=== PATIENT | male | born 1950 | race Caucasian/White ===

== ENCOUNTER 2016-07-08 18:54 | Emergency (ER) | payer BC, OTHER ==
[2016-07-08 19:04] VITALS: TEMP 98
[2016-07-08] MEDS ORDERED: DIAZEPAM 5 MG TAB PO STA (19:28)
[2016-07-08] MEDS ORDERED: HYDROcodone/APAP 5-325MG 1 EACH TAB PO STA (19:28)
--- NOTE | 2016-07-08 19:37 | ED ---
General Adult HPI - General Chief complaint: Back Pain/Injury Stated complaint: Fall-Back Injury Time Seen by Provider: 07/08/16 19:07 Source: patient, family, RN notes reviewed Mode of arrival: wheelchair Limitations: no limitations - History of Present Illness Initial comments: 65-year-old male presenting for right lower back pain. Patient states that he tripped while he was getting out of his van and fell hitting the side step on side of his vehicle. He was able to ambulate afterwards. However since this time he said significant pain in the right lower back. Denies any radiation the pain in the legs. He denies any saddle paresthesias or urinary incontinence. He denies any head or neck injury or loss of consciousness. He is not on any blood thinners. - Related Data Home Medications Medication Instructions Recorded Confirmed Atenolol 100 mg PO BID 12/02/14 07/08/16 Benazepril HCl 40 mg PO DAILY 12/02/14 07/08/16 Aspirin 325 mg PO HS 07/08/16 07/08/16 Hydrochlorothiazide 25 mg PO DAILY 07/08/16 07/08/16 Previous Rx's Medication Instructions Recorded Diazepam [Valium] 5 mg PO BID PRN #8 tab 07/08/16 HYDROcodone/APAP 5-325MG [Alloy 1 tab PO Q6HR PRN #12 tab 07/08/16 5-325] Ibuprofen [Motrin] 800 mg PO Q8HR PRN #21 tab 07/08/16 Allergies Allergy/AdvReac Type Severity Reaction Status Date / Time No Known Allergies Allergy Verified 07/08/16 19:19 Review of Systems ROS Statement: Those systems with pertinent positive or pertinent negative responses have been documented in the HPI. ROS Other: All systems not noted in ROS Statement are negative. Past Medical History Past Medical History: Cancer, Hypertension Additional Past Medical History / Comment(s): HX SKIN CA, CURRENT LESION ON LEFT CHEEK History of Any Multi-Drug Resistant Organisms: None Reported Past Surgical History: Back Surgery, Heart Catheterization, Joint Replacement, Orthopedic Surgery Additional Past Surgical History / Comment(s): PREVIOUS SKIN CA LESIONS REMOVED , HIP REPLACEMENT, ANKLE ORIF WITH METAL Past Anesthesia/Blood Transfusion Reactions: No Reported Reaction Past Psychological History: No Psychological Hx Reported Smoking Status: Never smoker Past Alcohol Use History: Daily Past Drug Use History: None Reported - Past Family History Mother Family Medical History: Cancer, Deep Vein Thrombosis (DVT) Additional Family Medical History / Comment(s): BREAST CA General Exam - General Exam Comments Initial Comments: General: Awake and Alert. No acute distress. Does not appear acutely ill. Eyes: TOVA, EOM intact. No nystagmus. No scleral icterus. HENT: Atraumatic, normocephalic. Mucous membranes moist. Trachea midline. Neck: The neck is supple, there is no tenderness or JVD. Cardiovascular: Regular rate and rhythm. No murmur, rub, or gallop is appreciated. Distal pulses intact. Respiratory: Lungs are clear to auscultation bilaterally. No wheezes, rales, rhonchi. No respiratory distress. Gastrointestinal: Soft, Nontender. No rebound or guarding. Non-distended. No masses or organomegaly noted. Right flank tenderness. Musculoskeletal: Right lower back tenderness with spasm otherwise MSK exam with normal ROM. No gross deformity. No strength deficits. Neurological: A&Ox3. CN II-XII grossly intact, There are no obvious motor or sensory deficits. Coordination appears grossly intact. Speech is normal. Gait intact. No saddle paresthesias. Skin: Skin is warm and dry and no rashes or lesions are noted. Psychiatric: Cooperative, appropriate mood & affect, normal judgment. Limitations: no limitations Course Vital Signs 07/08/16 07/08/16 19:00 20:15 Temperature 98.0 F Pulse Rate 51 L 74 Respiratory 18 16 Rate Blood Pressure 184/86 158/77 O2 Sat by Pulse 99 97 Oximetry Medical Decision Making - Medical Decision Making 65-year-old male presenting for right lower back injury. Patient with muscle spasm associated with this. There is no significant force directly in the spine requiring imaging at this time. However, UA performed to rule out hematuria for possible kidney injury. This is negative. Patient was given pain medicine and muscle relaxer with improvement of his symptoms. Discussed no heavy lifting. Discussed heat, NSAIDs, stretching. Discussed close follow- up with his PCP. Discussed concerning signs and symptoms for immediate return to ED. Patient and are agreeable with plan of discharge home. Patient was able to ambulate without issue. - Lab Data Lab Results 07/08/16 Range/Units 19:41 Urine Color Yellow Urine Appearance Clear (Clear) Urine pH 5.5 (5.0-8.0) Ur Specific [place] 1.008 (1.001-1.035) Urine Protein Negative (Negative) Urine Glucose (UA) Negative (Negative) Urine Ketones Negative (Negative) Urine Blood Negative (Negative) Urine Nitrate Negative (Negative) Urine Bilirubin Negative (Negative) Urine Urobilinogen <2.0 (<2.0) mg/dL Ur Leukocyte Esterase Negative (Negative) Disposition Clinical Impression: Right low back pain, Fall Disposition: HOME SELF-CARE Condition: Stable Instructions: Acute Low Back Pain (ED) Prescriptions: Diazepam [Valium] 5 mg PO BID PRN #8 tab PRN Reason: back spasm HYDROcodone/APAP 5-325MG [Alloy 5-325] 1 tab PO Q6HR PRN #12 tab PRN Reason: Pain Ibuprofen [Motrin] 800 mg PO Q8HR PRN #21 tab PRN Reason: Pain Referrals: Phil Winslow DO [Primary Care Provider] - 1-2 days Time of Disposition: 20:06
[2016-07-08 20:03] LABS: Appearance,Urine Clear (Clear); Bilirubin,Urine Negative (Negative); Glucose,Urine (UA) Negative (Negative); Ketones,Urine Negative (Negative); Leukocyte Esterase,Urine Negative (Negative); Nitrite,Urine Negative (Negative); PH, Urine 5.5 (5.0-8.0); Protein,Urine Negative (Negative); Specific Gravity,Urine 1.008 (1.001-1.035); UA Billing (MACRO vs. MICRO) CHEM; Urobilinogen,Urine <2.0 mg/dL (<2.0)
[2016-07-08 20:16] VITALS: BP 158/77; PULSE 74; RESP 16
== END 2016-07-08 20:16 | disposition home or self-care (01) ==
LOC: EC 18:54
DX: M54.5 Low back pain (principal); W01.0XXA Fall on same level from slipping, tripping and stumbling without subsequent striking against object, initial encounter; Z79.82 Long term (current) use of aspirin; Z79.899 Other long term (current) drug therapy; Z98.61 Coronary angioplasty status; Z85.828 Personal history of other malignant neoplasm of skin
CPT/HCPCS: 81003; 99283

== ENCOUNTER → 2016-12-06 | Outpatient (CLI) | payer MEDICARE, OTHER ==
--- NOTE | 2016-12-06 16:30 | XR ---
EXAMINATION TYPE: XR chest 2V DATE OF EXAM: 12/06/2016 COMPARISON: NONE HISTORY: Pneumonia, acute bronchitis, J 20.8 TECHNIQUE: Frontal and lateral views of the chest are obtained. FINDINGS: Patient is rotated. Airspace disease is present in the right lower lobe. Prominent lung vo lumes may be indicative of COPD. No pneumothorax or pleural effusion. Heart size accentuated by rotat ion. There may be a spinal curvature. IMPRESSION: Findings compatible with right lower lobe pneumonia, follow-up to resolution.
== END | disposition home or self-care (01) ==
LOC: RADXRMAIN 14:31
PROVIDERS: ATTEND Family Medicine
DX: J20.8 Acute bronchitis due to other specified organisms (principal)
CPT/HCPCS: 71020

== ENCOUNTER → 2017-06-14 | Outpatient (CLI) | payer MEDICARE ==
--- NOTE | 2017-06-14 10:57 | XR ---
EXAMINATION TYPE: XR chest 2V DATE OF EXAM: 06/14/2017 COMPARISON: 06/13/2017 TECHNIQUE: PA and lateral views submitted with nipple markers. HISTORY: Cough FINDINGS: The lungs are clear and there is no pneumothorax, pleural effusion, or focal pneumonia. Hypertrophi c and degenerative change of the spine noted. Linear change right upper lobe scar or atelectasis. Nodularity noted in the previous exam corresponds to nipple marker\shadow. Hypertrophic degenerative change of the spine with compression deformities appearing to be stable. IMPRESSION: 1. No acute process. 2. Nodularity at the right lung base corresponds to the nipple marker.
== END | disposition home or self-care (01) ==
LOC: RADXRMAIN 10:30
PROVIDERS: ATTEND Family Medicine
DX: R91.8 Other nonspecific abnormal finding of lung field (principal)
CPT/HCPCS: 71020

== ENCOUNTER → 2017-09-13 | Outpatient (CLI) | payer MEDICARE | END | disposition home or self-care (01) | LOC: LABWHC1 10:49 | PROVIDERS: ATTEND Otolaryngology | DX: R94.31 Abnormal electrocardiogram [ECG] [EKG] (principal); R00.1 Bradycardia, unspecified; I10 Essential (primary) hypertension | CPT/HCPCS: 36415; 93005 ==

== ENCOUNTER → 2019-01-26 | Outpatient (CLI) | payer MEDICARE ==
--- NOTE | 2019-01-26 12:22 | XR ---
EXAMINATION TYPE: XR chest 2V DATE OF EXAM: 01/26/2019 COMPARISON: 06/14/2017 TECHNIQUE: PA and lateral views submitted. HISTORY: Annual physical FINDINGS: The lungs are clear and there is no pneumothorax, pleural effusion, or focal pneumonia. There is re duced inspiration. No overt failure. Biapical pleural thickening. Arthropathy of the shoulders. Hyper trophic change of the spine. Chronic appearing wedge deformity of the thoracolumbar junction stable. IMPRESSION: 1. No acute process.
== END ==
LOC: RADXRMAIN 11:56
PROVIDERS: ATTEND Family Medicine
DX: I10 Essential (primary) hypertension (principal)
CPT/HCPCS: 71046

== ENCOUNTER → 2019-02-14 | Outpatient (CLI) | payer MEDICARE ==
--- NOTE | 2019-02-15 08:25 | CT ---
EXAMINATION TYPE: CT soft tissue neck w con DATE OF EXAM: 02/14/2019 HISTORY: LT side neck mass. Pt says its grown and now is painful and causing him issues. Marked w/BB. COMPARISON: NONE CT DLP: 671.30 mGycm. Automated Exposure Control for Dose Reduction was Utilized. TECHNIQUE: CT scan of the neck is performed with IV Contrast, patient injected with 100 mL of Isovue 300, axial images are obtained, coronal and sagittal reformatted images are reviewed. FINDINGS: Airway: There is spiculated right upper lobe mass measuring 3.8 x 2.2 cm anteriorly axial image 19. T here is second spiculated right upper lobe nodule measuring 2.1 x 1.8 cm axial image 25. Parotid/submandibular glands: No gross abnormality seen. Carotid/Vascular Structures: Mild calcified plaque bilateral carotid bulbs without significant stenos is. Incidental dominant left vertebral artery. Osseous Structures: [id number] multilevel spurring. There is mild to moderate anterior compress ion deformity T6 level sagittal image 48 favor chronic. Other: Corresponding to palpable abnormality axial image 58 there is cystic lesion left neck posterio r cervical triangle adjacent to the C4 vertebra posterior to SCM measuring 4.8 x 4.2 cm AP diameter b y 3.7 cm craniocaudal diameter and sagittal image 66. The lesion has some rim and septal enhancement with slight loculation. Lesion is posterior lateral to the carotid bifurcation. There are prominent b ut subcentimeter bilateral neck lymph nodes seen superior to this. There is however suspicious left n delia low dense lesion inferior lateral to this measuring 1.8 x 1.6 cm a level of vocal cord just anter ior to the scapula, Hounsfield units average 25. IMPRESSION: 1. There are 2 suspicious right upper lung nodules and/or masses worrisome for metastatic malignancy. Advise follow-up contrast enhanced chest CT to evaluate for possible additional nodules and/or thora cic adenopathy. 2. Confirmation of mass level of palpable abnormality left neck posterior cervical triangle. Differen tial includes lymphangioma and infected brachial cleft cyst however neoplasm needs to be considered. Necrotic lymph node and neurogenic tumor are in the differential. Follow-up advised. Metastatic disea se suspected. Consider PET CT follow-up. Consider sampling of left supraclavicular lesion for tissue analysis.
== END | disposition home or self-care (01) ==
LOC: RADCTMAIN 15:57
PROVIDERS: ATTEND Otolaryngology
DX: R22.1 Localized swelling, mass and lump, neck (principal)
CPT/HCPCS: 82565; 84520; 70491; 36415; Q9967

== ENCOUNTER → 2019-02-23 | Outpatient (CLI) | payer MEDICARE ==
--- NOTE | 2019-02-23 11:28 | CT ---
EXAMINATION TYPE: CT chest w con DATE OF EXAM: 02/23/2019 COMPARISON: CT neck 02/14/2019 HISTORY: Lung Mass CT DLP: 423.3 mGycm, Automated exposure control for dose reduction was used. CONTRAST: Performed injected with 100 mL of Isovue 300. TECHNIQUE: Axial images were obtained at 5 mm thick sections. Reconstructed images are reviewed on [employer] computer in the coronal plane. FINDINGS: Portion of the thyroid visualized is normal. There is a 4.1 x 2.9 cm spiculated density within the anterior right upper lobe. Series 4 image 15. L obular nodule spiculated margins measuring 2.3 x 2.0 cm cyst in the right peripheral upper lobe. Seri es 4 image 13. There are some streak opacities which connect these 2 areas. Coronary artery calcifica tion is present. No suspicious enlarged mediastinal or hilar lymphadenopathy is evident. No enlarged mediastinal or hilar adenopathy is evident. The ascending aorta diameter at the level o f the main pulmonary artery is 3.7 cm. The main pulmonary artery diameter at the bifurcation is 2.[address] sections are obtained through the upper abdomen. Abdomen is essentially unremarkable. IMPRESSIONS: 1. 2 suspicious spiculated masses within the right upper lobe. Additional workup for neoplasm is ruth mmended.
== END | disposition home or self-care (01) ==
LOC: RADCTMAIN 07:01
PROVIDERS: ATTEND Otolaryngology
DX: R91.8 Other nonspecific abnormal finding of lung field (principal)
CPT/HCPCS: 71260; Q9967

== ENCOUNTER 2019-03-07 22:06 | Emergency (ER) | payer MEDICARE ==
[2019-03-07 22:19] VITALS: RESP 18
[2019-03-07] MEDS ORDERED: IPRATROPIUM 0.5 MG/2.5 ML NEBU INHALATION STA (22:28)
--- NOTE | 2019-03-07 22:45 | ED ---
SOB HPI - General Chief Complaint: Shortness of Breath Stated Complaint: Diff Breathing Time Seen by Provider: 03/07/19 22:07 Source: EMS Mode of arrival: EMS - History of Present Illness Initial Comments: This patient is a 68-year-old man who presents to be evaluated for which he is terming a coughing jag. Patient states that approximately 2 hours before arrival, while at the bar, he developed "coughing jag," which triggered an episode of vomiting and he also felt like he was not able to catch his breath. When it continued he spoke with his and they decided to come here for evaluation. 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 The patient denies fever or chills. He does have sporadic cough but states not really productive. No chest pain area no real dyspnea other than during the coughing episode. No leg pain or swelling. No change in bowel movements or urination. MD Complaint: shortness of breath, cough Onset/Timin -: hour(s) Severity scale (1-10): 0 Improves With: oxygen Worsens With: nothing Associated Symptoms: denies other symptoms Treatments Prior to Arrival: none - Related Data Home Medications Medication Instructions Recorded Confirmed Benazepril HCl 40 mg PO DAILY 12/02/14 03/07/19 Aspirin 325 mg PO HS 07/08/16 03/07/19 Hydrochlorothiazide 25 mg PO DAILY 07/08/16 03/07/19 Atenolol [Tenormin] 100 mg PO BID 03/07/19 03/07/19 Previous Rx's Medication Instructions Recorded Albuterol Inhaler [Ventolin Hfa 1 - 2 puff INHALATION Q6HR PRN #1 03/08/19 Inhaler] inhaler predniSONE 40 mg PO DAILY #30 tab 03/08/19 Allergies Allergy/AdvReac Type Severity Reaction Status Date / Time No Known Allergies Allergy Verified 03/07/19 22:23 Review of Systems ROS Statement: Those systems with pertinent positive or pertinent negative responses have been documented in the HPI. ROS Other: All systems not noted in ROS Statement are negative. Constitutional: Denies: fever, chills ENT: Denies: throat pain Respiratory: Reports: as per HPI, cough, dyspnea. Denies: wheezes, hemoptysis Cardiovascular: Denies: chest pain, palpitations, dyspnea on exertion, orthopnea, edema, syncope Gastrointestinal: Reports: as per HPI, vomiting. Denies: abdominal pain, nausea, melena, hematochezia Genitourinary: Denies: dysuria, hematuria Musculoskeletal: Denies: back pain Skin: Denies: rash Neurological: Denies: headache, weakness, numbness Past Medical History Past Medical History: Cancer, Hypertension Additional Past Medical History / Comment(s): HX SKIN CA, CURRENT LESION ON LEFT CHEEK History of Any Multi-Drug Resistant Organisms: None Reported Past Surgical History: Back Surgery, Heart Catheterization, Joint Replacement, Orthopedic Surgery Additional Past Surgical History / Comment(s): PREVIOUS SKIN CA LESIONS REMOVED, HIP REPLACEMENT, ANKLE ORIF WITH METAL Past Anesthesia/Blood Transfusion Reactions: No Reported Reaction Past Psychological History: No Psychological Hx Reported Smoking Status: Never smoker Past Alcohol Use History: Daily Past Drug Use History: None Reported - Past Family History Mother Family Medical History: Cancer, Deep Vein Thrombosis (DVT) Additional Family Medical History / Comment(s): BREAST CA General Exam General appearance: alert, in no apparent distress Head exam: Present: atraumatic, normocephalic Eye exam: Present: normal appearance. Absent: scleral icterus, conjunctival injection ENT exam: Present: normal oropharynx Neck exam: Present: other (The patient has an approximately 6 cm x 3 cm palpable mass at the base of the neck on the left side. There is some erythema and sca ling overlying. There is no real tenderness.) Respiratory exam: Present: wheezes. Absent: respiratory distress, rales, rhonchi, stridor, accessory muscle use, decreased breath sounds, prolonged expiratory Cardiovascular Exam: Present: regular rate, normal rhythm, normal heart sounds. Absent: systolic murmur, diastolic murmur, rubs, gallop GI/Abdominal exam: Present: soft. Absent: distended, tenderness, guarding, rebound, rigid, mass Extremities exam: Present: normal inspection, normal capillary refill. Absent: pedal edema, calf tenderness Back exam: Present: normal inspection. Absent: CVA tenderness (R), CVA tenderness (L) Neurological exam: Present: alert Skin exam: Present: warm, dry, intact, normal color. Absent: rash Course Vital Signs 03/07/19 03/07/19 03/07/19 22:09 22:45 23:13 Temperature 98.3 F Pulse Rate 82 88 Respiratory 18 20 18 Rate Blood Pressure 169/110 O2 Sat by Pulse 98 Oximetry 03/07/19 23:19 Temperature Pulse Rate 90 Respiratory 18 Rate Blood Pressure O2 Sat by Pulse Oximetry Medical Decision Making - Lab Data Result diagrams: 03/07/19 22:50 03/07/19 22:50 Lab Results 03/07/19 03/07/19 03/07/19 Range/Units 22:50 22:50 22:50 WBC 8.8 (3.8-10.6) k/uL RBC 4.66 (4.30-5.90) m/uL Hgb 10.2 L (13.0-17.5) gm/dL Hct 33.4 L (39.0-53.0) % MCV 71.6 L (80.0-100.0) fL MCH 21.9 L (25.0-35.0) pg MCHC 30.5 L (31.0-37.0) g/dL RDW 17.1 H (11.5-15.5) % Plt Count 326 (150-450) k/uL Neutrophils % 74 % Lymphocytes % 16 % Monocytes % 6 % Eosinophils % 1 % Basophils % 1 % Neutrophils # 6.5 (1.3-7.7) k/uL Lymphocytes # 1.4 (1.0-4.8) k/uL Monocytes # 0.5 (0-1.0) k/uL Eosinophils # 0.1 (0-0.7) k/uL Basophils # 0.1 (0-0.2) k/uL Hypochromasia Moderate Anisocytosis Slight Microcytosis Moderate PT (9.0-12.0) sec INR (<1.2) APTT (22.0-30.0) sec Sodium 129 L (137-145) mmol/L Potassium 3.7 (3.5-5.1) mmol/L Chloride 91 L (98-107) mmol/L Carbon Dioxide 21 L (22-30) mmol/L Anion Gap 17 mmol/L BUN 10 (9-20) mg/dL Creatinine 0.83 (0.66-1.25) mg/dL Est GFR (CKD-EPI)AfAm >90 (>60 ml/min/1.73 sqM) Est GFR (CKD-EPI)NonAf >90 (>60 ml/min/1.73 sqM) Glucose 95 (74-99) mg/dL Calcium 8.6 (8.4-10.2) mg/dL Total Bilirubin 0.6 (0.2-1.3) mg/dL AST 41 (17-59) U/L ALT 26 (21-72) U/L Alkaline Phosphatase 49 (38-126) U/L Troponin I (0.000-0.034) ng/mL NT-Pro-B Natriuret Pep 110 pg/mL Total Protein 7.8 (6.3-8.2) g/dL Albumin 4.2 (3.5-5.0) g/dL 03/07/19 03/07/19 Range/Units 22:50 22:50 WBC (3.8-10.6) k/uL RBC (4.30-5.90) m/uL Hgb (13.0-17.5) gm/dL Hct (39.0-53.0) % MCV (80.0-100.0) fL MCH (25.0-35.0) pg MCHC (31.0-37.0) g/dL RDW (11.5-15.5) % Plt Count (150-450) k/uL Neutrophils % % Lymphocytes % % Monocytes % % Eosinophils % % Basophils % % Neutrophils # (1.3-7.7) k/uL Lymphocytes # (1.0-4.8) k/uL Monocytes # (0-1.0) k/uL Eosinophils # (0-0.7) k/uL Basophils # (0-0.2) k/uL Hypochromasia Anisocytosis Microcytosis PT 10.2 (9.0-12.0) sec INR 0.9 (<1.2) APTT 21.4 L (22.0-30.0) sec Sodium (137-145) mmol/L Potassium (3.5-5.1) mmol/L Chloride (98-107) mmol/L Carbon Dioxide (22-30) mmol/L Anion Gap mmol/L BUN (9-20) mg/dL Creatinine (0.66-1.25) mg/dL Est GFR (CKD-EPI)AfAm (>60 ml/min/1.73 sqM) Est GFR (CKD-EPI)NonAf (>60 ml/min/1.73 sqM) Glucose (74-99) mg/dL Calcium (8.4-10.2) mg/dL Total Bilirubin (0.2-1.3) mg/dL AST (17-59) U/L ALT (21-72) U/L Alkaline Phosphatase (38-126) U/L Troponin I <0.012 (0.000-0.034) ng/mL NT-Pro-B Natriuret Pep pg/mL Total Protein (6.3-8.2) g/dL Albumin (3.5-5.0) g/dL - EKG Data EKG shows normal: sinus rhythm, axis (Normal), intervals (Normal), ST-T waves (Normal) Rate: normal (Rate 85 bpm) Interpretation: other (Q waves in lead 3 for possible old inferior infarct.) Disposition Clinical Impression: Bronchitis, Lung mass, Hyponatremia Disposition: HOME SELF-CARE Condition: Good Instructions (If sedation given, give patient instructions): Bronchospasm (ED), Hyponatremia (ED) Prescriptions: predniSONE 40 mg PO DAILY #30 tab Albuterol Inhaler [Ventolin Hfa Inhaler] 1 - 2 puff INHALATION Q6HR PRN #1 inhaler PRN Reason: Wheezing Is patient prescribed a controlled substance at d/c from ED?: No Referrals: Phil Winslow DO [Primary Care Provider] - 1-2 days
[2019-03-07 23:08] LABS: Anisocytosis Slight; Basophils # (A) 0.1 k/uL (0-0.2); Basophils % (A) 1 %; Eosinophils # (A) 0.1 k/uL (0-0.7); Eosinophils % (A) 1 %; HCT 33.4 % (39.0-53.0); HGB 10.2 gm/dL (13.0-17.5); Hypochromasia Moderate; Lymphocytes # (A) 1.4 k/uL (1.0-4.8); Lymphocytes % (A) 16 %; MCH 21.9 pg (25.0-35.0); MCHC 30.5 g/dL (31.0-37.0); MCV 71.6 fL (80.0-100.0); Mean Platelet Volume 6.5; Microcytosis Moderate; Monocytes # (A) 0.5 k/uL (0-1.0); Monocytes % (A) 6 %; Neutrophils # (A) 6.5 k/uL (1.3-7.7); Neutrophils % (A) 74 %; Platelet Count 326 k/uL (150-450); RBC 4.66 m/uL (4.30-5.90); RDW 17.1 % (11.5-15.5); WBC 8.8 k/uL (3.8-10.6)
[2019-03-07 23:16] LABS: ALT 26 U/L (21-72); AST 41 U/L (17-59); African American GFR (CKD) >90 (>60 ml/min/1.73 sqM); Albumin 4.2 g/dL (3.5-5.0); Alkaline Phosphatase 49 U/L (38-126); Anion Gap 17 mmol/L; Blood Urea Nitrogen 10 mg/dL (9-20); Calcium 8.6 mg/dL (8.4-10.2); Carbon Dioxide 21 mmol/L (22-30); Chloride 91 mmol/L (98-107); Glucose 95 mg/dL (74-99); Potassium 3.7 mmol/L (3.5-5.1); Sodium 129 mmol/L (137-145); Total Bilirubin 0.6 mg/dL (0.2-1.3); Total Protein 7.8 g/dL (6.3-8.2)
[2019-03-07 23:23] LABS: INR 0.9 (<1.2); Prothrombin Time 10.2 sec (9.0-12.0)
[2019-03-07 23:25] LABS: Partial Thromboplastin Time 21.4 sec (22.0-30.0)
--- NOTE | 2019-03-07 23:31 | XR ---
EXAM: XR Chest, 2 Views CLINICAL HISTORY: ITS.REASON XR Reason: difficulty breathing TECHNIQUE: Frontal and lateral views of the chest. COMPARISON: 01/26/19 FINDINGS: Lungs: Low lung volumes. Streaky density in the right upper lung is likely scarring. Pleural space: Unremarkable. No pneumothorax. Heart: Unremarkable. No cardiomegaly. Mediastinum: Unremarkable. Bones/joints: Unremarkable. IMPRESSION: No acute findings.
[2019-03-07] MEDS ORDERED: SODIUM CHLORIDE 0.9% 500 ML 500 ML IV STA (23:54)
[2019-03-08 01:13] VITALS: BP 141/83; PULSE 79; TEMP 98
== END 2019-03-08 01:37 | disposition home or self-care (01) ==
LOC: EC 22:06
DX: J40 Bronchitis, not specified as acute or chronic (principal); E87.1 Hypo-osmolality and hyponatremia; R91.8 Other nonspecific abnormal finding of lung field; I10 Essential (primary) hypertension; Z79.82 Long term (current) use of aspirin; Z79.899 Other long term (current) drug therapy; Z95.5 Presence of coronary angioplasty implant and graft; Z96.649 Presence of unspecified artificial hip joint; Z85.828 Personal history of other malignant neoplasm of skin
CPT/HCPCS: 36415; 71046; 80053; 83880; 84484; 85025; 85610; 85730; 93005; 94640; 96360; 99285

== ENCOUNTER → 2019-03-14 | Outpatient (CLI) | payer MEDICARE | END | disposition home or self-care (01) | LOC: CPPFTMAIN 08:18 | PROVIDERS: ATTEND Internal Medicine | DX: J44.9 Chronic obstructive pulmonary disease, unspecified (principal) | CPT/HCPCS: 94060; 94726; 94729 ==

== ENCOUNTER 2019-03-22 08:25 | Day surgery (SDC) | payer MEDICARE ==
[~2019-03-22 08:25] MED LIST: ALBUTEROL NEB (CONC) 2.5 MG/0.5 ML INHALATION ONE; LIDOCAINE 2% (PF) 20 MG/ML 5 ML VIAL INHALATION ONE; LIDOCAINE VISCOUS 300 MG/15 ML CUP MUCOUS MEM ONE; SODIUM CHLORIDE 0.9% 1,000 ML IV SCH
[2019-03-22 08:53] VITALS: TEMP 97.5
--- NOTE | 2019-03-22 10:13 | CT ---
EXAMINATION TYPE: CT Chest gregg Reeves Protocol DATE OF EXAM: 03/22/2019 COMPARISON: Soft tissue neck 02/14/2019, CT chest 02/23/2019 HISTORY: pulmonary nodule CT DLP: 524 mGycm, Automated exposure control for dose reduction was used. CONTRAST: Performed injected with 0 mL of Isovue 300. TECHNIQUE: Axial images were obtained at 5 mm thick sections. Reconstructed images are reviewed on [employer] computer in the coronal plane. FINDINGS: Portion of the thyroid visualized is normal. There is a 2.0 x 2.2 cm lobulated mass in the right apex. Series 11 image 18 a spiculated mass measur ing 2.6 cm in diameters and the anterior right upper lung field. Series 11 image 21. There is a large left supraclavicular hypodensity likely is an enlarged metastatic lymph node measuring 4.6 cm. Serie s 10 image 1. Additional lymph node in the supraclavicular region on the left measuring 1.5 cm. Serie s 10 image 4. Enlarged mediastinal lymph nodes are not evident. No suspicious hilar lymph nodes are e vident No enlarged mediastinal or hilar adenopathy is evident. The ascending aorta diameter at the level o f the main pulmonary artery is 3.9 cm. The main pulmonary artery diameter at the bifurcation is 2.4 cm. Coronary artery calcifications present. Limited CT sections are obtained through the upper abdomen. Abdomen is essentially unremarkable. IMPRESSIONS: 1. 2 masses right upper lobe. 2. Enlarged left supraclavicular adenopathy. The largest measuring 4.6 cm is only partially visualize d.
[2019-03-22] MEDS ORDERED: KETAMINE 10 MG/ML 20 ML VIAL ONE (11:12)
[2019-03-22] MEDS ORDERED: ePHEDrine SULFATE/0.9% NACL/PF 50 MG/5 ML SYRINGE IV ONE (11:12)
[2019-03-22] MEDS ORDERED: SUCCINYLCHOLINE CHLORIDE 100 MG/5 ML SYR IV ONE (11:12)
[2019-03-22] MEDS ORDERED: MIDAZOLAM 2 MG/2 ML VIAL ONE (11:12)
[2019-03-22] MEDS ORDERED: LIDOCAINE 1% INJ 10MG/ML (20 ML MDV) ONE (11:12)
[2019-03-22] MEDS ORDERED: NEOSTIGMINE 1 MG/ML 10 ML VIAL ONE (11:12)
[2019-03-22] MEDS ORDERED: HALOPERIDOL LACTATE 5 MG/ML 1 ML VIAL ONE (11:12)
[2019-03-22] MEDS ORDERED: GLYCOPYRROLATE 0.2 MG/ML 2 ML VIAL ONE (11:12)
[2019-03-22] MEDS ORDERED: PROPOFOL 10 MG/ML 20 ML VIAL IV ONE (11:12)
[2019-03-22] MEDS ORDERED: fentaNYL (PF) 50 MCG/ML 2 ML AMP ONE (11:12)
[2019-03-22] MEDS ORDERED: ROCURONIUM BROMIDE 10 MG/ML 10 ML VIAL IV ONE (11:12)
[2019-03-22] MEDS ORDERED: RACEPINEPHRINE 2.25% NEB 0.5 ML NEBU INHALATION ONE (12:02)
[2019-03-22] MEDS ORDERED: ALBUTEROL NEBULIZED 2.5 MG/3 ML INHALATION ONE (12:02)
[2019-03-22] MEDS ORDERED: DEXAMETHASONE SOD PHOSPHATE 4 MG/ML 1 ML VIAL IVP ONE (12:05)
--- NOTE | 2019-03-22 12:24 | PCN ---
PROCEDURE NOTE PREOPERATIVE DIAGNOSIS: Right upper lobe mass. POSTOPERATIVE DIAGNOSIS: Right upper lobe mass. PROCEDURE: Navigational bronchoscopy, transbronchial biopsy of right upper lobe lesions. This procedure was done in the operating room. The patient underwent a CT scan of the chest using the [facility] protocol. The CAT scans were reviewed and the 2 right upper lobe lesions were identified. One of the lesions was in the apical segment of the right upper lobe and the second was in the posterior segment of the right upper lobe. The lesions were mapped and all of this information was uploaded into a USB drive and later on brought in to the [facility]. The patient was brought into the operating room. Under the care of anesthesia, the patient was intubated and placed on a mechanical ventilator. The patient was adequately ventilated and oxygenated. The patient was intubated by a #9 oral tracheal tube. Following that, a flexible bronchoscope was inserted through the orotracheal tube and into the lower trachea. The distal trachea bilateral mainstem bronchi, right upper lobe bronchus, right middle lobe, right lower lobe bronchus, left upper lobe left lower bronchus along with various segments subsegments were all inspected and were within normal limits. No endobronchial tumors or abnormalities noted. The appropriate calibration was done using the primary esteban and the secondary esteban on the left as reference points. Following that, using navigational guidance, the bronchoscope was directed to the apical segment of the right upper lobe and under navigational guidance, transbronchial biopsies of the right upper lobe lesion was done with 100% accuracy. Following that, attempted to transbronchial biopsy of the posterior right upper lobe lesion. A few transbronchial biopsies were obtained and the lesion a few mm proximity. No endobronchial bleeding. Patient tolerated the procedure well without any complication. At the completion of the procedure, the patient was extubated. As the patient was being extubated, upper trachea was evaluated, was within normal limits. The vocal cords were also within normal limits. A quick look at the epiglottis and the vallecula and arytenoids showed no significant abnormalities. The patient was extubated by Anesthesia and the patient was transferred to recovery in stable condition. A chest x-ray to follow and if stable, the patient will be discharged home to follow up on an outpatient basis. MMODL / IJN: [id number] /
[2019-03-22 13:21] VITALS: RESP 18
[2019-03-22 13:35] VITALS: BP 114/70; PULSE 79
--- NOTE | 2019-03-22 13:53 | XR ---
EXAMINATION TYPE: XR chest 1V portable DATE OF EXAM: 03/22/2019 COMPARISON: Chest x-ray 03/07/2019 HISTORY: Right upper lobe lung mass, status post lung biopsy TECHNIQUE: Single frontal view of the chest is obtained. FINDINGS: Patchy density in the right upper lobe is again noted. There is no evident pneumothorax. L dinora volumes are low and the patient is rotated. No evident effusion. Heart is stable. IMPRESSION: No evident complication status post lung biopsy.
== END 2019-03-22 14:18 | disposition home or self-care (01) ==
LOC: ORWHC2ENDO 08:25
PROVIDERS: ATTEND Internal Medicine Critical Care Medicine
DX: C34.11 Malignant neoplasm of upper lobe, right bronchus or lung (principal); J84.10 Pulmonary fibrosis, unspecified; R22.1 Localized swelling, mass and lump, neck; C44.41 Basal cell carcinoma of skin of scalp and neck; J42 Unspecified chronic bronchitis; I10 Essential (primary) hypertension; Z77.090 Contact with and (suspected) exposure to asbestos; Z96.641 Presence of right artificial hip joint; Z79.82 Long term (current) use of aspirin; Z79.51 Long term (current) use of inhaled steroids; Z79.899 Other long term (current) drug therapy
CPT/HCPCS: 88305; 71045; 71250; 31628; 31627; J2250; J1630; J1100; J2710; J2001; J3010; J0330; J2704; 31625

== ENCOUNTER 2019-03-30 16:12 | Inpatient (IN) | payer MEDICARE ==
[2019-03-30] MEDS ORDERED: SODIUM CHLORIDE 0.9% 1,000 ML IV STA (16:40)
--- NOTE | 2019-03-30 16:49 | ED ---
General Adult HPI - General Chief complaint: Syncope Stated complaint: near syncope Time Seen by Provider: 03/30/19 16:35 Source: patient, family, EMS Mode of arrival: EMS Limitations: no limitations - History of Present Illness Initial comments: Patient presents to the ED by ambulance for evaluation with his at bedside. 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 Patient reports feeling intermittently dizzy for the past few days, and he states that he became dizzy again earlier today. Per EMS, the patient had a syncopal episode while in the ambulance. Per , the patient had a lung biopsy performed last , and he was diagnosed with lung cancer today. Patient also admits to having dark stools for the past few days. Patient denies having any pain, trauma or injury, fever or chills, headache, focal neuro deficit, chest pain, dyspnea, cough or cold symptoms, palpitations, abdominal pain, nausea or vomiting, diarrhea, dysuria or urinary symptoms, or any other symptoms or complaints. - Related Data Home Medications Medication Instructions Recorded Confirmed Benazepril HCl 40 mg PO DAILY 12/02/14 03/30/19 Aspirin 325 mg PO HS 07/08/16 03/30/19 Hydrochlorothiazide 25 mg PO DAILY 07/08/16 03/30/19 Atenolol [Tenormin] 100 mg PO BID 03/07/19 03/30/19 Albuterol Inhaler [Ventolin Hfa 1 - 2 puff INHALATION RT-Q4H PRN 03/30/19 03/30/19 Inhaler] Fluticasone/Vilanterol [Breo 1 puff INHALATION RT-DAILY 03/30/19 03/30/19 Ellipta 200-25 Mcg INH] Allergies Allergy/AdvReac Type Severity Reaction Status Date / Time No Known Allergies Allergy Verified 03/30/19 16:57 Review of Systems ROS Statement: Those systems with pertinent positive or pertinent negative responses have been documented in the HPI. ROS Other: All systems not noted in ROS Statement are negative. Past Medical History Past Medical History: Cancer, Hypertension Additional Past Medical History / Comment(s): HX SKIN CA, CURRENT LESION ON LEFT CHEEK History of Any Multi-Drug Resistant Organisms: None Reported Past Surgical History: Back Surgery, Heart Catheterization, Joint Replacement, Orthopedic Surgery Additional Past Surgical History / Comment(s): PREVIOUS SKIN CA LESIONS REMOVED, HIP REPLACEMENT, ANKLE ORIF WITH METAL Past Anesthesia/Blood Transfusion Reactions: No Reported Reaction Past Psychological History: No Psychological Hx Reported Smoking Status: Never smoker Past Alcohol Use History: Daily Past Drug Use History: None Reported - Past Family History Mother Family Medical History: Cancer, Deep Vein Thrombosis (DVT) Additional Family Medical History / Comment(s): BREAST CA General Exam Limitations: no limitations General appearance: alert, in no apparent distress Head exam: Present: atraumatic, normocephalic Eye exam: Present: normal appearance, PERRL, EOMI ENT exam: Present: mucous membranes moist Respiratory exam: Present: normal lung sounds bilaterally. Absent: respiratory distress, wheezes, rales, rhonchi Cardiovascular Exam: Present: normal rhythm, bradycardia, normal heart sounds, other (Weak, but palpable radial pulses bilaterally) GI/Abdominal exam: Present: soft. Absent: distended, tenderness, guarding Rectal exam: Present: normal rectal tone, other (Brown stool present in the rectal vault; ED RN was present during rectal examination). Absent: tenderness Neurological exam: Present: alert, oriented X3. Absent: motor sensory deficit Psychiatric exam: Present: normal affect, normal mood Skin exam: Present: warm, dry, intact, pallor Course Vital Signs 03/30/19 03/30/19 03/30/19 16:29 17:19 18:41 Temperature 98.4 F 98.5 F Pulse Rate 60 64 71 Respiratory 26 H 20 20 Rate Blood Pressure 70/47 92/57 105/64 O2 Sat by Pulse 100 96 99 Oximetry 03/30/19 19:45 Temperature 98.3 F Pulse Rate 69 Respiratory 15 Rate Blood Pressure 123/78 O2 Sat by Pulse 100 Oximetry - Reevaluation(s) Reevaluation #1: 03/30/19 19:40 Case, H&P, test results and ED management thus far were discussed with Dr. Feliciano who accepts hospital floor admission. He asked to place a consultation order for Dr. Maya (pulmonology). He has no further recommendations at this time. 03/30/19 20:03 Patient states that he is feeling much better now, and he denies development of any new symptoms while in the ED. Patient's blood pressure has now improved. Patient and are aware of the patient's test results, and they both agree with hospital admission at this time. EKG Findings - EKG Comments: EKG Findings:: Sinus bradycardia, ventricular rate of 54 bpm, normal RI and QRS intervals, normal QTc interval, normal axis, no ST or T-wave abnormality Medical Decision Making - Medical Decision Making Patient was initially hypotensive on arrival to the ED, but he was hydrated with a liter of normal saline, and his blood pressure has now improved. Patient is now feeling better. Patient's stool is occult blood negative. Patient's CT angiogram chest is negative for PE. Given the patient's syncopal episode and transient hypotension, will admit the patient to the hospital for further evaluation and monitoring. - Lab Data Result diagrams: 03/30/19 16:44 03/30/19 16:44 Lab Results 03/30/19 03/30/19 03/30/19 Range/Units 16:40 16:44 16:44 WBC 9.9 (3.8-10.6) k/uL RBC 4.45 (4.30-5.90) m/uL Hgb 10.1 L (13.0-17.5) gm/dL Hct 33.3 L (39.0-53.0) % MCV 74.8 L (80.0-100.0) fL MCH 22.6 L (25.0-35.0) pg MCHC 30.2 L (31.0-37.0) g/dL RDW 16.3 H (11.5-15.5) % Plt Count 354 (150-450) k/uL Neutrophils % 75 % Lymphocytes % 14 % Monocytes % 6 % Eosinophils % 1 % Basophils % 1 % Neutrophils # 7.5 (1.3-7.7) k/uL Lymphocytes # 1.4 (1.0-4.8) k/uL Monocytes # 0.6 (0-1.0) k/uL Eosinophils # 0.1 (0-0.7) k/uL Basophils # 0.1 (0-0.2) k/uL Hypochromasia Marked Anisocytosis Slight Microcytosis Slight PT (9.0-12.0) sec INR (<1.2) APTT (22.0-30.0) sec D-Dimer (<0.60) mg/L FEU Sodium 134 L (137-145) mmol/L Potassium 3.8 (3.5-5.1) mmol/L Chloride 97 L (98-107) mmol/L Carbon Dioxide 23 (22-30) mmol/L Anion Gap 14 mmol/L BUN 14 (9-20) mg/dL Creatinine 1.39 H (0.66-1.25) mg/dL Est GFR (CKD-EPI)AfAm 60 (>60 ml/min/1.73 sqM) Est GFR (CKD-EPI)NonAf 52 (>60 ml/min/1.73 sqM) Glucose 110 H (74-99) mg/dL Lactic Ac Sepsis Rflx Plasma Lactic Acid Jose Manuel (0.7-2.0) mmol/L Calcium 9.1 (8.4-10.2) mg/dL Magnesium 1.9 (1.6-2.3) mg/dL Total Bilirubin 0.7 (0.2-1.3) mg/dL AST 40 (17-59) U/L ALT 39 (21-72) U/L Alkaline Phosphatase 62 (38-126) U/L Troponin I (0.000-0.034) ng/mL Total Protein 7.2 (6.3-8.2) g/dL Albumin 3.8 (3.5-5.0) g/dL Urine Color Urine Appearance (Clear) Urine pH (5.0-8.0) Ur Specific Milliken (1.001-1.035) Urine Protein (Negative) Urine Glucose (UA) (Negative) Urine Ketones (Negative) Urine Blood (Negative) Urine Nitrite (Negative) Urine Bilirubin (Negative) Urine Urobilinogen (<2.0) mg/dL Ur Leukocyte Esterase (Negative) Urine RBC (0-5) /hpf Urine WBC (0-5) /hpf Ur Squamous Epith Cells (0-4) /hpf Hyaline Casts (0-2) /lpf Urine Mucus (None) /hpf Stool Occult Blood (Negative) Blood Type O Positive Blood Type Confirm Blood Type Recheck No Previous Record Bld Type Recheck Status CABO Indicated Antibody Screen NEGATIVE Spec Expiration Date 04/02/2019 - 234003/30/19 03/30/19 03/30/19 Range/Units 16:44 16:44 16:44 WBC (3.8-10.6) k/uL RBC (4.30-5.90) m/uL Hgb (13.0-17.5) gm/dL Hct (39.0-53.0) % MCV (80.0-100.0) fL MCH (25.0-35.0) pg MCHC (31.0-37.0) g/dL RDW (11.5-15.5) % Plt Count (150-450) k/uL Neutrophils % % Lymphocytes % % Monocytes % % Eosinophils % % Basophils % % Neutrophils # (1.3-7.7) k/uL Lymphocytes # (1.0-4.8) k/uL Monocytes # (0-1.0) k/uL Eosinophils # (0-0.7) k/uL Basophils # (0-0.2) k/uL Hypochromasia Anisocytosis Microcytosis PT 10.3 (9.0-12.0) sec INR 1.0 (<1.2) APTT 22.8 (22.0-30.0) sec D-Dimer (<0.60) mg/L FEU Sodium (137-145) mmol/L Potassium (3.5-5.1) mmol/L Chloride (98-107) mmol/L Carbon Dioxide (22-30) mmol/L Anion Gap mmol/L BUN (9-20) mg/dL Creatinine (0.66-1.25) mg/dL Est GFR (CKD-EPI)AfAm (>60 ml/min/1.73 sqM) Est GFR (CKD-EPI)NonAf (>60 ml/min/1.73 sqM) Glucose (74-99) mg/dL Lactic Ac Sepsis Rflx Plasma Lactic Acid Jose Manuel 2.2 H* (0.7-2.0) mmol/L Calcium (8.4-10.2) mg/dL Magnesium (1.6-2.3) mg/dL Total Bilirubin (0.2-1.3) mg/dL AST (17-59) U/L ALT (21-72) U/L Alkaline Phosphatase (38-126) U/L Troponin I <0.012 (0.000-0.034) ng/mL Total Protein (6.3-8.2) g/dL Albumin (3.5-5.0) g/dL Urine Color Urine Appearance (Clear) Urine pH (5.0-8.0) Ur Specific Mill[place] (1.001-1.035) Urine Protein (Negative) Urine Glucose (UA) (Negative) Urine Ketones (Negative) Urine Blood (Negative) Urine Nitrite (Negative) Urine Bilirubin (Negative) Urine Urobilinogen (<2.0) mg/dL Ur Leukocyte Esterase (Negative) Urine RBC (0-5) /hpf Urine WBC (0-5) /hpf Ur Squamous Epith Cells (0-4) /hpf Hyaline Casts (0-2) /lpf Urine Mucus (None) /hpf Stool Occult Blood (Negative) Blood Type Blood Type Confirm Blood Type Recheck Bld Type Recheck Status Antibody Screen Spec Expiration Date 03/30/19 03/30/19 03/30/19 Range/Units 16:44 16:44 17:18 WBC (3.8-10.6) k/uL RBC (4.30-5.90) m/uL Hgb (13.0-17.5) gm/dL Hct (39.0-53.0) % MCV (80.0-100.0) fL MCH (25.0-35.0) pg MCHC (31.0-37.0) g/dL RDW (11.5-15.5) % Plt Count (150-450) k/uL Neutrophils % % Lymphocytes % % Monocytes % % Eosinophils % % Basophils % % Neutrophils # (1.3-7.7) k/uL Lymphocytes # (1.0-4.8) k/uL Monocytes # (0-1.0) k/uL Eosinophils # (0-0.7) k/uL Basophils # (0-0.2) k/uL Hypochromasia Anisocytosis Microcytosis PT (9.0-12.0) sec INR (<1.2) APTT (22.0-30.0) sec D-Dimer 0.82 H (<0.60) mg/L FEU Sodium (137-145) mmol/L Potassium (3.5-5.1) mmol/L Chloride (98-107) mmol/L Carbon Dioxide (22-30) mmol/L Anion Gap mmol/L BUN (9-20) mg/dL Creatinine (0.66-1.25) mg/dL Est GFR (CKD-EPI)AfAm (>60 ml/min/1.73 sqM) Est GFR (CKD-EPI)NonAf (>60 ml/min/1.73 sqM) Glucose (74-99) mg/dL Lactic Ac Sepsis Rflx Y Plasma Lactic Acid Jose Manuel (0.7-2.0) mmol/L Calcium (8.4-10.2) mg/dL Magnesium (1.6-2.3) mg/dL Total Bilirubin (0.2-1.3) mg/dL AST (17-59) U/L ALT (21-72) U/L Alkaline Phosphatase (38-126) U/L Troponin I (0.000-0.034) ng/mL Total Protein (6.3-8.2) g/dL Albumin (3.5-5.0) g/dL Urine Color Urine Appearance (Clear) Urine pH (5.0-8.0) Ur Specific Milliken (1.001-1.035) Urine Protein (Negative) Urine Glucose (UA) (Negative) Urine Ketones (Negative) Urine Blood (Negative) Urine Nitrite (Negative) Urine Bilirubin (Negative) Urine Urobilinogen (<2.0) mg/dL Ur Leukocyte Esterase (Negative) Urine RBC (0-5) /hpf Urine WBC (0-5) /hpf Ur Squamous Epith Cells (0-4) /hpf Hyaline Casts (0-2) /lpf Urine Mucus (None) /hpf Stool Occult Blood Negative (Negative) Blood Type Blood Type Confirm Blood Type Recheck Bld Type Recheck Status Antibody Screen Spec Expiration Date 03/30/19 03/30/19 Range/Units 17:45 19:30 WBC (3.8-10.6) k/uL RBC (4.30-5.90) m/uL Hgb (13.0-17.5) gm/dL Hct (39.0-53.0) % MCV (80.0-100.0) fL MCH (25.0-35.0) pg MCHC (31.0-37.0) g/dL RDW (11.5-15.5) % Plt Count (150-450) k/uL Neutrophils % % Lymphocytes % % Monocytes % % Eosinophils % % Basophils % % Neutrophils # (1.3-7.7) k/uL Lymphocytes # (1.0-4.8) k/uL Monocytes # (0-1.0) k/uL Eosinophils # (0-0.7) k/uL Basophils # (0-0.2) k/uL Hypochromasia Anisocytosis Microcytosis PT (9.0-12.0) sec INR (<1.2) APTT (22.0-30.0) sec D-Dimer (<0.60) mg/L FEU Sodium (137-145) mmol/L Potassium (3.5-5.1) mmol/L Chloride (98-107) mmol/L Carbon Dioxide (22-30) mmol/L Anion Gap mmol/L BUN (9-20) mg/dL Creatinine (0.66-1.25) mg/dL Est GFR (CKD-EPI)AfAm (>60 ml/min/1.73 sqM) Est GFR (CKD-EPI)NonAf (>60 ml/min/1.73 sqM) Glucose (74-99) mg/dL Lactic Ac Sepsis Rflx Plasma Lactic Acid Jose Manuel (0.7-2.0) mmol/L Calcium (8.4-10.2) mg/dL Magnesium (1.6-2.3) mg/dL Total Bilirubin (0.2-1.3) mg/dL AST (17-59) U/L ALT (21-72) U/L Alkaline Phosphatase (38-126) U/L Troponin I (0.000-0.034) ng/mL Total Protein (6.3-8.2) g/dL Albumin (3.5-5.0) g/dL Urine Color Yellow Urine Appearance Clear (Clear) Urine pH 6.5 (5.0-8.0) Ur Specific Milliken 1.009 (1.001-1.035) Urine Protein Trace H (Negative) Urine Glucose (UA) Negative (Negative) Urine Ketones Negative (Negative) Urine Blood Moderate H (Negative) Urine Nitrite Negative (Negative) Urine Bilirubin Negative (Negative) Urine Urobilinogen <2.0 (<2.0) mg/dL Ur Leukocyte Esterase Negative (Negative) Urine RBC 97 H (0-5) /hpf Urine WBC 16 H (0-5) /hpf Ur Squamous Epith Cells 1 (0-4) /hpf Hyaline Casts 4 H (0-2) /lpf Urine Mucus Rare H (None) /hpf Stool Occult Blood (Negative) Blood Type Blood Type Confirm O Positive Blood Type Recheck Bld Type Recheck Status Antibody Screen Spec Expiration Date - Radiology Data Radiology results: report reviewed (CT head is negative for acute intracranial abnormality; CT angiogram chest is negative for pulmonary embolism, and shows right upper lobe masses and patchy left posterior atelectasis), image reviewed (Chest x-ray shows poor inspiration and right upper lobe atelectasis) Disposition Clinical Impression: Syncope, Anemia Disposition: ADMITTED IP TO THIS [facility] Condition: Stable Is patient prescribed a controlled substance at d/c from ED?: No Time of Disposition: 19:40 Decision Date: 03/30/19 Decision Time: 19:33
[2019-03-30 17:02] LABS: Anisocytosis Slight; Basophils # (A) 0.1 k/uL (0-0.2); Basophils % (A) 1 %; Eosinophils # (A) 0.1 k/uL (0-0.7); Eosinophils % (A) 1 %; HCT 33.3 % (39.0-53.0); HGB 10.1 gm/dL (13.0-17.5); Hypochromasia Marked; Lymphocytes # (A) 1.4 k/uL (1.0-4.8); Lymphocytes % (A) 14 %; MCH 22.6 pg (25.0-35.0); MCHC 30.2 g/dL (31.0-37.0); MCV 74.8 fL (80.0-100.0); Microcytosis Slight; Monocytes # (A) 0.6 k/uL (0-1.0); Monocytes % (A) 6 %; Neutrophils # (A) 7.5 k/uL (1.3-7.7); Neutrophils % (A) 75 %; Platelet Count 354 k/uL (150-450); RBC 4.45 m/uL (4.30-5.90); RDW 16.3 % (11.5-15.5); WBC 9.9 k/uL (3.8-10.6)
[2019-03-30 17:10] LABS: Partial Thromboplastin Time 22.8 sec (22.0-30.0); Prothrombin Time 10.3 sec (9.0-12.0)
[2019-03-30 17:13] LABS: Albumin 3.8 g/dL (3.5-5.0); Calcium 9.1 mg/dL (8.4-10.2); Magnesium 1.9 mg/dL (1.6-2.3); Potassium 3.8 mmol/L (3.5-5.1); Total Bilirubin 0.7 mg/dL (0.2-1.3); Total Protein 7.2 g/dL (6.3-8.2)
--- NOTE | 2019-03-30 17:45 | XR ---
EXAMINATION TYPE: XR chest 2V DATE OF EXAM: 03/30/2019 COMPARISON: 03/22/2019 HISTORY: Syncope TECHNIQUE: Frontal and lateral views of the chest are obtained. FINDINGS: There is poor inspiration. There is elevated diaphragms. There is mild atelectasis right u pper lobe. There are chest leads. There is no heart failure. IMPRESSION: Atelectasis right upper lobe unchanged. Poor inspiration. Inspiration however improved c ompared to last exam.
--- NOTE | 2019-03-30 17:47 | CT ---
EXAMINATION TYPE: CT brain wo con DATE OF EXAM: 03/30/2019 COMPARISON: 12/16/2015 HISTORY: Syncope, Lung CA CT DLP: 1080.4 mGycm Automated exposure control for dose reduction was used. FINDINGS: There is mild cerebral cortical atrophy. There is no mass effect nor midline shift. There is no sign of intracranial hemorrhage. Calvarium is intact. I see no bony destructive process. There is no evide nce of cerebral edema. IMPRESSION: MILD ATROPHY. NO ACUTE INTRACRANIAL ABNORMALITY. NO CHANGE.
[2019-03-30] MEDS ORDERED: NALOXONE 0.4 MG/ML 1 ML VIAL IV PRN (19:42)
[2019-03-30 19:49] LABS: Appearance,Urine Clear (Clear); Bilirubin,Urine Negative (Negative); Blood,Urine Moderate (Negative); Color,Urine Yellow; Glucose,Urine (UA) Negative (Negative); Hyaline Casts,Urine 4 /lpf (0-2); Ketones,Urine Negative (Negative); Leukocyte Esterase,Urine Negative (Negative); Mucus,Urine Rare /hpf; Nitrite,Urine Negative (Negative); PH, Urine 6.5 (5.0-8.0); Protein,Urine Trace (Negative); RBC,Urine 97 /hpf (0-5); Specific Gravity,Urine 1.009 (1.001-1.035); Squamous Epithelial Cell,Urine 1 /hpf (0-4); Urobilinogen,Urine <2.0 mg/dL (<2.0)
--- NOTE | 2019-03-30 21:14 | CT ---
EXAMINATION TYPE: CT chest angio for PE DATE OF EXAM: 03/30/2019 COMPARISON: 02/23/2019 HISTORY: syncopal episode, elevated d-dimer, lung ca CT DLP: 492.5 mGycm Automated exposure control for dose reduction was used. CONTRAST: CT Chest for pulmonary embolism performed with with IV Contrast, patient injected with 78cc mL of Iso merced 370. FINDINGS: There are 3-D post processed images. There is a 3.5 cm somewhat spiculated infiltrate at the anterior superior aspect of the right pulmona ry hilum. There is some linear infiltrate and nodularity in the lateral right upper lobe. Nodule andrea ures 2 cm. There is no mediastinal adenopathy. Thoracic aorta is intact. There is no aneurysm or diss ection. I see no filling defects in the pulmonary arteries. There is minimal linear density at the le ft lung base. There is no pleural effusion. There is no pericardial effusion. Heart size is normal. IMPRESSION: No evidence of pulmonary embolism. Right upper lobe mass unchanged. Second larger right upper lobe mass at the superior right pulmonary hilum is increased compared to last exam and suggests progression of tumor. There is some new patchy atelectasis left posterior lung base compared to old exam.
[2019-03-30 22:06] VITALS: BMI 29.5
[2019-03-30] MEDS ORDERED: ALBUTEROL NEBULIZED 2.5 MG/3 ML INHALATION PRN (22:15)
[2019-03-30] MEDS ORDERED: ACETAMINOPHEN TAB 325 MG TAB PO PRN (22:15)
[2019-03-30] MEDS: SODIUM CHLORIDE 0.9% 1,000 ML IV SCH (22:29)
[2019-03-30] MEDS: ASPIRIN 325 MG TAB PO SCH (22:30)
[2019-03-30] MEDS: ATENOLOL 50 MG TAB PO SCH (22:30)
[2019-03-31 06:51] LABS: Albumin 3.4 g/dL (3.5-5.0); Calcium 8.8 mg/dL (8.4-10.2); Potassium 3.6 mmol/L (3.5-5.1); Total Bilirubin 0.6 mg/dL (0.2-1.3); Total Protein 6.5 g/dL (6.3-8.2)
[2019-03-31 07:00] LABS: Anisocytosis Slight; HCT 32.1 % (39.0-53.0); HGB 9.2 gm/dL (13.0-17.5); Hypochromasia Marked; MCHC 28.7 g/dL (31.0-37.0); MCV 76.8 fL (80.0-100.0); Mean Platelet Volume 7.1; Microcytosis Slight; Platelet Count 275 k/uL (150-450); RBC 4.18 m/uL (4.30-5.90); RDW 16.2 % (11.5-15.5); WBC 5.2 k/uL (3.8-10.6)
[2019-03-31] MEDS: SYMBICORT 160-4.5 MCG INHALER INHALATION SCH ×2 (08:31→19:51)
[2019-03-31] MEDS: SODIUM CHLORIDE 0.9% 1,000 ML IV SCH ×3 (08:39→21:53)
[2019-03-31] MEDS: ATENOLOL 50 MG TAB PO SCH ×2 (08:39→21:52)
[2019-03-31 08:49] LABS: Lymphocytes # (M) 0.68 k/uL (1.0-4.8); Monocytes # (M) 0.42 k/uL (0-1.0); Neutrophils % (M) 79 %; Nucleated Red Blood Cells 0 /100 WBC (0-0); Total Cells Counted 100
[2019-03-31 08:50] LABS: Poikilocytosis (M) Present
[2019-03-31] MEDS ORDERED: HYDROCHLOROTHIAZIDE 25 MG TAB PO SCH (09:00)
[2019-03-31] MEDS ORDERED: LISINOPRIL 20 MG TAB PO SCH (09:00)
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
--- NOTE | 2019-03-31 12:15 | P.CNPUL ---
History of Present Illness Consult date: 03/31/19 Requesting physician: Tosha Feliciano Reason for consult: other (Near syncope, new diagnosis of squamous cell lung cancer) Chief complaint: Syncope, weakness, diaphoresis History of present illness: This a very pleasant 68 year old gentleman who follows with Dr. Winslow as his primary care physician. He has history of hypertension, basal cell skin cancer on his left oriental orthodox with excision, arthritis. He is a lifelong nonsmoker though he worked at [employer] was exposed to asbestos, graphite and iron. He also worked in a plastics factory. He had been following with ENT regarding a left neck growth that was biopsied 2 and was nondiagnostic. There were some rare atypical epithelial cells suspicious for squamous cell carcinoma. CAT scan of the neck revealed lung masses as well. He was seen in our office originally on 03/20/2019. He had then undergone a navigational bronchoscopy with biopsies and this was confirmed to squamous cell carcinoma suspect lung primary. He was scheduled for a PET scan today. He was in our office yesterday for test results and the patient developed near syncopal episode was pale and diaphoretic and EMS was called. He did have a syncopal episode in the ambulance. Computed tomography scan of the brain revealed mild atrophy. No acute intracranial abnormalities. CT angiogram ruled out pulmonary embolism. There was noted right upper lobe mass which is unchanged compared to previous. The second large right upper lobe mass at the superior right pulmonary hilum is increased compared to previous. Some patchy atelectasis in the left lung base. EKG revealed sinus bradycardia with evidence of a previous inferior wall myocardial infarction. Troponins were negative. He was anemic at 10.1. Urine culture is pending. Echocardiogram pending. He is seen today in consultation on the on observation unit. He is awake and alert in no acute distress. No further episodes of near syncope. He currently denies any worsening shortness of b reath, cough or congestion. No chest pain or palpitations. White count 5.2. Hemoglobin 9.2. Sodium 136. Potassium 3.6. Creatinine 1.08. Review of Systems REVIEW OF SYSTEMS: CONSTITUTIONAL: Denies any recent significant weight loss or weight gain. EYES: Temporary change in vision. EARS, NOSE, MOUTH, THROAT: Denies headaches, denies sore throat. Positive hoarseness. CARDIOVASCULAR: Denies chest pain, palpitations positive for syncopal episodes. RESPIRATORY: Denies shortness of breath, cough, congestion or hemoptysis. GASTROINTESTINAL: Denies change in appetite, denies abdominal pain GENITOURINARY: Denies hematuria, denies infections. MUSKULOSKELETAL: Denies pain, denies swelling. INTEGUMENTARY: Denies rash, denies eczema. NEUROLOGICAL: Denies recent memory loss, no recent seizure activity. PSYCHIATRIC: Denies anxiety, denies depression. HEMATOLOGIC/LYMPHATIC: Positive for anemia, denies enlarged lymph nodes. Past Medical History Past Medical History: Cancer, Hypertension Additional Past Medical History / Comment(s): HX SKIN CA, CURRENT LESION ON LEFT CHEEK, lung CA, CA in the lymph nodes History of Any Multi-Drug Resistant Organisms: None Reported Past Surgical History: Back Surgery, Heart Catheterization, Joint Replacement, Orthopedic Surgery Additional Past Surgical History / Comment(s): PREVIOUS SKIN CA LESIONS REMOVED, R HIP REPLACEMENT, ANKLE ORIF WITH METAL L Past Anesthesia/Blood Transfusion Reactions: Previous Problems w/ Anesthesia Additional Past Anesthesia/Blood Transfusion Reaction / Comment(s): Pt woke up violently, which is out of characteristic for the pt Smoking Status: Never smoker Additional Past Alcohol Use History / Comment(s): Patient is a lifelong nonsmoker but had extensive exposure to asbestos and acid at [employer] as well as plastic exposure and [employer]. - Past Family History Mother Family Medical History: Cancer, Deep Vein Thrombosis (DVT) Additional Family Medical History / Comment(s): BREAST CA Medications and Allergies Home Medications Medication Instructions Recorded Confirmed Type Benazepril HCl 40 mg PO DAILY 12/02/14 03/30/19 History Aspirin 325 mg PO HS 07/08/16 03/30/19 History Hydrochlorothiazide 25 mg PO DAILY 07/08/16 03/30/19 History Atenolol [Tenormin] 50 mg PO BID 03/07/19 03/30/19 History Albuterol Inhaler [Ventolin Hfa 1 - 2 puff INHALATION RT-Q4H PRN 03/30/19 03/30/19 History Inhaler] Fluticasone/Vilanterol [Breo 1 puff INHALATION RT-DAILY 03/30/19 03/30/19 History Ellipta 200-25 Mcg INH] Allergies Allergy/AdvReac Type Severity Reaction Status Date / Time No Known Allergies Allergy Verified 03/30/19 21:51 Physical Exam Vitals: Vital Signs Temp Pulse Pulse Pulse Pulse Pulse Resp 03/31/19 09:50 68 80 71 03/31/19 08:29 03/31/19 08:00 98.3 F 72 18 03/31/19 04:00 98.1 F 60 18 03/31/19 03:29 18 03/31/19 00:00 18 03/30/19 22:40 18 03/30/19 22:00 98.5 F 76 18 03/30/19 21:24 98.4 F 75 14 03/30/19 19:45 98.3 F 69 15 03/30/19 18:41 98.5 F 71 20 03/30/19 17:19 64 20 03/30/19 16:29 98.4 F 60 26 H BP BP BP BP BP Pulse Ox 03/31/19 09:50 141/79 150/82 148/84 03/31/19 08:29 98 03/31/19 08:00 129/72 98 03/31/19 04:00 157/81 99 03/31/19 03:29 03/31/19 00:00 03/30/19 22:40 03/30/19 22:00 155/83 100 03/30/19 21:24 113/78 100 03/30/19 19:45 123/78 100 03/30/19 18:41 105/64 99 03/30/19 17:19 92/57 96 03/30/19 16:29 70/47 100 Intake and Output 03/30/19 03/31/19 03/31/19 22:59 06:59 14:59 Output Total 200 Balance -200 Output: Urine 200 Other: Voiding Method Toilet # Voids 1 1 Weight 90.718 kg GENERAL EXAM: Alert, active, comfortable in no apparent distress. On room air. HEAD: Normocephalic. EYES: Normal reaction of pupils, equal size. NOSE: Clear with pink turbinates. THROAT: No erythema or exudates. NECK: Left-sided neck masses, no JVD. CHEST: No chest wall deformity. LUNGS: Equal air entry with no crackles, wheeze, rhonchi or dullness. CVS: S1 and S2 normal with no audible murmur, regular rhythm. ABDOMEN: No hepatosplenomegaly, normal bowel sounds, no guarding or rigidity. SPINE: No scoliosis or deformity SKIN: No rashes CENTRAL NERVOUS SYSTEM: No focal deficits, tone is normal in all 4 extremities. EXTREMITIES: There is no peripheral edema. No clubbing, no cyanosis. Peripheral pulses are intact. Results - Laboratory Findings CBC and BMP: 03/31/19 05:35 03/31/19 05:35 PT/INR, D-dimer PT 10.3 sec (9.0-12.0) 03/30/19 16:44 INR 1.0 (<1.2) 03/30/19 16:44 D-Dimer 0.82 mg/L FEU (<0.60) H 03/30/19 16:44 Abnormal lab findings: Abnormal Labs 03/30/19 03/30/19 03/30/19 16:44 16:44 16:44 RBC Hgb 10.1 L Hct 33.3 L MCV 74.8 L MCH 22.6 L MCHC 30.2 L RDW 16.3 H Lymphocytes # (Manual) D-Dimer Sodium 134 L Chloride 97 L Carbon Dioxide Creatinine 1.39 H Glucose 110 H Plasma Lactic Acid Jose Manuel 2.2 H* Albumin Urine Protein Urine Blood Urine RBC Urine WBC Hyaline Casts Urine Mucus 03/30/19 03/30/19 03/31/19 16:44 19:30 05:35 RBC 4.18 L Hgb 9.2 L Hct 32.1 L MCV 76.8 L MCH 22.0 L MCHC 28.7 L RDW 16.2 H Lymphocytes # (Manual) 0.68 L D-Dimer 0.82 H Sodium Chloride Carbon Dioxide Creatinine Glucose Plasma Lactic Acid Jose Manuel Albumin Urine Protein Trace H Urine Blood Moderate H Urine RBC 97 H Urine WBC 16 H Hyaline Casts 4 H Urine Mucus Rare H 03/31/19 05:35 RBC Hgb Hct MCV MCH MCHC RDW Lymphocytes # (Manual) D-Dimer Sodium 136 L Chloride Carbon Dioxide 31 H Creatinine Glucose Plasma Lactic Acid Jose Manuel Albumin 3.4 L Urine Protein Urine Blood Urine RBC Urine WBC Hyaline Casts Urine Mucus - Diagnostic Findings Chest x-ray: image reviewed CT scan - chest: image reviewed Assessment and Plan Assessment: Impression: #1 Syncopal episode of unclear etiology, possible arrhythmia. Echocardiogram pending. Troponins negative. #2 Recent diagnosis of squamous cell carcinoma via navigational bronchoscopy on 03/22/2019. #3 Left neck masses suspicious for squamous cell carcinoma with two previous FNA biopsies. #4 Lifelong nonsmoker. #5 Hypertension. #6 History of basal cell skin cancer the left oriental orthodox with previous excision. #7 Arthritis. Plan: The patient was seen and evaluated by Dr. Huynh. CAT scan, labs and vital signs reviewed. Suspect possible bradycardia or other arrhythmias. Echocardiogram pending. Further workup as an inpatient. May benefit from 30 day event monitor post discharge. He and his are aware of his lung biopsy results and oncology has been consulted. He was scheduled for PET scan today, to be rescheduled next weekend. We will continue to follow and make further recommendations based on his clinical status. I, the cosigning physician, performed a history & physical examination of the patient. Lungs sounds are clear. Maintaining good O2 saturations in the 90s on room air. I discussed the assessment and plan of care with my nurse practitioner, Bernice Bah. I attest to the above note as dictated by her. Time with Patient: Greater than 30
--- NOTE | 2019-03-31 17:27 | ECHOF ---
Referral Reason:LVF MEASUREMENTS -------- HEIGHT: 180.3 cm WEIGHT: 90.7 kg BP: RVIDd: 3.9 cm (< 3.3) IVSd: 1.0 cm (0.6 - 1.1) LVIDd: 4.6 cm (3.9 - 5.3) LVPWd: 1.2 cm (0.6 - 1.1) IVSs: 1.7 cm LVIDs: 1.9 cm LVPWs: 1.7 cm Ao Diam: 3.4 cm (2.0 - 3.7) AV Cusp: 1.7 cm (1.5 - 2.6) LA Diam: 3.8 cm (2.7 - 3.8) MV EXCURSION: 12.495 mm (> 18.000) MV EF SLOPE: 27 mm/s (70 - 150) EPSS: 1.2 cm MV E Carlos: 0.84 m/s MV DecT: 212 ms MV A Carlso: 0.78 m/s MV E/A Ratio: 1.08 RAP: 5.00 mmHg RVSP: 10.25 mmHg FINDINGS -------- Sinus rhythm. This was a technically difficult study with suboptimal views. The left ventricular size is normal. Left ventricular wall thickness is normal. Overall left vent ricular systolic function is normal with, an EF between 55 - 60 %. The right ventricle is normal in size. The left atrial size is normal. The right atrial size is normal. 5.0mg of Lumason was utilized for enhancement of images The aortic valve is trileaflet and appears structurally normal. The mitral valve is normal. Mild mitral regurgitation is present. The tricuspid valve appears structurally normal. Mild tricuspid regurgitation present. Right vent ricular systolic pressure is normal at < 35 mmHg. There is no pulmonic regurgitation present. The aortic root size is normal. There is no pericardial effusion. CONCLUSIONS -------- 1. Sinus rhythm. 2. This was a technically difficult study with suboptimal views. 3. The left ventricular size is normal. 4. Left ventricular wall thickness is normal. 5. The right ventricle is normal in size. 6. The left atrial size is normal. 7. The right atrial size is normal. 8. 5.0mg of Lumason was utilized for enhancement of images 9. The aortic valve is trileaflet and appears structurally normal. 10. The mitral valve is normal. 11. Mild mitral regurgitation is present. 12. The tricuspid valve appears structurally normal. 13. Mild tricuspid regurgitation present. 14. Right ventricular systolic pressure is normal at < 35 mmHg. 15. There is no pulmonic regurgitation present. 16. The aortic root size is normal. 17. There is no pericardial effusion. COLLEGE DIRECTOR: Amairani Marin RDCS
--- NOTE | 2019-03-31 20:00 | P.CONS ---
History of Present Illness - Reason for Consult Consult date: 03/31/19 Head and neck cancer, lung cancer - Chief Complaint Head and neck CA, syncope - History of Present Illness 52-year-old gentleman with a past medical history of hypertension, recurrent basal cell carcinoma of skin, arthritis GERD and hypertension, with a recent diagnosis of head and neck squamous cell carcinoma and lung cancer has been admitted with syncope. The patient still continues to have some symptoms, continues to be under evaluation. Has significant history of coronary artery disease. As per the oncology history, the patient has recurrent basal cell carcinoma which has been removed in the past. Recently he has developed swelling in the neck on the left side which has been progressive, was evaluated as out patient had a biopsy done which was consistent with squamous cell carcinoma. The patient had CT staging done which showed lung mass as well as per the patient the biopsy was consistent with squamous cell carcinoma of the lung. The possibility is to separate malignancies versus metastatic disease. As per the history the patient underwent fine-needle aspiration of the left neck mass on March 13 which was consistent with squamous cell carcinoma. The patient was suggested really biopsy for definitive diagnosis. CT of the chest done on 03/22/2019 revealed 2 masses in the right upper lobe and enlarged left supraclavicular lymph nodes. The mass was 4.6 cm. 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 The patient had a repeat CT done which did not reveal any pulmonary embolism however has shown increase in the size of the mass especially in the pulmonary hilum. Also new patchy atelectasis is seen. Oncology has been consulted for further evaluation. Patient was scheduled for PET scan as outpatient which is pending. Past medical history of osteoarthritis, recurrent basal cell carcinoma of skin, GERD hypertension. Past surgical history significant for heart catheterization, orthopedic surgery, back surgery removal of skin cancer. Family history significant for cancer in the family, deep vein thrombosis, history of breast cancer in family. And mother. Review of systems negative except as mentioned above. Review of Systems Apart from dizziness, fatigue address of the review of systems is negative. Past Medical History Past Medical History: Cancer, Hypertension Additional Past Medical History / Comment(s): HX SKIN CA, CURRENT LESION ON LEFT CHEEK, lung CA, CA in the lymph nodes History of Any Multi-Drug Resistant Organisms: None Reported Past Surgical History: Back Surgery, Heart Catheterization, Joint Replacement, Orthopedic Surgery Additional Past Surgical History / Comment(s): PREVIOUS SKIN CA LESIONS REMOVED, R HIP REPLACEMENT, ANKLE ORIF WITH METAL L Past Anesthesia/Blood Transfusion Reactions: Previous Problems w/ Anesthesia Additional Past Anesthesia/Blood Transfusion Reaction / Comm: Pt woke up violently, which is out of characteristic for the pt Smoking Status: Never smoker Additional Past Alcohol Use History / Comment(s): Patient is a lifelong nonsmoker but had extensive exposure to asbestos and acid at [employer] as well as plastic exposure and [employer]. - Past Family History Mother Family Medical History: Cancer, Deep Vein Thrombosis (DVT) Additional Family Medical History / Comment(s): BREAST CA Medications and Allergies Home Medications Medication Instructions Recorded Confirmed Type Benazepril HCl 40 mg PO DAILY 12/02/14 03/30/19 History Aspirin 325 mg PO HS 07/08/16 03/30/19 History Hydrochlorothiazide 25 mg PO DAILY 07/08/16 03/30/19 History Atenolol [Tenormin] 50 mg PO BID 03/07/19 03/30/19 History Albuterol Inhaler [Ventolin Hfa 1 - 2 puff INHALATION RT-Q4H PRN 03/30/19 03/30/19 History Inhaler] Fluticasone/Vilanterol [Breo 1 puff INHALATION RT-DAILY 03/30/19 03/30/19 History Ellipta 200-25 Mcg INH] Allergies Allergy/AdvReac Type Severity Reaction Status Date / Time No Known Allergies Allergy Verified 03/30/19 21:51 Physical Exam Vitals: Vital Signs Temp Pulse Pulse Pulse Pulse Pulse Resp 03/31/19 16:40 98.2 F 65 18 03/31/19 12:00 98.5 F 67 68 80 71 18 03/31/19 09:50 68 80 71 03/31/19 08:29 03/31/19 08:00 98.3 F 72 18 03/31/19 04:00 98.1 F 60 18 03/31/19 03:29 18 03/31/19 00:00 18 03/30/19 22:40 18 03/30/19 22:00 98.5 F 76 18 03/30/19 21:24 98.4 F 75 14 BP BP BP BP BP Pulse Ox 03/31/19 16:40 156/80 98 03/31/19 12:00 132/75 99 03/31/19 09:50 141/79 150/82 148/84 03/31/19 08:29 98 03/31/19 08:00 129/72 98 03/31/19 04:00 157/81 99 03/31/19 03:29 03/31/19 00:00 03/30/19 22:40 03/30/19 22:00 155/83 100 03/30/19 21:24 113/78 100 Intake and Output 03/31/19 03/31/19 03/31/19 06:59 14:59 22:59 Intake Total 240 Balance 240 Intake: Oral 240 Other: Voiding Method Toilet Toilet # Voids 1 3 # Bowel Movements 1 The patient appeared well nourished and normally developed. Vital signs as documented. Head exam is unremarkable. No scleral icterus or corneal arcus noted. Neck is without jugular venous distension, thyromegaly, or carotid bruits. Carotid upstrokes are brisk bilaterally. Lungs are clear to auscultation and percussion. Cardiac exam reveals the PMI to be normally sized and situated. Rhythm is regular. First and second heart sounds normal. No murmurs, rubs or gallops. Abdominal exam reveals normal bowel sounds, no masses, no organomegaly and no aortic enlargement. Extremities are nonedematous and both femoral and pedal pulses are normal. Results CBC & Chem 7: 03/31/19 05:35 03/31/19 05:35 Labs: Abnormal Lab Results - Last 24 Hours (Table) 03/31/19 03/31/19 Range/Units 05:35 05:35 RBC 4.18 L (4.30-5.90) m/uL Hgb 9.2 L (13.0-17.5) gm/dL Hct 32.1 L (39.0-53.0) % MCV 76.8 L (80.0-100.0) fL MCH 22.0 L (25.0-35.0) pg MCHC 28.7 L (31.0-37.0) g/dL RDW 16.2 H (11.5-15.5) % Lymphocytes # (Manual) 0.68 L (1.0-4.8) k/uL Sodium 136 L (137-145) mmol/L Carbon Dioxide 31 H (22-30) mmol/L Albumin 3.4 L (3.5-5.0) g/dL Microbiology - Last 24 Hours (Table) 03/30/19 19:30 Urine Culture - Preliminary Urine,Voided Assessment and Plan Plan: Impression and plan: 1. Head and neck malignancy with left neck mass evident on examination with superficial lesions: CT documented right upper lobe masses of the lung: - Had a neck mass and lung masses could possibly be different malignancies however can be metastatic as well. - With both pathology is being squamous cell in origin difficult to differentiate.. - Nevertheless, patient will need further staging workup with bone scan, MRI brain. - Radiation oncology consult. - In my opinion, the patient should start with concurrent chemotherapy and radiation for head and neck malignancy with weekly carboplatinum and Taxol which does have some data head and neck. Another option could be radiation with single agent carboplatinum and 5-FU. Single agent cetuximab. - Consideration of triple endoscopy for further evaluation of head and neck cancer. - Will further discuss with radiation oncology. Follow-up with Dr. Metzger as outpatient 2. Syncope: - MRI brain. 3. Basal cell carcinoma of skin: - Status post multiple resections. 4. Anemia - Anemia workup including iron profile, B12 folate ordered. 5. Hypertension. Thank you very much for the consult. We will continue to follow. Labs have been ordered. Viridiana Dupont
[2019-03-31] MEDS: ASPIRIN 325 MG TAB PO SCH (21:52)
[2019-03-31] MEDS: HEPARIN SODIUM,PORCINE 5,000 UNIT/ML 1 ML VIAL SQ SCH (21:52)
--- NOTE | 2019-03-31 21:56 | CT ---
EXAMINATION TYPE: CT abdomen pelvis w con DATE OF EXAM: 03/31/2019 COMPARISON: None HISTORY: lung cancer staging CT DLP: 1250 mGycm Automated exposure control for dose reduction was used. TECHNIQUE: Helical acquisition of images was performed from the lung bases through the pelvis. CONTRAST: Performed without Oral Contrast and with IV Contrast, patient injected with 100 mL of Isovue 300. FINDINGS: Multiple axial sections were obtained from the diaphragm to the floor the pelvis with intravenous con trast. The contrast was Isovue 100 mL. Lung bases show mild scarring and subsegmental atelectasis. There is no pleural effusion. There is no pericardial effusion. Stomach is intact. Liver and gallbladder appear normal. Bile ducts are not dilated. Spleen appears no rmal. There is no sign of pancreatic mass. There is no adrenal mass. Kidneys show satisfactory contra st opacification. There is no hydronephrosis. There is no retroperitoneal adenopathy. The appendix ap pears normal. There are few diverticula in the sigmoid colon. There is thickening of the posterior le ft lateral wall of the urinary bladder. There is no mesenteric edema. There is no ascites or free air. At T12 there is anterior wedging with 70% loss of height. Unchanged. There is no sign of a bowel obstruction. There is right side gluteal muscle atrophy. IMPRESSION: There is left side urinary bladder wall thickening that could relate to a tumor. Follow-up recommendmarlene sandoval
[2019-04-01] MEDS: SYMBICORT 160-4.5 MCG INHALER INHALATION SCH ×2 (09:06→19:30)
[2019-04-01] MEDS: HEPARIN SODIUM,PORCINE 5,000 UNIT/ML 1 ML VIAL SQ SCH ×2 (09:23→21:05)
[2019-04-01] MEDS: FAMOTIDINE 20 MG TAB PO SCH (09:23)
[2019-04-01] MEDS: ATENOLOL 50 MG TAB PO SCH ×2 (09:23→21:05)
[2019-04-01] MEDS ORDERED: guaiFENesin-Coden 100-10MG/5ML 10 ML CUP PO PRN (10:56)
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
--- NOTE | 2019-04-01 13:52 | P.PN ---
Subjective Progress Note Date: 04/01/19 Principal diagnosis: syncopal episode most likely secondary to hypotension or cardiac arrhythmia This a very pleasant 68 year old gentleman who follows with Dr. Winslow as his primary care physician. He has history of hypertension, basal cell skin cancer on his left mandaen with excision, arthritis. He is a lifelong nonsmoker though he worked at [employer] was exposed to asbestos, graphite and iron. He also worked in a plastics factory. He had been following with ENT regarding a left neck growth that was biopsied 2 and was nondiagnostic. There were some rare atypical epithelial cells suspicious for squamous cell carcinoma. CAT scan of the neck revealed lung masses as well. He was seen in our office originally on 03/20/2019. He had then undergone a navigational bronchoscopy with biopsies and this was confirmed to squamous cell carcinoma suspect lung primary. He was scheduled for a PET scan today. He was in our office yesterday for test results and the patient developed near syncopal episode was pale and diaphoretic and EMS was called. He did have a syncopal episode in the ambulance. Computed tomography scan of the brain revealed mild atrophy. No acute intracranial abnormalities. CT angiogram ruled out pulmonary embolism. There was noted right upper lobe mass which is unchanged compared to previous. The second large right upper lobe mass at the superior right pulmonary hilum is increased compared to previous. Some patchy atelectasis in the left lung base. EKG revealed sinus bradycardia with evidence of a previous inferior wall myocardial infarction. Troponins were negative. He was anemic at 10.1. Urine culture is pending. Echocardiogram pending. He is seen today in consultation on the on observation unit. He is awake and alert in no acute distress. No further episodes of near syncope. He currently denies any worsening shortness of breath, cough or congestion. No chest pain or palpitations. White count 5.2. Hemoglobin 9.2. Sodium 136. Potassium 3.6. Creatinine 1.08. Patient was reevaluated today on 04/01/2019, seems to be doing fairly well, asymptomatic, being considered for discharge in the next 24 hours. No further episodes of syncope or near syncope since admission.had a CT of the abdomen and pelvis showed thickening of the wall of the urinary bladder. This should be addressed on an outpatient basis.may eventually require cystoscopy. Patient has no urinary complaints. Andrae is doing well, scheduled to have outpatient PET scan, and this should be done by oncology once the patient is discharged home. MRI is scheduled for tomorrow and the patient will likely be discharged home tomorrow. Objective - Vital Signs Vital signs: Vital Signs Temp 98.2 F 04/01/19 08:00 Pulse 70 04/01/19 08:00 Resp 18 04/01/19 08:00 BP 159/77 04/01/19 08:00 Pulse Ox 96 04/01/19 08:00 Intake & Output 03/31/19 04/01/19 04/01/19 18:59 06:59 18:59 Intake Total 240 Output Total 500 Balance 240 -500 Weight 83.7 kg Intake: Oral 240 Output: Urine 500 Other: Voiding Method Toilet Toilet Toilet # Voids 3 2 # Bowel Movements 1 - Exam Physical Exam: Revealed a 68-year-old white male pleasant in no distress. Head: Atraumatic normocephalic. HEENT:[Neck is supple.] [No neck masses.] [No thyromegaly.] [No JVD.]PERRLA, EOMI, no icterus. Chest: [Clear throughout, no crackles, no rhonchi, no wheezes.] Cardiac Exam: [Normal S1 and S2, no S3 gallop, no murmur.] Abdomen: [Soft, nontender, no megaly, no rebound, no guarding, normal bowel sounds.] Extremities: [No clubbing, no edema, no cyanosis.] Neurological Exam: [No focal neurologic deficit.] musculoskeletal: Normal range of motion no deformities, muscle strength intact and symmetrical Psychiatric: Normal mood affect and normal mental status examination. Skin: No rashes - Labs CBC & Chem 7: 03/31/19 05:35 03/31/19 05:35 Labs: Microbiology - Last 24 Hours (Table) 03/30/19 19:30 Urine Culture - Preliminary Urine,Voided 03/30/19 18:00 Blood Culture - Preliminary Blood No Growth after 24 hours Assessment and Plan Assessment: #1 Syncopal episode of unclear etiology, possible arrhythmia. possibly secondary to hypotension.workup so far has been negative and nondiagnostic #2 Recent diagnosis of squamous cell carcinoma via navigational bronchoscopy on 03/22/2019. #3 Left neck masses suspicious for squamous cell carcinoma with two previous FNA biopsies. #4 Lifelong nonsmoker. #5 Hypertension. #6 History of basal cell skin cancer the left mandaen with previous excision. #7 Arthritis. Recommendation: Continue present treatment plan, consider an event monitor on outpatient basis unless we find a good explanation of his syncopal or near syncopal episode. Patient will follow-up with Dr. Maya on outpatient basis agree with discharge planning tomorrow after MRI. Time with Patient: Less than 30
[2019-04-01] MEDS: ASPIRIN 325 MG TAB PO SCH (21:05)
[2019-04-02] MEDS: SYMBICORT 160-4.5 MCG INHALER INHALATION SCH (08:49)
[2019-04-02] MEDS: FAMOTIDINE 20 MG TAB PO SCH (09:09)
[2019-04-02] MEDS: HEPARIN SODIUM,PORCINE 5,000 UNIT/ML 1 ML VIAL SQ SCH (09:09)
[2019-04-02] MEDS: ATENOLOL 50 MG TAB PO SCH (09:09)
[2019-04-02 10:54] LABS: Ferritin 45.7 ng/mL (22.0-322.0)
[2019-04-02 11:14] VITALS: PULSE 52
[2019-04-02 11:19] VITALS: BP 133/72; RESP 18; TEMP 98
[2019-04-02 11:22] LABS: Iron Saturation 5.41 (15.00-50.00)
--- NOTE | 2019-04-02 12:02 | P.PN ---
Subjective Progress Note Date: 04/02/19 Principal diagnosis: Syncopal episode most likely secondary to hypotension or cardiac arrhythmia This a very pleasant 68 year old gentleman who follows with Dr. Winslow as his primary care physician. He has history of hypertension, basal cell skin cancer on his left presybeterian with excision, arthritis. He is a lifelong nonsmoker though he worked at [employer] was exposed to asbestos, graphite and iron. He also worked in a plastics factory. He had been following with ENT regarding a left neck growth that was biopsied 2 and was nondiagnostic. There were some rare atypical epithelial cells suspicious for squamous cell carcinoma. CAT scan of the neck revealed lung masses as well. He was seen in our office originally on 03/20/2019. He had then undergone a navigational bronchoscopy with biopsies and this was confirmed to squamous cell carcinoma suspect lung primary. He was scheduled for a PET scan today. He was in our office yesterday for test results and the patient developed near syncopal episode was pale and diaphoretic and EMS was called. He did have a syncopal episode in the ambulance. Computed tomography scan of the brain revealed mild atrophy. No acute intracranial abnormalities. CT angiogram ruled out pulmonary embolism. There was noted r ight upper lobe mass which is unchanged compared to previous. The second large right upper lobe mass at the superior right pulmonary hilum is increased compared to previous. Some patchy atelectasis in the left lung base. EKG revealed sinus bradycardia with evidence of a previous inferior wall myocardial infarction. Troponins were negative. He was anemic at 10.1. Urine culture is pending. Echocardiogram pending. He is seen today in consultation on the on observation unit. He is awake and alert in no acute distress. No further episodes of near syncope. He currently denies any worsening shortness of breath, cough or congestion. No chest pain or palpitations. White count 5.2. Hemoglobin 9.2. Sodium 136. Potassium 3.6. Creatinine 1.08. Patient was reevaluated today on 04/01/2019, seems to be doing fairly well, asymptomatic, being considered for discharge in the next 24 hours. No further episodes of syncope or near syncope since admission.had a CT of the abdomen and pelvis showed thickening of the wall of the urinary bladder. This should be addressed on an outpatient basis.may eventually require cystoscopy. Patient has no urinary complaints. Pulmonary-gracia is doing well, scheduled to have outpatient PET scan, and this should be done by oncology once the patient is discharged home. MRI is scheduled for tomorrow and the patient will likely be discharged home tomorrow. On 04/02/2019 patient seen in follow-up on selective care unit, he is awake and alert, no further episodes of syncope, neurologically intact, denies any acute complaints, no shortness of breath, no chest pain, no fever chills, patient had his MRI of the brain, awaiting 4 transcribed report. Patient was also seen by medical oncology for the left neck mass, and right upper lobe pulmonary mass. Patient will undergo outpatient PET scan. Otherwise no acute events overnight, patient will likely be discharged home today, and will be followed up on outpatient basis Objective - Vital Signs Vital signs: Vital Signs Temp 98.0 F 04/02/19 08:00 Pulse 52 L 04/02/19 08:00 Resp 18 04/02/19 08:00 BP 133/72 04/02/19 08:00 Pulse Ox 98 04/02/19 08:00 Intake & Output 04/01/19 04/02/19 04/02/19 18:59 06:59 18:59 Intake Total 240 320 260 Balance 240 320 260 Weight 82.7 kg Intake: IV 60 20 Invasive Line 1 30 10 Invasive Line 2 30 10 Oral 240 260 240 Other: Voiding Method Toilet Toilet Toilet # Voids 1 3 - Exam GENERAL EXAM: Alert, pleasant, 68-year-old white male on room air, with a pulse ox of 98% comfortable in no apparent distress. HEAD: Normocephalic/atraumatic. EYES: Normal reaction of pupils, equal size. Conjunctiva pink, sclera white. NOSE: Clear with pink turbinates. THROAT: No erythema or exudates. Patient has a voice hoarseness NECK: Left neck raised ulcerated mass, no JVD, no thyroid enlargement CHEST: No chest wall deformity. Symmetrical expansion. LUNGS: Equal air entry with no crackles, wheeze, rhonchi or dullness. CVS: Regular rate and rhythm, normal S1 and S2, no gallops, no murmurs, no rubs ABDOMEN: Soft, nontender. No hepatosplenomegaly, normal bowel sounds, no guarding or rigidity. EXTREMITIES: No clubbing, no edema, no cyanosis, 2+ pulses and upper and lower extremities. MUSCULOSKELETAL: Muscle strength and tone normal. SPINE: No scoliosis or deformity SKIN: No rashes CENTRAL NERVOUS SYSTEM: Alert and oriented -3. No focal deficits, tone is normal in all 4 extremities. PSYCHIATRIC: Alert and oriented -3. Appropriate affect. Intact judgment and insight. - Labs CBC & Chem 7: 03/31/19 05:35 03/31/19 05:35 Labs: Abnormal Lab Results - Last 24 Hours (Table) 03/31/19 Range/Units 05:35 Iron 17 L (65-175) ug/dL Iron Saturation 5.41 L (15.00-50.00) Microbiology - Last 24 Hours (Table) 03/30/19 18:00 Blood Culture - Preliminary Blood No Growth after 48 hours Assessment and Plan Plan: Assessment: #1 Syncopal episode of unclear etiology, possible arrhythmia. possibly secondary to hypotension.workup so far has been negative and nondiagnostic #2 Recent diagnosis of squamous cell carcinoma via navigational bronchoscopy on 03/22/2019. #3 Left neck masses suspicious for squamous cell carcinoma with two previous FNA biopsies. #4 Lifelong nonsmoker. #5 Hypertension. #6 History of basal cell skin cancer the left presybeterian with previous excision. #7 Arthritis. Plan: No recurrent episodes of syncope or presyncope while inpatient, vital signs have been stable, awaiting transcribed report of the brain MRI, anticipate discharge home today with outpatient follow-up with Dr. Maya and patient will be set up for a PET scan. I performed a history & physical examination of the patient and discussed their management with my nurse practitioner, Breann Bonilla. I reviewed the nurse pra cttroyer's note and agree with the documented findings and plan of care. Lung sounds are positive for clear breath sounds. The findings and the impression was discussed with the patient. I attest to the documentation by the nurse practitioner. Time with Patient: Less than 30
--- NOTE | 2019-04-02 12:18 | MR ---
EXAMINATION TYPE: MR brain wo/w con DATE OF EXAM: 04/02/2019 COMPARISON: CT brain 03/30/2019 HISTORY: Dizziness, lung cancer head and neck cancer evaluation TECHNIQUE: Multiplanar, multisequence images of the brain and brainstem is performed without and with IV contras t, utilizing 7.5 mL intravenous Gadavist . FINDINGS: Diffusion weighted images demonstrate no evidence of a recent infarct or other diffusion ab normality. There is no extra-axial fluid collection. Periventricular, pericallosal, sub and juxtaco rtical white matter hyperintensities are present on inversion recovery T2-weighted sequences. Approxi mately 50 lesions are present. The largest measures approximately 7 mm in the left frontal white marilee er on axial image #25. The ventricular system and cisternal spaces are normal in size and appearance. The brain volume is age appropriate. Midline structures demonstrate normal morphology. The craniocervical junction appears within normal limits. Post contrast images demonstrate no abnormal enhancement. The dural venous sinuses appear pa tent. The visualized sinuses are clear and the globes are intact. Left mastoid air cells show inflamm atory change, hyperintensity and inversion recovery and T2-weighted sequences. The lobe left neck gerardo ws some borderline adenopathy. IMPRESSION: Nonspecific white matter demyelination. Correlate for left mastoiditis. Possible neck renee nopathy, consider dedicated imaging.
[2019-04-02 14:17] LABS: Folate, Serum 11.4 ng/mL
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
--- NOTE | 2019-04-02 17:36 | P.PN ---
Subjective Progress Note Date: 04/02/19 Principal diagnosis: squamous cell cancer (positive biopsies from lung and neck) Saw pt with at bedside today. Pt has no c/o, no episodes of syncopy, he is tolerating oral intake, no pain. He is anxious to go home and do work up outpatient. Objective - Vital Signs Vital signs: Vital Signs Temp 98.0 F 04/02/19 08:00 Pulse 52 L 04/02/19 08:00 Resp 18 04/02/19 08:00 BP 133/72 04/02/19 08:00 Pulse Ox 98 04/02/19 08:00 Intake & Output 04/01/19 04/02/19 04/02/19 18:59 06:59 18:59 Intake Total 240 320 280 Balance 240 320 280 Weight 82.7 kg Intake: IV 60 40 Invasive Line 1 30 20 Invasive Line 2 30 20 Oral 240 260 240 Other: Voiding Method Toilet Toilet Toilet # Voids 1 3 - Constitutional General appearance: Present: average body habitus, cooperative, no acute distress - EENT Eyes: Present: anicteric sclerae, EOMI ENT: Present: hearing grossly normal, normal oropharynx - Neck Details: left neck 4cm anterior cervical hard fixed mass, near ulceration, no drainage, no s/s infection, some smaller LN in the left supraclavicular area, possibly anterior lt axilla area of fullness, soft Neck: Present: lymphadenopathy - Respiratory Respiratory: bilateral: CTA - Cardiovascular Rhythm: regular Heart sounds: normal: S1, S2 Abnormal Heart Sounds: Absent: systolic murmur, diastolic murmur, rub, S3 Gallop, S4 Gallop, click, other - Peripheral edema leg Peripheral Edema: bilateral: None - Gastrointestinal General gastrointestinal: Present: normal bowel sounds, soft. Absent: absent bowel sounds, decreased bowel sounds, distended, hepatomegaly, hyperactive bowel sounds, organomegaly, rigid, scaphoid, splenomegaly, tenderness, umbilical hernia, ventral hernia - Genitourinary Genitourinary Comment(s): no inguinal adenopathy - Neurologic Neurologic: Present: CNII-XII intact - Musculoskeletal Musculoskeletal: Present: strength equal bilaterally - Psychiatric Psychiatric: Present: A&O x's 3, appropriate affect, intact judgment & insight - Labs CBC & Chem 7: 03/31/19 05:35 03/31/19 05:35 Labs: Abnormal Lab Results - Last 24 Hours (Table) 03/31/19 Range/Units 05:35 Iron 17 L (65-175) ug/dL Iron Saturation 5.41 L (15.00-50.00) Microbiology - Last 24 Hours (Table) 03/30/19 18:00 Blood Culture - Preliminary Blood No Growth after 48 hours - Imaging and Cardiology CT scan - abdomen: report reviewed CT scan - chest: report reviewed CT Scan - head: report reviewed CT scan - pelvis: report reviewed MRI - head: report reviewed Assessment and Plan Assessment: 1) Squamous cell carcinoma-left neck and RUL 2) Iron deficiency Plan: 1) Reviewed with pt and work up that is completed and results and what other testing needs to be done so we have the info to determine what the prognosis and treatment plan will be. It is ok to follow up outpatient as pt is feeling well and wants to go home. Plan is to discuss case with Pathologist and determine if the 2 biopsies are the same cancer or 2 primaries. If necessary, pt is willing to come back for more biopsies. PET will be scheduled Iron deficiency will be addressed outpatient
== END 2019-04-02 14:51 | disposition home or self-care (01) | DRG 312 ==
LOC: EC 16:12 → 1SOBS 19:42 → OBSVTOIN 03-31 10:25 → 3SCARD 03-31 16:14
PROVIDERS: ADMIT Internal Medicine; ATTEND Internal Medicine
DX: I95.2 Hypotension due to drugs (principal); C34.11 Malignant neoplasm of upper lobe, right bronchus or lung; J98.11 Atelectasis; C76.0 Malignant neoplasm of head, face and neck; T46.4X5A Adverse effect of angiotensin-converting-enzyme inhibitors, initial encounter; T50.2X5A Adverse effect of carbonic-anhydrase inhibitors, benzothiadiazides and other diuretics, initial encounter; D64.9 Anemia, unspecified; E61.1 Iron deficiency; I10 Essential (primary) hypertension; I25.10 Atherosclerotic heart disease of native coronary artery without angina pectoris; K21.9 Gastro-esophageal reflux disease without esophagitis; M19.90 Unspecified osteoarthritis, unspecified site; R59.9 Enlarged lymph nodes, unspecified; R55 Syncope and collapse; R05 Cough; Z77.090 Contact with and (suspected) exposure to asbestos; Z79.82 Long term (current) use of aspirin; Z79.899 Other long term (current) drug therapy; Z96.641 Presence of right artificial hip joint; Z85.828 Personal history of other malignant neoplasm of skin; Z80.3 Family history of malignant neoplasm of breast; Z83.2 Family history of diseases of the blood and blood-forming organs and certain disorders involving the immune mechanism
CPT/HCPCS: 36415; 70450; 70553; 71046; 71275; 74177; 80053; 81001; 82272; 82607; 82728; 82746; 83010; 83540; 83550; 83605; 83615; 83735; 84484; 85025; 85379; 85610; 85730; 86850; 86900; 86901; 87040; 87086; 93005; 93306; 94760; 96360; 99285

== ENCOUNTER 2019-04-12 12:42 | Day surgery (SDC) | payer MEDICARE ==
[2019-04-12 13:02] VITALS: TEMP 97.4
[2019-04-12 13:54] VITALS: BP 162/88; PULSE 62; RESP 16
--- NOTE | 2019-04-12 14:10 | US ---
ULTRASOUND GUIDED CORE BIOPSY LEFT NECK MASS: CLINICAL HISTORY: Left neck mass FINDINGS: The procedure was explained to the patient. The risks, complications, benefits and alternatives were discussed and any questions were answered. Informed consent was obtained. Patient was placed supin e on the ultrasound table and prepped and draped in the usual sterile fashion. Utilizing a 18 gauge needle, three passes were made into the left neck mass. Patient was stable throughout the procedure. Pathology is pending. All elements of maximal barrier and sterile technique were utilized. IMPRESSION: 1. Successful ultrasound guided core biopsy of a left neck mass. Pathology pending.
== END 2019-04-12 13:45 | disposition home or self-care (01) ==
LOC: RADPROMAIN 12:42
PROVIDERS: ATTEND Internal Medicine Hematology & Oncology
DX: C44.41 Basal cell carcinoma of skin of scalp and neck (principal); C34.90 Malignant neoplasm of unspecified part of unspecified bronchus or lung
CPT/HCPCS: 21550; 88305; 88341; 88342

== ENCOUNTER → 2019-04-14 | Outpatient (CLI) | payer MEDICARE ==
--- NOTE | 2019-04-18 10:08 | PE ---
Nuclear medicine PET/CT HISTORY: Cervical lymph node neoplasm, head and neck cancer, subsequent Patient received 12 mCi F-18 FDG intravenously in delayed scanning was performed from skull base to t he mid thighs. Localization and attenuation correction CT scan was performed. Small [id number] edwin ges obtained through the head and neck. Correlation CT abdomen pelvis 03/31/2019, CT chest 03/30/2019 Head and neck: There is a large mass posterior to the left sternocleidomastoid muscle below the level of the hyoid bone measuring approximately 5.2 cm extending to the skin posterior to the left carotid artery bifurcation with associated hypermetabolic uptake, SUV is 7.4, uptake is peripheral. There is extension of these abnormal soft tissue posterior to the left internal carotid artery toward the bas e of the skull medially to the level immediately anterior to the lateral mass of C2, SUV 18.4. At thi s level superficial to the parotid gland on the is a small focal area of hypermetabolic uptake, SUV 5 .3. At the level of the base of the neck to the left of midline at the level of the scapula there is a soft tissue focus measuring 2.3 cm which shows associated hypermetabolic uptake within the subcutan eous fat, SUV is 4.1. Vocal cords show an asymmetric appearance, correlate for possible local cord paralysis. Hypermetaboli c uptake seen unilaterally on the right. Subcentimeter supraclavicular node on the left shows some mi ld uptake, SUV only 1.5. In the right upper lobe there is a soft tissue mass present with associated hypermetabolic uptake in the posterior right upper lobe measuring 2.4 cm, SUV 8.1, there is extension towards the anterior asp ect of the right upper lobe with some pleural extension is also noted, spiculated margin, mass measur es 3.8 cm and shows an SUV of 9.4. There are coronary artery calcifications. No pleural pericardial effusion ABDOMEN: Question small low dense focus in the right adrenal gland likely an adenoma. No retroperiton eal adenopathy. The liver shows no mass. There is no ascites. No suspicious hypermetabolic uptake Osseous show postop change in the right hip, the recent uptake about the prosthesis which may be due to postop change, stress change. Impression: Hypermetabolic uptake right upper lobe, in the left neck as described.
== END | disposition home or self-care (01) ==
LOC: RADPETMAIN 10:23
PROVIDERS: ATTEND Otolaryngology
DX: R22.1 Localized swelling, mass and lump, neck (principal); R91.8 Other nonspecific abnormal finding of lung field; D49.89 Neoplasm of unspecified behavior of other specified sites
CPT/HCPCS: 78815; A9552

== ENCOUNTER 2019-04-25 09:24 | Emergency (ER) | payer MEDICARE ==
[2019-04-25 09:36] VITALS: RESP 18; TEMP 97.7
[2019-04-25] MEDS ORDERED: hydrALAZINE HCL 20 MG/ML 1 ML VIAL IVP STA (09:54)
[2019-04-25] MEDS ORDERED: SODIUM CHLORIDE 0.9% 500 ML 500 ML IV ONE (10:20)
--- NOTE | 2019-04-25 10:24 | ED ---
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 Patient states he had an elevated blood pressure reading today he states the systolic level was 212 he states this was concerning to him. Patient states that his primary care provider has recently been changing his medications secondary to a recent hospital admission for hypotension which she states was attributed to dehydration. Patient states that since his blood pressure has been significant elevated he is told to take clonidine 0.1 mg 3 times a day as needed for elevated blood pressure. Patient states that he has always had a chronic headache since he has had the large growth left seventh neck he feels is due to tension he states he has had outpatient MRI and CT within the last month for evaluation of these chronic still aching headaches he denies any changes today. Denies any visual changes weakness the upper lower extremities speech changes nausea. He states he was not alarmed by the mild headache but rather was asked in triage. Patient denies any chest pain shortness of breath nausea vomiting abdominal pain and epigastric pain back pain difficulty urinating or decreased output. denies any other complaints states he is feeling like his usual self. Patient appears well on arrival. BP elevated, HR WNL. - Related Data Home Medications Medication Instructions Recorded Confirmed Albuterol Inhaler [Ventolin Hfa 1 - 2 puff INHALATION RT-Q4H PRN 03/30/19 04/25/19 Inhaler] cloNIDine HCL [Catapres] 0.1 mg PO TID PRN 04/25/19 04/25/19 Allergies Allergy/AdvReac Type Severity Reaction Status Date / Time No Known Allergies Allergy Verified 04/25/19 10:22 Review of Systems ROS Statement: Those systems with pertinent positive or pertinent negative responses have been documented in the HPI. ROS Other: All systems not noted in ROS Statement are negative. Past Medical History Past Medical History: Cancer, Hypertension Additional Past Medical History / Comment(s): HX SKIN CA, CURRENT LESION ON LEFT CHEEK, lung CA, CA in the lymph nodes History of Any Multi-Drug Resistant Organisms: None Reported Past Surgical History: Back Surgery, Heart Catheterization, Joint Replacement, Orthopedic Surgery Additional Past Surgical History / Comment(s): PREVIOUS SKIN CA LESIONS REMOVED, R HIP REPLACEMENT, ANKLE ORIF WITH METAL L, lung biopsy, neck biopsy Past Anesthesia/Blood Transfusion Reactions: Previous Problems w/ Anesthesia Additional Past Anesthesia/Blood Transfusion Reaction / Comment(s): Pt woke up violently, which is out of characteristic for the pt Past Psychological History: No Psychological Hx Reported Smoking Status: Never smoker Past Alcohol Use History: Occasional Past Drug Use History: None Reported - Past Family History Mother Family Medical History: Cancer, Deep Vein Thrombosis (DVT) Additional Family Medical History / Comment(s): BREAST CA General Exam - General Exam Comments Initial Comments: General: The patient is awake and alert, in no distress, and does not appear acutely ill. Eye: +3 mm pupils are equal, round and reactive to light, extra-ocular movements are intact. No nystagmus. There is normal conjunctiva bilaterally. No signs of icterus. Ears, nose, mouth and throat: There are moist mucous membranes and no oral lesions. Neck: The neck is supple, there is no tenderness or JVD. Cardiovascular: There is a regular rate and rhythm. No murmur, rub or gallop is appreciated. Respiratory: Lungs are clear to auscultation, respirations are non-labored, breath sounds are equal. No wheezes, stridor, rales, or rhonchi. Gastrointestinal: Soft, non-distended, non-tender abdomen without masses or organomegaly noted. There is no rebound or guarding present. No pulsatile masses Musculoskeletal: Normal ROM, no tenderness. Strength 5/5 of the UE and LE b/l. Sensation intact of the UE and LE b/l. Radial pulses equal bilaterally 2+. Neurological: A&O x 3. CN II-XII intact, There are no obvious motor or sensory deficits. Coordination appears grossly intact. Speech is normal. Skin: Skin is warm and dry and no rashes. Lesion red, circular raised with pearly borders (irregular) of the left side of neck. No LE edema. Psychiatric: Cooperative, appropriate mood & affect, normal judgment. Limitations: no limitations Course Vital Signs 04/25/19 04/25/19 04/25/19 09:28 10:15 10:20 Temperature 97.7 F Pulse Rate 66 62 65 Respiratory 18 18 18 Rate Blood Pressure 184/101 151/98 151/98 O2 Sat by Pulse 98 98 99 Oximetry 04/25/19 10:26 Temperature Pulse Rate 63 Respiratory 18 Rate Blood Pressure 125/82 O2 Sat by Pulse 100 Oximetry Medical Decision Making - Medical Decision Making 68-year-old male presented emergency department for elevated blood pressure reading. Patient denies any new symptoms. No clinical history of end organ damage. Patient appears well heart within normal limits. Patient is given a single dose of hydralazine and monitored in the emergency department. Blood pressure within acceptable limits. At this time feel patient is stable for discharge as he is asymptomatic to follow-up with his primary care provider. Patient is agreeable to this Plan I recommend patient keep a blood pressure diary. Return parameters were discussed at length patient verbalized understanding and was discharged appearing well after discussed the case with at tending provider Dr. Hercules in detail. Disposition Clinical Impression: Elevated blood pressure reading Disposition: HOME SELF-CARE Condition: Good Instructions (If sedation given, give patient instructions): Low-Sodium Diet (ED), Hypertensive Crisis (ED) Additional Instructions: Please use medication as discussed. Please follow-up with family doctor in the next 24-48 hours for adjustment of medications-keep blood pressure log. Please return to emergency room if the symptoms increase or worsen or for any other concerns. Is patient prescribed a controlled substance at d/c from ED?: No Referrals: Phil Winslow DO [Primary Care Provider] - 1-2 days Time of Disposition: 10:53
[2019-04-25 11:07] VITALS: BP 144/86; PULSE 64
== END 2019-04-25 11:07 | disposition home or self-care (01) ==
LOC: EC 09:24
DX: I10 Essential (primary) hypertension (principal); Z96.641 Presence of right artificial hip joint; Z85.118 Personal history of other malignant neoplasm of bronchus and lung; Z85.828 Personal history of other malignant neoplasm of skin
CPT/HCPCS: 99283; 96374; 96361; J0360

== ENCOUNTER 2019-04-26 13:54 | Inpatient (IN) | payer MEDICARE ==
[2019-04-26] MEDS ORDERED: SODIUM CHLORIDE 0.9% 1,000 ML IV STA (14:40)
[2019-04-26 14:57] LABS: VBG PH 7.51 (7.31-7.41)
[2019-04-26 14:59] LABS: Basophils # (A) 0.1 k/uL (0-0.2); Basophils % (A) 1 %; Eosinophils % (A) 0 %; HCT 36.8 % (39.0-53.0); HGB 11.1 gm/dL (13.0-17.5); Hypochromasia Marked; Lymphocytes # (A) 2.1 k/uL (1.0-4.8); Lymphocytes % (A) 22 %; MCH 22.8 pg (25.0-35.0); MCHC 30.1 g/dL (31.0-37.0); MCV 75.9 fL (80.0-100.0); Mean Platelet Volume 6.1; Microcytosis Slight; Monocytes # (A) 0.6 k/uL (0-1.0); Monocytes % (A) 6 %; Neutrophils # (A) 6.4 k/uL (1.3-7.7); Neutrophils % (A) 67 %; Platelet Count 357 k/uL (150-450); RBC 4.85 m/uL (4.30-5.90); RDW 15.8 % (11.5-15.5); WBC 9.6 k/uL (3.8-10.6)
--- NOTE | 2019-04-26 15:03 | ED ---
General Adult HPI - General Chief complaint: Syncope Stated complaint: syncope Time Seen by Provider: 04/26/19 14:14 Source: patient, family, EMS Mode of arrival: EMS Limitations: no limitations - History of Present Illness Initial comments: Dictation was produced using [employer] dictation software. please excuse any grammatical, word or spelling errors. Chief Complaint: 68-year-old male transferred from [facility] for dizziness and hypertension. History of Present Illness: Patient is a 68-year-old male. He has past medical history of soft tissue cancer invading the left neck and cheek, lung cancer. He was having symptoms of presyncope and lightheadedness over the last 48 hours. He was seen at the cancer center today. He has no pain complaints. He does complain of a mild burning sensation to his left shoulder however. Denies any constitutional symptoms. No abdominal pain. The ROS documented in this emergency department record has been reviewed and confirmed by me. Those systems with pertinent positive or negative responses have been documented in the HPI. All other systems are other negative and/or no ncontributory. PHYSICAL EXAM: General Impression: Alert and oriented x3, not in acute distress, pale HEENT: Normocephalic atraumatic, extra-ocular movements intact, pupils equal and reactive to light bilaterally, dry mucous membranes Cardiovascular: Heart regular rate and rhythm, S1&S2 audible, no murmurs, rubs or gallops Chest: Lungs clear to auscultation bilaterally, no rhonchi, no wheeze, no rales Abdomen: Bowel sounds present, abdomen soft, non-tender, non-distended, no organomegaly Musculoskeletal: Pulses present and equal in all extremities, no peripheral edema Motor: no focal deficits noted Neurological: CN II-XII grossly intact, no focal motor or sensory deficits noted Skin: Intact with no visualized rashes Psych: Normal affect and mood ED course: 68-year-old male presents with feelings of lightheadedness and presyncope. All signs upon arrival shows blood pressure of 86/61, rest of vital signs within except limits. Patient is brought to resuscitation today. 2 large-bore IVs were placed. Patient started on boluses of fluid. Plan care bedside ultrasound was performed showing no pericardial effusion. No findings of pulmonary edema. No obvious RV dilatation. Blood pressure was checked with leg raising technique with improvement. Patient is responding fluids. Repeat blood pressures are improved with measurement of 118/75. Laboratory evaluation obtained. Chest x-ray is nonacute. Hemoglobin 11.1, CBC is unremarkable. Cardiac panel negative. Blood gas shows pH of 7.5 with a pCO2 of 30. Metabolic panel shows lactic acidosis of 5.3. Rest metabolic panel is unremarkable. Urinalysis shows 8 white blood cells with rare bacteria. Patient does not have any urinary symptoms. No ketonuria. This point is very unclear what is causing patient's symptoms. He does have a lactic acidosis of 5.3. Blood pressures improved after intravenous fluids. We will admit patient for medical monitoring, IV hydration and consultation to oncology. She understandable agreeable with disposition. Pending blood cultures. Patient reevaluated at bedside with stable medical condition. Patient currently feels at baseline. He has no complaints. EKG interpretation: Ventricular rate 73, normal sinus rhythm,. 160, QS 94, QTC 478. No AR prolongation, no QTC prolongation, no ST or T-wave changes noted. EKG compared to 03/30/2019 showing no changes. Overall, this EKG is unremarkable - Related Data Home Medications Medication Instructions Recorded Confirmed Albuterol Inhaler [Ventolin Hfa 2 puff INHALATION RT-Q4H PRN 03/30/19 04/26/19 Inhaler] cloNIDine HCL [Catapres] 0.1 mg PO TID PRN 04/25/19 04/26/19 Acetaminophen [Tylenol Arthritis] 650 mg PO BID PRN 04/26/19 04/26/19 Allergies Allergy/AdvReac Type Severity Reaction Status Date / Time No Known Allergies Allergy Verified 04/26/19 14:12 Review of Systems ROS Statement: Those systems with pertinent positive or pertinent negative responses have been documented in the HPI. ROS Other: All systems not noted in ROS Statement are negative. Past Medical History Past Medical History: Cancer, Hypertension Additional Past Medical History / Comment(s): HX SKIN CA, CURRENT LESION ON LEFT CHEEK, lung CA, CA in the lymph nodes History of Any Multi-Drug Resistant Organisms: None Reported Past Surgical History: Back Surgery, Heart Catheterization, Joint Replacement, Orthopedic Surgery Additional Past Surgical History / Comment(s): PREVIOUS SKIN CA LESIONS REMOVED, R HIP REPLACEMENT, ANKLE ORIF WITH METAL L, lung biopsy, neck biopsy Past Anesthesia/Blood Transfusion Reactions: Previous Problems w/ Anesthesia Additional Past Anesthesia/Blood Transfusion Reaction / Comment(s): Pt woke up violently, which is out of characteristic for the pt Past Psychological History: No Psychological Hx Reported Smoking Status: Never smoker Past Alcohol Use History: Occasional Past Drug Use History: None Reported - Past Family History Mother Family Medical History: Cancer, Deep Vein Thrombosis (DVT) Additional Family Medical History / Comment(s): BREAST CA General Exam Limitations: no limitations Course Vital Signs 04/26/19 04/26/19 04/26/19 14:02 14:10 14:15 Temperature 98.0 F Pulse Rate 75 66 78 Respiratory 22 22 22 Rate Blood Pressure 86/61 64/49 84/57 O2 Sat by Pulse 99 97 99 Oximetry 04/26/19 04/26/19 04/26/19 14:20 14:25 14:30 Temperature Pulse Rate 67 65 68 Respiratory 20 20 20 Rate Blood Pressure 69/49 63/52 90/64 O2 Sat by Pulse 100 99 100 Oximetry 04/26/19 04/26/19 04/26/19 14:34 14:40 15:00 Temperature Pulse Rate 64 72 73 Respiratory 20 20 18 Rate Blood Pressure 118/75 151/79 145/74 O2 Sat by Pulse 100 99 100 Oximetry 04/26/19 04/26/19 15:14 15:30 Temperature Pulse Rate 74 75 Respiratory 20 18 Rate Blood Pressure 146/84 138/84 O2 Sat by Pulse 100 100 Oximetry Medical Decision Making - Lab Data Result diagrams: 04/26/19 14:13 04/26/19 14:13 Lab Results 04/26/19 04/26/19 04/26/19 Range/Units 14:13 14:13 14:13 WBC 9.6 (3.8-10.6) k/uL RBC 4.85 (4.30-5.90) m/uL Hgb 11.1 L (13.0-17.5) gm/dL Hct 36.8 L (39.0-53.0) % MCV 75.9 L (80.0-100.0) fL MCH 22.8 L (25.0-35.0) pg MCHC 30.1 L (31.0-37.0) g/dL RDW 15.8 H (11.5-15.5) % Plt Count 357 (150-450) k/uL Neutrophils % 67 % Lymphocytes % 22 % Monocytes % 6 % Eosinophils % 0 % Basophils % 1 % Neutrophils # 6.4 (1.3-7.7) k/uL Lymphocytes # 2.1 (1.0-4.8) k/uL Monocytes # 0.6 (0-1.0) k/uL Eosinophils # 0.0 (0-0.7) k/uL Basophils # 0.1 (0-0.2) k/uL Hypochromasia Marked Microcytosis Slight PT (9.0-12.0) sec INR (<1.2) APTT (22.0-30.0) sec VBG pH (7.31-7.41) VBG pCO2 (37-51) mmHg VBG HCO3 (24-28) mmol/L Sodium 137 (137-145) mmol/L Potassium 3.7 (3.5-5.1) mmol/L Chloride 100 (98-107) mmol/L Carbon Dioxide 24 (22-30) mmol/L Anion Gap 13 mmol/L BUN 8 L (9-20) mg/dL Creatinine 1.01 (0.66-1.25) mg/dL Est GFR (CKD-EPI)AfAm 89 (>60 ml/min/1.73 sqM) Est GFR (CKD-EPI)NonAf 77 (>60 ml/min/1.73 sqM) Glucose 113 H (74-99) mg/dL Plasma Lactic Acid Jose Manuel 5.3 H* (0.7-2.0) mmol/L Calcium 9.4 (8.4-10.2) mg/dL Magnesium 2.1 (1.6-2.3) mg/dL Total Bilirubin 0.7 (0.2-1.3) mg/dL AST 31 (17-59) U/L ALT 22 (21-72) U/L Alkaline Phosphatase 68 (38-126) U/L Troponin I (0.000-0.034) ng/mL Total Protein 7.7 (6.3-8.2) g/dL Albumin 4.1 (3.5-5.0) g/dL Urine Color Urine Appearance (Clear) Urine pH (5.0-8.0) Ur Specific [place] (1.001-1.035) Urine Protein (Negative) Urine Glucose (UA) (Negative) Urine Ketones (Negative) Urine Blood (Negative) Urine Nitrite (Negative) Urine Bilirubin (Negative) Urine Urobilinogen (<2.0) mg/dL Ur Leukocyte Esterase (Negative) Urine RBC (0-5) /hpf Urine WBC (0-5) /hpf Urine Bacteria (None) /hpf Hyaline Casts (0-2) /lpf Urine Mucus (None) /hpf Urine Yeast (Budding) (None) /hpf 04/26/19 04/26/19 04/26/19 Range/Units 14:13 14:13 14:13 WBC (3.8-10.6) k/uL RBC (4.30-5.90) m/uL Hgb (13.0-17.5) gm/dL Hct (39.0-53.0) % MCV (80.0-100.0) fL MCH (25.0-35.0) pg MCHC (31.0-37.0) g/dL RDW (11.5-15.5) % Plt Count (150-450) k/uL Neutrophils % % Lymphocytes % % Monocytes % % Eosinophils % % Basophils % % Neutrophils # (1.3-7.7) k/uL Lymphocytes # (1.0-4.8) k/uL Monocytes # (0-1.0) k/uL Eosinophils # (0-0.7) k/uL Basophils # (0-0.2) k/uL Hypochromasia Microcytosis PT 10.5 (9.0-12.0) sec INR 1.0 (<1.2) APTT 24.2 (22.0-30.0) sec VBG pH 7.51 H (7.31-7.41) VBG pCO2 30 L (37-51) mmHg VBG HCO3 24 (24-28) mmol/L Sodium (137-145) mmol/L Potassium (3.5-5.1) mmol/L Chloride (98-107) mmol/L Carbon Dioxide (22-30) mmol/L Anion Gap mmol/L BUN (9-20) mg/dL Creatinine (0.66-1.25) mg/dL Est GFR (CKD-EPI)AfAm (>60 ml/min/1.73 sqM) Est GFR (CKD-EPI)NonAf (>60 ml/min/1.73 sqM) Glucose (74-99) mg/dL Plasma Lactic Acid Jose Manuel (0.7-2.0) mmol/L Calcium (8.4-10.2) mg/dL Magnesium (1.6-2.3) mg/dL Total Bilirubin (0.2-1.3) mg/dL AST (17-59) U/L ALT (21-72) U/L Alkaline Phosphatase (38-126) U/L Troponin I <0.012 (0.000-0.034) ng/mL Total Protein (6.3-8.2) g/dL Albumin (3.5-5.0) g/dL Urine Color Urine Appearance (Clear) Urine pH (5.0-8.0) Ur Specific [place] (1.001-1.035) Urine Protein (Negative) Urine Glucose (UA) (Negative) Urine Ketones (Negative) Urine Blood (Negative) Urine Nitrite (Negative) Urine Bilirubin (Negative) Urine Urobilinogen (<2.0) mg/dL Ur Leukocyte Esterase (Negative) Urine RBC (0-5) /hpf Urine WBC (0-5) /hpf Urine Bacteria (None) /hpf Hyaline Casts (0-2) /lpf Urine Mucus (None) /hpf Urine Yeast (Budding) (None) /hpf 04/26/19 Range/Units 15:30 WBC (3.8-10.6) k/uL RBC (4.30-5.90) m/uL Hgb (13.0-17.5) gm/dL Hct (39.0-53.0) % MCV (80.0-100.0) fL MCH (25.0-35.0) pg MCHC (31.0-37.0) g/dL RDW (11.5-15.5) % Plt Count (150-450) k/uL Neutrophils % % Lymphocytes % % Monocytes % % Eosinophils % % Basophils % % Neutrophils # (1.3-7.7) k/uL Lymphocytes # (1.0-4.8) k/uL Monocytes # (0-1.0) k/uL Eosinophils # (0-0.7) k/uL Basophils # (0-0.2) k/uL Hypochromasia Microcytosis PT (9.0-12.0) sec INR (<1.2) APTT (22.0-30.0) sec VBG pH (7.31-7.41) VBG pCO2 (37-51) mmHg VBG HCO3 (24-28) mmol/L Sodium (137-145) mmol/L Potassium (3.5-5.1) mmol/L Chloride (98-107) mmol/L Carbon Dioxide (22-30) mmol/L Anion Gap mmol/L BUN (9-20) mg/dL Creatinine (0.66-1.25) mg/dL Est GFR (CKD-EPI)AfAm (>60 ml/min/1.73 sqM) Est GFR (CKD-EPI)NonAf (>60 ml/min/1.73 sqM) Glucose (74-99) mg/dL Plasma Lactic Acid Jose Manuel (0.7-2.0) mmol/L Calcium (8.4-10.2) mg/dL Magnesium (1.6-2.3) mg/dL Total Bilirubin (0.2-1.3) mg/dL AST (17-59) U/L ALT (21-72) U/L Alkaline Phosphatase (38-126) U/L Troponin I (0.000-0.034) ng/mL Total Protein (6.3-8.2) g/dL Albumin (3.5-5.0) g/dL Urine Color Yellow Urine Appearance Clear (Clear) Urine pH 7.0 (5.0-8.0) Ur Specific [place] 1.006 (1.001-1.035) Urine Protein Trace H (Negative) Urine Glucose (UA) Negative (Negative) Urine Ketones Negative (Negative) Urine Blood Moderate H (Negative) Urine Nitrite Negative (Negative) Urine Bilirubin Negative (Negative) Urine Urobilinogen <2.0 (<2.0) mg/dL Ur Leukocyte Esterase Negative (Negative) Urine RBC 34 H (0-5) /hpf Urine WBC 8 H (0-5) /hpf Urine Bacteria Rare H (None) /hpf Hyaline Casts 4 H (0-2) /lpf Urine Mucus Few H (None) /hpf Urine Yeast (Budding) Occasional H (None) /hpf Disposition Clinical Impression: Hypotension Disposition: ADMITTED IP TO THIS [facility] Condition: Fair Referrals: Phil Winslow DO [Primary Care Provider] - 1-2 days Decision Time: 16:07
[2019-04-26 15:06] LABS: Partial Thromboplastin Time 24.2 sec (22.0-30.0); Prothrombin Time 10.5 sec (9.0-12.0)
[2019-04-26 15:08] LABS: Albumin 4.1 g/dL (3.5-5.0); Calcium 9.4 mg/dL (8.4-10.2); Magnesium 2.1 mg/dL (1.6-2.3); Potassium 3.7 mmol/L (3.5-5.1); Total Bilirubin 0.7 mg/dL (0.2-1.3); Total Protein 7.7 g/dL (6.3-8.2)
--- NOTE | 2019-04-26 15:19 | XR ---
EXAMINATION TYPE: XR chest 2V DATE OF EXAM: 04/26/2019 COMPARISON: 03/30/2019 HISTORY: Shortness of breath TECHNIQUE: Frontal and lateral views of the chest are obtained. FINDINGS: Scattered senescent parenchymal changes noted. Hyperinflation compatible with COPD. No evidence for infiltrate. No evidence for atelectasis. Heart size is stable. Mediastinal structures are stable and grossly unremarkable. No evidence for hilar prominence. Degenerative changes dorsal spine. IMPRESSION: 1. No evidence for acute pulmonary disease.
[2019-04-26 15:51] LABS: Appearance,Urine Clear (Clear); Bacteria,Urine Rare /hpf; Bilirubin,Urine Negative (Negative); Blood,Urine Moderate (Negative); Budding Yeast,Urine Occasional /hpf; Color,Urine Yellow; Glucose,Urine (UA) Negative (Negative); Hyaline Casts,Urine 4 /lpf (0-2); Ketones,Urine Negative (Negative); Leukocyte Esterase,Urine Negative (Negative); Mucus,Urine Few /hpf; Nitrite,Urine Negative (Negative); Protein,Urine Trace (Negative); RBC,Urine 34 /hpf (0-5); Specific Gravity,Urine 1.006 (1.001-1.035); Urobilinogen,Urine <2.0 mg/dL (<2.0); WBC,Urine 8 /hpf (0-5)
[2019-04-26] MEDS ORDERED: ONDANSETRON 4 MG/2 ML VIAL IVP PRN ×2 (16:02→22:23)
[2019-04-26] MEDS ORDERED: NALOXONE 0.4 MG/ML 1 ML VIAL IV PRN (16:02)
[2019-04-26] MEDS ORDERED: ALBUTEROL NEBULIZED 2.5 MG/3 ML INHALATION PRN (16:04)
[2019-04-26] MEDS ORDERED: NON FORMULARY DRUG (Acetaminophen [Tylenol Arthritis] 650 MG) PO PRN (16:04)
[2019-04-26] MEDS: SODIUM CHLORIDE 0.9% 1,000 ML IV SCH (17:32)
[2019-04-26] MEDS ORDERED: hydrALAZINE HCL 20 MG/ML 1 ML VIAL IVP PRN (18:58)
[2019-04-26] MEDS: hydrALAZINE HCL 25 MG TAB PO SCH (22:42)
[2019-04-26] MEDS: ACETAMINOPHEN TAB 325 MG TAB PO PRN (23:59)
[2019-04-27] MEDS: SODIUM CHLORIDE 0.9% 1,000 ML IV SCH ×3 (00:01→23:25)
[2019-04-27] MEDS: hydrALAZINE HCL 25 MG TAB PO SCH ×3 (08:35→23:25)
[2019-04-27] MEDS ORDERED: SODIUM CHLORIDE 0.9% 1,000 ML IV SCH (10:45)
[2019-04-27] MEDS ORDERED: HYDROCHLOROTHIAZIDE 12.5 MG CAP PO SCH ×2 (11:00→12:00)
[2019-04-27] MEDS ORDERED: KETOROLAC 30 MG/ML 1 ML VIAL IVP PRN (11:11)
[2019-04-27] MEDS: ACETAMINOPHEN TAB 325 MG TAB PO PRN (12:19)
--- NOTE | 2019-04-27 13:29 | P.NPCON ---
History of Present Illness - Reason for Consult accelerated hypertension - History of Present Illness Reason for consultation: Labile hypertension History of present illness: Patient is a 68-year-old male seen in consultation for labile hypertension. Patient has history of lung cancer. Patient states he was at [facility] yesterday and became dizzy and lightheaded. Patient's blood pressure was in the systolic 60s. He received IV fluid boluses and blood pressure improved. He denies any syncopal episodes. Patient's orthostatic vital signs were negative. Patient's most recent blood pressure was 166/91. Patient states last night he became sick to his stomach and vomited. He also felt dizzy. He is currently receiving normal saline at 75 mL an hour. He denies any diarrhea. Oral intake is good. No hematuria or dysuria. No history of renal disease. He is currently receiving hydrochlorothiazide and hydralazine. At home it appears he was taking clonidine. Denies chest pain or shortness of breath. No edema. No history of diabetes. Vital signs are stable. General: The patient appeared well nourished and normally developed. HEENT: Head exam is unremarkable. Neck is without jugular venous distension. LUNGS: Lungs are clear to auscultation and percussion. Breath sounds decreased. HEART: Rate and Rhythm are regular. First and second heart sounds normal. No murmurs, rubs or gallops. ABDOMEN: Abdominal exam reveals normal bowel sounds. Non-tender and non- distended. No evidence of peritonitis. EXTREMITITES: No clubbing, cyanosis, or edema. Past Medical History Past Medical History: Cancer, Hypertension Additional Past Medical History / Comment(s): HX SKIN CA, CURRENT LESION ON LEFT CHEEK, lung CA, CA in the lymph nodes History of Any Multi-Drug Resistant Organisms: None Reported Past Surgical History: Back Surgery, Heart Catheterization, Joint Replacement, Orthopedic Surgery Additional Past Surgical History / Comment(s): PREVIOUS SKIN CA LESIONS REMOVED, R HIP REPLACEMENT, ANKLE ORIF WITH METAL L, lung biopsy, neck biopsy Past Anesthesia/Blood Transfusion Reactions: Previous Problems w/ Anesthesia Additional Past Anesthesia/Blood Transfusion Reaction / Comment(s): Pt woke up violently, which is out of characteristic for the pt Past Psychological History: No Psychological Hx Reported Smoking Status: Never smoker Past Alcohol Use History: Occasional Additional Past Alcohol Use History / Comment(s): Patient is a lifelong nonsmoker but had extensive exposure to asbestos and acid at [employer] as well as plastic exposure and [employer]. Past Drug Use History: None Reported - Past Family History Mother Family Medical History: Cancer, Deep Vein Thrombosis (DVT) Additional Family Medical History / Comment(s): BREAST CA Medications and Allergies Home Medications Medication Instructions Recorded Confirmed Type Albuterol Inhaler [Ventolin Hfa 2 puff INHALATION RT-Q4H PRN 03/30/19 04/26/19 History Inhaler] cloNIDine HCL [Catapres] 0.1 mg PO TID PRN 04/25/19 04/26/19 History Acetaminophen [Tylenol Arthritis] 650 mg PO BID PRN 04/26/19 04/26/19 History Allergies Allergy/AdvReac Type Severity Reaction Status Date / Time No Known Allergies Allergy Verified 04/26/19 14:12 Physical Exam Vitals: Vital Signs Temp Pulse Pulse Resp BP BP BP 04/27/19 12:00 98 17 04/27/19 11:00 193/95 178/102 04/27/19 08:20 97.8 F 106 H 18 04/27/19 03:20 98.7 F 92 16 04/27/19 01:15 04/27/19 01:10 99 04/27/19 00:30 111 H 04/27/19 00:15 112 H 04/27/19 00:00 116 H 04/26/19 23:45 108 H 04/26/19 23:30 97.6 F 111 H 20 04/26/19 22:20 87 04/26/19 21:20 98.4 F 71 16 04/26/19 16:30 98.0 F 75 18 144/90 04/26/19 16:00 79 18 140/90 04/26/19 15:30 75 18 138/84 04/26/19 15:14 74 20 146/84 04/26/19 15:00 73 18 145/74 04/26/19 14:40 72 20 151/79 04/26/19 14:34 64 20 118/75 04/26/19 14:30 68 20 90/64 04/26/19 14:25 65 20 63/52 04/26/19 14:20 67 20 69/49 04/26/19 14:15 78 22 84/57 04/26/19 14:10 66 22 64/49 04/26/19 14:02 98.0 F 75 22 86/61 BP Pulse Ox 04/27/19 12:00 166/91 98 04/27/19 11:00 192/87 04/27/19 08:20 149/83 97 04/27/19 03:20 146/78 98 04/27/19 01:15 97 04/27/19 01:10 103/69 04/27/19 00:30 112/70 04/27/19 00:15 94/56 04/27/19 00:00 103/65 04/26/19 23:45 94/57 04/26/19 23:30 86/51 100 04/26/19 22:20 170/85 04/26/19 21:20 191/95 98 04/26/19 16:30 100 04/26/19 16:00 100 04/26/19 15:30 100 04/26/19 15:14 100 04/26/19 15:00 100 04/26/19 14:40 99 04/26/19 14:34 100 04/26/19 14:30 100 04/26/19 14:25 99 04/26/19 14:20 100 04/26/19 14:15 99 04/26/19 14:10 97 04/26/19 14:02 99 Intake and Output 04/26/19 04/27/19 04/27/19 22:59 06:59 14:59 Intake Total 600 Output Total 300 Balance 300 Intake: Oral 600 Output: Urine 300 Other: Voiding Method Toilet Toilet # Voids 1 1 Weight 80.5 kg Results - Lab Results Most recent lab results Calcium 9.4 mg/dL (8.4-10.2) 04/26/19 14:13 Magnesium 2.1 mg/dL (1.6-2.3) 04/26/19 14:13 04/26/19 14:13 04/26/19 14:13 Assessment and Plan Plan: Assessment: 1. Labile hypertension. Initially there appears to be an component of hypovolemia as his blood pressure did improve with normal saline boluses. Currently his blood pressure is on the higher side. 2. History of lung cancer. 3. Lactic acidosis secondary to hypotension improved with IV hydration. Plan: Maintain normal saline at 75 mL an hour for now. Increase hydralazine to 25 mg 3 times daily. To be held if standing blood pressure less than 130. Discontinue hydrochlorothiazide. Will gradually increase dose of hydralazine depending on blood pressure. Follow-up plasma metanephrines. Thank you for the consultation. I will continue to follow the patient with you during his hospital stay.
[2019-04-27 13:56] VITALS: BMI 27.8
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
--- NOTE | 2019-04-27 16:15 | P.CONS ---
History of Present Illness - Reason for Consult Consult date: 04/27/19 Metastatic basal cell cancer, syncopal episode - History of Present Illness 52-year-old gentleman, Initially seen in consult on 04/01/19. He has a past medical history of hypertension, recurrent basal cell carcinoma of skin, arthritis GERD and hypertension, and had been admitted with syncope, and a left neck mass as well as lung mass. . As per the oncology history, the patient has recurrent basal cell carcinoma of the face and neck ,which has been removed in the past. Recently he has developed swelling in the neck on the left side which has been progressive, was evaluated as out patient had a biopsy done on 03/13/19 which was consistent with atypical squamous cells with basaloid appearance. CT of the chest done on 03/22/2019 revealed 2 masses in the right upper lobe and enlarged left supraclavicular/left lower neck lymph nodes. The mass was 4.6 cm. 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 The patient had a repeat CT done which did not reveal any pulmonary embolism however has shown increase in the size of the mass especially in the pulmonary hilum. During his recent consultation, the question from the oncology standpoint was whether the left neck mass in the lung mass represented 2 separate malignancies or the same cancer. A more definitive biopsy from the left neck mass was recommended. The patient was subsequently discharged and had a core biopsy from the left neck mass on 04/12/19. This came back positive for basal cell carcinoma. In view of this finding, the lung pathology was reviewed and compared. The lung pathology was not felt also to represent metastatic basal cell carcinoma, s imilar to the pathology noted in the neck mass. The patient had an MRI of the brain on 04/02/19, which was negative for metastasis. He then had a PET scan on04/16/19, which showed uptake in the left neck area extending up to the hyoid bone, and down towards the medial upper scapula. Uptake was also noted in the right lung mass. No other areas of uptake were seen. The patient was supposed to follow-up in the office yesterday. Prior to that he had an appointment with radiation oncology. In that office the patient was found to be extremely weak and dizzy and was near-syncopal. He was therefore sent in to the emergency room. He had an episode of nausea and vomiting prior to reaching the ER. He was found to be hypotensive, and was therefore admitted. He has subsequently improved with hydration. He states that he has had at least 2 similar episodes since his discharge earlier in 04/14. On further questioning he states that these may be positional. Consult was placed for further evaluation and recommendations Review of Systems Constitutional: Reports weakness Eyes: denies blurred vision, denies pain Ears: deny: decreased hearing, ear discharge, earache, tinnitus Ears, nose, mouth and throat: Reports as per HPI, Reports neck fullness/pressure, Reports neck lump Cardiovascular: Reports syncope Respiratory: Denies cough Gastrointestinal: Reports nausea, Reports vomiting Genitourinary: Reports as per HPI Musculoskeletal: Reports muscle weakness Integumentary: Reports as per HPI, Reports lesions Neurological: Reports syncope, Reports weakness Psychiatric: Denies anxiety, Denies depression Endocrine: Denies fatigue, Denies weight change Hematologic/Lymphatic: Reports as per HPI, Reports lymphadenopathy Past Medical History Past Medical History: Cancer, Hypertension Additional Past Medical History / Comment(s): HX SKIN CA, CURRENT LESION ON LEFT CHEEK, lung CA, CA in the lymph nodes History of Any Multi-Drug Resistant Organisms: None Reported Past Surgical History: Back Surgery, Heart Catheterization, Joint Replacement, Orthopedic Surgery Additional Past Surgical History / Comment(s): PREVIOUS SKIN CA LESIONS REMOVED, R HIP REPLACEMENT, ANKLE ORIF WITH METAL L, lung biopsy, neck biopsy Past Anesthesia/Blood Transfusion Reactions: Previous Problems w/ Anesthesia Additional Past Anesthesia/Blood Transfusion Reaction / Comm: Pt woke up violently, which is out of characteristic for the pt Past Psychological History: No Psychological Hx Reported Smoking Status: Never smoker Past Alcohol Use History: Occasional Additional Past Alcohol Use History / Comment(s): Patient is a lifelong nonsmo ker but had extensive exposure to asbestos and acid at [employer] as well as plastic exposure and [employer]. Past Drug Use History: None Reported - Past Family History Mother Family Medical History: Cancer, Deep Vein Thrombosis (DVT) Additional Family Medical History / Comment(s): BREAST CA Medications and Allergies Home Medications Medication Instructions Recorded Confirmed Type Albuterol Inhaler [Ventolin Hfa 2 puff INHALATION RT-Q4H PRN 03/30/19 04/26/19 History Inhaler] cloNIDine HCL [Catapres] 0.1 mg PO TID PRN 04/25/19 04/26/19 History Acetaminophen [Tylenol Arthritis] 650 mg PO BID PRN 04/26/19 04/26/19 History Allergies Allergy/AdvReac Type Severity Reaction Status Date / Time No Known Allergies Allergy Verified 04/26/19 14:12 Physical Exam Vitals: Vital Signs Temp Pulse Pulse Resp BP BP BP 04/27/19 12:00 98 17 04/27/19 11:00 193/95 178/102 04/27/19 08:20 97.8 F 106 H 18 04/27/19 03:20 98.7 F 92 16 04/27/19 01:15 04/27/19 01:10 99 04/27/19 00:30 111 H 04/27/19 00:15 112 H 04/27/19 00:00 116 H 04/26/19 23:45 108 H 04/26/19 23:30 97.6 F 111 H 20 04/26/19 22:20 87 04/26/19 21:20 98.4 F 71 16 04/26/19 16:30 98.0 F 75 18 144/90 04/26/19 16:00 79 18 140/90 BP Pulse Ox 04/27/19 12:00 166/91 98 04/27/19 11:00 192/87 04/27/19 08:20 149/83 97 04/27/19 03:20 146/78 98 04/27/19 01:15 97 04/27/19 01:10 103/69 04/27/19 00:30 112/70 04/27/19 00:15 94/56 04/27/19 00:00 103/65 04/26/19 23:45 94/57 04/26/19 23:30 86/51 100 04/26/19 22:20 170/85 04/26/19 21:20 191/95 98 04/26/19 16:30 100 04/26/19 16:00 100 Intake and Output 04/27/19 04/27/19 04/27/19 06:59 14:59 22:59 Intake Total 1200 Output Total 300 Balance 900 Intake: Oral 1200 Output: Urine 300 Other: Voiding Method Toilet # Voids 1 Weight 80.5 kg 80.5 kg - Constitutional General appearance: no acute distress - EENT Eyes: EOMI, PERRLA ENT: hearing grossly normal, normal oropharynx - Neck Neck: lymphadenopathy (Irregular, hard fixed mass at left neck base extending upward into the thyroid cartilage and inferiorly and posteriorly to the left medial upper scapula. Appears to consist of matted lymph nodes. Superior and anterior to the same is a superficial ulcerated skin lesion) Thyroid: bilateral: normal size - Respiratory Respiratory: bilateral: CTA - Cardiovascular Rhythm: regular Heart sounds: normal: S1, S2 - Gastrointestinal General gastrointestinal: normal bowel sounds, soft - Integumentary Integumentary: normal - Neurologic Neurologic: CNII-XII intact - Musculoskeletal Musculoskeletal: generalized weakness, strength equal bilaterally - Psychiatric Psychiatric: A&O x's 3, appropriate affect Results CBC & Chem 7: 04/26/19 14:13 04/26/19 14:13 Comments: PET scan report reviewed Pathology report reviewed Chest x-ray: report reviewed Assessment and Plan (1) Syncope Narrative/Plan: The patient has been having recurrent episodes, which have become worse in terms of frequency since his admission earlier this month. These are accompanied with low blood pressure, dizziness, near-syncope or syncope, as well as nausea with occasional vomiting. based on the the clinical picture this most likely is due to a mass effect of the left neck mass, on adjacent vascular and nerve structures, likely the vagus nerve causing a vasovagal response. The mass has enlarged rapidly in size since our initial consult 3 weeks ago. The case was discussed with radiation oncology. The patient will be started on steroids to reduce inflammation and pressure affect. The plan is to start him on palliative radiation in the near future. Current Visit: No Status: Acute Code(s): R55 - SYNCOPE AND COLLAPSE SNOMED Code(s): 516708358 (2) Basal cell carcinoma Narrative/Plan: The patient has an unusual presentation of aggressive basal cell carcinoma of the skin. He the primary had initially occurred in the left neck area, and now appears to have developed metastasis to the left neck lymph nodes and to the lungs. Based on the extent of disease, and to discuss with the patient that he is likely not curable. The objective of treatment would be prolongation of life and palliation of symptoms. Fortunately he does not have a heavy burden of disease at this time, but rate of progression of the left neck mass is quite impressive - Plan for palliative radiation, and steroids for the left neck lesion as noted above. After completion of the same, the patient will be started on systemic therapy. The case has been discussed in the [facility]. The plan at this time would be to utilize targeted therapy after radiation. If the patient does have a good response to the same, he may be a candidate for additional, more aggressive localized therapy. Current Visit: Yes Status: Acute Code(s): C44.91 - BASAL CELL CARCINOMA OF SKIN, UNSPECIFIED SNOMED Code(s): 235531648
[2019-04-27] MEDS ORDERED: hydrALAZINE HCL 25 MG TAB PO SCH (21:00)
[2019-04-27] MEDS: DEXAMETHASONE 4 MG TAB PO SCH (21:25)
[2019-04-27] MEDS: HEPARIN SODIUM,PORCINE 5,000 UNIT/ML 1 ML VIAL SQ SCH (21:25)
[2019-04-28] MEDS: DEXAMETHASONE 4 MG TAB PO SCH ×3 (09:34→21:29)
[2019-04-28] MEDS: HEPARIN SODIUM,PORCINE 5,000 UNIT/ML 1 ML VIAL SQ SCH ×2 (09:35→21:29)
[2019-04-28] MEDS: FAMOTIDINE 20 MG TAB PO SCH (09:35)
[2019-04-28] MEDS: hydrALAZINE HCL 25 MG TAB PO SCH ×3 (09:39→21:30)
[2019-04-28] MEDS: SODIUM CHLORIDE 0.9% 1,000 ML IV SCH (09:46)
--- NOTE | 2019-04-28 10:52 | P.PN ---
Subjective Progress Note Date: 04/28/19 Seen and examined for the follow-up of labile hypertension. Feels better today. No dizziness lightheadedness. No nausea vomiting or diarrhea. Objective - Vital Signs Vital signs: Vital Signs Temp 98.1 F 04/28/19 03:45 Pulse 106 H 04/28/19 03:45 Resp 18 04/28/19 03:45 BP 108/77 04/28/19 03:45 Pulse Ox 97 04/28/19 03:45 Intake & Output 04/27/19 04/28/19 04/28/19 18:59 06:59 18:59 Intake Total 1440 Output Total 975 1300 Balance 465 -1300 Weight 80.5 kg 80.6 kg Intake: Oral 1440 Output: Urine 975 1300 Other: Voiding Method Urinal # Voids 2 1 - Exam No acute distress S1-S2 heard Lungs clear Abdomen soft No edema Left neck invasive basal cancer - Labs CBC & Chem 7: 04/26/19 14:13 04/26/19 14:13 Labs: Microbiology - Last 24 Hours (Table) 04/26/19 14:31 Blood Culture - Preliminary Blood No Growth after 24 hours Assessment and Plan Assessment: #1 labile hypertension with orthostatic hypotension suspect secondary to volume depletion and vagal stimulation from basal cell cancer of the neck. #2 basal cell cancer metastatic #3 lactic acidosis improved with hydration. Plan: #1 no new labs today. #2 blood pressures stable, continue with head and elevated to 30 while in bed. #3 if systolic blood pressure drops while standing use JAMES stockings while out of bed. Remove it while lying in bed. #4 treat standing blood pressure only when greater than 140 systolic. #5 continue with hydralazine at this time. #6 check labs in the morning
--- NOTE | 2019-04-28 13:43 | P.CRDCN ---
History of Present Illness Consult date: 04/28/19 Reason for Consult (text): Autonomic hypotension History of present illness: This is a 68-year-old male patient of Dr. Winslow and Dr. Maya. He does not follow with a candy roller. 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 Patient had a recent hospitalization on March 31 at which time he was treated for dizziness syncopal episode hypotension secondary to lisinopril and h ydrochlorothiazide and hydrochlorothiazide was discontinued at the time of discharge. He gives history that he was at [facility] as he was getting fitted for his mass to start his radiation therapy and he had a drop in his blood pressure with lightheadedness and was brought over to [facility] emergency center for evaluation. His initial vital signs were blood pressure 86/61. He was placed on IV fluids and subsequently blood pressure jean marie for which hydralazine 1 dose IV was given and subsequent recheck was higher and he was given hydralazine orally. He has had multiple changes to his blood pressure medications at home. Patient has had 3-4 episodes of near syncope episodes with hypotension since March 27. Patient's states the last one was on Tuesday when he was at Dr. Winslow's office. He had high blood pressure and he was given medications which subsequently dropped his blood pressure he went home and went to bed. Patient states that he has been drinking lots of fluids. Orthostatics are negative. Blood pressure remains high and medication adjustments have been made. Patient denies having any chest pain, no fever or chills. He does complain of a burning type pain in the left shoulder. The patient has had another episode while hospitalized on the evening of April 26. Rhythm strips were reviewed and there was no arrhythmia noted. Review of Systems Constitutional: Reports fatigue, Reports poor appetite, Reports weakness, Denies chills, Denies fever, Denies malaise Eyes: denies blurred vision, denies pain Ears, nose, mouth and throat: Reports vertigo, Denies dysphagia Cardiovascular: Reports lightheadedness, Reports syncope, Denies chest pain, Denies decreased exercise tolerance, Denies dyspnea on exertion, Denies leg ed shayla, Denies orthopnea, Denies palpitations Respiratory: Denies cough, Denies cough with sputum, Denies dyspnea, Denies excessive sputum, Denies hemoptysis, Denies home oxygen, Denies wheezing Gastrointestinal: Reports diarrhea, Reports loss of appetite, Reports nausea, Denies abdominal pain, Denies vomiting Genitourinary: Denies dysuria, Denies urinary frequency, Denies urinary retention Integumentary: Denies pruritus, Denies rash, Denies wounds Neurological: Reports syncope, Reports vertigo, Denies gait dysfunction, Denies numbness, Denies seizures, Denies weakness Psychiatric: Denies anxiety, Denies depression Endocrine: Denies fatigue, Denies weight change Gen: This is 68-year-old maler patient. Patient is resting in his room and appears to be comfortable and in no acute distress. Patient's is at [facility]. HEENT: Head is atraumatic, normocephalic. Pupils equal, round. Sclerae is anicteric. Mass left lateral neck area. NECK: Supple. No JVD. No lymphadenopathy. No thyromegaly. LUNGS: Clear to auscultation. No wheezes or rhonchi. No intercostal retractions. HEART: Regular rate and rhythm. No murmur. ABDOMEN: Soft. Bowel sounds are present. No masses. No tenderness. EXTREMITIES: No pedal edema. No calf tenderness. NEUROLOGICAL: Patient is awake, alert and oriented x3. Cranial nerves 2 through 12 are grossly intact. Patient did not feel lightheaded or dizziness during orthostatic vital signs. Assessment: Dizziness with syncopal, presyncopal episodes and labile blood pressure readings Basal cell skin cancer with metastatic disease to the neck and lungs Lactic acidosis secondary to hypoperfusion and underlying cancer Hypertension Plan: Review of anatomy and physiology instructor strips revealed no arrhythmias Recommend CBC and BMP tomorrow Continue telemetry monitoring Continue hydralazine Most likely patient will be cleared for discharge tomorrow Further recommendations to follow based upon clinical course Thank you kindly for this consultation Nurse practitioner note has been reviewed, I agree with documented findings and plan of care. Patient was seen and examined. Past Medical History Past Medical History: Cancer, Hypertension Additional Past Medical History / Comment(s): HX SKIN CA, CURRENT LESION ON LEFT CHEEK, lung CA, CA in the lymph nodes History of Any Multi-Drug Resistant Organisms: None Reported Past Surgical History: Back Surgery, Heart Catheterization, Joint Replacement, Orthopedic Surgery Additional Past Surgical History / Comment(s): PREVIOUS SKIN CA LESIONS REMOVED, R HIP REPLACEMENT, ANKLE ORIF WITH METAL L, lung biopsy, neck biopsy Past Anesthesia/Blood Transfusion Reactions: Previous Problems w/ Anesthesia Additional Past Anesthesia/Blood Transfusion Reaction / Comment(s): Pt woke up violently, which is out of characteristic for the pt Past Psychological History: No Psychological Hx Reported Smoking Status: Never smoker Past Alcohol Use History: Occasional Additional Past Alcohol Use History / Comment(s): Patient is a lifelong nonsmoker but had extensive exposure to asbestos and acid at [employer] as well as plastic exposure and [employer]. Past Drug Use History: None Reported - Past Family History Mother Family Medical History: Cancer, Deep Vein Thrombosis (DVT) Additional Family Medical History / Comment(s): BREAST CA Medications and Allergies Home Medications Medication Instructions Recorded Confirmed Type Albuterol Inhaler [Ventolin Hfa 2 puff INHALATION RT-Q4H PRN 03/30/19 04/26/19 History Inhaler] cloNIDine HCL [Catapres] 0.1 mg PO TID PRN 04/25/19 04/26/19 History Acetaminophen [Tylenol Arthritis] 650 mg PO BID PRN 04/26/19 04/26/19 History Allergies Allergy/AdvReac Type Severity Reaction Status Date / Time No Known Allergies Allergy Verified 04/26/19 14:12 Physical Exam Vitals: Vital Signs Temp Pulse Resp BP BP BP Pulse Ox 04/28/19 03:45 98.1 F 106 H 18 108/77 97 04/27/19 23:20 98.1 F 100 18 175/102 96 04/27/19 20:00 97.4 F L 101 H 16 135/84 97 04/27/19 16:15 79 17 176/104 99 04/27/19 12:00 98 17 166/91 98 04/27/19 11:00 193/95 178/102 192/87 Intake and Output 04/27/19 04/28/19 04/28/19 22:59 06:59 14:59 Intake Total 240 Output Total 675 1300 Balance -435 -1300 Intake: Oral 240 Output: Urine 675 1300 Other: Voiding Method Urinal Urinal # Voids 1 Weight 80.6 kg Results 04/26/19 14:13 04/26/19 14:13 Current Medications Generic Name Dose Route Start Last Admin Trade Name Freq PRN Reason Stop Dose Admin Acetaminophen 650 mg 04/26/19 16:02 04/27/19 12:19 Tylenol Tab PO 650 mg Q6HR PRN Administration Mild Pain or Fever > 100.5 Albuterol Sulfate 2.5 mg 04/26/19 16:04 Ventolin Nebulized INHALATION RT-Q4H PRN Shortness Of Breath Dexamethasone 4 mg 04/27/19 22:00 04/28/19 09:34 Hexadrol PO 4 mg TID MARISOL Administration Famotidine 20 mg 04/28/19 09:00 04/28/19 09:35 Pepcid PO 20 mg DAILY MARISOL Administration Heparin Sodium (Porcine) 5,000 unit 04/27/19 21:00 04/28/19 09:35 Heparin SQ 5,000 unit Q12HR MARISOL Administration Hydralazine HCl 10 mg 04/26/19 18:58 04/26/19 21:28 Apresoline IVP 10 mg Q6HR PRN Administration Blood Pressure - High Hydralazine HCl 25 mg 04/27/19 16:00 04/28/19 09:39 Apresoline PO Not Given TID [facility] Sodium Chloride 1,000 mls @ 75 mls/hr 04/27/19 11:00 04/28/19 09:46 Saline 0.9% IV Not Given .[id number] [facility] Ketorolac Tromethamine 15 mg 04/27/19 11:11 Toradol IVP 05/01/19 11:11 Q6HR PRN Breakthrough Pain Naloxone HCl 0.2 mg 04/26/19 16:02 Narcan IV Q2M PRN Opioid Reversal Ondansetron HCl 4 mg 04/26/19 22:23 04/26/19 23:46 Zofran IVP 4 mg Q6HR PRN Administration Nausea And Vomiting Intake and Output 04/27/19 04/28/19 04/28/19 22:59 06:59 14:59 Intake Total 240 Output Total 675 1300 Balance -435 -1300 Intake: Oral 240 Output: Urine 675 1300 Other: Voiding Method Urinal Urinal # Voids 1 Weight 80.6 kg 04/26/19 14:13 04/26/19 14:13
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
[2019-04-28] MEDS ORDERED: ALPRAZolam 0.25 MG TAB PO PRN (21:27)
[2019-04-29 06:54] LABS: Anisocytosis Slight; HCT 34.6 % (39.0-53.0); HGB 10.8 gm/dL (13.0-17.5); Hypochromasia Marked; MCH 23.2 pg (25.0-35.0); MCHC 31.2 g/dL (31.0-37.0); MCV 74.4 fL (80.0-100.0); Mean Platelet Volume 6.5; Microcytosis Slight; Platelet Count 339 k/uL (150-450); RBC 4.65 m/uL (4.30-5.90); WBC 5.6 k/uL (3.8-10.6)
[2019-04-29 07:13] LABS: African American GFR (CKD) >90 (>60 ml/min/1.73 sqM); Anion Gap 10 mmol/L; Blood Urea Nitrogen 11 mg/dL (9-20); Calcium 9.5 mg/dL (8.4-10.2); Carbon Dioxide 27 mmol/L (22-30); Chloride 101 mmol/L (98-107); Glucose 140 mg/dL (74-99); Potassium 4.2 mmol/L (3.5-5.1); Sodium 138 mmol/L (137-145)
[2019-04-29] MEDS: SODIUM CHLORIDE 0.9% 1,000 ML IV SCH (07:55)
[2019-04-29] MEDS: HEPARIN SODIUM,PORCINE 5,000 UNIT/ML 1 ML VIAL SQ SCH (08:40)
[2019-04-29] MEDS: DEXAMETHASONE 4 MG TAB PO SCH (08:40)
[2019-04-29] MEDS: FAMOTIDINE 20 MG TAB PO SCH (08:41)
[2019-04-29] MEDS: hydrALAZINE HCL 25 MG TAB PO SCH (08:42)
[2019-04-29 09:27] VITALS: RESP 18
--- NOTE | 2019-04-29 10:55 | P.PN ---
Subjective Progress Note Date: 04/29/19 Seen and examined for the follow-up of labile hypertension. Feels better today. No dizziness lightheadedness. No nausea vomiting or diarrhea. Objective - Vital Signs Vital signs: Vital Signs Temp 97.0 F L 04/29/19 08:40 Pulse 125 H 04/29/19 08:40 Resp 18 04/29/19 08:40 BP 128/52 04/29/19 08:40 Pulse Ox 99 04/29/19 08:40 Intake & Output 04/28/19 04/29/19 04/29/19 19:59 06:59 18:59 Intake Total 600 Output Total Balance 600 Weight Intake: Oral 600 Output: Urine Other: Voiding Method # Voids - Exam No acute distress S1-S2 heard Lungs clear Abdomen soft No edema Left neck invasive basal cancer - Labs CBC & Chem 7: 04/29/19 05:53 04/29/19 05:53 Labs: Abnormal Lab Results - Last 24 Hours (Table) 04/29/19 04/29/19 Range/Units 05:53 05:53 Hgb 10.8 L (13.0-17.5) gm/dL Hct 34.6 L (39.0-53.0) % MCV 74.4 L (80.0-100.0) fL MCH 23.2 L (25.0-35.0) pg RDW 16.0 H (11.5-15.5) % Glucose 140 H (74-99) mg/dL Microbiology - Last 24 Hours (Table) 04/26/19 14:31 Blood Culture - Preliminary Blood No Growth after 48 hours Assessment and Plan Assessment: #1 labile hypertension with orthostatic hypotension suspect secondary to volume depletion and vagal stimulation from basal cell cancer of the neck. #2 basal cell cancer metastatic #3 lactic acidosis improved with hydration. Plan: #1 blood pressures stable, continue with head and elevated to 30 while in bed. #2 if systolic blood pressure drops while standing use JAMES stockings while out of bed. Remove it while lying in bed. #3 treat standing blood pressure only when greater than 140 systolic. #4 continue with hydralazine at this time. Stop IV hydralazine as it can drop in blood pressure very rapidly.
[2019-04-29 11:52] VITALS: BP 136/75; PULSE 116; TEMP 97.6
--- NOTE | 2019-04-29 12:14 | P.PN ---
Subjective Progress Note Date: 04/29/19 This is a 68-year-old male patient of Dr. Winslow and Dr. Maya. 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 Patient had a recent hospitalization on March 31 at which time he was treated for dizziness syncopal episode hypotension secondary to lisinopril and hydrochlorothiazide and hydrochlorothiazide was discontinued at the time of discharge. He gives history that he was at [facility] as he was getting fitted for his mass to start his radiation therapy and he had a drop in his blood pressure with lightheadedness and was brought over to [facility] emergency center for evaluation. His initial vital signs were blood pressure 86/61. He was placed on IV fluids and subsequently blood pressure jean marie for which hydralazine 1 dose IV was given and subsequent recheck was higher and he was given hydralazine orally. He has had multiple changes to his blood pressure medications at home. Patient has had 3-4 episodes of near syncope episodes with hypotension since March 27. Patient's states the last one was on Tuesday when he was at Dr. Winslow's office. He had high blood pressure and he was given medications which subsequently dropped his blood pressure he went home and went to bed. Patient states that he has been drinking lots of fluids. Orthostatics are negative. Blood pressure remains high and medication adjustments have been made. Patient denies having any chest pain, no fever or chills. He does complain of a burning type pain in the left shoulder. The patient has had another episode while hospitalized on the evening of April 26. Rhythm strips were reviewed and there was no arrhythmia noted. 04/29: Patient continues to have labile blood pressures and this morning was 136/75. Plan is to continue current medications as patient will most likely continue to have labile blood pressure readings until the left neck mass has shrunk by radiation therapy. Patient denies any new complaints. Gen: This is 68-year-old maler patient. Patient is resting in his room and appears to be comfortable and in no acute distress. Patient's is at [facility]. Afebrile, heart rate 116, blood pressure 136/75 and pulse ox 98% on room air HEENT: Head is atraumatic, normocephalic. Pupils equal, round. Sclerae is anicteric. Mass left lateral neck area. NECK: Supple. No JVD. No lymphadenopathy. No thyromegaly. LUNGS: Clear to auscultation. No wheezes or rhonchi. No intercostal retractions. HEART: Regular rate and rhythm. No murmur. ABDOMEN: Soft. Bowel sounds are present. No masses. No tenderness. EXTREMITIES: No pedal edema. No calf tenderness. NEUROLOGICAL: Patient is awake, alert and oriented x3. Cranial nerves 2 through 12 are grossly intact. Patient did not feel lightheaded or dizziness during orthostatic vital signs. Assessment: Dizziness with syncopal, presyncopal episodes and labile blood pressure readings most likely is due to a mass effect of the left neck mass, on adjacent vascular and nerve structures, likely the vagus nerve causing a vasovagal response. The mass has enlarged rapidly in size since our initial consult 3 weeks ago. Basal cell skin cancer with metastatic disease to the neck and lungs Lactic acidosis secondary to hypoperfusion and underlying cancer Hypertension Plan: Review of skilled nursing facility counselor strips revealed no arrhythmias Continue telemetry monitoring Continue hydralazine Patient is cleared for discharge from cardiology to continue current medication s. Further recommendations to follow based upon clinical course Thank you kindly for this consultation Nurse practitioner note has been reviewed, I agree with documented findings and plan of care. Patient was seen and exa Objective - Vital Signs Vital signs: Vital Signs Temp 97.6 F 04/29/19 04:00 Pulse 110 H 04/29/19 04:00 Resp 16 04/29/19 04:00 BP 167/97 04/29/19 04:00 Pulse Ox 95 04/29/19 04:00 Intake & Output 04/28/19 04/29/19 04/29/19 19:59 06:59 18:59 Intake Total Output Total Balance Weight Intake: Oral Output: Urine Other: Voiding Method # Voids - Labs CBC & Chem 7: 04/29/19 05:53 04/29/19 05:53 Labs: Abnormal Lab Results - Last 24 Hours (Table) 04/29/19 04/29/19 Range/Units 05:53 05:53 Hgb 10.8 L (13.0-17.5) gm/dL Hct 34.6 L (39.0-53.0) % MCV 74.4 L (80.0-100.0) fL MCH 23.2 L (25.0-35.0) pg RDW 16.0 H (11.5-15.5) % Glucose 140 H (74-99) mg/dL Microbiology - Last 24 Hours (Table) 04/26/19 14:31 Blood Culture - Preliminary Blood No Growth after 48 hours
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
[2019-04-29] MEDS ORDERED: METOPROLOL TARTRATE 12.5 MG TAB PO SCH (21:00)
[2019-05-01 12:18] LABS: Metanephrines 24 Hour,Urine 96 ug/day (52-341); Normetanephrine 24 Hour,Urine 474 ug/day (88-444); Total Metanephrines 24 Hour,Ur 570 ug/day (140-785); Total Volume 24Hr 3,200 mL (600-2000)
[2019-05-05 19:39] LABS: Acetylchol Recept Bind Ab <0.30 nmol/L
== END 2019-04-29 11:55 | disposition home or self-care (01) | DRG 312 ==
LOC: EC 13:54 → 3SCARD 16:02
PROVIDERS: ADMIT Internal Medicine; ATTEND Internal Medicine
DX: I95.2 Hypotension due to drugs (principal); C34.10 Malignant neoplasm of upper lobe, unspecified bronchus or lung; C79.89 Secondary malignant neoplasm of other specified sites; E87.2 Acidosis; T46.5X5A Adverse effect of other antihypertensive drugs, initial encounter; C76.0 Malignant neoplasm of head, face and neck; K21.9 Gastro-esophageal reflux disease without esophagitis; Z77.090 Contact with and (suspected) exposure to asbestos; Z79.899 Other long term (current) drug therapy; Z80.3 Family history of malignant neoplasm of breast; Z96.641 Presence of right artificial hip joint; I10 Essential (primary) hypertension; Z85.828 Personal history of other malignant neoplasm of skin
CPT/HCPCS: 36415; 71046; 80048; 80053; 81001; 82803; 83519; 83605; 83735; 83835; 84443; 84484; 85025; 85027; 85610; 85730; 87040; 93005; 94760; 96360; 99285

== ENCOUNTER 2019-05-18 14:11 | Inpatient (IN) | payer MEDICARE ==
[2019-05-18] MEDS ORDERED: SODIUM CHLORIDE 0.9% 1,000 ML IV STA (14:33)
--- NOTE | 2019-05-18 14:56 | ED ---
General Adult HPI - General Chief complaint: Weakness Stated complaint: Weakness, vomiting Time Seen by Provider: 05/18/19 14:33 Source: patient Mode of arrival: ambulatory Limitations: no limitations - History of Present Illness Initial comments: Dictation was produced using [employer] dictation software. please excuse any grammatical, word or spelling errors. Chief Complaint: 68-year-old male presents with worsening weakness and vomiting History of Present Illness: 68-year-old male he has past medical history of skin cancer and hypertension. Patient reports that he had just completed radiation therapy recently. Patient states that since yesterday's been having bilious vomiting. States that he had multiple episodes yesterday. He has no pain complaints at this time. at bedside states that patient has been little disoriented lasting for couple minutes. Patient states he feels generally weak. Denies any focal neurologic signs. No constitutional symptoms. The ROS documented in this emergency department record has been reviewed and confirmed by me. Those systems with pertinent positive or negative responses have been documented in the HPI. All other systems are other negative and/or noncontributory. PHYSICAL EXAM: General Impression: Alert and oriented x3, not in acute distress HEENT: Normocephalic atraumatic, extra-ocular movements intact, pupils equal and reactive to light bilaterally, dry mucous membranes Cardiovascular: Heart regular rate and rhythm, S1&S2 audible, no murmurs, rubs or gallops Chest: Lungs clear to auscultation bilaterally, no rhonchi, no wheeze, no rales Abdomen: Bowel sounds present, abdomen soft, non-tender, non-distended, no organomegaly Musculoskeletal: Pulses present and equal in all extremities, no peripheral edema Motor: no focal deficits noted Neurological: CN II-XII grossly intact, no focal motor or sensory deficits noted Skin: Intact with no visualized rashes Psych: Normal affect and mood ED course: 68-year-old male presents with generalized weakness. As upon arrival shows heart rate of 126, rest of vital signs within acceptable limits. Patient is low-grade temperature 99.5 orally. Does not have any localizing infectious symptoms however. Repeat temperature was obtained with temperature 102.2. Laboratory evaluation obtained. Leukocytosis of 13.6. Patient also has findings of macrocytic anemia. Coag panel is unremarkable. Metabolic panel shows lactic acid 2.3. Troponin 0.022, prematurity peptide of 1220. Urinalysis shows 27 white blood cells with greater than 182 red blood cells. Influenza test negative. Computed tomography scan of the brain is obtained showing no acute processes. Chest x- ray is nonacute. Patient's confusion at home is likely secondary to metabolic encephalopathy secondary to infection. Patient given broad-spectrum antibiotics. Discussed patient case Dr. Fink who is willing to accept patients care. She is given intravenous fluids. Patient is normotensive not showing any signs of septic shock. EKG interpretation: Ventricular rate 117, sinus tachycardia, AR interval 164, care is 94, QTC 471. No AR prolongation, no QTC prolongation, no ST or T-wave changes noted. EKG compared to 04/26/2019 showing no changes. Overall, this EKG is unremarkable - Related Data Home Medications Medication Instructions Recorded Confirmed Acetaminophen [Tylenol Arthritis] 650 mg PO BID PRN 04/26/19 05/18/19 Metoprolol Tartrate [Lopressor] 12.5 mg PO HS 05/18/19 05/18/19 Previous Rx's Medication Instructions Recorded Melatonin 10 mg PO HS #30 tablet.er 04/29/19 hydrALAZINE HCL [Apresoline] 25 mg PO TID #90 tab 04/29/19 Allergies Allergy/AdvReac Type Severity Reaction Status Date / Time No Known Allergies Allergy Verified 05/18/19 16:10 Review of Systems ROS Statement: Those systems with pertinent positive or pertinent negative responses have been documented in the HPI. ROS Other: All systems not noted in ROS Statement are negative. Past Medical History Past Medical History: Cancer, Hypertension Additional Past Medical History / Comment(s): HX SKIN CA, CURRENT LESION ON LEFT CHEEK, lung CA, CA in the lymph nodes History of Any Multi-Drug Resistant Organisms: None Reported Past Surgical History: Back Surgery, Heart Catheterization, Joint Replacement, Orthopedic Surgery Additional Past Surgical History / Comment(s): PREVIOUS SKIN CA LESIONS REMOVED, R HIP REPLACEMENT, ANKLE ORIF WITH METAL L, lung biopsy, neck biopsy Past Anesthesia/Blood Transfusion Reactions: Previous Problems w/ Anesthesia Additional Past Anesthesia/Blood Transfusion Reaction / Comment(s): Pt woke up violently, which is out of characteristic for the pt Past Psychological History: No Psychological Hx Reported Smoking Status: Never smoker Past Alcohol Use History: Occasional Past Drug Use History: None Reported - Past Family History Mother Family Medical History: Cancer, Deep Vein Thrombosis (DVT) Additional Family Medical History / Comment(s): BREAST CA General Exam Limitations: no limitations Course Vital Signs 05/18/19 05/18/19 05/18/19 14:13 15:48 15:53 Temperature 99.5 F 102.2 F H Pulse Rate 126 H 102 H Respiratory 20 18 Rate Blood Pressure 149/91 157/95 O2 Sat by Pulse 95 100 Oximetry Medical Decision Making - Lab Data Result diagrams: 05/18/19 14:53 05/18/19 14:53 Lab Results 05/18/19 05/18/19 05/18/19 Range/Units 14:53 14:53 14:53 WBC 13.6 H (3.8-10.6) k/uL RBC 4.71 (4.30-5.90) m/uL Hgb 10.8 L (13.0-17.5) gm/dL Hct 34.8 L (39.0-53.0) % MCV 73.9 L (80.0-100.0) fL MCH 23.0 L (25.0-35.0) pg MCHC 31.2 (31.0-37.0) g/dL RDW 16.3 H (11.5-15.5) % Plt Count 304 (150-450) k/uL Neutrophils % 93 % Lymphocytes % 2 % Monocytes % 3 % Eosinophils % 0 % Basophils % 0 % Neutrophils # 12.7 H (1.3-7.7) k/uL Lymphocytes # 0.3 L (1.0-4.8) k/uL Monocytes # 0.5 (0-1.0) k/uL Eosinophils # 0.0 (0-0.7) k/uL Basophils # 0.0 (0-0.2) k/uL Hypochromasia Moderate Anisocytosis Slight Microcytosis Moderate PT (9.0-12.0) sec INR (<1.2) APTT (22.0-30.0) sec Sodium 136 L (137-145) mmol/L Potassium 3.6 (3.5-5.1) mmol/L Chloride 99 (98-107) mmol/L Carbon Dioxide 24 (22-30) mmol/L Anion Gap 13 mmol/L BUN 10 (9-20) mg/dL Creatinine 0.81 (0.66-1.25) mg/dL Est GFR (CKD-EPI)AfAm >90 (>60 ml/min/1.73 sqM) Est GFR (CKD-EPI)NonAf >90 (>60 ml/min/1.73 sqM) Glucose 131 H (74-99) mg/dL Plasma Lactic Acid Jose Manuel 2.3 H* (0.7-2.0) mmol/L Calcium 9.4 (8.4-10.2) mg/dL Ionized Calcium Maral 4.6 (4.5-5.3) mg/dL Phosphorus 3.2 (2.5-4.5) mg/dL Magnesium 1.8 (1.6-2.3) mg/dL Total Bilirubin 1.1 (0.2-1.3) mg/dL AST 35 (17-59) U/L ALT 39 (21-72) U/L Alkaline Phosphatase 74 (38-126) U/L Troponin I (0.000-0.034) ng/mL NT-Pro-B Natriuret Pep pg/mL Total Protein 8.2 (6.3-8.2) g/dL Albumin 4.1 (3.5-5.0) g/dL TSH 0.301 L (0.465-4.680) mIU/L Urine Color Urine Appearance (Clear) Urine pH (5.0-8.0) Ur Specific Bunn (1.001-1.035) Urine Protein (Negative) Urine Glucose (UA) (Negative) Urine Ketones (Negative) Urine Blood (Negative) Urine Nitrite (Negative) Urine Bilirubin (Negative) Urine Urobilinogen (<2.0) mg/dL Ur Leukocyte Esterase (Negative) Urine RBC (0-5) /hpf Urine WBC (0-5) /hpf Ur Squamous Epith Cells (0-4) /hpf Hyaline Casts (0-2) /lpf Urine Mucus (None) /hpf Influenza Type A RNA (Not Detectd) Influenza Type B (PCR) (Not Detectd) 05/18/19 05/18/19 05/18/19 Range/Units 14:53 14:53 14:53 WBC (3.8-10.6) k/uL RBC (4.30-5.90) m/uL Hgb (13.0-17.5) gm/dL Hct (39.0-53.0) % MCV (80.0-100.0) fL MCH (25.0-35.0) pg MCHC (31.0-37.0) g/dL RDW (11.5-15.5) % Plt Count (150-450) k/uL Neutrophils % % Lymphocytes % % Monocytes % % Eosinophils % % Basophils % % Neutrophils # (1.3-7.7) k/uL Lymphocytes # (1.0-4.8) k/uL Monocytes # (0-1.0) k/uL Eosinophils # (0-0.7) k/uL Basophils # (0-0.2) k/uL Hypochromasia Anisocytosis Microcytosis PT 11.0 (9.0-12.0) sec INR 1.0 (<1.2) APTT 25.7 (22.0-30.0) sec Sodium (137-145) mmol/L Potassium (3.5-5.1) mmol/L Chloride (98-107) mmol/L Carbon Dioxide (22-30) mmol/L Anion Gap mmol/L BUN (9-20) mg/dL Creatinine (0.66-1.25) mg/dL Est GFR (CKD-EPI)AfAm (>60 ml/min/1.73 sqM) Est GFR (CKD-EPI)NonAf (>60 ml/min/1.73 sqM) Glucose (74-99) mg/dL Plasma Lactic Acid Jose Manuel (0.7-2.0) mmol/L Calcium (8.4-10.2) mg/dL Ionized Calcium Maral (4.5-5.3) mg/dL Phosphorus (2.5-4.5) mg/dL Magnesium (1.6-2.3) mg/dL Total Bilirubin (0.2-1.3) mg/dL AST (17-59) U/L ALT (21-72) U/L Alkaline Phosphatase (38-126) U/L Troponin I 0.022 (0.000-0.034) ng/mL NT-Pro-B Natriuret Pep 1220 pg/mL Total Protein (6.3-8.2) g/dL Albumin (3.5-5.0) g/dL TSH (0.465-4.680) mIU/L Urine Color Urine Appearance (Clear) Urine pH (5.0-8.0) Ur Specific Bunn (1.001-1.035) Urine Protein (Negative) Urine Glucose (UA) (Negative) Urine Ketones (Negative) Urine Blood (Negative) Urine Nitrite (Negative) Urine Bilirubin (Negative) Urine Urobilinogen (<2.0) mg/dL Ur Leukocyte Esterase (Negative) Urine RBC (0-5) /hpf Urine WBC (0-5) /hpf Ur Squamous Epith Cells (0-4) /hpf Hyaline Casts (0-2) /lpf Urine Mucus (None) /hpf Influenza Type A RNA (Not Detectd) Influenza Type B (PCR) (Not Detectd) 05/18/19 05/18/19 Range/Units 15:10 15:55 WBC (3.8-10.6) k/uL RBC (4.30-5.90) m/uL Hgb (13.0-17.5) gm/dL Hct (39.0-53.0) % MCV (80.0-100.0) fL MCH (25.0-35.0) pg MCHC (31.0-37.0) g/dL RDW (11.5-15.5) % Plt Count (150-450) k/uL Neutrophils % % Lymphocytes % % Monocytes % % Eosinophils % % Basophils % % Neutrophils # (1.3-7.7) k/uL Lymphocytes # (1.0-4.8) k/uL Monocytes # (0-1.0) k/uL Eosinophils # (0-0.7) k/uL Basophils # (0-0.2) k/uL Hypochromasia Anisocytosis Microcytosis PT (9.0-12.0) sec INR (<1.2) APTT (22.0-30.0) sec Sodium (137-145) mmol/L Potassium (3.5-5.1) mmol/L Chloride (98-107) mmol/L Carbon Dioxide (22-30) mmol/L Anion Gap mmol/L BUN (9-20) mg/dL Creatinine (0.66-1.25) mg/dL Est GFR (CKD-EPI)AfAm (>60 ml/min/1.73 sqM) Est GFR (CKD-EPI)NonAf (>60 ml/min/1.73 sqM) Glucose (74-99) mg/dL Plasma Lactic Acid Jose Manuel (0.7-2.0) mmol/L Calcium (8.4-10.2) mg/dL Ionized Calcium Maral (4.5-5.3) mg/dL Phosphorus (2.5-4.5) mg/dL Magnesium (1.6-2.3) mg/dL Total Bilirubin (0.2-1.3) mg/dL AST (17-59) U/L ALT (21-72) U/L Alkaline Phosphatase (38-126) U/L Troponin I (0.000-0.034) ng/mL NT-Pro-B Natriuret Pep pg/mL Total Protein (6.3-8.2) g/dL Albumin (3.5-5.0) g/dL TSH (0.465-4.680) mIU/L Urine Color Yellow Urine Appearance Cloudy (Clear) Urine pH 6.0 (5.0-8.0) Ur Specific Bunn 1.018 (1.001-1.035) Urine Protein 2+ H (Negative) Urine Glucose (UA) Negative (Negative) Urine Ketones 1+ H (Negative) Urine Blood Moderate H (Negative) Urine Nitrite Negative (Negative) Urine Bilirubin Negative (Negative) Urine Urobilinogen 3.0 (<2.0) mg/dL Ur Leukocyte Esterase Negative (Negative) Urine RBC >182 H (0-5) /hpf Urine WBC 27 H (0-5) /hpf Ur Squamous Epith Cells <1 (0-4) /hpf Hyaline Casts 8 H (0-2) /lpf Urine Mucus Many H (None) /hpf Influenza Type A RNA Not Detected (Not Detectd) Influenza Type B (PCR) Not Detected (Not Detectd) Disposition Clinical Impression: SIRS (systemic inflammatory response syndrome), UTI (urinary tract infection), Sepsis Disposition: ADMITTED IP TO THIS HOSP Condition: Fair Referrals: Phil Winslow DO [Primary Care Provider] - 1-2 days Decision Time: 17:29
[2019-05-18 15:06] LABS: Anisocytosis Slight; Basophils % (A) 0 %; Eosinophils % (A) 0 %; HCT 34.8 % (39.0-53.0); HGB 10.8 gm/dL (13.0-17.5); Hypochromasia Moderate; Lymphocytes # (A) 0.3 k/uL (1.0-4.8); Lymphocytes % (A) 2 %; MCHC 31.2 g/dL (31.0-37.0); MCV 73.9 fL (80.0-100.0); Mean Platelet Volume 6.3; Microcytosis Moderate; Monocytes # (A) 0.5 k/uL (0-1.0); Monocytes % (A) 3 %; Neutrophils # (A) 12.7 k/uL (1.3-7.7); Neutrophils % (A) 93 %; Platelet Count 304 k/uL (150-450); RBC 4.71 m/uL (4.30-5.90); RDW 16.3 % (11.5-15.5); WBC 13.6 k/uL (3.8-10.6)
[2019-05-18 15:10] LABS: Ionized Calcium 4.6 mg/dL (4.5-5.3)
[2019-05-18 15:18] LABS: ALT 39 U/L (21-72); AST 35 U/L (17-59); African American GFR (CKD) >90 (>60 ml/min/1.73 sqM); Albumin 4.1 g/dL (3.5-5.0); Alkaline Phosphatase 74 U/L (38-126); Anion Gap 13 mmol/L; Blood Urea Nitrogen 10 mg/dL (9-20); Calcium 9.4 mg/dL (8.4-10.2); Carbon Dioxide 24 mmol/L (22-30); Chloride 99 mmol/L (98-107); Glucose 131 mg/dL (74-99); Magnesium 1.8 mg/dL (1.6-2.3); Non-African American GFR(CKD) >90 (>60 ml/min/1.73 sqM); Phosphorus 3.2 mg/dL (2.5-4.5); Potassium 3.6 mmol/L (3.5-5.1); Sodium 136 mmol/L (137-145); Total Bilirubin 1.1 mg/dL (0.2-1.3); Total Protein 8.2 g/dL (6.3-8.2)
[2019-05-18 15:20] LABS: Partial Thromboplastin Time 25.7 sec (22.0-30.0)
[2019-05-18 15:37] LABS: Appearance,Urine Cloudy (Clear); Bilirubin,Urine Negative (Negative); Blood,Urine Moderate (Negative); Color,Urine Yellow; Glucose,Urine (UA) Negative (Negative); Hyaline Casts,Urine 8 /lpf (0-2); Ketones,Urine 1+ (Negative); Leukocyte Esterase,Urine Negative (Negative); Mucus,Urine Many /hpf; Nitrite,Urine Negative (Negative); Protein,Urine 2+ (Negative); RBC,Urine >182 /hpf (0-5); Specific Gravity,Urine 1.018 (1.001-1.035); Squamous Epithelial Cell,Urine <1 /hpf (0-4)
[2019-05-18] MEDS ORDERED: VANCOMYCIN IV PER PHARMACY 1 EACH MISC MISCELLANE PRN (15:54)
[2019-05-18] MEDS ORDERED: CEFEPIME 2 GM in SODIUM CHLORIDE 0.9% 100 ML IVPB STA (15:56)
[2019-05-18] MEDS ORDERED: VANCOMYCIN 1,500 MG in SODIUM CHLORIDE 0.9% 250 ML IVPB STA (16:07)
--- NOTE | 2019-05-18 16:49 | XR ---
EXAMINATION TYPE: XR chest 2V DATE OF EXAM: 05/18/2019 COMPARISON: Prior chest x-ray 04/26/2019 HISTORY: Weakness TECHNIQUE: Frontal and lateral views of the chest are obtained. FINDINGS: Bandlike area of increased attenuation in the right lobe may reflect scarring, tumor simil ar to prior exam. Patient is rotated, there may be spinal curvature. Cardiac mediastinal silhouette, pulmonary vascularity and paul not significant changed. No evident pneumothorax or pleural effusion. There are overlying cardiac leads. IMPRESSION: Similar abnormal density in the right upper lobe may be related to patient's history of lung carcinoma
--- NOTE | 2019-05-18 17:20 | CT ---
EXAMINATION TYPE: CT brain wo con DATE OF EXAM: 05/18/2019 COMPARISON: MRI brain dated 04/02/2019 HISTORY: Disorientation. CT DLP: 1076.4 mGycm Automated exposure control for dose reduction was used. TECHNIQUE: CT scan of the head is performed without contrast. FINDINGS: There is no acute intracranial hemorrhage or midline shift identified. There is diffuse v entricular and sulcal prominence consistent with diffuse age-related cerebral atrophy. There is low- attenuation in the periventricular white matter consistent with chronic small vessel ischemic change. The globes are intact and the visualized sinuses are clear. Old fracture of the left lamina papyrac ea. IMPRESSION: No acute intracranial hemorrhage or midline shift. There is diffuse age-related cerebra l atrophy and chronic small vessel ischemic change noted.
[2019-05-18] MEDS ORDERED: ONDANSETRON 4 MG/2 ML VIAL IVP PRN (17:25)
[2019-05-18] MEDS ORDERED: NALOXONE 0.4 MG/ML 1 ML VIAL IV PRN (17:25)
[2019-05-18] MEDS ORDERED: NON FORMULARY DRUG (Acetaminophen [Tylenol Arthritis] 650 MG) PO PRN (17:27)
[2019-05-18] MEDS: ACETAMINOPHEN TAB 325 MG TAB PO PRN (18:18)
[2019-05-18] MEDS: METOPROLOL TARTRATE 12.5 MG TAB PO SCH (20:27)
[2019-05-18] MEDS: MELATONIN 5 MG TABLET PO SCH (23:12)
[2019-05-18] MEDS: VANCOMYCIN 1,250 MG in SODIUM CHLORIDE 0.9% 250 ML IVPB SCH (23:12)
[2019-05-18] MEDS: SODIUM CHLORIDE 0.9% 1,000 ML IV SCH (23:12)
[2019-05-19] MEDS: PANTOPRAZOLE 40 MG TABLET PO SCH (06:24)
[2019-05-19] MEDS: SODIUM CHLORIDE 0.9% 1,000 ML IV SCH ×2 (08:03→20:47)
[2019-05-19] MEDS: VANCOMYCIN 1,250 MG in SODIUM CHLORIDE 0.9% 250 ML IVPB SCH ×2 (08:12→15:13)
[2019-05-19] MEDS: ACETAMINOPHEN TAB 325 MG TAB PO PRN ×3 (08:17→22:28)
[2019-05-19 11:16] VITALS: BMI 26.9
--- NOTE | 2019-05-19 15:32 | P.HPIM ---
History of Present Illness H&P Date: 05/19/19 This is a 68-year-old male patient of Dr. Winslow and Dr. Maya. 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 Patient comes in with nausea and vomiting, dysuria, urinary frequency and weakness. And was admitted for acute renal failure, acute UTI, and dehydration.. Patient had a recent hospitalization on March 31 at which time he was treated for dizziness syncopal episode hypotension secondary to lisinopril and hydrochlorothiazide and hydrochlorothiazide was discontinued at the time of discharge. He was again admitted April 26 to April 29, again secondary to dehydration, with presyncope and labile blood pressures. 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 MRI of the brain 04/02/2019 negative from epistasis, PET/CT 04/16/2019, showed uptake in the left neck area extending to the hyod bone and down towards the medial upper scapula uptake als patient has discharge, o noted in the right lung mass Patient presents emergency room with the above symptoms including weakness, followed her urine, vomiting weakness, and fever patient was influenza negative, patient has dysphagia to solid foods, urinalysis in the emergency room was positive for pyuria WBC count of 13.6 uptake acid at 2.3 positive for ketones, chest x-ray similar abnormal density right upper lobe patient has sores in the left neck, related to basal cell, status post radiation treatment, Dr. Zach Jackson to see on 05/22/2019 surgeon Review of Systems Constitutional: Reports as per HPI, Denies anorexia, Denies chills, Denies chronic headaches, Denies chronic pain, Denies daytime sleepiness, Denies fati carolyne, Denies fever, Denies lethargy, Denies malaise, Denies night sweats, Denies poor appetite, Denies sweats, Denies weakness, Denies weight gain, Denies weight loss Cardiovascular: Reports as per HPI, Denies chest pain, Denies claudication, Denies decreased exercise tolerance, Denies dyspnea on exertion, Denies edema, Denies high blood pressure, Denies irregular heart beat, Denies leg edema, Denies lightheadedness, Denies orthopnea, Denies palpitations, Denies paroxysmal nocturnal dyspnea, Denies phlebitis, Denies rapid heart beat, Denies shortness of breath, Denies syncope Respiratory: Reports as per HPI, Reports cough Gastrointestinal: Reports as per HPI, Reports indigestion, Reports vomiting, Denies abdominal pain, Denies belching, Denies bloating, Denies BRBPR, Denies change in bowel habits, Denies coffee ground emesis, Denies constipation, Denies diarrhea, Denies dyspepsia, Denies early satiety, Denies excessive gas, Denies heartburn, Denies hematemesis, Denies hematochezia, Denies jaundice, Denies lactose intolerance, Denies loss of appetite, Denies melena, Denies nausea Genitourinary: Reports as per HPI, Reports dysuria, Reports urinary frequency, Reports urinary hesitancy, Denies decreased libido, Denies difficulties fathering child, Denies discharge, Denies erectile dysfunction, Denies flank pain, Denies genital pain, Denies genital sores, Denies hematuria, Denies imp otence, Denies incontinence, Denies kidney stones, Denies nocturia, Denies polyuria, Denies testicular lump, Denies testicular pain, Denies urinary retention Musculoskeletal: Reports as per HPI Integumentary: Reports as per HPI, Reports sores (Left neck redness with 2 areas of ulceration shallow, without necrosis, significant swelling, related to r adiation treatments. Posterior neck left side on 2 cm x 2 cm ulcerated lesion, no significant drainage, however it's moist with slight mucoid discharge, cultures to be done other lesion above the supraclavicular region posteriorly, 2 cm x 2.5 cm) Neurological: Reports as per HPI Past Medical History Past Medical History: Cancer, Hypertension Additional Past Medical History / Comment(s): HX SKIN CA, CURRENT LESION ON LEFT CHEEK, lung CA, CA in the lymph nodes. 10 treatments of radiation over 3 week period, last treatment 05/16/19. History of Any Multi-Drug Resistant Organisms: None Reported Past Surgical History: Back Surgery, Heart Catheterization, Joint Replacement, Orthopedic Surgery Additional Past Surgical History / Comment(s): PREVIOUS SKIN CA LESIONS REMOVED, R HIP REPLACEMENT, ANKLE ORIF WITH METAL L, lung biopsy, neck biopsy Past Anesthesia/Blood Transfusion Reactions: Previous Problems w/ Anesthesia Additional Past Anesthesia/Blood Transfusion Reaction / Comment(s): Pt woke up violently, which is out of characteristic for the pt Past Psychological History: No Psychological Hx Reported Smoking Status: Never smoker Past Alcohol Use History: Occasional Additional Past Alcohol Use History / Comment(s): Patient is a lifelong nonsmoker but had extensive exposure to asbestos and acid at [employer] as well as plastic exposure and [employer]. Past Drug Use History: None Reported - Past Family History Mother Family Medical History: Cancer, Deep Vein Thrombosis (DVT) Additional Family Medical History / Comment(s): BREAST CA Medications and Allergies Home Medications Medication Instructions Recorded Confirmed Type Acetaminophen [Tylenol Arthritis] 650 mg PO BID PRN 04/26/19 05/18/19 History Melatonin 10 mg PO HS #30 tablet.er 04/29/19 05/18/19 Rx hydrALAZINE HCL [Apresoline] 25 mg PO TID #90 tab 04/29/19 05/18/19 Rx Metoprolol Tartrate [Lopressor] 12.5 mg PO HS 05/18/19 05/18/19 History Allergies Allergy/AdvReac Type Severity Reaction Status Date / Time No Known Allergies Allergy Verified 05/18/19 16:10 Physical Exam Vitals: Vital Signs Temp Pulse Pulse Pulse Resp BP BP 05/19/19 11:35 18 05/19/19 11:00 99.1 F 89 18 139/77 05/19/19 08:00 99.9 F H 101 H 18 139/85 05/19/19 04:00 98.6 F 98 16 152/90 05/18/19 23:15 99.0 F 86 18 123/74 05/18/19 19:50 98.7 F 96 20 126/80 05/18/19 18:57 101 F H 105 H 16 123/78 05/18/19 18:30 101.0 F H 103 H 16 05/18/19 18:00 107 H 18 144/88 05/18/19 15:53 102.2 F H 05/18/19 15:48 102 H 18 157/95 05/18/19 14:13 99.5 F 126 H 20 149/91 Pulse Ox 05/19/19 11:35 05/19/19 11:00 95 05/19/19 08:00 98 05/19/19 04:00 98 05/18/19 23:15 99 05/18/19 19:50 98 05/18/19 18:57 98 05/18/19 18:30 99 05/18/19 18:00 99 05/18/19 15:53 05/18/19 15:48 100 05/18/19 14:13 95 Intake and Output 05/18/19 05/19/19 05/19/19 22:59 06:59 14:59 Intake Total 1240 Output Total 500 Balance 1240 -500 Intake: Amount of Fluid Infused ( 1200 ml) Oral 40 Output: Urine 500 Other: Voiding Method Urinal Urinal Urinal # Voids 1 Weight 77.9 kg 77.9 kg - Constitutional General appearance: average body habitus, cooperative, no acute distress - EENT Eyes: anicteric sclerae, EOMI, PERRLA, dentition normal, normal appearance ENT: NA/AT, normal oropharynx - Neck Neck: normal ROM - Respiratory Respiratory: bilateral: CTA, negative: diminished, dullness, rales - Cardiovascular Rhythm: regular Heart sounds: normal: S1, S2 Abnormal Heart Sounds: no systolic murmur, no diastolic murmur, no rub, no S3 Gallop, no S4 Gallop, no click, no other - Gastrointestinal General gastrointestinal: normal bowel sounds, soft - Integumentary Integumentary: decreased turgor, normal - Neurologic Neurologic: CNII-XII intact - Musculoskeletal Musculoskeletal: gait normal, strength equal bilaterally - Psychiatric Psychiatric: A&O x's 3, appropriate affect, intact judgment & insight Results CBC & Chem 7: 05/18/19 14:53 05/18/19 14:53 Labs: Abnormal Lab Results - Last 24 Hours (Table) 05/18/19 05/18/19 05/18/19 Range/Units 14:53 14:53 14:53 WBC 13.6 H (3.8-10.6) k/uL Hgb 10.8 L (13.0-17.5) gm/dL Hct 34.8 L (39.0-53.0) % MCV 73.9 L (80.0-100.0) fL MCH 23.0 L (25.0-35.0) pg RDW 16.3 H (11.5-15.5) % Neutrophils # 12.7 H (1.3-7.7) k/uL Lymphocytes # 0.3 L (1.0-4.8) k/uL Sodium 136 L (137-145) mmol/L Glucose 131 H (74-99) mg/dL Plasma Lactic Acid Jose Manuel 2.3 H* (0.7-2.0) mmol/L TSH 0.301 L (0.465-4.680) mIU/L Urine Protein (Negative) Urine Ketones (Negative) Urine Blood (Negative) Urine RBC (0-5) /hpf Urine WBC (0-5) /hpf Hyaline Casts (0-2) /lpf Urine Mucus (None) /hpf 05/18/19 Range/Units 15:10 WBC (3.8-10.6) k/uL Hgb (13.0-17.5) gm/dL Hct (39.0-53.0) % MCV (80.0-100.0) fL MCH (25.0-35.0) pg RDW (11.5-15.5) % Neutrophils # (1.3-7.7) k/uL Lymphocytes # (1.0-4.8) k/uL Sodium (137-145) mmol/L Glucose (74-99) mg/dL Plasma Lactic Acid Jose Manuel (0.7-2.0) mmol/L TSH (0.465-4.680) mIU/L Urine Protein 2+ H (Negative) Urine Ketones 1+ H (Negative) Urine Blood Moderate H (Negative) Urine RBC >182 H (0-5) /hpf Urine WBC 27 H (0-5) /hpf Hyaline Casts 8 H (0-2) /lpf Urine Mucus Many H (None) /hpf Microbiology - Last 24 Hours (Table) 05/18/19 15:10 Urine Culture - Preliminary Urine,Voided Laboratory Results WBC 13.6 k/uL (3.8-10.6) H 05/18/19 14:53 RBC 4.71 m/uL (4.30-5.90) 05/18/19 14:53 Hgb 10.8 gm/dL (13.0-17.5) L 05/18/19 14:53 Hct 34.8 % (39.0-53.0) L 05/18/19 14:53 MCV 73.9 fL (80.0-100.0) L 05/18/19 14:53 MCH 23.0 pg (25.0-35.0) L 05/18/19 14:53 MCHC 31.2 g/dL (31.0-37.0) 05/18/19 14:53 RDW 16.3 % (11.5-15.5) H 05/18/19 14:53 Plt Count 304 k/uL (150-450) 05/18/19 14:53 Neutrophils % 93 % 05/18/19 14:53 Lymphocytes % 2 % 05/18/19 14:53 Monocytes % 3 % 05/18/19 14:53 Eosinophils % 0 % 05/18/19 14:53 Basophils % 0 % 05/18/19 14:53 Neutrophils # 12.7 k/uL (1.3-7.7) H 05/18/19 14:53 Lymphocytes # 0.3 k/uL (1.0-4.8) L 05/18/19 14:53 Monocytes # 0.5 k/uL (0-1.0) 05/18/19 14:53 Eosinophils # 0.0 k/uL (0-0.7) 05/18/19 14:53 Basophils # 0.0 k/uL (0-0.2) 05/18/19 14:53 Hypochromasia Moderate 05/18/19 14:53 Anisocytosis Slight 05/18/19 14:53 Microcytosis Moderate 05/18/19 14:53 PT 11.0 sec (9.0-12.0) 05/18/19 14:53 INR 1.0 (<1.2) 05/18/19 14:53 APTT 25.7 sec (22.0-30.0) 05/18/19 14:53 Sodium 136 mmol/L (137-145) L 05/18/19 14:53 Potassium 3.6 mmol/L (3.5-5.1) 05/18/19 14:53 Chloride 99 mmol/L (98-107) 05/18/19 14:53 Carbon Dioxide 24 mmol/L (22-30) 05/18/19 14:53 Anion Gap 13 mmol/L 05/18/19 14:53 BUN 10 mg/dL (9-20) 05/18/19 14:53 Creatinine 0.81 mg/dL (0.66-1.25) 05/18/19 14:53 Est GFR (CKD-EPI)AfAm >90 (>60 ml/min/1.73 sqM) 05/18/19 14:53 Est GFR (CKD-EPI)NonAf >90 (>60 ml/min/1.73 sqM) 05/18/19 14:53 Glucose 131 mg/dL (74-99) H 05/18/19 14:53 Lactic Ac Sepsis Rflx Y 05/18/19 15:19 Plasma Lactic Acid Jose Manuel 1.1 mmol/L (0.7-2.0) 05/18/19 18:41 Calcium 9.4 mg/dL (8.4-10.2) 05/18/19 14:53 Ionized Calcium Maral 4.6 mg/dL (4.5-5.3) 05/18/19 14:53 Phosphorus 3.2 mg/dL (2.5-4.5) 05/18/19 14:53 Magnesium 1.8 mg/dL (1.6-2.3) 05/18/19 14:53 Total Bilirubin 1.1 mg/dL (0.2-1.3) 05/18/19 14:53 AST 35 U/L (17-59) 05/18/19 14:53 ALT 39 U/L (21-72) 05/18/19 14:53 Alkaline Phosphatase 74 U/L (38-126) 05/18/19 14:53 Troponin I 0.022 ng/mL (0.000-0.034) 05/18/19 14:53 NT-Pro-B Natriuret Pep 1220 pg/mL 05/18/19 14:53 Total Protein 8.2 g/dL (6.3-8.2) 05/18/19 14:53 Albumin 4.1 g/dL (3.5-5.0) 05/18/19 14:53 TSH 0.301 mIU/L (0.465-4.680) L 05/18/19 14:53 Urine Color Yellow 05/18/19 15:10 Urine Appearance Cloudy (Clear) 05/18/19 15:10 Urine pH 6.0 (5.0-8.0) 05/18/19 15:10 Ur Specific [place] 1.018 (1.001-1.035) 05/18/19 15:10 Urine Protein 2+ (Negative) H 05/18/19 15:10 Urine Glucose (UA) Negative (Negative) 05/18/19 15:10 Urine Ketones 1+ (Negative) H 05/18/19 15:10 Urine Blood Moderate (Negative) H 05/18/19 15:10 Urine Nitrite Negative (Negative) 05/18/19 15:10 Urine Bilirubin Negative (Negative) 05/18/19 15:10 Urine Urobilinogen 3.0 mg/dL (<2.0) 05/18/19 15:10 Ur Leukocyte Esterase Negative (Negative) 05/18/19 15:10 Urine RBC >182 /hpf (0-5) H 05/18/19 15:10 Urine WBC 27 /hpf (0-5) H 05/18/19 15:10 Ur Squamous Epith Cells <1 /hpf (0-4) 05/18/19 15:10 Hyaline Casts 8 /lpf (0-2) H 05/18/19 15:10 Urine Mucus Many /hpf (None) H 05/18/19 15:10 Influenza Type A RNA Not Detected (Not Detectd) 05/18/19 15:55 Influenza Type B (PCR) Not Detected (Not Detectd) 05/18/19 15:55 Thrombosis Risk Factor Assmnt - DVT/VTE Prophylaxis DVT/VTE Prophylaxis: Pharmacologic Prophylaxis ordered - Choose All That Apply Each Factor Represents 1 point: Medical pt on bed rest, Obesity (BMI >25), Sepsis (< 1month) Each Risk Factor Represents 2 Points: Age 61-74 years, Malignancy Thrombosis Risk Factor Assessment Total Risk Factor Score: 7 Thrombosis Risk Factor Assessment Level: High Risk Assessment and Plan Plan: 1, sepsis with SIRS, presenting with recent neck region, local cellulitis in the neck most likely from magician, chronic nonhealing wound left neck mass is sada picious for squamous as squamous cell carcinoma with 2 previous fine-needle biopsies, for which she is scheduled to have Dr. Zach Jackson for surgical excision scheduled to see 05/22/2019 cultures to be obtained from the wound left neck, consult with Dr. Rivera infectious disease, and vancomycin IV 2 cultures are back and cefepime 2 g every 8 hours, patient had fevers, influenza negative blood cultures sent and pending 2. Recent diagnosis of squamous cell carcinoma lung by an navigational bronchoscopy 03/22/2019 follows with and was recently seen in his office, with plan of care as directed. Lifelong nonsmoker 3. History of basal cell cancer left amish with previous excision 4. Pyuria with urinary tract symptomatology, cultures are sent, patient will be started on IV antibiotics Rocephin, 5. Dysphagia with patient and neck radiation, completed treatment May 18 2019, patient will be started mechanical soft diet, protein supplementation with ensure protein, 6. Clinical Dehydration, IV hydration, X 6Autonomic dysfunction IV hydration, monitor for orthostasis, might need additional medications CK D stage II without worsening of renal function GI prophylaxis with PPI and DVT prophylaxis high risk, subcu Lovenox CODE STATUS full
[2019-05-19] MEDS: CEFEPIME 2 GM in SODIUM CHLORIDE 0.9% 100 ML IVPB SCH (17:03)
[2019-05-19] MEDS: ENOXAPARIN 40 MG/0.4 ML SYRINGE SQ SCH (17:03)
[2019-05-19] MEDS: METOPROLOL TARTRATE 12.5 MG TAB PO SCH (20:46)
[2019-05-19] MEDS: MELATONIN 5 MG TABLET PO SCH (20:47)
[2019-05-20] MEDS: VANCOMYCIN 1,250 MG in SODIUM CHLORIDE 0.9% 250 ML IVPB SCH ×3 (00:12→16:02)
[2019-05-20] MEDS: CEFEPIME 2 GM in SODIUM CHLORIDE 0.9% 100 ML IVPB SCH ×3 (00:12→15:58)
[2019-05-20] MEDS: ACETAMINOPHEN TAB 325 MG TAB PO PRN ×3 (04:58→22:21)
[2019-05-20] MEDS: PANTOPRAZOLE 40 MG TABLET PO SCH (06:11)
[2019-05-20] MEDS ORDERED: VANCOMYCIN TROUGH DUE 1 EACH MISC MISCELLANE ONE (07:00)
[2019-05-20 07:31] LABS: Anisocytosis Slight; Basophils # (A) 0.1 k/uL (0-0.2); Basophils % (A) 1 %; Eosinophils % (A) 0 %; HCT 30.4 % (39.0-53.0); HGB 9.4 gm/dL (13.0-17.5); Hypochromasia Moderate; Lymphocytes # (A) 0.3 k/uL (1.0-4.8); Lymphocytes % (A) 4 %; MCH 23.2 pg (25.0-35.0); MCHC 31.1 g/dL (31.0-37.0); MCV 74.7 fL (80.0-100.0); Mean Platelet Volume 6.8; Microcytosis Slight; Monocytes # (A) 0.4 k/uL (0-1.0); Monocytes % (A) 6 %; Neutrophils # (A) 6.6 k/uL (1.3-7.7); Neutrophils % (A) 87 %; Platelet Count 262 k/uL (150-450); RBC 4.07 m/uL (4.30-5.90); RDW 16.6 % (11.5-15.5); WBC 7.6 k/uL (3.8-10.6)
[2019-05-20 07:33] LABS: African American GFR (CKD) >90 (>60 ml/min/1.73 sqM); Anion Gap 9 mmol/L; Blood Urea Nitrogen 8 mg/dL (9-20); Carbon Dioxide 26 mmol/L (22-30); Chloride 100 mmol/L (98-107); Glucose 103 mg/dL (74-99); Non-African American GFR(CKD) >90 (>60 ml/min/1.73 sqM); Potassium 3.1 mmol/L (3.5-5.1); Sodium 135 mmol/L (137-145)
[2019-05-20] MEDS: SODIUM CHLORIDE 0.9% 1,000 ML IV SCH (08:16)
[2019-05-20] MEDS: ENOXAPARIN 40 MG/0.4 ML SYRINGE SQ SCH (08:25)
[2019-05-20] MEDS: hydrALAZINE HCL 25 MG TAB PO PRN (11:10)
--- NOTE | 2019-05-20 16:01 | P.PN ---
Subjective Progress Note Date: 05/20/19 This is a 68-year-old male patient of Dr. Winslow and Dr. Maya. He does not follow with a procedures rn. 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 Patient comes in with nausea and vomiting, dysuria, urinary frequency and weakness. And was admitted for acute renal failure, acute UTI, and dehydration.. Patient had a recent hospitalization on March 31 at which time he was treated for dizziness syncopal episode hypotension secondary to lisinopril and hydrochlorothiazide and hydrochlorothiazide was discontinued at the time of discharge. He was again admitted April 26 to April 29, again secondary to dehydration, with presyncope and labile blood pressures. 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 MRI of the brain 04/02/2019 negative from epistasis, PET/CT 04/16/2019, showed uptake in the left neck area extending to the hyod bone and down towards the medial upper scapula uptake als patient has discharge, o noted in the right lung mass Patient presents emergency room with the above symptoms including weakness, followed her urine, vomiting weakness, and fever patient was influenza negative, patient has dysphagia to solid foods, urinalysis in the emergency room was positive for pyuria WBC count of 13.6 uptake acid at 2.3 positive for ketones, chest x-ray similar abnormal density right upper lobe patient has sores in the left neck, related to basal cell, status post radiation treatment, Dr. Zach Jackson to see on 05/22/2019 surgeon 05/20: Patient is somehow slightly better, there is no aspirate events, still febrile, blood cultures are still currently pending, wound cultures from the neck is currently pending, infectious disease following no diarrhea no lightheadedness no chest pain Review of Systems Constitutional: Reports as per HPI, Denies anorexia, Denies chills, Denies chronic headaches, Denies chronic pain, Denies daytime sleepiness, Denies fatigue, Denies fever, Denies lethargy, Denies malaise, Denies night sweats, Denies poor appetite, Denies sweats, Denies weakness, Denies weight gain, Denies weight loss Cardiovascular: Reports as per HPI, Denies chest pain, Denies claudication, Denies decreased exercise tolerance, Denies dyspnea on exertion, Denies edema, Denies high blood pressure, Denies irregular heart beat, Denies leg edema, Denies lightheadedness, Denies orthopnea, Denies palpitations, Denies paroxysmal nocturnal dyspnea, Denies phlebitis, Denies rapid heart beat, Denies shortness of breath, Denies syncope Respiratory: Reports as per HPI, Reports cough Gastrointestinal: Reports as per HPI, Reports indigestion, Reports vomiting, Denies abdominal pain, Denies belching, Denies bloating, Denies BRBPR, Denies change in bowel habits, Denies coffee ground emesis, Denies constipation, Denies diarrhea, Denies dyspepsia, Denies early satiety, Denies excessive gas, Denies heartburn, Denies hematemesis, Denies hematochezia, Denies jaundice, Denies lactose intolerance, Denies loss of appetite, Denies melena, Denies nausea Genitourinary: Reports as per HPI, Reports dysuria, Reports urinary frequency, Reports urinary hesitancy, Denies decreased libido, Denies difficulties fathering child, Denies discharge, Denies erectile dysfunction, Denies flank pain, Denies genital pain, Denies genital sores, Denies hematuria, Denies impotence, Denies incontinence, Denies kidney stones, Denies nocturia, Denies polyuria, Denies testicular lump, Denies testicular pain, Denies urinary retention Musculoskeletal: Reports as per HPI Integumentary: Reports as per HPI, Reports sores (Left neck redness with 2 areas of ulceration shallow, without necrosis, significant swelling, related to radiation treatments. Posterior neck left side on 2 cm x 2 cm ulcerated lesion, no significant drainage, however it's moist with slight mucoid discharge, cultures to be done other lesion above the supraclavicular region posteriorly, 2 cm x 2.5 cm) Neurological: Reports as per HPI Objective - Vital Signs Vital signs: Vital Signs Temp 100 F H 05/20/19 11:07 Pulse 93 05/20/19 11:07 Resp 18 05/20/19 11:07 BP 174/93 05/20/19 11:07 Pulse Ox 97 05/20/19 11:07 Intake & Output 05/19/19 05/20/19 05/20/19 18:59 06:59 18:59 Intake Total 240 480 Output Total 200 1150 580 Balance 40 -1150 -100 Weight 77.9 kg 80.8 kg Intake: Oral 240 480 Output: Urine 200 1150 580 Other: Voiding Method Urinal Urinal Urinal # Voids 1 - Constitutional General appearance: Present: cooperative, no acute distress - EENT Eyes: Present: anicteric sclerae, EOMI, PERRLA, dentition normal ENT: Present: NA/AT, normal oropharynx - Neck Details: 2 lesions measuring 3 cm x 2 cm with mucoid discharge inferior to the neck near the scapular area, more located posteriorly, and 2 x 2 centimeter in the upper neck, no central necrosis noted Neck: Present: lymphadenopathy - Respiratory Respiratory: bilateral: CTA, negative: diminished, dullness, rales - Cardiovascular Rhythm: regular Heart sounds: normal: S1, S2 Abnormal Heart Sounds: Absent: systolic murmur, diastolic murmur, rub, S3 Gallop, S4 Gallop, click, other - Gastrointestinal General gastrointestinal: Present: normal bowel sounds, soft - Integumentary Integumentary: Present: decreased turgor, normal - Neurologic Neurologic: Present: CNII-XII intact - Musculoskeletal Musculoskeletal: Present: gait normal, strength equal bilaterally - Psychiatric Psychiatric: Present: A&O x's 3, appropriate affect - Labs CBC & Chem 7: 05/20/19 06:55 05/20/19 06:55 Labs: Abnormal Lab Results - Last 24 Hours (Table) 05/20/19 05/20/19 Range/Units 06:55 06:55 RBC 4.07 L (4.30-5.90) m/uL Hgb 9.4 L (13.0-17.5) gm/dL Hct 30.4 L (39.0-53.0) % MCV 74.7 L (80.0-100.0) fL MCH 23.2 L (25.0-35.0) pg RDW 16.6 H (11.5-15.5) % Lymphocytes # 0.3 L (1.0-4.8) k/uL Sodium 135 L (137-145) mmol/L Potassium 3.1 L (3.5-5.1) mmol/L BUN 8 L (9-20) mg/dL Creatinine 0.62 L (0.66-1.25) mg/dL Glucose 103 H (74-99) mg/dL Calcium 8.0 L (8.4-10.2) mg/dL Microbiology - Last 24 Hours (Table) 05/19/19 17:00 Gram Stain - Preliminary Neck Wound Culture - Preliminary 05/19/19 17:00 Anaerobic Culture - Preliminary Neck 05/18/19 16:10 Blood Culture - Preliminary Blood No Growth after 24 hours 05/18/19 15:10 Urine Culture - Final Urine,Voided Assessment and Plan Plan: 1, sepsis with SIRS, presenting with recent neck region, basal cell carcinoma local cellulitis in the neck with regurgitation cellulitis chronic nonhealing wound left neck mass, for which she is scheduled to have Dr. Zach Jackson for surgical excision scheduled to see 05/22/2019 cultures to be obtained from the wound left neck, consult with Dr. Rivera infectious disease, and vancomycin IV 2 cultures are back and cefepime 2 g every 8 hours, patient had fevers, influenza negative blood cultures sent and pending 2. Recent diagnosis of suspicious squamous cell carcinoma lung right lung by an navigational bronchoscopy 03/22/2019 follows with and was recently seen in his office, with plan of care as directed. Lifelong nonsmoker 3. History of basal cell cancer left rastafari with previous excision 4. Pyuria with urinary tract symptomatology, cultures are sent, patient will be started on IV antibiotics 5. Dysphagia with patient and neck radiation, completed treatment May 18 2019, patient will be started mechanical soft diet, protein supplementation with ensure protein, 6. Clinical Dehydration, IV hydration, X 6Autonomic dysfunction IV hydration, monitor for orthostasis, might need additional medications CK D stage II without worsening of renal function GI prophylaxis with PPI and DVT prophylaxis high risk, subcu Lovenox CODE STATUS full
[2019-05-20] MEDS: METOPROLOL TARTRATE 12.5 MG TAB PO SCH (19:42)
[2019-05-20] MEDS: MELATONIN 5 MG TABLET PO SCH (19:43)
--- NOTE | 2019-05-20 22:41 | P.CONS ---
History of Present Illness - Reason for Consult Consult date: 05/20/19 Neck wound SIRS and UTI Requesting physician: Kimberley Ruiz - Chief Complaint Fever and mental status changes x one day - History of Present Illness Patient is a 68-year-old male with a past medical history significant for Ms. 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, for the patient has recently completed a series of palliative radiation therapy to the neck Site, patient was brought into the ER at [facility] on 05/18/2019 by the who has been concerned the patient was confused and not making any sense , the patient did not recall remembering anything on the day of presentation the hospital or denies having any headache currently the patient denies having any worsening pain to the neck with the patient currently did have 2 wounds he did have mild aching pain intensity about 3-4 out of 10 and no radiation however the mentioned more redness to the neck site the patient denies having any chest pain or shortness breath very minimal cough but no sputum production he did have an episode of vomiting but no further vomiting has been noticing denies any bowel. No diarrhea no significant burning frequency or difficulty urination with the symptoms and the patient was initially evaluated by the physician on route via the patient did have fever of 102 revealed Fahrenheit patient did have mild tachycardia and elevated white count patient also have a mildly positive UA glucose wound culture has been obtained is currently pending patient has been treated with vancomycin and cefepime infectious disease was consulted for further recommendation regarding antibiotic therapy Review of Systems Positive point has been mentioned in the HPI rest of the systems are negative Past Medical History Past Medical History: Cancer, Hypertension Additional Past Medical History / Comment(s): HX SKIN CA, CURRENT LESION ON LEFT CHEEK, lung CA, CA in the lymph nodes. 10 treatments of radiation over 3 week period, last treatment 05/16/19. History of Any Multi-Drug Resistant Organisms: None Reported Past Surgical History: Back Surgery, Heart Catheterization, Joint Replacement, Orthopedic Surgery Additional Past Surgical History / Comment(s): PREVIOUS SKIN CA LESIONS REMOVED, R HIP REPLACEMENT, ANKLE ORIF WITH METAL L, lung biopsy, neck biopsy Past Anesthesia/Blood Transfusion Reactions: Previous Problems w/ Anesthesia Additional Past Anesthesia/Blood Transfusion Reaction / Comm: Pt woke up violently, which is out of characteristic for the pt Past Psychological History: No Psychological Hx Reported Smoking Status: Never smoker Past Alcohol Use History: Occasional Additional Past Alcohol Use History / Comment(s): Patient is a lifelong nonsmoke r but had extensive exposure to asbestos and acid at [employer] as well as plastic exposure and [employer]. Past Drug Use History: None Reported - Past Family History Mother Family Medical History: Cancer, Deep Vein Thrombosis (DVT) Additional Family Medical History / Comment(s): BREAST CA Medications and Allergies Home Medications Medication Instructions Recorded Confirmed Type Acetaminophen [Tylenol Arthritis] 650 mg PO BID PRN 04/26/19 05/18/19 History Melatonin 10 mg PO HS #30 tablet.er 04/29/19 05/18/19 Rx hydrALAZINE HCL [Apresoline] 25 mg PO TID #90 tab 04/29/19 05/18/19 Rx Metoprolol Tartrate [Lopressor] 12.5 mg PO HS 05/18/19 05/18/19 History Allergies Allergy/AdvReac Type Severity Reaction Status Date / Time No Known Allergies Allergy Verified 05/18/19 16:10 Physical Exam Vitals: Vital Signs Temp Pulse Resp BP Pulse Ox 05/20/19 11:07 100 F H 93 18 174/93 97 05/20/19 08:00 99.4 F 97 18 170/93 97 05/20/19 03:00 99.1 F 85 16 161/90 97 05/20/19 00:10 99.5 F 88 16 142/76 95 05/19/19 20:45 99.6 F 92 18 146/84 97 05/19/19 19:20 96 05/19/19 16:00 18 05/19/19 15:17 100.1 F H 104 H 18 140/81 98 Intake and Output 05/19/19 05/20/19 05/20/19 22:59 06:59 14:59 Intake Total 480 Output Total 450 900 580 Balance -450 -900 -100 Intake: Oral 480 Output: Urine 450 900 580 Other: Voiding Method Urinal Urinal Urinal # Voids 1 1 Weight 80.8 kg GENERAL DESCRIPTION: An elderly male lying in bed, no distress. No tachypnea or accessory muscle of respiration use. HEENT: Shows Pallor , no scleral icterus. Oral mucous membrane is dry. No pharyngeal erythema or thrush NECK: Trachea central, no thyromegaly. Left side of the neck tissues 2 wounds posteriorly wound did have some slough tissue present area of induration and redness which is warm to touch no foul-smelling drainage LUNGS: Unlabored breathing. Clear to auscultation anteriorly. No wheeze or crackle. HEART: S1, S2, regular rate and rhythm. No loud murmur ABDOMEN: Soft, no tenderness , guarding or rigidity, no organomegaly EXTREMITIES: No edema of feet. SKIN: No rash, no masses palpable. NEUROLOGICAL: The patient is awake, alert, oriented x3, mood and affect normal. Results CBC & Chem 7: 05/20/19 06:55 05/20/19 06:55 Labs: Abnormal Lab Results - Last 24 Hours (Table) 05/20/19 05/20/19 Range/Units 06:55 06:55 RBC 4.07 L (4.30-5.90) m/uL Hgb 9.4 L (13.0-17.5) gm/dL Hct 30.4 L (39.0-53.0) % MCV 74.7 L (80.0-100.0) fL MCH 23.2 L (25.0-35.0) pg RDW 16.6 H (11.5-15.5) % Lymphocytes # 0.3 L (1.0-4.8) k/uL Sodium 135 L (137-145) mmol/L Potassium 3.1 L (3.5-5.1) mmol/L BUN 8 L (9-20) mg/dL Creatinine 0.62 L (0.66-1.25) mg/dL Glucose 103 H (74-99) mg/dL Calcium 8.0 L (8.4-10.2) mg/dL Microbiology - Last 24 Hours (Table) 05/19/19 17:00 Gram Stain - Preliminary Neck Wound Culture - Preliminary 05/19/19 17:00 Anaerobic Culture - Preliminary Neck 05/18/19 16:10 Blood Culture - Preliminary Blood No Growth after 24 hours 05/18/19 15:10 Urine Culture - Final Urine,Voided Assessment and Plan Assessment: 1-patient presented to hospital with sepsis in this patient who did a fever and elevated white count in this patient currently undergoing radiation therapy to the left side of the neck basal cell carcinoma currently with 2 wounds patient noticed to have more redness to the neck with underlying induration consented likely for cellulitis and will need to make sure no evidence of underlying abscess 2-patient did have a positive UA however patient did not mention significant urinary symptoms to be concerned for symptomatic urinary tract infection (1) Sepsis Current Visit: Yes Status: Acute Code(s): A41.9 - SEPSIS, UNSPECIFIED ORGANISM SNOMED Code(s): 38719557 Plan: 1-we will obtain a CT of the neck to make sure that evidence of any underlying abscess that may need to be drained 2-Vancomycin pharmacy to dose target trough of 15 while watching his kidney function and Vanco trough closely 3-cefepime 2 g every 12 hours 4-local wound care with daliaoney followed by the moist dressing to be changed daily We will follow on clinical condition and cultures to further adjust medication if needed Thank you for this consultation will follow this patient with you Time with Patient: Greater than 30
[2019-05-21] MEDS: CEFEPIME 2 GM in SODIUM CHLORIDE 0.9% 100 ML IVPB SCH ×4 (00:24→22:43)
[2019-05-21] MEDS: SODIUM CHLORIDE 0.9% 1,000 ML IV SCH ×3 (00:24→20:48)
[2019-05-21] MEDS: VANCOMYCIN 1,250 MG in SODIUM CHLORIDE 0.9% 250 ML IVPB SCH ×3 (00:24→17:43)
[2019-05-21 06:46] LABS: African American GFR (CKD) >90 (>60 ml/min/1.73 sqM); Anion Gap 10 mmol/L; Blood Urea Nitrogen 6 mg/dL (9-20); Calcium 8.5 mg/dL (8.4-10.2); Carbon Dioxide 28 mmol/L (22-30); Chloride 98 mmol/L (98-107); Glucose 90 mg/dL (74-99); Non-African American GFR(CKD) >90 (>60 ml/min/1.73 sqM); Potassium 3.2 mmol/L (3.5-5.1); Sodium 136 mmol/L (137-145)
[2019-05-21] MEDS: ACETAMINOPHEN TAB 325 MG TAB PO PRN (06:57)
[2019-05-21] MEDS: PANTOPRAZOLE 40 MG TABLET PO SCH (06:57)
[2019-05-21] MEDS: ENOXAPARIN 40 MG/0.4 ML SYRINGE SQ SCH (08:36)
--- NOTE | 2019-05-21 11:25 | FL ---
EXAMINATION TYPE: FL barium swallow w video DATE OF EXAM: 05/21/2019 COMPARISON: NONE HISTORY: Radiation, food sticking, dysphasia TECHNIQUE: Fluoroscopy. FINDINGS: Fluoroscopic guidance was provided for the procedure performed in conjunction with the [facility] [place] pathology department. Please see complete report forthcoming from the Speech Pathology departmen t. Various consistencies from thin liquid to solids were administered. Fluoroscopy time 1 minute 27 seconds. Number of images: 0. No aspiration or penetration was evident. No significant pooling was observed in the vallecula. Very minimal pooling which spontaneously cleare d with swallowing was observed. There was normal propulsion of the bolus. IMPRESSION: 1. Essentially unremarkable modified barium swallow
--- NOTE | 2019-05-21 11:34 | CT ---
EXAMINATION TYPE: CT neck chest w con DATE OF EXAM: 05/21/2019 COMPARISON: February 23, 2019 HISTORY: left side neck wound, abscess post radiation treatment CT DLP: 832.7 mGycm Automated exposure control for dose reduction was used. CONTRAST: CT scan of the chest is performed with IV Contrast, patient injected with 100 mL of Isovue 300. FINDINGS: LUNGS: Spiculated masses right upper lobe persist. Masses measure 2.4 and 2.2 cm respectively versus maximal measurement previously of 4.1 cm and 2.3 cm. Left basilar atelectasis. MEDIASTINUM: There are no greater than 1 cm hilar or mediastinal lymph nodes. No pericardial effusi on is seen. Thoracic aorta is of normal caliber. The heart is not enlarged. UPPER ABDOMEN: No significant abnormality appreciated. OTHER: No additional significant abnormality is seen. IMPRESSION: Spiculated mass right upper lobe. Dominant mass appears to be slightly smaller in size. EXAMINATION TYPE: CT neck chest w con DATE OF EXAM: 05/21/2019 COMPARISON: None HISTORY: left side neck wound, abscess post radiation treatment CT DLP: 832.7 mGycm CONTRAST: CT scan of the neck is performed with IV Contrast, patient injected with 100 mL of Isovue 300. Contrast enhanced CT of the neck was performed from the skull base through the lung apices. At the site of clinical concern which corresponds to the left neck there is a 4.7 x 5.2 x 4.6 cm thic k walled collection noted consistent with abscess. Abscess extends to the skin surface. There is asso ciated skin thickening. Noted within the lateral supraclavicular region there is a partially imaged h ypoattenuating structure which may reflect lymph node versus additional small abscess. AIRWAY: The supraglottic, glottic, and subglottic portions of the airway appear patent and free of mass. SALIVARY GLANDS: The submandibular and parotid glands are free of mass or inflammatory process. THYROID GLAND: No nodules or masses seen. LYMPH NODES: Conglomerate mass within the left internal jugular chain measuring an estimated 3.7 x 2. 8 cm. This may reflect conglomerate adenopathy. Normal-appearing jugular vein is not identified at th is level and thrombosed jugular vein is difficult to exclude. There appears to be tumoral infiltratio n into the left C3 transverse process. Multiple enlarged lymph nodes within the anterior and posterio r triangles. IMPRESSION: 1. At the site of clinical concern there is evidence of abscess. Small multifocal component difficult to exclude. Associated cellulitis. 2. Left-sided retrocaval soft tissue mass as discussed above may reflect conglomerate adenopathy. Inf iltration into the left C3 transverse process. 3. Thrombosed left jugular vein is difficult to exclude.
[2019-05-21] MEDS: hydrALAZINE HCL 25 MG TAB PO PRN (14:27)
--- NOTE | 2019-05-21 14:32 | P.PN ---
Subjective Progress Note Date: 05/21/19 This is a 68-year-old male patient of Dr. Winslow and Dr. Maya. He does not follow with a creel cleaner. 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 Patient comes in with nausea and vomiting, dysuria, urinary frequency and weakness. And was admitted for acute renal failure, acute UTI, and dehydration.. Patient had a recent hospitalization on March 31 at which time he was treated for dizziness syncopal episode hypotension secondary to lisinopril and hydrochlorothiazide and hydrochlorothiazide was discontinued at the time of discharge. He was again admitted April 26 to April 29, again secondary to dehydration, with presyncope and labile blood pressures. Notes reviewed from oncology, showed a bronchoscopy pathology showing basal cell carcinoma. CAT scan of the chest 03/22/2019, revealed 2 masses in the right upper lobe and enlarged left supraclavicular left lower neck lymph node mass measuring 4.6 cm, she has recurrent basal cell carcinoma of the face and neck. MRI of the brain 04/02/2019 negative for metastasis, PET/CT 04/16/2019, showed hypermetabolic uptake in the right upper lobe in the left neck. Patient presents emergency room with the above symptoms including weakness, followed her urine, vomiting weakness, and fever patient was influenza negative, patient has dysphagia to solid foods, urinalysis in the emergency room was positive for pyuria WBC count of 13.6 uptake acid at 2.3 positive for ketones, chest x-ray similar abnormal density right upper lobe patient has sores in the left neck, related to basal cell, status post radiation treatment, Dr. Zach Jackson to see on 05/22/2019 surgeon. This was ENT surgeon patient was to see at the being of his treatment course. Patient delayed evaluation as he was not intending to have surgery. 05/20: Patient is somehow slightly better, there is no aspirate events, still febrile, blood cultures are still currently pending, wound cultures from the neck is currently pending, infectious disease following no diarrhea no lightheadedness no chest pain 05/21: Patient was seen in consultation by Dr. Rivera with plan to continue cefepime and vancomycin, local wound care with [facility]. Modified barium swallow was unremarkable. CAT scan of the neck revealed concern for abscess. S mall multifocal component difficult to exclude. Associated cellulitis. Left- sided retrocaval soft tissue mass may reflect conglomerate adenopathy. Infiltration to the left C3 transverse process. Thrombosed left jugular vein is difficult to exclude. Case discussed with Dr. Pleitez and Dr. Kumari by Dr. Vital, patient has had a cyst in the lymph node left neck since he started treatment. Unsure if this possible abscess is the same. Dr. Kumari consult added. 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 The patient is requesting Xanax for sleep at bedtime which will be added. Patient is complaining of sore throat which she thinks is related to radiation. His last radiation treatment was Tuesday. Temperature max 100.5, heart rate 98, blood pressure 149/80, pulse ox 96% on room air. Review Of Systems: Constitutional: Reports fever, no chills, no night sweats. No weight change. No weakness, fatigue or lethargy. Reports daytime sleepiness. EENT: No headache. No blurred vision or double vision, no loss of vision. No loss of Hearing, no ringing in the ears, no dizziness. No nasal drainage or congestion. No epistaxis. Reports sore throat. Lungs: No shortness of breath, cough, no sputum production. No wheezing. Cardiovascular: No chest pain, no lower extremity edema. No palpitations. No paroxysmal nocturnal dyspnea. No orthopnea. No lightheadedness or dizziness. No syncopal episodes. Abdominal: No abdominal pain. No nausea, vomiting. No diarrhea. No constipation. No bloody or tarry stools.. No loss of appetite. Genitourinary: No dysuria, increased frequency, urgency. No urinary retention. Musculoskeletal: No myalgias. No muscle weakness, no gait dysfunction, no frequent falls. No back pain. No neck pain. Integumentary: No wounds, no lesions. No rash or pruritus. No unusual bruising. No change in hair or nails. Neurologic: No aphasia. No facial droop. No change in mentation. No head injury. No headache. No paralysis. No paresthesia. Psychiatric: No depression. No anxiety. No mood swings. Endocrine: No abnormal blood sugars. No weight change. No excessive sweating or thirst. Objective - Vital Signs Vital signs: Vital Signs Temp 98.3 F 05/21/19 11:44 Pulse 96 05/21/19 11:44 Resp 16 05/21/19 11:44 BP 149/80 05/21/19 08:00 Pulse Ox 92 L 05/21/19 11:44 Intake & Output 05/20/19 05/21/19 05/21/19 18:59 06:59 18:59 Intake Total 698 Output Total 580 1950 Balance 118 -1950 Weight 79.8 kg Intake: Oral 698 Output: Urine 580 1950 Other: Voiding Method Urinal Urinal Urinal # Voids 1 - Exam General appearance: Present: cooperative, no acute distress, resting on the edge of the bed, is at bedside - EENT Eyes: Present: anicteric sclerae, EOMI, PERRLA, dentition normal ENT: Present: NA/AT, normal oropharynx - Neck Details: 2 lesions measuring 3 cm x 2 cm with mucoid discharge inferior to the neck near the scapular area, more located posteriorly, and 2 x 2 centimeter in the upper neck, no central necrosis noted Neck: Present: lymphadenopathy - Respiratory Respiratory: bilateral: CTA, negative: diminished, dullness, rales - Cardiovascular Rhythm: regular Heart sounds: normal: S1, S2 Abnormal Heart Sounds: Absent: systolic murmur, diastolic murmur, rub, S3 Gallop, S4 Gallop, click, other - Gastrointestinal General gastrointestinal: Present: normal bowel sounds, soft - Integumentary Integumentary: Present: decreased turgor, normal - Neurologic Neurologic: Present: CNII-XII intact - Musculoskeletal Musculoskeletal: Present: gait normal, strength equal bilaterally - Psychiatric Psychiatric: Present: A&O x's 3, appropriate affect - Labs CBC & Chem 7: 05/20/19 06:55 05/21/19 05:32 Labs: Abnormal Lab Results - Last 24 Hours (Table) 05/21/19 Range/Units 05:32 Sodium 136 L (137-145) mmol/L Potassium 3.2 L (3.5-5.1) mmol/L BUN 6 L (9-20) mg/dL Creatinine 0.64 L (0.66-1.25) mg/dL Microbiology - Last 24 Hours (Table) 05/19/19 17:00 Gram Stain - Preliminary Neck Wound Culture - Preliminary Presumptive Staph aureus Beta Hemolytic Strep Group G 05/18/19 16:10 Blood Culture - Preliminary Blood No Growth after 48 hours Assessment and Plan Plan: 1. Sepsis most likely related to cellulitis left neck with possible abscess, chronic nonhealing wound left neck mass. Continue cefepime and vancomycin. Consult with Dr. Rivera appreciated. CAT scan as above. Consult added for interventional radiology for possible drainage of abscess. 2. Aggressive basal cell cancer of the skin primarily occurred in the left neck with metastatic disease to the left neck lymph nodes and the lungs. Patient is undergone palliative radiation. Consult with Dr. Kumari added. 3. Left jugular vein thrombosis, rule out Lemierre's syndrome. Consult with vascular surgery 4. Pyuria with urinary tract symptomatology area and await urine culture. Continue cefepime and vancomycin. 5. Radiation induced dysphagia and laryngitis. Modified barium swallow negative. 6. Clinical dehydration. Continue IV fluids. 7. Autonomic dysfunction. Continue IV hydration, monitor for orthostasis. 8. CKD stage II. 9. GI prophylaxis with PPI and DVT prophylaxis high risk, subcu Lovenox 10. Generalized anxiety disorder, insomnia. Xanax 0.25 mg at bedtime added. CODE STATUS: Full code Discharge plan: home Impression and plan of care have been directed as dictated by the signing physician. Karly Manzano nurse practitioner acting as scribe for signing physician.
--- NOTE | 2019-05-21 16:11 | PN ---
PROGRESS NOTE DATE OF SERVICE: 05/21/2019. REASON FOR FOLLOWUP: Left-sided neck abscess and cellulitis. INTERVAL HISTORY: The patient is currently afebrile. The patient is breathing comfortably. Patient denies having any chest pain. No cough. Left-sided neck redness has improved. Denies pain. No chest pain, shortness of breath or cough. No abdominal pain. No diarrhea. PHYSICAL EXAMINATION: Blood pressure 149/80 with a pulse of 96, temperature 98.3. He is 92% on room air. General description is an elderly male up in the bed in no distress. HEENT examination: Left lateral neck area did have a wound, drainage slightly decreased. Minimal drainage. LUNGS: Unlabored breathing. Clear to auscultation anteriorly. CARDIOVASCULAR: Heart S1, S2. Regular rate and rhythm. ABDOMEN: Soft, no tenderness. LABS: Hemoglobin 9.4, white count 7.7, BUN of 6, creatinine 0.64. Wound culture with presumptive Staph aureus and Strep. DIAGNOSTIC IMPRESSION AND PLAN: Patient with left lung abscess and cellulitis for which the patient had surgical debridement. However, the patient currently being referred to [facility] to be elevated by tertiary care ENT. Continue with cefepime and Vanco until the patient evaluated by the ENT service at that facility. Continue supportive care. MMODL / IJN: [id number] /
--- NOTE | 2019-05-21 16:47 | US ---
EXAMINATION TYPE: US venous doppler duplex UE LT DATE OF EXAM: 05/21/2019 COMPARISON: CT 2019 CLINICAL HISTORY: r/o left internal jugular thrombosis. SIDE PERFORMED: Left Left Arm: Appears negative for DVT IMPRESSION: No evidence of deep venous thrombosis in the left arm. No evidence of jugular vein thrombosis.
[2019-05-21] MEDS ORDERED: HEPARIN SOD,PORK IN 0.45% NACL 25,000 UNIT in 0.45% NACL 1 250ML.BAG IV SCH (19:30)
[2019-05-21] MEDS: MELATONIN 5 MG TABLET PO SCH (20:47)
[2019-05-21] MEDS: METOPROLOL TARTRATE 12.5 MG TAB PO SCH (20:47)
[2019-05-21] MEDS ORDERED: Potassium Replacement Protocol 1 EACH MISC MISCELLANE PRN (21:11)
[2019-05-21] MEDS: POTASSIUM CHLORIDE ER 20 MEQ TAB.ER PO SCH ×2 (21:43→22:42)
[2019-05-21] MEDS: ALPRAZolam 0.25 MG TAB PO PRN (21:44)
[2019-05-22] MEDS ORDERED: hydrALAZINE HCL 25 MG TAB ONE (02:00)
[2019-05-22 05:31] LABS: Partial Thromboplastin Time 43.9 sec (22.0-30.0); Prothrombin Time 10.3 sec (9.0-12.0)
[2019-05-22] MEDS: VANCOMYCIN 1,250 MG in SODIUM CHLORIDE 0.9% 250 ML IVPB SCH ×2 (05:47→08:23)
[2019-05-22] MEDS: SODIUM CHLORIDE 0.9% 1,000 ML IV SCH ×3 (05:47→20:52)
[2019-05-22] MEDS: PANTOPRAZOLE 40 MG TABLET PO SCH (06:49)
[2019-05-22] MEDS ORDERED: VANCOMYCIN TROUGH DUE 1 EACH MISC MISCELLANE ONE (07:00)
[2019-05-22 07:13] LABS: Anisocytosis Slight; Basophils # (A) 0.1 k/uL (0-0.2); Basophils % (A) 1 %; Eosinophils % (A) 0 %; HGB 9.7 gm/dL (13.0-17.5); Hypochromasia Slight; Lymphocytes # (A) 0.6 k/uL (1.0-4.8); Lymphocytes % (A) 9 %; MCH 22.6 pg (25.0-35.0); MCHC 30.3 g/dL (31.0-37.0); MCV 74.4 fL (80.0-100.0); Microcytosis Slight; Monocytes # (A) 0.5 k/uL (0-1.0); Monocytes % (A) 7 %; Neutrophils # (A) 5.6 k/uL (1.3-7.7); Neutrophils % (A) 80 %; Platelet Count 343 k/uL (150-450); RDW 16.5 % (11.5-15.5)
[2019-05-22 07:33] LABS: African American GFR (CKD) >90 (>60 ml/min/1.73 sqM); Anion Gap 10 mmol/L; Blood Urea Nitrogen 6 mg/dL (9-20); Calcium 8.7 mg/dL (8.4-10.2); Carbon Dioxide 30 mmol/L (22-30); Chloride 96 mmol/L (98-107); Glucose 111 mg/dL (74-99); Non-African American GFR(CKD) >90 (>60 ml/min/1.73 sqM); Sodium 136 mmol/L (137-145)
[2019-05-22] MEDS: POTASSIUM CHLORIDE ER 20 MEQ TAB.ER PO SCH ×2 (08:23→09:15)
[2019-05-22] MEDS: CEFEPIME 2 GM in SODIUM CHLORIDE 0.9% 100 ML IVPB SCH (08:23)
[2019-05-22] MEDS: ACETAMINOPHEN TAB 325 MG TAB PO PRN ×2 (09:15→23:22)
--- NOTE | 2019-05-22 13:31 | P.PN ---
Subjective Progress Note Date: 05/22/19 This is a 68-year-old male patient of Dr. Winslow and Dr. Maya. 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 Patient comes in with nausea and vomiting, dysuria, urinary frequency and weakness. And was admitted for acute renal failure, acute UTI, and dehydration.. Patient had a recent hospitalization on March 31 at which time he was treated for dizziness syncopal episode hypotension secondary to lisinopril and hydrochlorothiazide and hydrochlorothiazide was discontinued at the time of discharge. He was again admitted April 26 to April 29, again secondary to dehydration, with presyncope and labile blood pressures. Notes reviewed from oncology, showed a bronchoscopy pathology showing basal cell carcinoma. CAT scan of the chest 03/22/2019, revealed 2 masses in the right upper lobe and enlarged left supraclavicular left lower neck lymph node mass measuring 4.6 cm, she has recurrent basal cell carcinoma of the face and neck. MRI of the brain 04/02/2019 negative for metastasis, PET/CT 04/16/2019, showed hypermetabolic uptake in the right upper lobe in the left neck. Patient presents emergency room with the above symptoms including weakness, followed her urine, vomiting weakness, and fever patient was influenza negative, patient has dysphagia to solid foods, urinalysis in the emergency room was positive for pyuria WBC count of 13.6 uptake acid at 2.3 positive for ketones, chest x-ray similar abnormal density right upper lobe patient has sores in the left neck, related to basal cell, status post radiation treatment, Dr. Zach Jackson to see on 05/22/2019 surgeon. This was ENT surgeon patient was to see at the being of his treatment course. Patient delayed evaluation as he was not intending to have surgery. 05/20: Patient is somehow slightly better, there is no aspirate events, still febrile, blood cultures are still currently pending, wound cultures from the neck is currently pending, infectious disease following no diarrhea no lightheadedness no chest pain 05/21: Patient was seen in consultation by Dr. Rivera with plan to continue cefepime and vancomycin, local wound care with [facility]. Modified barium swallow was unremarkable. CAT scan of the neck revealed concern for abscess. S mall multifocal component difficult to exclude. Associated cellulitis. Left- sided retrocaval soft tissue mass may reflect conglomerate adenopathy. Infiltration to the left C3 transverse process. Thrombosed left jugular vein is difficult to exclude. Case discussed with Dr. Pleitez and Dr. Kumari by Dr. Vital, patient has had a cyst in the lymph node left neck since he started treatment. Unsure if this possible abscess is the same. Dr. Kumari consult added. 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 The patient is requesting Xanax for sleep at bedtime which will be added. Patient is complaining of sore throat which she thinks is related to radiation. His last radiation treatment was Tuesday. Temperature max 100.5, heart rate 98, blood pressure 149/80, pulse ox 96% on room air. 05/22: Dr. Rivera has transition antibiotics to Kefzol. Wound cultures positive for MSSA and beta-hemolytic strep. Blood cultures no growth at 72 hours. Ultrasound venous Doppler showed no evidence of DVT in the left arm and no evidence of jugular vein thrombosis. Heparin will be discontinued. Patient is scheduled for aspiration of the abscess/cyst today with interventional radiology. He has been afebrile greater than 24 hours, blood pressure 141/88, heart rate 84, pulse ox 90% on room air. Repeat lab work reveals hemoglobin of 9.7, white count 7, potassium 3.0 will be replaced, creatinine 0.61, blood sugar 111. Review Of Systems: Constitutional: Reports fever, no chills, no night sweats. No weight change. No weakness, fatigue or lethargy. Reports daytime sleepiness. EENT: No headache. No blurred vision or double vision, no loss of vision. No loss of Hearing, no ringing in the ears, no dizziness. No nasal drainage or congestion. No epistaxis. Reports sore throat. Lungs: No shortness of breath, cough, no sputum production. No wheezing. Cardiovascular: No chest pain, no lower extremity edema. No palpitations. No paroxysmal nocturnal dyspnea. No orthopnea. No lightheadedness or dizziness. No syncopal episodes. Abdominal: No abdominal pain. No nausea, vomiting. No diarrhea. No constipation. No bloody or tarry stools.. No loss of appetite. Genitourinary: No dysuria, increased frequency, urgency. No urinary retention. Musculoskeletal: No myalgias. No muscle weakness, no gait dysfunction, no frequent falls. No back pain. No neck pain. Integumentary: Reports wounds, no lesions. No rash or pruritus. No unusual bruising. No change in hair or nails. Neurologic: No aphasia. No facial droop. No change in mentation. No head injury. No headache. No paralysis. No paresthesia. Psychiatric: No depression. No anxiety. No mood swings. Endocrine: No abnormal blood sugars. No weight change. No excessive sweating or thirst. Objective - Vital Signs Vital signs: Vital Signs Temp 97.9 F 05/22/19 08:00 Pulse 109 H 05/22/19 08:00 Resp 18 05/22/19 08:00 BP 137/78 05/22/19 08:00 Pulse Ox 98 05/22/19 08:00 Intake & Output 05/21/19 05/22/19 05/22/19 18:59 06:59 18:59 Intake Total 230 351.882 240 Output Total 700 2850 Balance -470 -1448.118 240 Weight 78.1 kg Intake: Intake, IV Titration 351.882 Amount Cefepime 2 gm In Sodium 100 Chloride 0.9% 100 ml @ 200 mls/hr IVPB Q8HR [facility] Rx#:[id number] Heparin Sod,Pork in 0.45% 126.882 NaCl 25,000 unit In 0.45 % NaCl 1 250ml.bag @ 18 UNITS/KG/HR 14.364 mls/hr IV .[id number] [facility] Rx#: [id number] Vancomycin 1,250 mg In 125 Sodium Chloride 0.9% 250 ml @ 125 mls/hr IVPB Q8H [facility] Rx#:[id number] Oral 230 240 Output: Urine 700 2850 Other: Voiding Method Urinal Urinal Urinal # Voids 1 - Exam General appearance: Present: cooperative, no acute distress, resting in chair, is at bedside - EENT Eyes: Present: anicteric sclerae, EOMI, PERRLA, dentition normal ENT: Present: NA/AT, normal oropharynx - Neck Details: 2 lesions measuring 3 cm x 2 cm with mucoid discharge inferior to the neck near the scapular area, more located posteriorly, and 2 x 2 centimeter in the upper neck, no central necrosis noted Neck: Present: lymphadenopathy - Respiratory Respiratory: bilateral: CTA, negative: diminished, dullness, rales - Cardiovascular Rhythm: regular Heart sounds: normal: S1, S2 Abnormal Heart Sounds: Absent: systolic murmur, diastolic murmur, rub, S3 Gallop, S4 Gallop, click, other - Gastrointestinal General gastrointestinal: Present: normal bowel sounds, soft - Integumentary Integumentary: Present: decreased turgor, normal - Neurologic Neurologic: Present: CNII-XII intact - Musculoskeletal Musculoskeletal: Present: gait normal, strength equal bilaterally - Psychiatric Psychiatric: Present: A&O x's 3, appropriate affect - Labs CBC & Chem 7: 05/22/19 06:30 05/22/19 06:30 Labs: Abnormal Lab Results - Last 24 Hours (Table) 05/22/19 05/22/19 05/22/19 Range/Units 03:05 06:30 06:30 Hgb 9.7 L (13.0-17.5) gm/dL Hct 32.0 L (39.0-53.0) % MCV 74.4 L (80.0-100.0) fL MCH 22.6 L (25.0-35.0) pg MCHC 30.3 L (31.0-37.0) g/dL RDW 16.5 H (11.5-15.5) % Lymphocytes # 0.6 L (1.0-4.8) k/uL APTT 43.9 H (22.0-30.0) sec Sodium 136 L (137-145) mmol/L Potassium 3.0 L (3.5-5.1) mmol/L Chloride 96 L (98-107) mmol/L BUN 6 L (9-20) mg/dL Creatinine 0.61 L (0.66-1.25) mg/dL Glucose 111 H (74-99) mg/dL Microbiology - Last 24 Hours (Table) 05/18/19 16:10 Blood Culture - Preliminary Blood No Growth after 72 hours 05/19/19 17:00 Gram Stain - Final Neck Wound Culture - Final Staphylococcus aureus Beta Hemolytic Strep Group G Assessment and Plan Plan: 1. Sepsis most likely related to cellulitis left neck with possible abscess, chronic nonhealing wound left neck mass. Antibiotics transitioned to Kefzol. Consult with Dr. Rivera appreciated. CAT scan as above. Consult added for interventional radiology for possible drainage of abscess. 2. Aggressive basal cell cancer of the skin primarily occurred in the left neck with metastatic disease to the left neck lymph nodes and the lungs. Patient is undergone palliative radiation. Consult with Dr. Kumari added. 3. Left jugular vein thrombosis, ruled out. Consult with vascular surgery appreciated. 4. Pyuria without UTI. 5. Radiation induced dysphagia and laryngitis. Modified barium swallow negative. 6. Clinical dehydration. Continue IV fluids. 7. Autonomic dysfunction. Continue IV hydration, monitor for orthostasis. 8. CKD stage II. 9. GI prophylaxis with PPI and DVT prophylaxis high risk, subcu Lovenox 10. Generalized anxiety disorder, insomnia. Xanax 0.25 mg at bedtime added. CODE STATUS: Full code Discharge plan: home Impression and plan of care have been directed as dictated by the signing physician. Karly Manzano nurse practitioner acting as scribe for signing physician.
--- NOTE | 2019-05-22 13:41 | US ---
Ultrasound aspiration of left neck mass HISTORY: Left neck mass Correlation CT neck 05/21/2019 Maximal barrier technique was utilized. Ultrasound used with sterile technique. Following informed consent the skin overlying the patient's left neck mass was prepped and draped. 21 -gauge needle was advanced under ultrasound guidance into the lesion and approximately 1 cc of serous fluid was aspirated. Needle was removed and hemostasis achieved. No immediate complication. Patient remained in stable condition. IMPRESSION: Status post ultrasound-guided aspiration left neck mass. Microbiology studies are pending . [facility].
[2019-05-22] MEDS: guaiFENesin-DM 100-10MG/5ML 10 ML CUP PO PRN (16:06)
[2019-05-22 20:57] VITALS: RESP 16
[2019-05-22] MEDS: ALPRAZolam 0.25 MG TAB PO PRN (20:59)
[2019-05-22] MEDS: METOPROLOL TARTRATE 12.5 MG TAB PO SCH (20:59)
[2019-05-22] MEDS: MELATONIN 5 MG TABLET PO SCH (23:23)
--- NOTE | 2019-05-22 23:46 | PN ---
PROGRESS NOTE DATE OF SERVICE: 05/22/2019. REASON FOR FOLLOWUP: Left side neck wound, cellulitis and question of abscess. INTERVAL HISTORY: The patient is currently afebrile, has been breathing comfortably. The pain and discomfort to the left side of the neck has improved. Very minimal drainage. The patient is status post radiology drainage of this area. Cultures currently pending. Denies any chest pain, cough. No abdominal pain. No diarrhea. PHYSICAL EXAMINATION: Blood pressure is 117/81 with a pulse of 91, temperature 99.2. He is 96% on room air. General description is an elderly male lying in bed in no distress. HEENT examination: Neck area swelling and redness has decreased. LUNGS: Unlabored breathing, clear to auscultation anteriorly. CARDIOVASCULAR: Heart S1, S2. Regular rate and rhythm. ABDOMEN: Soft, no tenderness. LABS: Hemoglobin is 9.7, white count 7.0, BUN of 6, creatinine 0.61. DIAGNOSTIC IMPRESSION AND PLAN: Patient with left neck wound with secondary cellulitis, concern for possible abscess status post drainage. Patient culture with MSSA and beta-hemolytic strep. Patient currently on cefazolin, will try to arrange for IV antibiotic on discharge if possible. Otherwise switch to oral on discharge. Waiting for the culture and drainage to finalize. at the bedside. Questions were answered. MMODL / IJN: [id number] /
[2019-05-23] MEDS: guaiFENesin-DM 100-10MG/5ML 10 ML CUP PO PRN ×2 (04:42→10:08)
[2019-05-23] MEDS: hydrALAZINE HCL 25 MG TAB PO PRN (04:42)
[2019-05-23] MEDS: PANTOPRAZOLE 40 MG TABLET PO SCH (06:29)
[2019-05-23] MEDS: SODIUM CHLORIDE 0.9% 1,000 ML IV SCH (06:29)
[2019-05-23 06:55] LABS: Magnesium 2.2 mg/dL (1.6-2.3); Potassium 3.2 mmol/L (3.5-5.1)
[2019-05-23 08:15] VITALS: BP 158/86; PULSE 103; TEMP 98.9
[2019-05-23] MEDS: ACETAMINOPHEN TAB 325 MG TAB PO PRN ×2 (08:18→14:26)
[2019-05-23] MEDS: POTASSIUM CHLORIDE ER 20 MEQ TAB.ER PO SCH ×2 (10:10→14:27)
--- NOTE | 2019-05-23 11:21 | P.PN ---
Subjective Progress Note Date: 05/23/19 This is a 68-year-old male patient of Dr. Winslow and Dr. Maya. 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 Patient comes in with nausea and vomiting, dysuria, urinary frequency and weakness. And was admitted for acute renal failure, acute UTI, and dehydration.. Patient had a recent hospitalization on March 31 at which time he was treated for dizziness syncopal episode hypotension secondary to lisinopril and hydrochlorothiazide and hydrochlorothiazide was discontinued at the time of discharge. He was again admitted April 26 to April 29, again secondary to dehydration, with presyncope and labile blood pressures. Notes reviewed from oncology, showed a bronchoscopy pathology showing basal cell carcinoma. CAT scan of the chest 03/22/2019, revealed 2 masses in the right upper lobe and enlarged left supraclavicular left lower neck lymph node mass measuring 4.6 cm, she has recurrent basal cell carcinoma of the face and neck. MRI of the brain 04/02/2019 negative for metastasis, PET/CT 04/16/2019, showed hypermetabolic uptake in the right upper lobe in the left neck. Patient presents emergency room with the above symptoms including weakness, followed her urine, vomiting weakness, and fever patient was influenza negative, patient has dysphagia to solid foods, urinalysis in the emergency room was positive for pyuria WBC count of 13.6 uptake acid at 2.3 positive for ketones, chest x-ray similar abnormal density right upper lobe patient has sores in the left neck, related to basal cell, status post radiation treatment, Dr. Zach Jackson to see on 05/22/2019 surgeon. This was ENT surgeon patient was to see at the being of his treatment course. Patient delayed evaluation as he was not intending to have surgery. 05/20: Patient is somehow slightly better, there is no aspirate events, still febrile, blood cultures are still currently pending, wound cultures from the neck is currently pending, infectious disease following no diarrhea no lightheadedness no chest pain 05/21: Patient was seen in consultation by Dr. Rivera with plan to continue cefepime and vancomycin, local wound care with [facility]. Modified barium swallow was unremarkable. CAT scan of the neck revealed concern for abscess. S mall multifocal component difficult to exclude. Associated cellulitis. Left- sided retrocaval soft tissue mass may reflect conglomerate adenopathy. Infiltration to the left C3 transverse process. Thrombosed left jugular vein is difficult to exclude. Case discussed with Dr. Pleitez and Dr. Kumari by Dr. Vital, patient has had a cyst in the lymph node left neck since he started treatment. Unsure if this possible abscess is the same. Dr. Kumari consult added. 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 The patient is requesting Xanax for sleep at bedtime which will be added. Patient is complaining of sore throat which she thinks is related to radiation. His last radiation treatment was Tuesday. Temperature max 100.5, heart rate 98, blood pressure 149/80, pulse ox 96% on room air. 05/22: Dr. Rivera has transition antibiotics to Kefzol. Wound cultures positive for MSSA and beta-hemolytic strep. Blood cultures no growth at 72 hours. Ultrasound venous Doppler showed no evidence of DVT in the left arm and no evidence of jugular vein thrombosis. Heparin will be discontinued. Patient is scheduled for aspiration of the abscess/cyst today with interventional radiology. He has been afebrile greater than 24 hours, blood pressure 141/88, heart rate 84, pulse ox 90% on room air. Repeat lab work reveals hemoglobin of 9.7, white count 7, potassium 3.0 will be replaced, creatinine 0.61, blood sugar 111. 05/23: Patient underwent ultrasound-guided aspiration of left neck mass. Patient was afebrile for the past 24 hours, heart rate 103, blood pressure 158/86, pulse ox 97% on room air. A repeat potassium is 3.2, magnesium 2.2. The patient is continued on Kefzol and Dr. Rivera is planning for IV kefzol and midline will be placed. Patient would benefit from hospital bed at home as he develops orthopnea and requires head of the bed elevated at least 30 due to the mass in his neck causing compression on his airway. We'll make arrangements for patient be discharged later today. Recommended the patient switch to ensure clear as this will be easier for him to swallow. Review Of Systems: Constitutional: Reports fever, no chills, no night sweats. No weight change. No weakness, fatigue or lethargy. Reports daytime sleepiness. EENT: No headache. No blurred vision or double vision, no loss of vision. No loss of Hearing, no ringing in the ears, no dizziness. No nasal drainage or congestion. No epistaxis. Reports sore throat. Lungs: No shortness of breath, cough, no sputum production. No wheezing. Cardiovascular: No chest pain, no lower extremity edema. No palpitations. No paroxysmal nocturnal dyspnea. No orthopnea. No lightheadedness or dizziness. No syncopal episodes. Abdominal: No abdominal pain. No nausea, vomiting. No diarrhea. No constipation. No bloody or tarry stools.. No loss of appetite. Genitourinary: No dysuria, increased frequency, urgency. No urinary retention. Musculoskeletal: No myalgias. No muscle weakness, no gait dysfunction, no frequent falls. No back pain. No neck pain. Integumentary: Reports wounds, no lesions. No rash or pruritus. No unusual bruising. No change in hair or nails. Neurologic: No aphasia. No facial droop. No change in mentation. No head injury. No headache. No paralysis. No paresthesia. Psychiatric: No depression. No anxiety. No mood swings. Endocrine: No abnormal blood sugars. No weight change. No excessive sweating or thirst. Objective - Vital Signs Vital signs: Vital Signs Temp 98.9 F 05/23/19 08:14 Pulse 103 H 05/23/19 08:14 Resp 16 05/23/19 08:14 BP 158/86 05/23/19 08:14 Pulse Ox 97 05/23/19 08:14 Intake & Output 05/22/19 05/23/19 05/23/19 18:59 06:59 18:59 Intake Total 610 Output Total 200 1400 Balance 410 -1400 Weight 78.1 kg 78 kg Intake: Intake, IV Titration 130 Amount Sodium Chloride 0.9% 1, 80 000 ml @ 100 mls/hr IV . Q10H [facility] Rx#:[id number] ceFAZolin 2 gm In Sodium 50 Chloride 0.9% 50 ml @ 100 mls/hr IVPB Q8HR [facility] Rx# :[id number] Oral 480 Output: Urine 200 1400 Other: Voiding Method Urinal Urinal Urinal # Voids 1 - Exam General appearance: Present: cooperative, no acute distress, resting in chair, is at bedside - EENT Eyes: Present: anicteric sclerae, EOMI, PERRLA, dentition normal ENT: Present: NA/AT, normal oropharynx - Neck Details: 2 lesions measuring 3 cm x 2 cm with mucoid discharge inferior to the neck near the scapular area, more located posteriorly, and 2 x 2 centimeter in the upper neck, no central necrosis noted Neck: Present: lymphadenopathy - Respiratory Respiratory: bilateral: CTA, negative: diminished, dullness, rales - Cardiovascular Rhythm: regular Heart sounds: normal: S1, S2 Abnormal Heart Sounds: Absent: systolic murmur, diastolic murmur, rub, S3 Gallop, S4 Gallop, click, other - Gastrointestinal General gastrointestinal: Present: normal bowel sounds, soft - Integumentary Integumentary: Present: decreased turgor, normal - Neurologic Neurologic: Present: CNII-XII intact - Musculoskeletal Musculoskeletal: Present: gait normal, strength equal bilaterally - Psychiatric Psychiatric: Present: A&O x's 3, appropriate affect - Labs CBC & Chem 7: 05/22/19 06:30 05/23/19 05:49 Labs: Abnormal Lab Results - Last 24 Hours (Table) 05/23/19 Range/Units 05:49 Potassium 3.2 L (3.5-5.1) mmol/L Microbiology - Last 24 Hours (Table) 05/21/19 12:58 Gram Stain - Preliminary Cyst Body Fluid Culture - Preliminary 05/21/19 12:58 Fungal Culture - Preliminary Cyst 05/22/19 14:03 Anaerobic Culture - Preliminary Cyst 05/19/19 17:00 Anaerobic Culture - Preliminary Neck 05/18/19 16:10 Blood Culture - Preliminary Blood No Growth after 96 hours Assessment and Plan Plan: 1. Sepsis most likely related to cellulitis left neck with abscess, chronic nonhealing wound left neck mass, status post aspiration. Antibiotics transitioned to Kefzol. Consult with Dr. Rivera appreciated. CAT scan as above. Kefzol 2 g every 8 hours for 2 weeks at home. Midline ordered. 2. Aggressive basal cell cancer of the skin primarily occurred in the left neck with metastatic disease to the left neck lymph nodes and the lungs. Patient has undergone palliative radiation. Consult with Dr. Kumari added. 3. Left jugular vein thrombosis, ruled out. Consult with vascular surgery appreciated. 4. Pyuria without UTI. 5. Radiation induced dysphagia and laryngitis. Modified barium swallow negat lilly. 6. Clinical dehydration. Continue IV fluids. 7. Autonomic dysfunction. Continue IV hydration, monitor for orthostasis. 8. CKD stage II. 9. GI prophylaxis with PPI and DVT prophylaxis high risk, subcu Lovenox 10. Generalized anxiety disorder, insomnia. Xanax 0.25 mg at bedtime added. CODE STATUS: Full code Discharge plan: home with home care Impression and plan of care have been directed as dictated by the signing physician. Karly Manzano nurse practitioner acting as scribe for signing physician.
--- NOTE | 2019-05-23 14:56 | P.DS ---
Providers Date of admission: 05/18/19 17:25 Expected date of discharge: 05/23/19 Attending physician: Kimberley Ruiz Consults: 05/19/19 15:43 Consult Physician Routine Consulting Provider: Mara Rivera Consult Reason/Comments: neck wound/sirs, uti Do you want consulting provider notified?: Yes 05/23/19 10:03 Consult Physician Routine Consulting Provider: Rajan Haas Consult Reason/Comments: basal cell cancer Do you want consulting provider notified?: Yes Primary care physician: Phil Winslow [facility] Course: This is a 68-year-old male patient of Dr. Winslow and Dr. Maya. 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 Patient comes in with nausea and vomiting, dysuria, urinary frequency and wea kness. And was admitted for acute renal failure, acute UTI, and dehydration.. Patient had a recent hospitalization on March 31 at which time he was treated for dizziness syncopal episode hypotension secondary to lisinopril and hydrochlorothiazide and hydrochlorothiazide was discontinued at the time of discharge. He was again admitted April 26 to April 29, again secondary to dehydration, with presyncope and labile blood pressures. Notes reviewed from oncology, showed a bronchoscopy pathology showing basal cell carcinoma. CAT scan of the chest 03/22/2019, revealed 2 masses in the right upper lobe and enlarged left supraclavicular left lower neck lymph node mass measuring 4.6 cm, she has recurrent basal cell carcinoma of the face and neck. MRI of the brain 04/02/2019 negative for metastasis, PET/CT 04/16/2019, showed hypermetabolic uptake in the right upper lobe in the left neck. Patient presents emergency room with the above symptoms including weakness, followed her urine, vomiting weakness, and fever patient was influenza negative, patient has dysphagia to solid foods, urinalysis in the emergency room was positive for pyuria WBC count of 13.6 uptake acid at 2.3 positive for ketones, chest x-ray similar abnormal density right upper lobe patient has sores in the left neck, related to basal cell, status post radiation treatment, Dr. Zach Jackson to see on 05/22/2019 surgeon. This was ENT surgeon patient was to see at the being of his treatment course. Patient delayed evaluation as he was not intending to have surgery. 05/20: Patient is somehow slightly better, there is no aspirate events, still febrile, blood cultures are still currently pending, wound cultures from the neck is currently pending, infectious disease following no diarrhea no lightheadedness no chest pain 05/21: Patient was seen in consultation by Dr. Rivera with plan to continue cefepime and vancomycin, local wound care with zak. Modified barium swallow was unremarkable. CAT scan of the neck revealed concern for abscess. Small multifocal component difficult to exclude. Associated cellulitis. Left- sided retrocaval soft tissue mass may reflect conglomerate adenopathy. I nfiltration to the left C3 transverse process. Thrombosed left jugular vein is difficult to exclude. Case discussed with Dr. Pleitez and Dr. Kumari by Dr. Vital, patient has had a cyst in the lymph node left neck since he started treatment. Unsure if this possible abscess is the same. Dr. Kumari consult added. 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 The patient is requesting Xanax for sleep at bedtime which will be added. Patient is complaining of sore throat which she thinks is related to radiation. His last radiation treatment was Tuesday. Temperature max 100.5, heart rate 98, blood pressure 149/80, pulse ox 96% on room air. 05/22: Dr. Rivera has transition antibiotics to Kefzol. Wound cultures positive for MSSA and beta-hemolytic strep. Blood cultures no growth at 72 hours. Ultrasound venous Doppler showed no evidence of DVT in the left arm and no evidence of jugular vein thrombosis. Heparin will be discontinued. Patient is scheduled for aspiration of the abscess/cyst today with interventional radiology. He has been afebrile greater than 24 hours, blood pressure 141/88, heart rate 84, pulse ox 90% on room air. Repeat lab work reveals hemoglobin of 9.7, white count 7, potassium 3.0 will be replaced, creatinine 0.61, blood sugar 111. 05/23: Patient underwent ultrasound-guided aspiration of left neck mass. Patient was afebrile for the past 24 hours, heart rate 103, blood pressure 158/86, pulse ox 97% on room air. A repeat potassium is 3.2, magnesium 2.2. The patient is continued on Kefzol and Dr. Rivera is planning for IV kefzol and midline will be placed. Patient would benefit from hospital bed at home as he develops orthopnea and requires head of the bed elevated at least 30 due to the mass in his neck causing compression on his airway. We'll make arrangements for patient be discharged later today. Recommended the patient switch to ensure clear as this will be easier for him to swallow. The patient will be discharged home today once all arrangements are completed. Discharge diagnoses: 1. Sepsis most likely related to cellulitis left neck with abscess, chronic nonhealing wound left neck mass, status post aspiration. 2. Aggressive basal cell cancer of the skin primarily occurred in the left neck with metastatic disease to the left neck lymph nodes and the lungs. 3. Left jugular vein thrombosis, ruled out. 4. Pyuria without UTI. 5. Radiation induced dysphagia and laryngitis. Modified barium swallow negative. 6. Clinical dehydration. 7. Autonomic dysfunction. 8. CKD stage II. 9. Generalized anxiety disorder, insomnia. Xanax 0.25 mg at bedtime added. Discharge plan: home with [facility] Impression and plan of care have been directed as dictated by the signing physician. Karly Manzano nurse practitioner acting as scribe for signing physician. Patient Condition at Discharge: Good Plan - Discharge Summary Discharge Rx Participant: No New Discharge Prescriptions: New ceFAZolin [Kefzol] 2,000 mg IVPB Q8HR #42 vial guaiFENesin-DM 100-10MG/5ML [Robitussin DM] 10 ml PO Q6H PRN cup PRN Reason: Cough Potassium Chloride ER [K-Dur 20] 20 meq PO DAILY #30 tab Continue Acetaminophen [Tylenol Arthritis] 650 mg PO BID PRN PRN Reason: Pain hydrALAZINE HCL [Apresoline] 25 mg PO TID #90 tab Melatonin 10 mg PO HS #30 tablet.er Metoprolol Tartrate [Lopressor] 12.5 mg PO HS Discharge Medication List Acetaminophen [Tylenol Arthritis] 650 mg PO BID PRN 04/26/19 [History] Melatonin 10 mg PO HS #30 tablet.er 04/29/19 [Rx] hydrALAZINE HCL [Apresoline] 25 mg PO TID #90 tab 04/29/19 [Rx] Metoprolol Tartrate [Lopressor] 12.5 mg PO HS 05/18/19 [History] Potassium Chloride ER [K-Dur 20] 20 meq PO DAILY #30 tab 05/23/19 [Rx] ceFAZolin [Kefzol] 2,000 mg IVPB Q8HR #42 vial 05/23/19 [Rx] guaiFENesin-DM 100-10MG/5ML [Robitussin DM] 10 ml PO Q6H PRN cup 05/23/19 [Rx] Follow up Appointment(s)/Referral(s): [facility], [NON-STAFF] - [facility],Infusion [NON-STAFF] - Phil Winslow DO [Primary Care Provider] - 1 Week (Please call and follow up with your primary provider within one week of being discharged. Blood work will need to be repeated weekly by your home care nurse. ) Mara Rivera MD [STAFF PHYSICIAN] - 1 Week (Office will call with a follow up appointment. They have been notified of your discharge.) Ambulatory/Diagnostic Orders: Basic Metabolic Panel [LAB.AMB] Location: None Selected Complete Blood Count w/diff [LAB.AMB] Location: None Selected Patient Instructions/Handouts: Wound Infection (DC), Hypokalemia (DC), How to Care for Your Midline Catheter (DC) Discharge Disposition: HOME WITH HOME HEALTH SERVICES
--- NOTE | 2019-05-23 16:38 | PN ---
PROGRESS NOTE DATE OF SERVICE: 05/23/2019 REASON FOR FOLLOWUP: Left-sided neck wound and cellulitis, possible abscess. INTERVAL HISTORY: The patient is currently afebrile. The patient is breathing comfortably. The patient denies having any chest pain or cough. No nausea, no vomiting or pain to the left side of the neck area. PHYSICAL EXAMINATION: Blood pressure is 158/86, pulse of 103, temperature 98.9. He is 97% on room air. General description is an elderly male lying in bed in no distress. RESPIRATORY SYSTEM: Unlabored breathing. Clear to auscultation anteriorly. HEART: S1, S2. Regular rate and rhythm. ABDOMEN: Soft. No tenderness. LABS: Hemoglobin 9.7, white count 7.0, BUN of 6, creatinine 0.61. DIAGNOSTIC IMPRESSION AND PLAN: Patient with a left-sided neck small wound with secondary cellulitis and underlying abscess; culture positive for methicillin-susceptible Staphylococcus aeruginosa, beta- hemolytic strep, status post surgical aspirate. Those cultures are currently pending. The patient has overall clinical improvement on cefazolin. Hence continue with cefazolin 2 grams q.8 hours for 2 weeks. Local wound care is ordered. Follow up in the office in one week. Family at the bedside. Their questions and concerns were answered. MMODL / IJN: [id number] /
--- NOTE | 2019-05-28 14:14 | CDI ---
Documentation Clarification Form Date: 05/28/2019 From: JUANY Harrington; Daniella Jacobo, Food Preparation Worker Phone: If you have any questions about this query, please contact Daniella Jacobo, Food Preparation Worker, at [phone] between 8 am and 5 pm. Admit date: 05/18/2019 Patient Name: Alhaji Bonilla Visit Number: [id number] Discharge Date: 05/23/2019 The clinical documentation specialists (CDS) and the [facility] Coding Staff appreciate your assistance in clarifying documentation. Please respond to the clarification below the line at the bottom and electronically sign. Please note: Queries are made a permanent part of the Health Record. If you have any question, please contact the author of this message via ITS. The patient presented with sepsis, dysphagia, pyuria and confusion. ED documentation is confusion related to metabolic encephalopathy from infection. This documentation is not carried throughout the medical record. History/Risk Factors: Skin cancer, HTN, neck abscess Clinical Indicators: weakness, vomiting, fever. Lab findings: WBC 13.6 Vital Signs: temp 101, pulse 105, resp 16, BP 126/80 Treatment: IV antibiotics. In your professional opinion, can you please clarify? Metabolic encephalopathy ruled in Metabolic encephalopathy ruled out Other, please specify Unable to determine (Last Revision: September 2017) metabolic encepahlopathy ruled in SIRS/ sepsis MTDD
== END 2019-05-23 16:44 | disposition home health service (06) | DRG 871 ==
LOC: EC 14:11 → 3SCARD 17:25
PROVIDERS: ADMIT Family Medicine; ATTEND Family Medicine
PROC: 0J953ZX Drainage of Left Neck Subcutaneous Tissue and Fascia, Percutaneous Approach, Diagnostic (ICD-10-PCS; principal; 2019-05-22)
PROC: 05HB33Z Insertion of Infusion Device into Right Basilic Vein, Percutaneous Approach (ICD-10-PCS; 2019-05-23 12:55)
DX: A41.9 Sepsis, unspecified organism (principal); G93.41 Metabolic encephalopathy; C77.0 Secondary and unspecified malignant neoplasm of lymph nodes of head, face and neck; C78.02 Secondary malignant neoplasm of left lung; C78.01 Secondary malignant neoplasm of right lung; L02.11 Cutaneous abscess of neck; L03.221 Cellulitis of neck; N17.9 Acute kidney failure, unspecified; C44.41 Basal cell carcinoma of skin of scalp and neck; D53.9 Nutritional anemia, unspecified; E86.0 Dehydration; F41.1 Generalized anxiety disorder; G47.00 Insomnia, unspecified; G90.9 Disorder of the autonomic nervous system, unspecified; I12.9 Hypertensive chronic kidney disease with stage 1 through stage 4 chronic kidney disease, or unspecified chronic kidney disease; N18.2 Chronic kidney disease, stage 2 (mild); Y84.2 Radiological procedure and radiotherapy as the cause of abnormal reaction of the patient, or of later complication, without mention of misadventure at the time of the procedure; R13.19 Other dysphagia; J04.0 Acute laryngitis; Z77.090 Contact with and (suspected) exposure to asbestos; Z79.899 Other long term (current) drug therapy; Z80.3 Family history of malignant neoplasm of breast; Z92.3 Personal history of irradiation; Z96.641 Presence of right artificial hip joint
CPT/HCPCS: 10160; 36410; 36415; 70450; 70491; 71046; 71260; 74230; 76937; 80048; 80053; 80202; 81001; 82330; 83605; 83735; 83880; 84100; 84132; 84443; 84484; 85025; 85610; 85730; 87040; 87070; 87075; 87077; 87086; 87102; 87186; 87205; 87502; 88173; 93005; 96361; 96365; 96367; 99285

== ENCOUNTER → 2019-08-17 | Outpatient (CLI) | payer MEDICARE ==
[2019-08-17 11:00] LABS: African American GFR (CKD) >90 (>60 ml/min/1.73 sqM); Blood Urea Nitrogen 10 mg/dL (9-20); Non-African American GFR(CKD) >90 (>60 ml/min/1.73 sqM)
--- NOTE | 2019-08-20 09:05 | CT ---
EXAMINATION TYPE: CT neck chest w con DATE OF EXAM: 08/17/2019 COMPARISON: 05/21/2019 HISTORY: Basal Cell CA CT DLP: 757.9 mGycm CONTRAST: CT scan of the neck is performed with IV Contrast, patient injected with 100 mL of Isovue 300. Contrast enhanced CT of the neck was performed from the skull base through the lung apices. Again noted is a left neck collection which is smaller than previous study and currently measures 2. 8 x 3.5 cm versus 5.2 x 4.6 cm. Open wound is noted with internal air identified. Exophytic skin mass is noted adjacent to the lower pole of the left parotid gland with associated skin thickening and me asures 2.5 x 1.3 cm. AIRWAY: The supraglottic, glottic, and subglottic portions of the airway appear patent and free of mass. SALIVARY GLANDS: The submandibular and parotid glands are free of mass or inflammatory process. THYROID GLAND: No nodules or masses seen. LYMPH NODES: Again noted is adenopathy within the left internal with lymph nodes measuring up to 1.2 cm. carotid chain. Improved conglomerate mass at the level of the internal jugular chain measuring 1. 5 x 2.1 cm versus 3.7 x 2.8 cm previously. LUNG APICES: No nodule or mass is seen. OTHER: Vascular structures are patent. No significant degenerative change of the cervical spine. N o abscess seen. IMPRESSION: 1. Persistent but diminished in size of thick-walled collection and open wound which was felt to refl ect abscess previously. Necrotic neoplasm not excluded. 2. Enlarging fungating cutaneous lesion. 3. Persistent adenopathy. 4. Improved conglomerate mass at the level of the internal jugular chain measuring 1.5 x 2.1 cm versu s 3.7 x 2.8 cm previously. EXAMINATION TYPE: CT neck chest w con DATE OF EXAM: 08/17/2019 COMPARISON: 05/21/2019 HISTORY: Basal Cell CA CT DLP: 757.9 mGycm Automated exposure control for dose reduction was used. CONTRAST: CT scan of the chest is performed with IV Contrast, patient injected with 100 mL of Isovue 300. FINDINGS: LUNGS: Right apical spiculated mass persists and currently measures 2.5 x 2.4 cm versus 2.4 x 2.3 cm previously. Adjacent nodule measures 2 cm in maximal dimension versus 2.1 cm previously. No new nodul es or masses identified. The lungs are otherwise clear. MEDIASTINUM: 8 mm high right paratracheal lymph node which previously measured 6 mm. Thoracic aorta i s of normal caliber. The heart is not enlarged. UPPER ABDOMEN: No significant abnormality appreciated. OTHER: No additional significant abnormality is seen. IMPRESSION: 1. Right upper lobe spiculated masses as discussed.
== END | disposition home or self-care (01) ==
LOC: RADCTMAIN 10:08
PROVIDERS: ATTEND Internal Medicine Hematology & Oncology
DX: L98.9 Disorder of the skin and subcutaneous tissue, unspecified (principal); R59.9 Enlarged lymph nodes, unspecified; C44.91 Basal cell carcinoma of skin, unspecified
CPT/HCPCS: 82565; 84520; 70491; 71260; 36415; Q9967

== ENCOUNTER → 2019-10-11 | Outpatient (CLI) | payer MEDICARE ==
[2019-10-11 11:20] LABS: African American GFR (CKD) >90 (>60 ml/min/1.73 sqM); Blood Urea Nitrogen 9 mg/dL (9-20); Non-African American GFR(CKD) 90 (>60 ml/min/1.73 sqM)
--- NOTE | 2019-10-11 12:27 | CT ---
EXAMINATION TYPE: CT neck chest w con DATE OF EXAM: 10/11/2019 COMPARISON: August 17, 2019 HISTORY: Basal Cell Ca CT DLP: 919 mGycm CONTRAST: CT scan of the neck is performed with IV Contrast, patient injected with 100 ml mL of Isovue 300. Contrast enhanced CT of the neck was performed from the skull base through the lung apices. Soft tissue attenuation at the site of open wound left neck which previously appeared consistent with abscess however now demonstrates more of a solid appearance which may reflect residual phlegmon or t umor. No Abscess collection identified at this time. Skin lesion noted inferior to the left ureter ap pears smaller in size and may have been excised. There is persistent skin thickening at this site. So ft tissue posterior to the left internal carotid artery persists and is smaller in size and measures 1.5 x 1.5 cm versus 2.1 x 1.5 cm previously. Proved skin thickening which may reflect improving featu res of cellulitis. AIRWAY: The supraglottic, glottic, and subglottic portions of the airway appear patent and free of mass. SALIVARY GLANDS: The submandibular and parotid glands are free of mass or inflammatory process. THYROID GLAND: No nodules or masses seen. LYMPH NODES: Improved adenopathy left internal jugular chain measuring 1 cm versus 1.2 cm. Posterior left neck lymph node measures 9.8 mm versus 1 cm previously. Adjacent to the right-sided strap muscle s measures 7 mm versus 7 mm previously. OTHER: Vascular structures are patent. No significant degenerative change of the cervical spine. N o abscess seen. IMPRESSION: 1. Thick-walled collection identified left neck on prior study of the cervix more of a solid appearan ce at this time compatible with resolution of abscess however there is persistent soft tissue consist ent with phlegmon or residual neoplasm. 2. Improving adenopathy 3. Skin lesion below the left ear appears to have been partially excised. Continued skin thickening. EXAMINATION TYPE: CT neck chest w con DATE OF EXAM: 10/11/2019 COMPARISON: August 17, 2019 HISTORY: Basal Cell Ca CT DLP: 919 mGycm Automated exposure control for dose reduction was used. CONTRAST: CT scan of the chest is performed with IV Contrast, patient injected with 100 ml mL of Isovue 300. FINDINGS: LUNGS: Lateral right upper lobe mass measures 2.2 cm versus 1.8 cm previously. Spiculated mass right upper lobe anteriorly measures 2.5 x 1.7 cm versus 2.5 x 2.4 cm previously. MEDIASTINUM: There are no greater than 1 cm hilar or mediastinal lymph nodes. No pericardial effusi on is seen. Thoracic aorta is of normal caliber. The heart is not enlarged. UPPER ABDOMEN: No significant abnormality appreciated. OTHER: No additional significant abnormality is seen. IMPRESSION: Right upper lobe spiculated masses are again noted which have remained stable to slightly improved. N o evidence for adenopathy at this time.
== END | disposition home or self-care (01) ==
LOC: RADCTMAIN 10:44
PROVIDERS: ATTEND Internal Medicine Hematology & Oncology
DX: C44.91 Basal cell carcinoma of skin, unspecified (principal); C78.00 Secondary malignant neoplasm of unspecified lung; R59.9 Enlarged lymph nodes, unspecified; L98.9 Disorder of the skin and subcutaneous tissue, unspecified; R23.4 Changes in skin texture; R91.8 Other nonspecific abnormal finding of lung field
CPT/HCPCS: 82565; 84520; 70491; 71260; 36415; Q9967

== ENCOUNTER → 2020-01-03 | Outpatient (CLI) | payer MEDICARE ==
--- NOTE | 2020-01-03 11:49 | CT ---
EXAMINATION TYPE: CT neck chest w con DATE OF EXAM: 01/03/2020 COMPARISON: 10/11/2019 HISTORY: follow up basal cell/lung cancer CT DLP: 599.7 mGycm CONTRAST: CT scan of the neck is performed with IV Contrast, patient injected with 100 mL of Isovue 300. Contrast enhanced CT of the neck was performed from the skull base through the lung apices. Persistent soft tissue mass left neck at the site of previous abscess. No abscess is identified at th is time. Mass currently measures 2.7 x 1.8 cm versus 2.9 x 2.3 cm. Soft tissue posterior to the left internal carotid artery persists however appears smaller in size and currently measures 9 x 7 mm vers us 15 x 15 mm previously. Cutaneous soft tissue lesion also persistent however smaller in size and me asures 16 x 9 mm versus 30 x 14 mm previously. AIRWAY: The supraglottic, glottic, and subglottic portions of the airway appear patent and free of mass. SALIVARY GLANDS: The submandibular and parotid glands are free of mass or inflammatory process. THYROID GLAND: No nodules or masses seen. LYMPH NODES: Continued adenopathy with interval improvement noted. OTHER: Vascular structures are patent. No significant degenerative change of the cervical spine. N o abscess seen. IMPRESSION: Persistent but improved soft tissue about the left neck and posterior to the left internal carotid ar campos. Cutaneous soft tissue lesion also persists however is smaller in size. Adenopathy remains essen tially stable in the interval. EXAMINATION TYPE: CT neck chest w con DATE OF EXAM: 01/03/2020 COMPARISON: 10/11/2019 HISTORY: follow up basal cell/lung cancer CT DLP: 599.7 mGycm Automated exposure control for dose reduction was used. CONTRAST: CT scan of the chest is performed with IV Contrast, patient injected with 100 mL of Isovue 300. FINDINGS: LUNGS: Spiculated mass right upper lobe currently measures 2.1 x 1.6 cm versus 2.5 x 1.7 cm previousl y. Additional right upper lobe mass density measures 2.1 cm versus 2.2 cm previously. No additional n odules or masses identified. MEDIASTINUM: There are no greater than 1 cm hilar or mediastinal lymph nodes. No pericardial effusi on is seen. Thoracic aorta is of normal caliber. The heart is not enlarged. UPPER ABDOMEN: No significant abnormality appreciated. OTHER: Right adrenal nodule is stable. IMPRESSION: 1. Right upper lobe spiculated masses persist although appear to be slightly smaller in size.
== END | disposition home or self-care (01) ==
LOC: RADCTMAIN 09:56
PROVIDERS: ATTEND Internal Medicine Hematology & Oncology
DX: R91.8 Other nonspecific abnormal finding of lung field (principal); C44.91 Basal cell carcinoma of skin, unspecified; C78.00 Secondary malignant neoplasm of unspecified lung
CPT/HCPCS: 82565; 84520; 70491; 71260; 36415; Q9967

== ENCOUNTER → 2020-03-06 | Outpatient (CLI) | payer MEDICARE ==
[2020-03-06 08:14] LABS: African American GFR (CKD) >90 (>60 ml/min/1.73 sqM); Blood Urea Nitrogen 10 mg/dL (9-20); Non-African American GFR(CKD) 84 (>60 ml/min/1.73 sqM)
--- NOTE | 2020-03-06 10:27 | CT ---
EXAMINATION TYPE: CT neck chest w con DATE OF EXAM: 03/06/2020 COMPARISON: CT neck and chest January 03, [address] older [address]s. PET/CT April 14, 2019. HISTORY: Lung CA, basal cell carcinoma (Lt side of neck) CT DLP: 688.8 mGycm. Automated Exposure Control for Dose Reduction was Utilized. TECHNIQUE: CT scan of the neck and thorax are performed following with IV Contrast, patient injected with 100 mL of Isovue 300. FINDINGS: Neck: Airway: No gross abnormality seen. Parotid/submandibular glands: No gross abnormality seen. Carotid/Vascular Structures: Mild peripheral calcified plaque bilateral carotid bulb level redemonstr ated. Osseous Structures: Scoliotic curvature with multilevel spurring the spine. Other: Worsening skin thickening over the left neck near hyoid bone level. There is better visualized irregular hypodense lesion with rim enhancement axial image 46 posterior to the carotid bulb measuri ng 1.3 x 1.1 x 1.6 cm axial image 46 and coronal image 34. Some adjacent heterogeneous tissue extends inferior and just posterior to this towards the left lateral neck where there are additional smaller areas of hypodensity that have irregular rim enhancement surrounded by abnormal soft tissue. Superio r to this there is persistent deformity near level of mandibular angle extending to skin surface with increasing heterogeneous enhancing soft tissue axial image 55 measuring roughly 4.5 x 1.6 cm. In add ition there is a new 7 mm avidly enhancing round lesion in the thickened dermis posterior left neck a xial image 46. There is 9 mm nodule anteriorly just right of midline at level of vocal cortex measure s 43 without significant change from most recent CT, larger from older studies. There is 1.1 by 0.9 c m lateral left supraclavicular soft tissue nodule axial image 31 not significant change from most rec ent CT, larger from older studies. IMPRESSION: Interval change at site of known neoplasm is suspicious for neoplastic progression and/o r progression of infection/multiloculated abscesses versus the most recent CT. Thorax: LUNGS: Right upper lobe redemonstrates linear and slightly more irregular scarring. There is persiste nt 2.0 x 0.9 cm spiculated nodule axial image 17 not significantly changed from most recent PET/CT or CT. Just inferior anterior to this there is a larger spiculated 2.3 x 1.9 cm lesion not significantl y changed from most recent CT when accounting for technical differences. No new nodules or masses. No pleural effusion or pneumothorax noted bilaterally. MEDIASTINUM: There are no new greater than 1 cm hilar or mediastinal lymph nodes. No cardiomegaly o r pericardial effusion is seen. Moderate to severe three-vessel coronary artery calcification is pre sent. OTHER: Subareolar nodular gynecomastia redemonstrated. Exaggerated thoracic kyphosis. Severe multilev el spurring in the visualized spine. Underlying scoliotic curvature. IMPRESSION: The 2 adjacent nodules and their scarring right upper lobe are not significantly changed in size or appearance from most recent CT. No new suspicious nodules or adenopathy noted.
== END | disposition home or self-care (01) ==
LOC: RADCTMAIN 07:40
PROVIDERS: ATTEND Internal Medicine Hematology & Oncology
DX: J98.4 Other disorders of lung (principal); C78.00 Secondary malignant neoplasm of unspecified lung; C44.91 Basal cell carcinoma of skin, unspecified
CPT/HCPCS: 82565; 84520; 70491; 71260; Q9967

== ENCOUNTER 2020-03-21 12:06 | Emergency (ER) | payer MEDICARE ==
[2020-03-21 12:29] VITALS: TEMP 98.6
[2020-03-21 13:05] LABS: Anisocytosis Slight; Basophils % (A) 0 %; Eosinophils % (A) 0 %; HCT 29.1 % (39.0-53.0); HGB 9.2 gm/dL (13.0-17.5); Hypochromasia Moderate; Lymphocytes # (A) 0.9 k/uL (1.0-4.8); Lymphocytes % (A) 15 %; MCH 24.2 pg (25.0-35.0); MCHC 31.5 g/dL (31.0-37.0); MCV 76.6 fL (80.0-100.0); Mean Platelet Volume 7.2; Microcytosis Slight; Monocytes # (A) 0.4 k/uL (0-1.0); Monocytes % (A) 6 %; Neutrophils # (A) 4.8 k/uL (1.3-7.7); Neutrophils % (A) 76 %; Platelet Count 355 k/uL (150-450); RDW 16.3 % (11.5-15.5); WBC 6.3 k/uL (3.8-10.6)
[2020-03-21 13:16] LABS: ALT 13 U/L (4-49); AST 26 U/L (17-59); African American GFR (CKD) >90 (>60 ml/min/1.73 sqM); Albumin 3.9 g/dL (3.5-5.0); Alkaline Phosphatase 64 U/L (38-126); Anion Gap 8 mmol/L; Blood Urea Nitrogen 10 mg/dL (9-20); Calcium 9.8 mg/dL (8.4-10.2); Carbon Dioxide 29 mmol/L (22-30); Chloride 96 mmol/L (98-107); Glucose 119 mg/dL (74-99); Non-African American GFR(CKD) >90 (>60 ml/min/1.73 sqM); Partial Thromboplastin Time 22.3 sec (22.0-30.0); Prothrombin Time 9.9 sec (9.0-12.0); Sodium 133 mmol/L (137-145); Total Bilirubin 0.3 mg/dL (0.2-1.3)
--- NOTE | 2020-03-21 13:21 | ED ---
Male Urogenital HPI - General Chief complaint: Urogenital Stated complaint: blood clots in urine Time Seen by Provider: 03/21/20 12:31 Source: patient Mode of arrival: ambulatory Limitations: no limitations - History of Present Illness Initial comments: 69-year-old male with history of metastatic basal cell carcinoma of the left side of the neck presenting to the emergency department today for chief complaint of hematuria times months. Patient states his blood in his urine for months now he states that he was following this with Dr. Metzger who is going to refer him to urologist. Patient states he has not been set up the urologist yet he states that for the past few days he has had increasing clots at times a block his ability to urinate patient states he has been able to urinate today and prior to arrival. Patient denies any lightheadedness presyncope palpitations or cold intolerance. Patient denies any lower abdominal pain nausea vomiting or back pain is no additional complaints patient has no known history of bladder cancer he denies additional complaints upon arrival patient appears well in no distress vital signs within acceptable limits. He denies any anticoagulation use - Related Data Home Medications Medication Instructions Recorded Confirmed Acetaminophen [Tylenol Arthritis] 650 mg PO BID PRN 04/26/19 05/18/19 Metoprolol Tartrate [Lopressor] 12.5 mg PO HS 05/18/19 05/18/19 Previous Rx's Medication Instructions Recorded Melatonin 10 mg PO HS #30 tablet.er 04/29/19 hydrALAZINE HCL [Apresoline] 25 mg PO TID #90 tab 04/29/19 Potassium Chloride ER [K-Dur 20] 20 meq PO DAILY #30 tab 05/23/19 ceFAZolin [Kefzol] 2,000 mg IVPB Q8HR #42 vial 05/23/19 guaiFENesin-DM 100-10MG/5ML 10 ml PO Q6H PRN cup 05/23/19 [Robitussin DM] Allergies Allergy/AdvReac Type Severity Reaction Status Date / Time No Known Allergies Allergy Verified 03/21/20 12:29 Review of Systems ROS Statement: Those systems with pertinent positive or pertinent negative responses have been documented in the HPI. ROS Other: All systems not noted in ROS Statement are negative. Past Medical History Past Medical History: Cancer, Hypertension Additional Past Medical History / Comment(s): HX SKIN CA, CURRENT LESION ON LEFT CHEEK, lung CA, CA in the lymph nodes. 10 treatments of radiation over 3 week period, last treatment 05/16/19. History of Any Multi-Drug Resistant Organisms: None Reported Past Surgical History: Back Surgery, Heart Catheterization, Joint Replacement, Orthopedic Surgery Additional Past Surgical History / Comment(s): PREVIOUS SKIN CA LESIONS REMOVED, R HIP REPLACEMENT, ANKLE ORIF WITH METAL L, lung biopsy, neck biopsy, basal cell carcinoma (lungs, lymphnodes and on left side of neck). Past Anesthesia/Blood Transfusion Reactions: Previous Problems w/ Anesthesia Additional Past Anesthesia/Blood Transfusion Reaction / Comment(s): Pt woke up violently, which is out of characteristic for the pt Past Psychological History: No Psychological Hx Reported Smoking Status: Never smoker Past Alcohol Use History: Occasional Past Drug Use History: None Reported - Past Family History Mother Family Medical History: Cancer, Deep Vein Thrombosis (DVT) Additional Family Medical History / Comment(s): BREAST CA General Exam - General Exam Comments Initial Comments: General: The patient is awake and alert, in no distress, and does not appear acutely ill. Eye: Pupils are equal, round and reactive to light, extra-ocular movements are intact. No nystagmus. There is normal conjunctiva bilaterally. No signs of icterus. Cardiovascular: There is a regular rate and rhythm. No murmur, rub or gallop is appreciated. Respiratory: Lungs are clear to auscultation, respirations are non-labored, breath sounds are equal. No wheezes, stridor, rales, or rhonchi. Gastrointestinal: Soft, non-distended, non-tender abdomen without masses or organomegaly noted. There is no rebound or guarding present Musculoskeletal: Normal ROM, no tenderness. Strength 5/5. Sensation intact. Pulses equal bilaterally 2+. Neurological: A&O x 3. CN II-XII intact grossly, There are no obvious motor or sensory deficits. Coordination appears grossly intact. Speech is normal. Skin: Skin is warm and dry and no rashes or lesions are noted. Psychiatric: Cooperative, appropriate mood & affect, normal judgment. Limitations: no limitations Course Vital Signs 03/21/20 03/21/20 12:26 14:35 Temperature 98.6 F Pulse Rate 92 79 Respiratory 16 18 Rate Blood Pressure 117/85 129/83 O2 Sat by Pulse 100 99 Oximetry Medical Decision Making - Medical Decision Making Nontoxic-appearing 69-year-old male presenting for blood in urine times months increasing clots for 3 days. Urinalysis revealed gross hematuria. Patient has findings on ultrasound concerning for bladder mass. Patient's hemoglobin is near baseline. He is not symptomatic. Heart rate and blood pressure stable. Patient states he prefers discharge. He states he has a nurse practitioner Erin at home and he'll be able to get labs ordered within the next 24-48 hours for repeat hemoglobin. Patient was provided urology follow-up. It is to return for any palpitations cold intolerance lightheadedness weakness, or increasing bleeding or inability to urinate. Patient verbalized understanding of discharge. While who is bedside is agreeable to this care plan. Discussed the case with any provider Dr. Buck who is agreeable to care plan. - Lab Data Result diagrams: 03/21/20 12:49 03/21/20 12:49 Lab Results 03/21/20 03/21/20 03/21/20 Range/Units 12:49 12:49 12:49 WBC 6.3 (3.8-10.6) k/uL RBC 3.80 L (4.30-5.90) m/uL Hgb 9.2 L (13.0-17.5) gm/dL Hct 29.1 L (39.0-53.0) % MCV 76.6 L (80.0-100.0) fL MCH 24.2 L (25.0-35.0) pg MCHC 31.5 (31.0-37.0) g/dL RDW 16.3 H (11.5-15.5) % Plt Count 355 (150-450) k/uL Neutrophils % 76 % Lymphocytes % 15 % Monocytes % 6 % Eosinophils % 0 % Basophils % 0 % Neutrophils # 4.8 (1.3-7.7) k/uL Lymphocytes # 0.9 L (1.0-4.8) k/uL Monocytes # 0.4 (0-1.0) k/uL Eosinophils # 0.0 (0-0.7) k/uL Basophils # 0.0 (0-0.2) k/uL Hypochromasia Moderate Anisocytosis Slight Microcytosis Slight PT (9.0-12.0) sec INR (<1.2) APTT (22.0-30.0) sec Sodium 133 L (137-145) mmol/L Potassium 4.0 (3.5-5.1) mmol/L Chloride 96 L (98-107) mmol/L Carbon Dioxide 29 (22-30) mmol/L Anion Gap 8 mmol/L BUN 10 (9-20) mg/dL Creatinine 0.80 (0.66-1.25) mg/dL Est GFR (CKD-EPI)AfAm >90 (>60 ml/min/1.73 sqM) Est GFR (CKD-EPI)NonAf >90 (>60 ml/min/1.73 sqM) Glucose 119 H (74-99) mg/dL Calcium 9.8 (8.4-10.2) mg/dL Total Bilirubin 0.3 (0.2-1.3) mg/dL AST 26 (17-59) U/L ALT 13 (4-49) U/L Alkaline Phosphatase 64 (38-126) U/L Total Protein 7.0 (6.3-8.2) g/dL Albumin 3.9 (3.5-5.0) g/dL Urine Color Dark Red Urine Appearance Bloody (Clear) Urine RBC >182 H (0-5) /hpf Urine WBC >182 H (0-5) /hpf Urine Mucus Many H (None) /hpf 03/21/20 Range/Units 12:49 WBC (3.8-10.6) k/uL RBC (4.30-5.90) m/uL Hgb (13.0-17.5) gm/dL Hct (39.0-53.0) % MCV (80.0-100.0) fL MCH (25.0-35.0) pg MCHC (31.0-37.0) g/dL RDW (11.5-15.5) % Plt Count (150-450) k/uL Neutrophils % % Lymphocytes % % Monocytes % % Eosinophils % % Basophils % % Neutrophils # (1.3-7.7) k/uL Lymphocytes # (1.0-4.8) k/uL Monocytes # (0-1.0) k/uL Eosinophils # (0-0.7) k/uL Basophils # (0-0.2) k/uL Hypochromasia Anisocytosis Microcytosis PT 9.9 (9.0-12.0) sec INR 1.0 (<1.2) APTT 22.3 (22.0-30.0) sec Sodium (137-145) mmol/L Potassium (3.5-5.1) mmol/L Chloride (98-107) mmol/L Carbon Dioxide (22-30) mmol/L Anion Gap mmol/L BUN (9-20) mg/dL Creatinine (0.66-1.25) mg/dL Est GFR (CKD-EPI)AfAm (>60 ml/min/1.73 sqM) Est GFR (CKD-EPI)NonAf (>60 ml/min/1.73 sqM) Glucose (74-99) mg/dL Calcium (8.4-10.2) mg/dL Total Bilirubin (0.2-1.3) mg/dL AST (17-59) U/L ALT (4-49) U/L Alkaline Phosphatase (38-126) U/L Total Protein (6.3-8.2) g/dL Albumin (3.5-5.0) g/dL Urine Color Urine Appearance (Clear) Urine RBC (0-5) /hpf Urine WBC (0-5) /hpf Urine Mucus (None) /hpf Disposition Clinical Impression: Bladder mass, Hematuria Disposition: HOME SELF-CARE Condition: Good Instructions (If sedation given, give patient instructions): Hematuria (ED) Additional Instructions: Please use medication as discussed. Please follow-up with family doctor in the next 2 days, repeat HgB in 24-48 hours. Recommend urology f/u in the next 2-5 days. Return if you feel lightheaded, have low blood pressure readings, increasing bleeding or inability to urinate. Please return to emergency room if the symptoms increase or worsen or for any other concerns. Is patient prescribed a controlled substance at d/c from ED?: No Referrals: Phil Winslow DO [Primary Care Provider] - 1-2 days Gabe Gonzalez MD [STAFF PHYSICIAN] - 1-2 days Time of Disposition: 14:18
[2020-03-21 13:43] LABS: Mucus,Urine Many /hpf; RBC,Urine >182 /hpf (0-5); WBC,Urine >182 /hpf (0-5)
[2020-03-21 14:01] LABS: Appearance,Urine Bloody (Clear); Color,Urine Dark Red
--- NOTE | 2020-03-21 14:10 | US ---
EXAMINATION TYPE: US renals and bladder DATE OF EXAM: 03/21/2020 COMPARISON: PET/CT 04/14/2019 CLINICAL HISTORY: hematuria. Hematuria x few months. Patient states having larger clots now. Hx beck g and skin cancer and undergoing treatment. EXAM MEASUREMENTS: Right Kidney: 9.3 x 4.6 x 3.7 cm Left Kidney: 10.2 x 4.2 x 4.9 cm Right Kidney: No hydronephrosis or masses seen Left Kidney: No hydronephrosis or masses seen, with limited visualization of lower pole due to overly ing bowel gas. Bladder: Polypoidal mass visualized within bladder with venous and arterial flow visualized= 4.9 x 3. 6 x 4.5 cm. Bladder wall = 2.6 mm. Bilateral Jets not seen Prostate: enlarged, 4.8 x 5.9 x 3.6 cm. IMPRESSION: 1. Large polypoidal heterogenous mass within the urinary bladder with arterial and venous flow. Urol ogy consult recommended. 2. No hydronephrosis bilaterally.
[2020-03-21 14:35] VITALS: BP 129/83; PULSE 79; RESP 18
== END 2020-03-21 14:35 | disposition home or self-care (01) ==
LOC: EC 12:06
DX: N32.89 Other specified disorders of bladder (principal); R31.9 Hematuria, unspecified; I10 Essential (primary) hypertension; Z79.899 Other long term (current) drug therapy; Z85.828 Personal history of other malignant neoplasm of skin; C78.00 Secondary malignant neoplasm of unspecified lung; Z95.5 Presence of coronary angioplasty implant and graft; Z96.641 Presence of right artificial hip joint; Z80.3 Family history of malignant neoplasm of breast
CPT/HCPCS: 36415; 76770; 80053; 81001; 85025; 85610; 85730; 99284

== ENCOUNTER 2020-04-09 11:40 | Day surgery (SDC) | payer MEDICARE ==
--- NOTE | 2020-04-03 19:56 | P.GSHP ---
History of Present Illness H&P Date: 04/03/20 Chief Complaint: Gross Hematuria The patient is a 69 year old white male with a 2 month history of gross hematuria. He has an unremarkable urologic history. Recent ultrasound showed normal kidneys, but a 4.9 cm bladder mass was seen. - Constitutional Constitutional: Reports fatigue, Reports weight loss - Cardiovascular Cardiovascular: Reports high blood pressure - Genitourinary (Male) Genitourinary: Reports hematuria Past Medical History Past Medical History: Cancer, Hypertension Additional Past Medical History / Comment(s): HX SKIN CA, CURRENT LESION ON LEFT CHEEK, lung CA, CA in the lymph nodes. 10 treatments of radiation over 3 week period, last treatment 05/16/19. History of Any Multi-Drug Resistant Organisms: None Reported Past Surgical History: Back Surgery, Heart Catheterization, Joint Replacement, Orthopedic Surgery Additional Past Surgical History / Comment(s): PREVIOUS SKIN CA LESIONS REMOVED, R HIP REPLACEMENT, ANKLE ORIF WITH METAL L, lung biopsy, neck biopsy, basal cell carcinoma (lungs, lymphnodes and on left side of neck). Past Anesthesia/Blood Transfusion Reactions: Previous Problems w/ Anesthesia Additional Past Anesthesia/Blood Transfusion Reaction / Comment(s): Pt woke up violently, which is out of characteristic for the pt Past Psychological History: No Psychological Hx Reported Smoking Status: Never smoker Past Alcohol Use History: Occasional Past Drug Use History: None Reported - Past Family History Mother Family Medical History: Cancer, Deep Vein Thrombosis (DVT) Additional Family Medical History / Comment(s): BREAST CA Medications and Allergies Home Medications Medication Instructions Recorded Confirmed Type Acetaminophen [Tylenol Arthritis] 650 mg PO BID PRN 04/26/19 05/18/19 History Melatonin 10 mg PO HS #30 tablet.er 04/29/19 05/18/19 Rx hydrALAZINE HCL [Apresoline] 25 mg PO TID #90 tab 04/29/19 05/18/19 Rx Metoprolol Tartrate [Lopressor] 12.5 mg PO HS 05/18/19 05/18/19 History Potassium Chloride ER [K-Dur 20] 20 meq PO DAILY #30 tab 05/23/19 Rx ceFAZolin [Kefzol] 2,000 mg IVPB Q8HR #42 vial 05/23/19 Rx guaiFENesin-DM 100-10MG/5ML 10 ml PO Q6H PRN cup 05/23/19 Rx [Robitussin DM] Allergies Allergy/AdvReac Type Severity Reaction Status Date / Time No Known Allergies Allergy Verified 03/21/20 12:29 Surgical - Exam - General well developed, well nourished, no distress - Neck other (Mass on left) - Respiratory normal respiratory effort, clear to auscultation - Cardiovascular Rhythm: regular Abnormal Heart Sounds: no systolic murmur, no diastolic murmur, no rub, no S3 Gallop, no S4 Gallop, no click, no other - Abdomen Abdomen: soft, non tender, no guarding, no rigid, no rebound - Genitourinary normal penis with no external lesions, testicles non-tender - Rectum Rectum: normal sphincter tone, no masses - Psychiatric oriented to time, oriented to person, oriented to place, speech is normal, memory intact Results - Imaging US - kidney/bladder: report reviewed Assessment and Plan (1) Bladder neoplasm of uncertain malignant potential Status: Acute Code(s): D41.4 - NEOPLASM OF UNCERTAIN BEHAVIOR OF BLADDER SNOMED Code(s): 69224100 Plan: Cystoscopy, transurethral resection of bladder tumor. The patient is aware of the likelihood that the lesion is malignant in nature. The procedure has been reviewed in detail with the patient and his . They have been made aware of potential risks, which include anesthesia, bleeding, infection, and bladder perforation. He is aware that he will require a Mak catheter postoperatively.
[2020-04-07 09:36] VITALS: BMI 20.8
[~2020-04-09 11:40] MED LIST changes: -ALBUTEROL NEB (CONC) 2.5 MG/0.5 ML INHALATION ONE; +DEXAMETHASONE SOD PHOSPHATE 10 MG/ML 1 ML VIAL IV ONE; +LACTATED RINGERS 1,000 ML IV SCH; +LIDOCAINE 1% (10MG/ML) FOR IV START INTRADERMA PRN; -LIDOCAINE 2% (PF) 20 MG/ML 5 ML VIAL INHALATION ONE; -LIDOCAINE VISCOUS 300 MG/15 ML CUP MUCOUS MEM ONE; +ONDANSETRON 4 MG/2 ML VIAL IVP ONE; -SODIUM CHLORIDE 0.9% 1,000 ML IV SCH
[2020-04-09 12:09] VITALS: RESP 16
[2020-04-09] MEDS ORDERED: ONDANSETRON 4 MG/2 ML VIAL ONE (12:14)
[2020-04-09 12:39] LABS: Anisocytosis Slight; HCT 34.7 % (39.0-53.0); HGB 10.2 gm/dL (13.0-17.5); Hypochromasia Marked; MCH 23.8 pg (25.0-35.0); MCHC 29.4 g/dL (31.0-37.0); MCV 80.8 fL (80.0-100.0); Platelet Count 454 k/uL (150-450); RBC 4.29 m/uL (4.30-5.90); RDW 17.5 % (11.5-15.5); WBC 7.7 k/uL (3.8-10.6)
[2020-04-09] MEDS ORDERED: NEOSTIGMINE 1 MG/ML 10 ML VIAL ONE (13:16)
[2020-04-09] MEDS ORDERED: PROPOFOL 10 MG/ML 20 ML VIAL IV ONE (13:16)
[2020-04-09] MEDS ORDERED: GLYCOPYRROLATE 0.2 MG/ML 2 ML VIAL ONE (13:16)
[2020-04-09] MEDS ORDERED: ROCURONIUM 10 MG/ML (10 ML VIAL) IV ONE (13:16)
[2020-04-09] MEDS ORDERED: LIDOCAINE 1% INJ 10MG/ML (20 ML MDV) ONE (13:16)
[2020-04-09] MEDS ORDERED: fentaNYL (PF) 50 MCG/ML 2 ML AMP ONE (13:16)
[2020-04-09] MEDS ORDERED: SUCCINYLCHOLINE CHLORIDE 100 MG/5 ML SYR IV ONE (13:16)
[2020-04-09] MEDS ORDERED: PHENYLEPHRINE-0.9% NACL SYG 1 MG/10 ML SYRINGE ONE (13:16)
[2020-04-09] MEDS ORDERED: LACTATED RINGERS 1,000 ML IV ONE (14:52)
[2020-04-09] MEDS: HYDROmorphone 0.5 MG/0.5 ML SYRINGE IVP PRN ×2 (16:03→16:08)
--- NOTE | 2020-04-09 16:12 | P.OP ---
Date of Procedure: 04/09/20 Preoperative Diagnosis: Bladder tumor Postoperative Diagnosis: Bladder tumors Procedure(s) Performed: Cystoscopy, transurethral resection of bladder tumors (Large) Anesthesia: DONOVANA Surgeon: Gabe Gonzalez Estimated Blood Loss (ml): 30 IV fluids (ml): 1,000 Pathology: other (Bladder tumor fragments) Condition: stable Disposition: PACU Indications for Procedure: The patient is a 69 year old white male with a 2 month history of gross hematuria. He has an unremarkable urologic history. Recent ultrasound showed normal kidneys, but a 4.9 cm bladder mass was seen. Operative Findings: 6 cm tumor arising from left lateral bladder wall, papillary in nature. Additional small papillary tumors and left anterior bladder wall and right vesical neck. Flat tumor noted on bladder trigone and posterior bladder wall. All visible tumor resected. Description of Procedure: The patient was taken in the operating room and placed in the dorsal lithotomy position, with his legs supported in Caesar stirrups. The external genitalia was prepped and draped sterilely. The 25-Sinhala ACMI resectoscope sheath was introduced into the bladder. The bladder was inspected. Both ureteral orifices were of normal anatomic location and configuration, and clear urine effluxed from both. The entire bladder was examined, revealing a large tumor arising from the left lateral bladder wall, measuring approximately 6 cm in size. An additional 1.5 cm tumor arises from the right vesical neck. The prostate was partially occluded with a bilobar configuration. No urothelial changes were seen within the prostatic urethra. Using the bipolar cutting loop, the tumors were resected down to the muscle. Excellent hemostasis was attained. An additional small tumor was seen on the left anterior bladder wall, and flat tumor was noted in the midline on the posterior bladder wall and trigone. All visible tumor was resected. It was not necessary to resect either ureteral orifice. The DialMyApp evacuator was used to r emove all of the tissue fragments from the bladder. The resected tissue was saved and sent for pathologic examination. A 20-Sinhala Mak catheter was inserted. The return was clear. The patient tolerated the procedure well. He was taken to the recovery room in stable condition.
[2020-04-09 16:15] VITALS: TEMP 97.8
[2020-04-09] MEDS ORDERED: HYDROcodone/APAP 5-325MG 1 EACH TAB PO ONE (16:56)
[2020-04-09] MEDS ORDERED: HYDROcodone/APAP 5-325MG 1 EACH TAB ONE (16:57)
[2020-04-09 17:35] VITALS: BP 148/85; PULSE 71
== END 2020-04-09 18:13 | disposition home or self-care (01) ==
LOC: OR 11:40
PROVIDERS: ATTEND Urology
DX: C67.9 Malignant neoplasm of bladder, unspecified (principal); I10 Essential (primary) hypertension; Z85.828 Personal history of other malignant neoplasm of skin; Z85.118 Personal history of other malignant neoplasm of bronchus and lung; Z85.79 Personal history of other malignant neoplasms of lymphoid, hematopoietic and related tissues; Z92.3 Personal history of irradiation; Z96.641 Presence of right artificial hip joint; Z98.890 Other specified postprocedural states; Z80.3 Family history of malignant neoplasm of breast; Z82.49 Family history of ischemic heart disease and other diseases of the circulatory system; Z79.899 Other long term (current) drug therapy
CPT/HCPCS: 52240; 86900; 86901; 85027; 86850; 88307; J1100; J2710; J2405; J0690; J2001; J3010; J2370; J0330; J2704; J1170

== ENCOUNTER 2020-04-14 15:57 | Emergency (ER) | payer MEDICARE ==
[2020-04-14 16:02] VITALS: TEMP 98.2
[2020-04-14] MEDS ORDERED: LIDOCAINE 5% PATCH TOPICAL STA (17:16)
[2020-04-14] MEDS ORDERED: CYCLOBENZAPRINE 10 MG TAB PO STA (17:16)
[2020-04-14] MEDS ORDERED: HYDROmorphone 1 MG/ML 1 ML SYRINGE IM STA (17:16)
--- NOTE | 2020-04-14 18:12 | XR ---
Result: Clinical History: Pain. Comparison: None available. Technique: 3 views of the right shoulder. 2 views of the right humerus. Findings: The bone mineralization is appropriate for age. There is no acute fracture or dislocation of the right shoulder or humerus. There is moderate osteoar thritis of the acromioclavicular and elbow joints. Impression: No acute osseous abnormality of the right shoulder or humerus.
--- NOTE | 2020-04-14 18:25 | ED ---
Extremity Problem HPI - General Chief complaint: Extremity Problem,Nontraumatic Stated complaint: right arm pain Time Seen by Provider: 04/14/20 16:16 Source: patient Mode of arrival: wheelchair Limitations: no limitations - History of Present Illness Initial comments: 69-year-old male presents to the emergency department accompanied by his for evaluation of right shoulder pain that radiates to the right elbow. Patient states, "I have a pinched nerve." Attributes his pain to poor sleep position during the previous night. Patient has a mass on the left side of his neck which affects the manner in which he is able to rest. Patient states he took half of a Verona at noon today for which he is prescribed due to metastatic disease. No relief of pain with Verona and states discomfort worsens when he tries to move his right elbow and shoulder. Denies numbness or tingling in the right hand. Patient denies any recent rash, fever, chills, cough, shortness of breath, chest pain, abdominal pain, nausea, vomiting, diarrhea, constipation, back pain, dizziness, weakness, hematuria, dysuria, urinary urgency, urinary frequency, headache, visual changes, or any other complaints. - Related Data Home Medications Medication Instructions Recorded Confirmed Metoprolol Tartrate [Lopressor] 12.5 mg PO HS 05/18/19 04/09/20 Erivedge 150 mg PO QAM 04/07/20 04/09/20 Ferrous Sulfate [Feosol] 325 mg PO DAILY 04/07/20 04/09/20 HYDROcodone/APAP 5-325MG [Verona 0.5 tab PO Q6HR PRN 04/07/20 04/09/20 5-325] Ondansetron [Zofran] 4 - 8 mg PO Q4HR PRN 04/07/20 04/09/20 Sennosides [Senna] 8.6 mg PO HS 04/07/20 04/09/20 Previous Rx's Medication Instructions Recorded hydrALAZINE HCL [Apresoline] 25 mg PO TID #90 tab 04/29/19 Cyclobenzaprine [Flexeril] 10 mg PO TID #15 tab 04/14/20 Allergies Allergy/AdvReac Type Severity Reaction Status Date / Time No Known Allergies Allergy Verified 04/09/20 12:12 Review of Systems ROS Statement: Those systems with pertinent positive or pertinent negative responses have been documented in the HPI. ROS Other: All systems not noted in ROS Statement are negative. 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 radiation- last treatment September. currently taking oral chemo. constipation, anemia, growth on neck, recent hematuria History of Any Multi-Drug Resistant Organisms: None Reported Past Surgical History: Back Surgery, Heart Catheterization, Joint Replacement, Orthopedic Surgery Additional Past Surgical History / Comment(s): PREVIOUS SKIN CA LESIONS REMOVED, RT HIP REPLACEMENT, left ANKLE ORIF WITH METAL , lung biopsy, neck biopsy, heart cath > 10 yrs ago Past Anesthesia/Blood Transfusion Reactions: Previous Problems w/ Anesthesia Additional Past Anesthesia/Blood Transfusion Reaction / Comment(s): Pt woke up violently during lung biopsy Past Psychological History: No Psychological Hx Reported Smoking Status: Never smoker - Past Family History Mother Family Medical History: Cancer, Deep Vein Thrombosis (DVT) Additional Family Medical History / Comment(s): BREAST CA General Exam Limitations: no limitations (Well-developed, well-nourished male presents in no acute distress. Initial temperature 98.2, pulse 102, respirations 18, blood pressure 121/75, pulse ox of 100% on room air.) General appearance: alert, in no apparent distress (Patient does appear very uncomfortable) Neck exam: Present: tenderness (Upon palpation of the right side of his neck), other (Decreased range of motion due to pain). Absent: normal inspection (Large dressing covering mass located on the left side of the neck), full ROM Respiratory exam: Present: normal lung sounds bilaterally. Absent: respiratory distress, wheezes, rales, rhonchi, stridor Cardiovascular Exam: Present: regular rate, normal rhythm, normal heart sounds. Absent: systolic murmur, diastolic murmur, rubs, gallop, clicks Right Shoulder Exam: Present: normal inspection, tenderness (Significant amount of right shoulder pain that worsens with palpation and movement). Absent: full ROM, deformity, crepitus, erythema Upper Arm exam: Present: normal inspection. Absent: other Elbow exam: Present: normal inspection, tenderness (Mild tenderness upon palpation of the right elbow diffusely). Absent: swelling, deformity Forearm Wrist exam: Present: normal inspection, full ROM. Absent: tenderness, swelling Hand Wrist exam: Present: normal inspection, full ROM. Absent: tenderness, swelling Neurological exam: Present: alert, oriented X3, CN II-XII intact Skin exam: Present: warm, dry, intact, pallor Course Vital Signs 04/14/20 04/14/20 15:58 18:40 Temperature 98.2 F Pulse Rate 102 H 82 Respiratory 18 16 Rate Blood Pressure 121/75 147/81 O2 Sat by Pulse 100 99 Oximetry Medical Decision Making - Medical Decision Making 69-year-old male presents to the emergency department with complaints of right shoulder pain. Denies injury. Attributes discomfort tip or sleep positioning the night prior. Patient is supporting and guarding the right upper extremity; unable to perform active range of motion of the right elbow and shoulder due to pain. Neurovascular status is intact, +2 radial pulse, cap refill less than 3 seconds, skin warm, pink, and dry. X-ray of the right humerus and shoulder was obtained, no evidence of acute osseous abnormality. Patient reports marked improvement after receiving Dilaudid and Flexeril. Instructed to follow-up with his primary care provider in the next 1-2 days for recheck. Encouraged to return to the emergency department if unable to tolerate pain with oral medications. Patient verbalizes understanding and agrees with this plan. - Radiology Data Radiology results: report reviewed X-ray of the right shoulder and humerus obtained. There is moderate osteoarthritis of the acromioclavicular and elbow joints. Bony mineralization appropriate for age. Impression per Dr. Riggs- no acute osseous abnormality of the right humerus and shoulder. Disposition Clinical Impression: Shoulder pain Disposition: HOME SELF-CARE Condition: Good Instructions (If sedation given, give patient instructions): Shoulder Pain (ED) Additional Instructions: Apply warm compresses to the shoulder. Follow-up with your primary care physician for recheck in 1-2 days. Return to the emergency department immediately for any new, worsening, or concerning symptoms. Prescriptions: Cyclobenzaprine [Flexeril] 10 mg PO TID #15 tab Is patient prescribed a controlled substance at d/c from ED?: No Referrals: Phil Winslow DO [Primary Care Provider] - 1-2 days Time of Disposition: 18:25
[2020-04-14] MEDS ORDERED: CYCLOBENZAPRINE 10MG STARTER 3 TAB BTL PO STA (18:28)
[2020-04-14 18:41] VITALS: BP 147/81; PULSE 82; RESP 16
== END 2020-04-14 18:41 | disposition home or self-care (01) ==
LOC: EC 15:57
DX: M25.511 Pain in right shoulder (principal); I10 Essential (primary) hypertension; Z79.899 Other long term (current) drug therapy; Z85.118 Personal history of other malignant neoplasm of bronchus and lung; Z85.828 Personal history of other malignant neoplasm of skin; Z96.641 Presence of right artificial hip joint
CPT/HCPCS: 73030; 73060; 99283; 96372; J1170

== ENCOUNTER 2020-04-15 21:43 | Inpatient (IN) | payer MEDICARE ==
[2020-04-15] MEDS ORDERED: SODIUM CHLORIDE 0.9% 1,000 ML IV STA (21:57)
--- NOTE | 2020-04-15 21:57 | ED ---
Altered Mental Status HPI - General Chief Complaint: Altered Mental Status Stated Complaint: Altered Mental Status Time Seen by Provider: 04/15/20 21:45 Source: patient, family, EMS, RN notes reviewed, old records reviewed Mode of arrival: EMS Limitations: altered mental status - History of Present Illness MD Complaint: altered mental status, confusion, other (r shouldr pain) -: days(s) Severity: moderate Consistency of Symptoms: waxing and waning, getting worse Context: history of similar presentation Associated Symptoms: weakness - Related Data Home Medications Medication Instructions Recorded Confirmed Metoprolol Tartrate [Lopressor] 12.5 mg PO HS PRN 05/18/19 04/15/20 Erivedge 150 mg PO DAILY 04/07/20 04/15/20 HYDROcodone/APAP 5-325MG [[place] 0.5 tab PO Q6HR PRN 04/07/20 04/15/20 5-325] Ondansetron [Zofran] 4 - 8 mg PO Q4HR PRN 04/07/20 04/15/20 hydrALAZINE HCL [Apresoline] 25 mg PO TID PRN 04/15/20 04/15/20 Previous Rx's Medication Instructions Recorded Cyclobenzaprine [Flexeril] 10 mg PO TID #15 tab 04/14/20 Allergies Allergy/AdvReac Type Severity Reaction Status Date / Time No Known Allergies Allergy Verified 04/15/20 22:32 Review of Systems ROS Statement: Those systems with pertinent positive or pertinent negative responses have been documented in the HPI. ROS Other: All systems not noted in ROS Statement are negative. 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 radiation- last treatment September. currently taking oral chemo. constipation, anemia, growth on neck, recent hematuria History of Any Multi-Drug Resistant Organisms: None Reported Past Surgical History: Back Surgery, Heart Catheterization, Joint Replacement, Orthopedic Surgery Additional Past Surgical History / Comment(s): PREVIOUS SKIN CA LESIONS REMOVED, RT HIP REPLACEMENT, left ANKLE ORIF WITH METAL , lung biopsy, neck biopsy, heart cath > 10 yrs ago Past Anesthesia/Blood Transfusion Reactions: Previous Problems w/ Anesthesia Additional Past Anesthesia/Blood Transfusion Reaction / Comment(s): Pt woke up violently during lung biopsy Past Psychological History: No Psychological Hx Reported Smoking Status: Never smoker Past Alcohol Use History: None Reported Past Drug Use History: None Reported - Past Family History Mother Family Medical History: Cancer, Deep Vein Thrombosis (DVT) Additional Family Medical History / Comment(s): BREAST CA General Exam Limitations: altered mental status General appearance: alert, in no apparent distress, anxious Head exam: Present: atraumatic, normocephalic, normal inspection Eye exam: Present: normal appearance, PERRL, EOMI. Absent: scleral icterus, conjunctival injection, periorbital swelling ENT exam: Present: normal exam, mucous membranes moist Neck exam: Present: normal inspection. Absent: tenderness, meningismus, lymph adenopathy Respiratory exam: Present: normal lung sounds bilaterally. Absent: respiratory distress, wheezes, rales, rhonchi, stridor Cardiovascular Exam: Present: normal rhythm, tachycardia, normal heart sounds. Absent: systolic murmur, diastolic murmur, rubs, gallop, clicks GI/Abdominal exam: Present: soft, normal bowel sounds. Absent: distended, tenderness, guarding, rebound, rigid Extremities exam: Present: normal inspection, full ROM, normal capillary refill. Absent: tenderness, pedal edema, joint swelling, calf tenderness Back exam: Present: normal inspection Neurological exam: Present: alert, oriented X3, CN II-XII intact Psychiatric exam: Present: normal affect, normal mood Skin exam: Present: warm, dry, intact, normal color. Absent: rash Course Vital Signs 04/15/20 04/16/20 04/16/20 21:45 00:04 01:00 Temperature 98.6 F 98.8 F Pulse Rate 109 H 101 H Pulse Rate [ 96 Pulse Oximetery ] Respiratory 18 18 Rate Blood Pressure 125/79 133/76 Blood Pressure 171/88 [Left Arm] O2 Sat by Pulse 99 99 98 Oximetry Medical Decision Making - Lab Data Result diagrams: 04/19/20 05:29 04/18/20 14:53 Lab Results 04/15/20 04/15/20 04/15/20 Range/Units 22:17 22:17 22:17 WBC 10.8 H (3.8-10.6) k/uL RBC 3.61 L (4.30-5.90) m/uL Hgb 8.6 L D (13.0-17.5) gm/dL Hct 28.4 L (39.0-53.0) % MCV 78.7 L (80.0-100.0) fL MCH 23.8 L (25.0-35.0) pg MCHC 30.2 L (31.0-37.0) g/dL RDW 16.7 H (11.5-15.5) % Plt Count 349 (150-450) k/uL Neutrophils % 86 % Lymphocytes % 6 % Monocytes % 6 % Eosinophils % 1 % Basophils % 0 % Neutrophils # 9.2 H (1.3-7.7) k/uL Lymphocytes # 0.6 L (1.0-4.8) k/uL Monocytes # 0.7 (0-1.0) k/uL Eosinophils # 0.1 (0-0.7) k/uL Basophils # 0.0 (0-0.2) k/uL Hypochromasia Marked Anisocytosis Slight Microcytosis Slight ESR (0-20) mm/Hr PT 10.5 (9.0-12.0) sec INR 1.0 (<1.2) APTT 18.2 L (22.0-30.0) sec D-Dimer 0.71 H (<0.60) mg/L FEU Sodium (137-145) mmol/L Potassium (3.5-5.1) mmol/L Chloride (98-107) mmol/L Carbon Dioxide (22-30) mmol/L Anion Gap mmol/L BUN (9-20) mg/dL Creatinine (0.66-1.25) mg/dL Est GFR (CKD-EPI)AfAm (>60 ml/min/1.73 sqM) Est GFR (CKD-EPI)NonAf (>60 ml/min/1.73 sqM) BUN/Creatinine Ratio (12.00-20.00) Ratio Glucose (74-99) mg/dL Plasma Lactic Acid Jose Manuel (0.7-2.0) mmol/L Uric Acid (3.7-8.7) mg/dL Calcium (8.4-10.2) mg/dL Magnesium (1.6-2.3) mg/dL Iron (65-175) ug/dL TIBC (228-460) ug/dL % Saturation (15.00-50.00) Ferritin (22.0-322.0) ng/mL Total Bilirubin (0.2-1.3) mg/dL AST (17-59) U/L ALT (4-49) U/L Alkaline Phosphatase (38-126) U/L Lactate Dehydrogenase (313-618) U/L C-Reactive Protein (0.0-0.8) mg/dL Total Protein (6.3-8.2) g/dL Albumin (3.5-5.0) g/dL Vitamin B12 (200.0-944.0) pg/mL Urine Color Yellow Urine Appearance Cloudy (Clear) Urine pH 7.0 (5.0-8.0) Ur Specific [place] 1.012 (1.001-1.035) Urine Protein 1+ H (Negative) Urine Glucose (UA) Negative (Negative) Urine Ketones Negative (Negative) Urine Blood Small H (Negative) Urine Nitrite Negative (Negative) Urine Bilirubin Negative (Negative) Urine Urobilinogen <2.0 (<2.0) mg/dL Ur Leukocyte Esterase Moderate H (Negative) Urine RBC 40 H (0-5) /hpf Urine WBC 8 H (0-5) /hpf Amorphous Sediment Rare H (None) /hpf Urine Mucus Rare H (None) /hpf Coronavirus (PCR) (Not Detected) Influenza Type A RNA (Not Detectd) Influenza Type B (PCR) (Not Detectd) 04/15/20 04/15/20 04/15/20 Range/Units 22:17 22:17 22:17 WBC (3.8-10.6) k/uL RBC (4.30-5.90) m/uL Hgb (13.0-17.5) gm/dL Hct (39.0-53.0) % MCV (80.0-100.0) fL MCH (25.0-35.0) pg MCHC (31.0-37.0) g/dL RDW (11.5-15.5) % Plt Count (150-450) k/uL Neutrophils % % Lymphocytes % % Monocytes % % Eosinophils % % Basophils % % Neutrophils # (1.3-7.7) k/uL Lymphocytes # (1.0-4.8) k/uL Monocytes # (0-1.0) k/uL Eosinophils # (0-0.7) k/uL Basophils # (0-0.2) k/uL Hypochromasia Anisocytosis Microcytosis ESR (0-20) mm/Hr PT (9.0-12.0) sec INR (<1.2) APTT (22.0-30.0) sec D-Dimer (<0.60) mg/L FEU Sodium 131 L (137-145) mmol/L Potassium 3.6 (3.5-5.1) mmol/L Chloride 95 L (98-107) mmol/L Carbon Dioxide 31 H (22-30) mmol/L Anion Gap 5 mmol/L BUN 11 (9-20) mg/dL Creatinine 0.80 (0.66-1.25) mg/dL Est GFR (CKD-EPI)AfAm >90 (>60 ml/min/1.73 sqM) Est GFR (CKD-EPI)NonAf >90 (>60 ml/min/1.73 sqM) BUN/Creatinine Ratio (12.00-20.00) Ratio Glucose 119 H (74-99) mg/dL Plasma Lactic Acid Jose Manuel 1.7 (0.7-2.0) mmol/L Uric Acid (3.7-8.7) mg/dL Calcium 10.5 H (8.4-10.2) mg/dL Magnesium 1.9 (1.6-2.3) mg/dL Iron (65-175) ug/dL TIBC (228-460) ug/dL % Saturation (15.00-50.00) Ferritin (22.0-322.0) ng/mL Total Bilirubin 1.0 (0.2-1.3) mg/dL AST 28 (17-59) U/L ALT 34 (4-49) U/L Alkaline Phosphatase 88 (38-126) U/L Lactate Dehydrogenase 266 L (313-618) U/L C-Reactive Protein (0.0-0.8) mg/dL Total Protein 6.5 (6.3-8.2) g/dL Albumin 3.3 L (3.5-5.0) g/dL Vitamin B12 (200.0-944.0) pg/mL Urine Color Urine Appearance (Clear) Urine pH (5.0-8.0) Ur Specific [place] (1.001-1.035) Urine Protein (Negative) Urine Glucose (UA) (Negative) Urine Ketones (Negative) Urine Blood (Negative) Urine Nitrite (Negative) Urine Bilirubin (Negative) Urine Urobilinogen (<2.0) mg/dL Ur Leukocyte Esterase (Negative) Urine RBC (0-5) /hpf Urine WBC (0-5) /hpf Amorphous Sediment (None) /hpf Urine Mucus (None) /hpf Coronavirus (PCR) (Not Detected) Influenza Type A RNA Not Detected (Not Detectd) Influenza Type B (PCR) Not Detected (Not Detectd) 04/15/20 04/16/20 04/16/20 Range/Units 22:17 15:21 15:21 WBC 10.5 (3.8-10.6) k/uL RBC 3.91 L (4.30-5.90) m/uL Hgb 9.1 L (13.0-17.5) gm/dL Hct 30.6 L (39.0-53.0) % MCV 78.3 L (80.0-100.0) fL MCH 23.4 L (25.0-35.0) pg MCHC 29.9 L (31.0-37.0) g/dL RDW 16.3 H (11.5-15.5) % Plt Count 270 (150-450) k/uL Neutrophils % 89 % Lymphocytes % 3 % Monocytes % 6 % Eosinophils % 0 % Basophils % 0 % Neutrophils # 9.4 H (1.3-7.7) k/uL Lymphocytes # 0.3 L (1.0-4.8) k/uL Monocytes # 0.6 (0-1.0) k/uL Eosinophils # 0.0 (0-0.7) k/uL Basophils # 0.0 (0-0.2) k/uL Hypochromasia Marked Anisocytosis Slight Microcytosis Slight ESR (0-20) mm/Hr PT (9.0-12.0) sec INR (<1.2) APTT (22.0-30.0) sec D-Dimer (<0.60) mg/L FEU Sodium (137-145) mmol/L Potassium (3.5-5.1) mmol/L Chloride (98-107) mmol/L Carbon Dioxide (22-30) mmol/L Anion Gap mmol/L BUN (9-20) mg/dL Creatinine (0.66-1.25) mg/dL Est GFR (CKD-EPI)AfAm (>60 ml/min/1.73 sqM) Est GFR (CKD-EPI)NonAf (>60 ml/min/1.73 sqM) BUN/Creatinine Ratio (12.00-20.00) Ratio Glucose (74-99) mg/dL Plasma Lactic Acid Jose Manuel (0.7-2.0) mmol/L Uric Acid 3.5 L (3.7-8.7) mg/dL Calcium (8.4-10.2) mg/dL Magnesium (1.6-2.3) mg/dL Iron (65-175) ug/dL TIBC (228-460) ug/dL % Saturation (15.00-50.00) Ferritin (22.0-322.0) ng/mL Total Bilirubin (0.2-1.3) mg/dL AST (17-59) U/L ALT (4-49) U/L Alkaline Phosphatase (38-126) U/L Lactate Dehydrogenase (313-618) U/L C-Reactive Protein (0.0-0.8) mg/dL Total Protein (6.3-8.2) g/dL Albumin (3.5-5.0) g/dL Vitamin B12 (200.0-944.0) pg/mL Urine Color Urine Appearance (Clear) Urine pH (5.0-8.0) Ur Specific [place] (1.001-1.035) Urine Protein (Negative) Urine Glucose (UA) (Negative) Urine Ketones (Negative) Urine Blood (Negative) Urine Nitrite (Negative) Urine Bilirubin (Negative) Urine Urobilinogen (<2.0) mg/dL Ur Leukocyte Esterase (Negative) Urine RBC (0-5) /hpf Urine WBC (0-5) /hpf Amorphous Sediment (None) /hpf Urine Mucus (None) /hpf Coronavirus (PCR) Not Detected (Not Detected) Influenza Type A RNA (Not Detectd) Influenza Type B (PCR) (Not Detectd) 04/17/20 04/17/20 04/17/20 Range/Units 06:39 06:39 06:39 WBC 9.4 (3.8-10.6) k/uL RBC 3.32 L (4.30-5.90) m/uL Hgb 8.1 L (13.0-17.5) gm/dL Hct 26.1 L (39.0-53.0) % MCV 78.5 L (80.0-100.0) fL MCH 24.4 L (25.0-35.0) pg MCHC 31.0 (31.0-37.0) g/dL RDW 16.4 H (11.5-15.5) % Plt Count 283 (150-450) k/uL Neutrophils % % Lymphocytes % % Monocytes % % Eosinophils % % Basophils % % Neutrophils # (1.3-7.7) k/uL Lymphocytes # (1.0-4.8) k/uL Monocytes # (0-1.0) k/uL Eosinophils # (0-0.7) k/uL Basophils # (0-0.2) k/uL Hypochromasia Marked Anisocytosis Slight Microcytosis Slight ESR 106 H (0-20) mm/Hr PT (9.0-12.0) sec INR (<1.2) APTT (22.0-30.0) sec D-Dimer (<0.60) mg/L FEU Sodium 133 L (137-145) mmol/L Potassium 3.2 L (3.5-5.1) mmol/L Chloride 94 L (98-107) mmol/L Carbon Dioxide 30.9 (22-30) mmol/L Anion Gap 8.10 mmol/L BUN 11.0 (9-20) mg/dL Creatinine 0.7 (0.66-1.25) mg/dL Est GFR (CKD-EPI)AfAm 112.4 (>60 ml/min/1.73 sqM) Est GFR (CKD-EPI)NonAf 97.0 (>60 ml/min/1.73 sqM) BUN/Creatinine Ratio 15.71 (12.00-20.00) Ratio Glucose 102 (74-99) mg/dL Plasma Lactic Acid Jose Manuel (0.7-2.0) mmol/L Uric Acid (3.7-8.7) mg/dL Calcium 9.8 (8.4-10.2) mg/dL Magnesium (1.6-2.3) mg/dL Iron 3 L (65-175) ug/dL TIBC 246 (228-460) ug/dL % Saturation 1.22 L (15.00-50.00) Ferritin 73.4 (22.0-322.0) ng/mL Total Bilirubin (0.2-1.3) mg/dL AST (17-59) U/L ALT (4-49) U/L Alkaline Phosphatase (38-126) U/L Lactate Dehydrogenase 201 (313-618) U/L C-Reactive Protein (0.0-0.8) mg/dL Total Protein (6.3-8.2) g/dL Albumin (3.5-5.0) g/dL Vitamin B12 434.0 (200.0-944.0) pg/mL Urine Color Urine Appearance (Clear) Urine pH (5.0-8.0) Ur Specific [place] (1.001-1.035) Urine Protein (Negative) Urine Glucose (UA) (Negative) Urine Ketones (Negative) Urine Blood (Negative) Urine Nitrite (Negative) Urine Bilirubin (Negative) Urine Urobilinogen (<2.0) mg/dL Ur Leukocyte Esterase (Negative) Urine RBC (0-5) /hpf Urine WBC (0-5) /hpf Amorphous Sediment (None) /hpf Urine Mucus (None) /hpf Coronavirus (PCR) (Not Detected) Influenza Type A RNA (Not Detectd) Influenza Type B (PCR) (Not Detectd) 04/17/20 Range/Units 06:39 WBC (3.8-10.6) k/uL RBC (4.30-5.90) m/uL Hgb (13.0-17.5) gm/dL Hct (39.0-53.0) % MCV (80.0-100.0) fL MCH (25.0-35.0) pg MCHC (31.0-37.0) g/dL RDW (11.5-15.5) % Plt Count (150-450) k/uL Neutrophils % % Lymphocytes % % Monocytes % % Eosinophils % % Basophils % % Neutrophils # (1.3-7.7) k/uL Lymphocytes # (1.0-4.8) k/uL Monocytes # (0-1.0) k/uL Eosinophils # (0-0.7) k/uL Basophils # (0-0.2) k/uL Hypochromasia Anisocytosis Microcytosis ESR (0-20) mm/Hr PT (9.0-12.0) sec INR (<1.2) APTT (22.0-30.0) sec D-Dimer (<0.60) mg/L FEU Sodium (137-145) mmol/L Potassium (3.5-5.1) mmol/L Chloride (98-107) mmol/L Carbon Dioxide (22-30) mmol/L Anion Gap mmol/L BUN (9-20) mg/dL Creatinine (0.66-1.25) mg/dL Est GFR (CKD-EPI)AfAm (>60 ml/min/1.73 sqM) Est GFR (CKD-EPI)NonAf (>60 ml/min/1.73 sqM) BUN/Creatinine Ratio (12.00-20.00) Ratio Glucose (74-99) mg/dL Plasma Lactic Acid Jose Manuel (0.7-2.0) mmol/L Uric Acid (3.7-8.7) mg/dL Calcium (8.4-10.2) mg/dL Magnesium (1.6-2.3) mg/dL Iron (65-175) ug/dL TIBC (228-460) ug/dL % Saturation (15.00-50.00) Ferritin (22.0-322.0) ng/mL Total Bilirubin (0.2-1.3) mg/dL AST (17-59) U/L ALT (4-49) U/L Alkaline Phosphatase (38-126) U/L Lactate Dehydrogenase (313-618) U/L C-Reactive Protein 22.1 H (0.0-0.8) mg/dL Total Protein (6.3-8.2) g/dL Albumin (3.5-5.0) g/dL Vitamin B12 (200.0-944.0) pg/mL Urine Color Urine Appearance (Clear) Urine pH (5.0-8.0) Ur Specific [place] (1.001-1.035) Urine Protein (Negative) Urine Glucose (UA) (Negative) Urine Ketones (Negative) Urine Blood (Negative) Urine Nitrite (Negative) Urine Bilirubin (Negative) Urine Urobilinogen (<2.0) mg/dL Ur Leukocyte Esterase (Negative) Urine RBC (0-5) /hpf Urine WBC (0-5) /hpf Amorphous Sediment (None) /hpf Urine Mucus (None) /hpf Coronavirus (PCR) (Not Detected) Influenza Type A RNA (Not Detectd) Influenza Type B (PCR) (Not Detectd) - EKG Data -: EKG Interpreted by Me (EKG sinus tach 101 AR 178 QRS 110 QTc 469) Disposition Clinical Impression: Basal cell carcinoma, Anemia, Altered mental status, Weakness Disposition: ADMITTED IP TO THIS HOSP Condition: Fair Is patient prescribed a controlled substance at d/c from ED?: No
[2020-04-15 22:31] LABS: Anisocytosis Slight; Basophils % (A) 0 %; Eosinophils # (A) 0.1 k/uL (0-0.7); Eosinophils % (A) 1 %; HCT 28.4 % (39.0-53.0); Hypochromasia Marked; Lymphocytes # (A) 0.6 k/uL (1.0-4.8); Lymphocytes % (A) 6 %; MCH 23.8 pg (25.0-35.0); MCHC 30.2 g/dL (31.0-37.0); MCV 78.7 fL (80.0-100.0); Mean Platelet Volume 7.6; Microcytosis Slight; Monocytes # (A) 0.7 k/uL (0-1.0); Monocytes % (A) 6 %; Neutrophils # (A) 9.2 k/uL (1.3-7.7); Neutrophils % (A) 86 %; Platelet Count 349 k/uL (150-450); RBC 3.61 m/uL (4.30-5.90); RDW 16.7 % (11.5-15.5); WBC 10.8 k/uL (3.8-10.6)
[2020-04-15 22:35] LABS: ALT 34 U/L (4-49); AST 28 U/L (17-59); African American GFR (CKD) >90 (>60 ml/min/1.73 sqM); Albumin 3.3 g/dL (3.5-5.0); Alkaline Phosphatase 88 U/L (38-126); Anion Gap 5 mmol/L; Blood Urea Nitrogen 11 mg/dL (9-20); Calcium 10.5 mg/dL (8.4-10.2); Carbon Dioxide 31 mmol/L (22-30); Chloride 95 mmol/L (98-107); Glucose 119 mg/dL (74-99); LDH 266 U/L (313-618); Magnesium 1.9 mg/dL (1.6-2.3); Non-African American GFR(CKD) >90 (>60 ml/min/1.73 sqM); Potassium 3.6 mmol/L (3.5-5.1); Sodium 131 mmol/L (137-145); Total Protein 6.5 g/dL (6.3-8.2)
[2020-04-15 22:36] LABS: HGB 8.6 gm/dL (13.0-17.5)
[2020-04-15 22:58] LABS: Prothrombin Time 10.5 sec (9.0-12.0)
--- NOTE | 2020-04-15 23:03 | CT ---
EXAMINATION TYPE: CT brain wo con DATE OF EXAM: 04/15/2020 COMPARISON: 05/18/2019 HISTORY: AMS CT DLP: 1157.4 mGycm Automated exposure control for dose reduction was used. There is cerebral cortical atrophy. There is no mass effect nor midline shift. There is no sign of in tracranial hemorrhage. The calvarium is intact. Skull base is intact. IMPRESSION: Cerebral atrophy appropriate for age. No acute intracranial abnormality. No change.
[2020-04-15 23:04] LABS: D-Dimer 0.71 mg/L FEU (<0.60)
[2020-04-15 23:05] LABS: Partial Thromboplastin Time 18.2 sec (22.0-30.0)
--- NOTE | 2020-04-15 23:07 | XR ---
EXAMINATION TYPE: XR chest 1V portable DATE OF EXAM: 04/15/2020 COMPARISON: 05/18/2019 HISTORY: Confusion TECHNIQUE: Single view FINDINGS: There is some linear density right upper lobe. Heart size is normal. There are no hilar mas ses. Costophrenic angles are clear. There is no heart failure. Bony thorax is intact. IMPRESSION: Chronic linear density right upper lobe consistent with scarring or atelectasis. No heart failure. No change.
[2020-04-15] MEDS ORDERED: SODIUM CHLORIDE 0.9% 1,000 ML IV ONE (23:17)
[2020-04-15] MEDS ORDERED: DEXTROSE 5%-0.45% NACL 1,000 ML IV ONE (23:17)
[2020-04-15 23:34] LABS: Amorphous Sediment,Urine Rare /hpf; Appearance,Urine Cloudy (Clear); Bilirubin,Urine Negative (Negative); Blood,Urine Small (Negative); Color,Urine Yellow; Glucose,Urine (UA) Negative (Negative); Ketones,Urine Negative (Negative); Leukocyte Esterase,Urine Moderate (Negative); Mucus,Urine Rare /hpf; Nitrite,Urine Negative (Negative); Protein,Urine 1+ (Negative); RBC,Urine 40 /hpf (0-5); Specific Gravity,Urine 1.012 (1.001-1.035); Urobilinogen,Urine <2.0 mg/dL (<2.0); WBC,Urine 8 /hpf (0-5)
[2020-04-16] MEDS ORDERED: METOPROLOL TARTRATE 12.5 MG TAB PO PRN (09:03)
[2020-04-16] MEDS ORDERED: hydrALAZINE HCL 25 MG TAB PO PRN (09:03)
[2020-04-16] MEDS: CYCLOBENZAPRINE 10 MG TAB PO SCH ×2 (10:17→10:19)
--- NOTE | 2020-04-16 11:58 | P.HPIM ---
History of Present Illness H&P Date: 04/16/20 Chief Complaint: Weakness HISTORY OF PRESENT ILLNESS This is a 69-year-old male patient of Dr. Winslow and Dr. 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 On 04/09/2020, patient underwent cystoscopy, transurethral resection of bladder tumors with Dr. Gonzalez. Pathology report positive for high-grade papillary urothelial carcinoma infiltrating the lamina propria and sample fragments of muscularis propria. Patient is a poor historian. He states that he was seen in the emergency center on April 14 for pinched nerve in his right arm. He denies any injury. He states he rolled over in bed and the pain developed. X-rays of the right shoulder and humerus did not show any acute abnormality. Patient was discharged home on Flexeril. Patient states that he is due to see Dr. Gonzalez today in his office to have Mak catheter removed. Patient returned yesterday with inability to walk, no appetite unable to care for himself. Patient complains of nausea with loss of appetite and difficulty swallowing due to left neck mass. Chest x-ray revealed chronic linear density right upper lobe consistent with scarring or atelectasis. No heart failure. No change. CAT scan of the brain revealed cerebral atrophy. No acute intracranial abnormality. EKG is a sinus rhythm with occasional PVCs, heart rate 101. WBC 10.8, hemoglobin 8.6, platelet count 349. D-dimer 0.71. Sodium 131, potassium 3.6, chloride 95, CO2 31, BUN 11 creatinine 0.8. Liver function tests were normal. LDH 266. Urinalysis cloudy, blood small, leukoesterase moderate, nitrate negative. RBCs 40, wbc's 8. Influenza testing negative. Patient was given 1 L of IV fluids, placed on the [facility] floor and consults requested with oncology, urology, orthopedics. REVIEW OF SYSTEMS Constitutional: No fever, no chills, no night sweats. Reports weight change. Reports weakness, Reportsfatigue Reports lethargy. No daytime sleepiness. EENT: No headache. No blurred vision or double vision, no loss of vision. Reports dizziness. No nasal drainage or congestion. No epistaxis. Reports dysphagia. Lungs: No shortness of breath, cough, no sputum production. No wheezing. Cardiovascular: No chest pain, no lower extremity edema. No palpitations. No paroxysmal nocturnal dyspnea. No orthopnea. Reports lightheadedness or dizziness. No syncopal episodes. Abdominal: No abdominal pain. No nausea, vomiting. No diarrhea. No constipation. No bloody or tarry stools.. No loss of appetite. Genitourinary: No dysuria, increased frequency, urgency. No urinary retention. Musculoskeletal: No myalgias. Reports muscle weakness, Reports gait dysfunction. No back pain. Reports neck pain. Integumentary: Reports wounds, no lesions. No rash or pruritus. No unusual bruising. No change in hair or nails. Neurologic: Reports dysphagia. No facial droop. Mild change in mentation. No head injury. No headache. No paralysis. No paresthesia. Psychiatric: No depression. No anxiety. No mood swings. Endocrine: No abnormal blood sugars. Reports weight change. SOCIAL HISTORY Patient is a lifelong nonsmoker but had extensive exposure to asbestos and acid at [employer] as well as plastic exposure and [employer]. FAMILY HISTORY Mother at age 85 from old age. Father is alive at age 93 residing at extended care facility. Patient does not know his father's medical history. Patient does not have any brothers. Patient has one sister with unknown medical conditions. Patient has 3 sons with no major medical problems. PHYSICAL EXAMINATION Gen: This is a 69-year-old male. He is resting in bed appears to be comfortable. HEENT: Head is atraumatic, normocephalic. Pupils equal, round. Sclerae is anicteric. Open wounds/ulcerations the left neck region. NECK: Supple. No JVD. No lymphadenopathy. No thyromegaly. LUNGS: Clear to auscultation. No wheezes or rhonchi. No intercostal retractions. HEART: Regular rate and rhythm. No murmur. ABDOMEN: Soft. Bowel sounds are present. No masses. No tenderness. Mak catheter draining clear [place]ia urine. EXTREMITIES: No pedal edema. No calf tenderness. NEUROLOGICAL: Patient is awake, alert and oriented x3. Cranial nerves 2 through 12 are grossly intact. ASSESSMENT AND PLAN 1. Generalized debility, weight loss, loss of appetite and weakness secondary to cancer. PT, OT, speech therapy consultations. 2. Basal cell skin cancer of the left cheek with metastatic disease to the neck and lungs status post palliative radiation therapy, under the care of Dr. Metzger. Consult with Dr Metzger. 3. Bladder cancer status post recent transurethral resection of bladder tumors. Consult with Dr. Gonzalez. Patient is due today for Mak catheter removal and follow-up in the office. 4. Right shoulder pain. Orthopedic consult. X-rays negative for acute findings. 5. Severe protein calorie malnutrition with weight loss, loss of appetite and dysphagia secondary to neck tumor. Regular diet and ensure twice daily. Speech therapy. 6. Anemia of chronic disease. 7. Hyponatremia secondary to malnutrition. Continue IV fluids 0.9 normal saline at 50 mL per hour. 8. Hypertension. Continue home medications which are hydralazine 25 mg 3 times daily as needed and Lopressor 12.5 mg at bedtime as needed. 9. Mild metabolic encephalopathy secondary to underlying cancers. 10. GI prophylaxis. Protonix daily. 11. DVT prophylaxis. Heparin subcu. Patient will be admitted to the hospital for a minimum of 2 night stay. Discharge plan: To be determined. PT, OT, speech therapy. Impression and plan of care have been directed as dictated by the signing physician. Karly Manzano nurse practitioner acting as scribe for signing physician Past Medical History Past Medical History: Cancer, Hypertension, Pneumonia Additional Past Medical History / Comment(s): hx skin cancer, lung CA, CA in the lymph nodes. radiation- last treatment September. currently taking oral chemo. constipation, anemia, growth on neck, recent hematuria History of Any Multi-Drug Resistant Organisms: None Reported Past Surgical History: Back Surgery, Heart Catheterization, Joint Replacement, Orthopedic Surgery Additional Past Surgical History / Comment(s): PREVIOUS SKIN CA LESIONS REMOVED, RT HIP REPLACEMENT, left ANKLE ORIF WITH METAL , lung biopsy, neck biopsy, heart cath > 10 yrs ago Past Anesthesia/Blood Transfusion Reactions: Previous Problems w/ Anesthesia Additional Past Anesthesia/Blood Transfusion Reaction / Comment(s): Pt woke up violently during lung biopsy Past Psychological History: No Psychological Hx Reported Smoking Status: Never smoker Past Alcohol Use History: None Reported Additional Past Alcohol Use History / Comment(s): Patient is a lifelong nonsmoker but had extensive exposure to asbestos and acid at [employer] as well as plastic exposure and [employer]. Past Drug Use History: None Reported - Past Family History Mother Family Medical History: Cancer, Deep Vein Thrombosis (DVT) Additional Family Medical History / Comment(s): BREAST CA Medications and Allergies Home Medications Medication Instructions Recorded Confirmed Type Metoprolol Tartrate [Lopressor] 12.5 mg PO HS PRN 05/18/19 04/15/20 History Erivedge 150 mg PO DAILY 04/07/20 04/15/20 History HYDROcodone/APAP 5-325MG [[place] 0.5 tab PO Q6HR PRN 04/07/20 04/15/20 History 5-325] Ondansetron [Zofran] 4 - 8 mg PO Q4HR PRN 04/07/20 04/15/20 History Cyclobenzaprine [Flexeril] 10 mg PO TID #15 tab 04/14/20 04/15/20 Rx hydrALAZINE HCL [Apresoline] 25 mg PO TID PRN 04/15/20 04/15/20 History Allergies Allergy/AdvReac Type Severity Reaction Status Date / Time No Known Allergies Allergy Verified 04/15/20 22:32 Physical Exam Vitals: Vital Signs Temp Pulse Pulse Resp BP BP Pulse Ox 04/16/20 08:00 93 18 04/16/20 07:00 99.7 F H 93 179/84 97 04/16/20 01:00 98.8 F 96 171/88 98 04/16/20 00:04 101 H 18 133/76 99 04/15/20 21:45 98.6 F 109 H 18 125/79 99 Intake and Output 04/15/20 04/16/20 04/16/20 22:59 06:59 14:59 Output Total 850 850 Balance -850 -850 Output: Urine 850 850 Other: Voiding Method Indwelling Catheter Indwelling Catheter Weight 61.235 kg 61.235 kg Results CBC & Chem 7: 04/15/20 22:17 04/15/20 22:17 Labs: Abnormal Lab Results - Last 24 Hours (Table) 04/15/20 04/15/20 04/15/20 Range/Units 22:17 22:17 22:17 WBC 10.8 H (3.8-10.6) k/uL RBC 3.61 L (4.30-5.90) m/uL Hgb 8.6 L D (13.0-17.5) gm/dL Hct 28.4 L (39.0-53.0) % MCV 78.7 L (80.0-100.0) fL MCH 23.8 L (25.0-35.0) pg MCHC 30.2 L (31.0-37.0) g/dL RDW 16.7 H (11.5-15.5) % Neutrophils # 9.2 H (1.3-7.7) k/uL Lymphocytes # 0.6 L (1.0-4.8) k/uL APTT 18.2 L (22.0-30.0) sec D-Dimer 0.71 H (<0.60) mg/L FEU Sodium (137-145) mmol/L Chloride (98-107) mmol/L Carbon Dioxide (22-30) mmol/L Glucose (74-99) mg/dL Calcium (8.4-10.2) mg/dL Lactate Dehydrogenase (313-618) U/L Albumin (3.5-5.0) g/dL Urine Protein 1+ H (Negative) Urine Blood Small H (Negative) Ur Leukocyte Esterase Moderate H (Negative) Urine RBC 40 H (0-5) /hpf Urine WBC 8 H (0-5) /hpf Amorphous Sediment Rare H (None) /hpf Urine Mucus Rare H (None) /hpf 10/20/20 Range/Units 22:17 WBC (3.8-10.6) k/uL RBC (4.30-5.90) m/uL Hgb (13.0-17.5) gm/dL Hct (39.0-53.0) % MCV (80.0-100.0) fL MCH (25.0-35.0) pg MCHC (31.0-37.0) g/dL RDW (11.5-15.5) % Neutrophils # (1.3-7.7) k/uL Lymphocytes # (1.0-4.8) k/uL APTT (22.0-30.0) sec D-Dimer (<0.60) mg/L FEU Sodium 131 L (137-145) mmol/L Chloride 95 L (98-107) mmol/L Carbon Dioxide 31 H (22-30) mmol/L Glucose 119 H (74-99) mg/dL Calcium 10.5 H (8.4-10.2) mg/dL Lactate Dehydrogenase 266 L (313-618) U/L Albumin 3.3 L (3.5-5.0) g/dL Urine Protein (Negative) Urine Blood (Negative) Ur Leukocyte Esterase (Negative) Urine RBC (0-5) /hpf Urine WBC (0-5) /hpf Amorphous Sediment (None) /hpf Urine Mucus (None) /hpf Thrombosis Risk Factor Assmnt - Choose All That Apply Each Risk Factor Represents 2 Points: Age 61-74 years Thrombosis Risk Factor Assessment Total Risk Factor Score: 2 Thrombosis Risk Factor Assessment Level: Low Risk
--- NOTE | 2020-04-16 15:34 | P.GSCN ---
History of Present Illness Consult date: 04/16/20 Reason for Consult: Bladder cancer History of present illness: Mr. Bonilla is a 69-year-old male admitted the hospital with altered mental statu s, weakness and right shoulder pain. Of note he had a TURBT done on April [address] Herrera. His pathology came back muscle invasive bladder cancer. He has had a catheter in place since his surgery. He denies any abdominal pain, any gross hematuria, or any dysuria or flank pain. He was scheduled for open reduction meters today for pathology review and for catheter removal. Review of Systems ROS unobtainable: due to mental status Past Medical History Past Medical History: Cancer, Hypertension, Pneumonia Additional Past Medical History / Comment(s): hx skin cancer, lung CA, CA in the lymph nodes. radiation- last treatment September. currently taking oral chemo. constipation, anemia, growth on neck, recent hematuria History of Any Multi-Drug Resistant Organisms: None Reported Past Surgical History: Back Surgery, Heart Catheterization, Joint Replacement, Orthopedic Surgery Additional Past Surgical History / Comment(s): PREVIOUS SKIN CA LESIONS REMOVED, RT HIP REPLACEMENT, left ANKLE ORIF WITH METAL , lung biopsy, neck biopsy, heart cath > 10 yrs ago Past Anesthesia/Blood Transfusion Reactions: Previous Problems w/ Anesthesia Additional Past Anesthesia/Blood Transfusion Reaction / Comm: Pt woke up violently during lung biopsy Past Psychological History: No Psychological Hx Reported Smoking Status: Never smoker Past Alcohol Use History: None Reported Additional Past Alcohol Use History / Comment(s): Patient is a lifelong nonsmoker but had extensive exposure to asbestos and acid at [employer] as well as plastic exposure and [employer]. Past Drug Use History: None Reported - Past Family History Mother Family Medical History: Cancer, Deep Vein Thrombosis (DVT) Additional Family Medical History / Comment(s): BREAST CA Medications and Allergies Home Medications Medication Instructions Recorded Confirmed Type Metoprolol Tartrate [Lopressor] 12.5 mg PO HS PRN 05/18/19 04/15/20 History Erivedge 150 mg PO DAILY 04/07/20 04/15/20 History HYDROcodone/APAP 5-325MG [[place] 0.5 tab PO Q6HR PRN 04/07/20 04/15/20 History 5-325] Ondansetron [Zofran] 4 - 8 mg PO Q4HR PRN 04/07/20 04/15/20 History Cyclobenzaprine [Flexeril] 10 mg PO TID #15 tab 04/14/20 04/15/20 Rx hydrALAZINE HCL [Apresoline] 25 mg PO TID PRN 04/15/20 04/15/20 History Allergies Allergy/AdvReac Type Severity Reaction Status Date / Time No Known Allergies Allergy Verified 04/15/20 22:32 Surgical - Exam Vital Signs Temp Pulse Resp BP Pulse Ox 98.6 F 109 H 18 125/79 99 04/15/20 21:45 04/15/20 21:45 04/15/20 21:45 04/15/20 21:45 04/15/20 21:45 - General no distress, no pain - ENT normal nares, normal mucosa - Respiratory normal expansion, normal respiratory effort - Abdomen Abdomen: soft, non tender - Genitourinary [place] draining clear yellow urine Results - Labs 04/15/20 22:17 04/15/20 22:17 Abnormal Lab Results - Last 24 Hours (Table) 04/15/20 04/15/20 04/15/20 Range/Units 22:17 22:17 22:17 WBC 10.8 H (3.8-10.6) k/uL RBC 3.61 L (4.30-5.90) m/uL Hgb 8.6 L D (13.0-17.5) gm/dL Hct 28.4 L (39.0-53.0) % MCV 78.7 L (80.0-100.0) fL MCH 23.8 L (25.0-35.0) pg MCHC 30.2 L (31.0-37.0) g/dL RDW 16.7 H (11.5-15.5) % Neutrophils # 9.2 H (1.3-7.7) k/uL Lymphocytes # 0.6 L (1.0-4.8) k/uL APTT 18.2 L (22.0-30.0) sec D-Dimer 0.71 H (<0.60) mg/L FEU Sodium (137-145) mmol/L Chloride (98-107) mmol/L Carbon Dioxide (22-30) mmol/L Glucose (74-99) mg/dL Calcium (8.4-10.2) mg/dL Lactate Dehydrogenase (313-618) U/L Albumin (3.5-5.0) g/dL Urine Protein 1+ H (Negative) Urine Blood Small H (Negative) Ur Leukocyte Esterase Moderate H (Negative) Urine RBC 40 H (0-5) /hpf Urine WBC 8 H (0-5) /hpf Amorphous Sediment Rare H (None) /hpf Urine Mucus Rare H (None) /hpf 04/15/20 Range/Units 22:17 WBC (3.8-10.6) k/uL RBC (4.30-5.90) m/uL Hgb (13.0-17.5) gm/dL Hct (39.0-53.0) % MCV (80.0-100.0) fL MCH (25.0-35.0) pg MCHC (31.0-37.0) g/dL RDW (11.5-15.5) % Neutrophils # (1.3-7.7) k/uL Lymphocytes # (1.0-4.8) k/uL APTT (22.0-30.0) sec D-Dimer (<0.60) mg/L FEU Sodium 131 L (137-145) mmol/L Chloride 95 L (98-107) mmol/L Carbon Dioxide 31 H (22-30) mmol/L Glucose 119 H (74-99) mg/dL Calcium 10.5 H (8.4-10.2) mg/dL Lactate Dehydrogenase 266 L (313-618) U/L Albumin 3.3 L (3.5-5.0) g/dL Urine Protein (Negative) Urine Blood (Negative) Ur Leukocyte Esterase (Negative) Urine RBC (0-5) /hpf Urine WBC (0-5) /hpf Amorphous Sediment (None) /hpf Urine Mucus (None) /hpf Diabetes panel 04/15/20 Range/Units 22:17 Sodium 131 L (137-145) mmol/L Potassium 3.6 (3.5-5.1) mmol/L Chloride 95 L (98-107) mmol/L Carbon Dioxide 31 H (22-30) mmol/L BUN 11 (9-20) mg/dL Creatinine 0.80 (0.66-1.25) mg/dL Glucose 119 H (74-99) mg/dL Calcium 10.5 H (8.4-10.2) mg/dL AST 28 (17-59) U/L ALT 34 (4-49) U/L Alkaline Phosphatase 88 (38-126) U/L Total Protein 6.5 (6.3-8.2) g/dL Albumin 3.3 L (3.5-5.0) g/dL Calcium panel 04/15/20 Range/Units 22:17 Calcium 10.5 H (8.4-10.2) mg/dL Albumin 3.3 L (3.5-5.0) g/dL Pituitary panel 04/15/20 Range/Units 22:17 Sodium 131 L (137-145) mmol/L Potassium 3.6 (3.5-5.1) mmol/L Chloride 95 L (98-107) mmol/L Carbon Dioxide 31 H (22-30) mmol/L BUN 11 (9-20) mg/dL Creatinine 0.80 (0.66-1.25) mg/dL Glucose 119 H (74-99) mg/dL Calcium 10.5 H (8.4-10.2) mg/dL Adrenal panel 04/15/20 Range/Units 22:17 Sodium 131 L (137-145) mmol/L Potassium 3.6 (3.5-5.1) mmol/L Chloride 95 L (98-107) mmol/L Carbon Dioxide 31 H (22-30) mmol/L BUN 11 (9-20) mg/dL Creatinine 0.80 (0.66-1.25) mg/dL Glucose 119 H (74-99) mg/dL Calcium 10.5 H (8.4-10.2) mg/dL Total Bilirubin 1.0 (0.2-1.3) mg/dL AST 28 (17-59) U/L ALT 34 (4-49) U/L Alkaline Phosphatase 88 (38-126) U/L Total Protein 6.5 (6.3-8.2) g/dL Albumin 3.3 L (3.5-5.0) g/dL Assessment and Plan Assessment: 69 yo male admitted to the hospital with AMS, He underwent TURBT on 04/10, pathology showed muscle invasive bladder cancer. Plan: -Keep catheter in place until patient mental status improves and is more ambulatory, will plan on doing TOV prior to discharge -Will inform Dr Gonzalez of his admission,
[2020-04-16 15:39] LABS: Anisocytosis Slight; Basophils % (A) 0 %; Eosinophils % (A) 0 %; HCT 30.6 % (39.0-53.0); HGB 9.1 gm/dL (13.0-17.5); Hypochromasia Marked; Lymphocytes # (A) 0.3 k/uL (1.0-4.8); Lymphocytes % (A) 3 %; MCH 23.4 pg (25.0-35.0); MCHC 29.9 g/dL (31.0-37.0); MCV 78.3 fL (80.0-100.0); Mean Platelet Volume 7.6; Microcytosis Slight; Monocytes # (A) 0.6 k/uL (0-1.0); Monocytes % (A) 6 %; Neutrophils # (A) 9.4 k/uL (1.3-7.7); Neutrophils % (A) 89 %; Platelet Count 270 k/uL (150-450); RBC 3.91 m/uL (4.30-5.90); RDW 16.3 % (11.5-15.5); WBC 10.5 k/uL (3.8-10.6)
--- NOTE | 2020-04-16 17:53 | P.CONS ---
History of Present Illness - Reason for Consult Consult date: 04/16/20 History of malignancy Requesting physician: Karly Manzano - Chief Complaint Altered mental status changes - History of Present Illness Mr Bonilla there is a pleasant white male, initially seen in consult at [facility] on 04/01/19 and subsequently on 04/27/19. The patient has had a history of recurrent basal cell carcinoma of the face and neck treated with local excision in the past. The patient then developed swelling on the left side of the neck which is progressive in nature, leading to a biopsy on 03/13/19. This showed atypical squamous cells with basaloid appearance. He had a CT of the chest on 03/22/19 revealing 2 masses in the right upper lobe along with enlargement of left supraclavicular/left lower neck nodes. The lung mass was performed 6 cm. He had a bronchoscopy on 03/22/19, with pathology read as squamous cell carcinoma. The patient was admitted in 04/14, with a syncopal episode. CT chest was repeated showing no evidence of PE, but increase in size of the right lung mass. The question oncology was whether he had 2 separate primaries or metastatic disease from primary. A more definitive biopsy from the left neck mass was recommended which was performed as an outpatient on 04/12/19. The core was positive for basal cell carcinoma with aggressive infiltrating growth pattern. Due to this finding the lung pathology was again reviewed, and the diagnosis was changed to metastatic basal cell carcinoma. As the patient appeared to have recurrent basal cell carcinoma involving neck nodes, as well as the lung, indicating stage IV disease. MRI of the brain on 04/02/19 was negative for metastasis. PET scan on 04/16/19 showed uptake in the left neck area extending up to the hyoid bone and down towards the medial upper scapula. Uptake was also noted in the right lung mass. The patient was admitted on 04/26/19 with recurrent syncopal episodes. These were becoming more frequent and were felt to be due to local pressure from growth of the left neck mass. The patient was therefore started on palliative radiation. He was seen for his first office visit on 05/08/19. He completed RT on 05/16/19. He had an inpt admission subsequently for dehydration due to dysphagia. He has noted marked improvement in his swallowing since. He then started Vismodegib on 06/09/19 PD-1 was 0. 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 He did , however, have a progressive exophytic lesion on the left mid neck. He was seen for progressive L neck lesion by ENT, and RT was recommended. He started the same on 09/19/19 The patient completed his radiation to the superficial neck lesion on 10/09/19. He states that there has been a significant improvement in the size especially over the last 2-3 days. Unfortunately when he was last seen in the office by primary oncologist Dr. sheppard, The pt is having further progression on exam, and Ct scans. He is having increased symptoms of pain The left upper neck lesion is increased in size with confluence, necrotic material sloughing off the surface and nodularity around the edges and the base. He is having increased pain in the left upper neck, partially improved with Tyler . The left lower neck mass seems to be overallstable. The patient still has an open area with drainage intermittently which is fairly minor. he reported more persistent blood in the urine - At that time, discussion with patient defined no definite standard options available, as he appears to be progressing on Erivedge. Std chemotherapy has not been shown to confer definite clinical benefit in prospective trials. He was therefore recommended referral to [facility] again. He had decided against it in 09/13. He was however agreeable in feb He was also refered to Urology re worsening hematuria - Pain management with Tyler discussed. We have not received any progress notes from the referring physicians at this time. We knew Rohit Nunez could not see patient until Mid so a second referral on 03/27/20 was made to [facility]. He did see urology and underwent TURP with Dr. Gonzalez on 04/09 - Unfortunetly revealing High grade urolthelial cancer Review of Systems All systems: negative Constitutional: Reports as per HPI Past Medical History Past Medical History: Cancer, Hypertension, Pneumonia Additional Past Medical History / Comment(s): hx skin cancer, lung CA, CA in the lymph nodes. radiation- last treatment September. currently taking oral chemo. constipation, anemia, growth on neck, recent hematuria History of Any Multi-Drug Resistant Organisms: None Reported Past Surgical History: Back Surgery, Heart Catheterization, Joint Replacement, Orthopedic Surgery Additional Past Surgical History / Comment(s): PREVIOUS SKIN CA LESIONS REMOVED, RT HIP REPLACEMENT, left ANKLE ORIF WITH METAL , lung biopsy, neck biopsy, heart cath > 10 yrs ago Past Anesthesia/Blood Transfusion Reactions: Previous Problems w/ Anesthesia Additional Past Anesthesia/Blood Transfusion Reaction / Comm: Pt woke up violently during lung biopsy Past Psychological History: No Psychological Hx Reported Smoking Status: Never smoker Past Alcohol Use History: None Reported Additional Past Alcohol Use History / Comment(s): Patient is a lifelong nonsmoker but had extensive exposure to asbestos and acid at [employer] as well as plastic exposure and [employer]. Past Drug Use History: None Reported - Past Family History Mother Family Medical History: Cancer, Deep Vein Thrombosis (DVT) Additional Family Medical History / Comment(s): BREAST CA Medications and Allergies Home Medications Medication Instructions Recorded Confirmed Type Metoprolol Tartrate [Lopressor] 12.5 mg PO HS PRN 05/18/19 04/15/20 History Erivedge 150 mg PO DAILY 04/07/20 04/15/20 History HYDROcodone/APAP 5-325MG [Tyler 0.5 tab PO Q6HR PRN 04/07/20 04/15/20 History 5-325] Ondansetron [Zofran] 4 - 8 mg PO Q4HR PRN 04/07/20 04/15/20 History Cyclobenzaprine [Flexeril] 10 mg PO TID #15 tab 04/14/20 04/15/20 Rx hydrALAZINE HCL [Apresoline] 25 mg PO TID PRN 04/15/20 04/15/20 History Allergies Allergy/AdvReac Type Severity Reaction Status Date / Time No Known Allergies Allergy Verified 04/15/20 22:32 Physical Exam Vitals: Vital Signs Temp Pulse Pulse Resp BP BP Pulse Ox 04/16/20 16:00 93 18 04/16/20 08:00 93 18 04/16/20 07:00 99.7 F H 93 179/84 97 04/16/20 01:00 98.8 F 96 171/88 98 04/16/20 00:04 101 H 18 133/76 99 04/15/20 21:45 98.6 F 109 H 18 125/79 99 Intake and Output 04/16/20 04/16/20 04/16/20 06:59 14:59 22:59 Intake Total 1564 Output Total 850 850 850 Balance -850 714 -850 Intake: Intake, IV Titration 1264 Amount Dextrose 5%-0.45% NaCl 1, 664 000 ml @ 83 mls/hr IV . Q12H3M ONE Rx#:[id number] Sodium Chloride 0.9% 1, 600 000 ml @ 100 mls/hr IV . Q10H ONE Rx#:[id number] Oral 300 Output: Urine 850 850 850 Other: Voiding Method Indwelling Catheter Indwelling Catheter Indwelling Catheter Weight 61.235 kg - Constitutional General appearance: cooperative, no acute distress - EENT Eyes: EOMI, PERRLA ENT: NA/AT, normal oropharynx - Neck Ulceration on left neck further extended and worsened from last evaluation Neck: normal ROM - Respiratory Respiratory: bilateral: diminished (Bases and through) - Cardiovascular Rhythm: regular - Gastrointestinal General gastrointestinal: soft, tenderness - Integumentary Integumentary: pale - Neurologic non-focal - Musculoskeletal Right shoulder ROM limited, fullness in right should and pain to palpate Musculoskeletal: generalized weakness, right sided weakness - Psychiatric confused lethargic Results CBC & Chem 7: 04/16/20 15:21 04/15/20 22:17 Labs: Abnormal Lab Results - Last 24 Hours (Table) 04/15/20 04/15/20 04/15/20 Range/Units 22:17 22:17 22:17 WBC 10.8 H (3.8-10.6) k/uL RBC 3.61 L (4.30-5.90) m/uL Hgb 8.6 L D (13.0-17.5) gm/dL Hct 28.4 L (39.0-53.0) % MCV 78.7 L (80.0-100.0) fL MCH 23.8 L (25.0-35.0) pg MCHC 30.2 L (31.0-37.0) g/dL RDW 16.7 H (11.5-15.5) % Neutrophils # 9.2 H (1.3-7.7) k/uL Lymphocytes # 0.6 L (1.0-4.8) k/uL APTT 18.2 L (22.0-30.0) sec D-Dimer 0.71 H (<0.60) mg/L FEU Sodium (137-145) mmol/L Chloride (98-107) mmol/L Carbon Dioxide (22-30) mmol/L Glucose (74-99) mg/dL Calcium (8.4-10.2) mg/dL Lactate Dehydrogenase (313-618) U/L Albumin (3.5-5.0) g/dL Urine Protein 1+ H (Negative) Urine Blood Small H (Negative) Ur Leukocyte Esterase Moderate H (Negative) Urine RBC 40 H (0-5) /hpf Urine WBC 8 H (0-5) /hpf Amorphous Sediment Rare H (None) /hpf Urine Mucus Rare H (None) /hpf 04/15/20 04/16/20 Range/Units 22:17 15:21 WBC (3.8-10.6) k/uL RBC 3.91 L (4.30-5.90) m/uL Hgb 9.1 L (13.0-17.5) gm/dL Hct 30.6 L (39.0-53.0) % MCV 78.3 L (80.0-100.0) fL MCH 23.4 L (25.0-35.0) pg MCHC 29.9 L (31.0-37.0) g/dL RDW 16.3 H (11.5-15.5) % Neutrophils # 9.4 H (1.3-7.7) k/uL Lymphocytes # 0.3 L (1.0-4.8) k/uL APTT (22.0-30.0) sec D-Dimer (<0.60) mg/L FEU Sodium 131 L (137-145) mmol/L Chloride 95 L (98-107) mmol/L Carbon Dioxide 31 H (22-30) mmol/L Glucose 119 H (74-99) mg/dL Calcium 10.5 H (8.4-10.2) mg/dL Lactate Dehydrogenase 266 L (313-618) U/L Albumin 3.3 L (3.5-5.0) g/dL Urine Protein (Negative) Urine Blood (Negative) Ur Leukocyte Esterase (Negative) Urine RBC (0-5) /hpf Urine WBC (0-5) /hpf Amorphous Sediment (None) /hpf Urine Mucus (None) /hpf CT Scan - head: report reviewed Assessment and Plan (1) Altered mental status Current Visit: Yes Status: Acute Code(s): R41.82 - ALTERED MENTAL STATUS, UNSPECIFIED SNOMED Code(s): 462932125 (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 Current Visit: No Status: Acute Code(s): D41.4 - NEOPLASM OF UNCERTAIN BEHAVIOR OF BLADDER SNOMED Code(s): 35061847 (3) Hematuria Current Visit: No Status: Acute Code(s): R31.9 - HEMATURIA, UNSPECIFIED SNOMED Code(s): 54483065 (4) SIRS (systemic inflammatory response syndrome) Current Visit: No Status: Acute Code(s): R65.10 - SIRS OF NON-INFECTIOUS ORIGIN W/O ACUTE ORGAN DYSFUNCTION SNOMED Code(s): 576593123 (5) Basal cell carcinoma Current Visit: Yes Status: Acute Code(s): C44.91 - BASAL CELL CARCINOMA OF SKIN, UNSPECIFIED SNOMED Code(s): 113105841 Plan: Altered Mental Status Changes: - Confused in the picture of multiple cancer primaries - MRI Brain Dysphagia: - Swallow evaluation concern for progression Hematuria: - Secondary to New Bladder Cancer Basal Cell Carcinoma - Progression after all standard of care - Awaiting second opion through [facility] or [facility] New Diagnosis of High Grade Urotherlial Cancer: - Bs: TURP on 04/09 Right Shoulder Pain: - New with severe tenderness on exam - Imaging to further assess ordered
[2020-04-16] MEDS: SODIUM CHLORIDE 0.9% 1,000 ML IV SCH (19:51)
[2020-04-16] MEDS: HEPARIN SODIUM,PORCINE 5,000 UNIT/ML 1 ML VIAL SQ SCH (19:51)
--- NOTE | 2020-04-16 21:22 | CT ---
EXAMINATION TYPE: CT shoulder RT wo con DATE OF EXAM: 04/16/2020 COMPARISON: Radiographs 04/14/2020. HISTORY: right shoulder pain, no injury CT DLP: 512.[address] images of the right shoulder was performed without contrast. Coronal, sagittal and 3-D refor mats were generated and reviewed. Automated exposure control for dose reduction was used. FINDINGS: There is no acute fracture or dislocation. There is moderate osteoarthritis of the acromioclavicular and glenohumeral joints. There is heterogen eous, moderate right glenohumeral joint effusion. There are 2 small sclerotic foci in the humeral hea d measuring up to 6 mm without aggressive features are most consistent with bone island in the absenc e of known malignancy. There is mild periarticular shoulder edema. IMPRESSION: MODERATE RIGHT GLENOHUMERAL JOINT EFFUSION WITH SUSPECTED SYNOVITIS. If there is clinical concern for septic arthritis, recommend joint sampling. Otherwise no acute osseous abnormality.
[2020-04-17 07:19] LABS: Anisocytosis Slight; HCT 26.1 % (39.0-53.0); HGB 8.1 gm/dL (13.0-17.5); Hypochromasia Marked; MCH 24.4 pg (25.0-35.0); MCV 78.5 fL (80.0-100.0); Mean Platelet Volume 7.5; Microcytosis Slight; Platelet Count 283 k/uL (150-450); RBC 3.32 m/uL (4.30-5.90); RDW 16.4 % (11.5-15.5); WBC 9.4 k/uL (3.8-10.6)
--- NOTE | 2020-04-17 09:15 | MR ---
EXAMINATION TYPE: MR brain wo/w con DATE OF EXAM: 04/17/2020 COMPARISON: MRI dated 04/02/2019. HISTORY: Metastatic disease. TECHNIQUE: Multiplanar, multisequence images of the brain and brainstem is performed without and with IV contras t, utilizing 6 mL intravenous Gadavist . FINDINGS: Exam noted suboptimal as there is artifact degradation related to patient motion. Diffusion weighted images demonstrate no evidence of a recent infarct or other diffusion abnormality. There i s no worrisome extra-axial fluid collection. Mild ventricular and sulcal prominence. Scattered foci o f T2 hyperintensity seen throughout the white matter bilaterally. Approximate 40-50 small scattered l esions redemonstrated. The reference 7 mm lesion left frontal parietal junction axial image 25 stable . Midline structures demonstrate normal morphology. The craniocervical junction appears within normal limits. Post contrast images demonstrate no obvious new enhancing mass or suspicious enhancement. Th e dural venous sinuses appear patent. The visualized sinuses are clear and the globes are intact. Int erval improvement in inferior left mastoid fluid IMPRESSION: Suboptimal study. Mild diffuse age-related cerebral atrophy and moderate chronic small ve ssel ischemic change. No definitive new enhancing masses to suggest metastatic disease to the brain.
[2020-04-17] MEDS: HEPARIN SODIUM,PORCINE 5,000 UNIT/ML 1 ML VIAL SQ SCH ×2 (09:31→19:55)
[2020-04-17] MEDS: PANTOPRAZOLE 40 MG TABLET PO SCH (09:31)
[2020-04-17] MEDS: SODIUM CHLORIDE 0.9% 1,000 ML IV SCH (09:32)
[2020-04-17 12:25] LABS: Ferritin 73.4 ng/mL (22.0-322.0)
[2020-04-17 13:09] LABS: % Iron Saturation 1.22 (15.00-50.00); African American GFR (CKD) 112.4 (60.0-200.0); Anion Gap 8.1 mmol/L (4.00-12.00); BUN/Creat Ratio 15.71 Ratio (12.00-20.00); Calcium 9.8 mg/dL (8.7-10.3); Carbon Dioxide 30.9 mmol/L (21.6-31.8); Potassium 3.2 mmol/L (3.5-5.5)
--- NOTE | 2020-04-17 13:20 | P.PN ---
Subjective Progress Note Date: 04/17/20 Principal diagnosis: shoulder pain ? progression Review of imaging with shoulder pain, mri neg for metastatic disease Objective - Vital Signs Vital signs: Vital Signs Temp 98.2 F 04/17/20 07:02 Pulse 108 H 04/17/20 07:02 Resp 17 04/17/20 07:02 BP 126/71 04/17/20 07:02 Pulse Ox 96 04/17/20 07:02 Intake & Output 04/16/20 04/17/20 04/17/20 18:59 06:59 18:59 Intake Total 1564 400 Output Total 1700 2150 Balance -136 -2150 400 Intake: IV 400 Sodium Chloride 0.9% 1, 400 000 ml @ 50 mls/hr IV . Q20H MARISOL Rx#:[id number] Intake, IV Titration 1264 Amount Dextrose 5%-0.45% NaCl 1, 664 000 ml @ 83 mls/hr IV . Q12H3M ONE Rx#:[id number] Sodium Chloride 0.9% 1, 600 000 ml @ 100 mls/hr IV . Q10H ONE Rx#:[id number] Oral 300 Output: Urine 1700 2150 Other: Voiding Method Indwelling Catheter Indwelling Catheter Indwelling Catheter - Exam - Constitutional General appearance: cooperative, no acute distress - EENT Eyes: EOMI, PERRLA ENT: NA/AT, normal oropharynx - Neck Ulceration on left neck further extended and worsened from last evaluation Neck: normal ROM - Respiratory Respiratory: bilateral: diminished (Bases and through) - Cardiovascular Rhythm: regular - Gastrointestinal General gastrointestinal: soft, tenderness - Integumentary Integumentary: pale - Neurologic non-focal - Musculoskeletal Right shoulder ROM limited, fullness in right should and pain to palpate Musculoskeletal: generalized weakness, right sided weakness - Psychiatric confused lethargic - Labs CBC & Chem 7: 04/17/20 06:39 04/17/20 06:39 Labs: Abnormal Lab Results - Last 24 Hours (Table) 04/16/20 04/16/20 04/17/20 Range/Units 15:21 15:21 06:39 RBC 3.91 L (4.30-5.90) m/uL Hgb 9.1 L (13.0-17.5) gm/dL Hct 30.6 L (39.0-53.0) % MCV 78.3 L (80.0-100.0) fL MCH 23.4 L (25.0-35.0) pg MCHC 29.9 L (31.0-37.0) g/dL RDW 16.3 H (11.5-15.5) % Neutrophils # 9.4 H (1.3-7.7) k/uL Lymphocytes # 0.3 L (1.0-4.8) k/uL Sodium 133 L (135-145) mmol/L Potassium 3.2 L (3.5-5.5) mmol/L Chloride 94 L (96-109) mmol/L Uric Acid 3.5 L (3.7-8.7) mg/dL Iron 3 L (65-175) ug/dL % Saturation 1.22 L (15.00-50.00) 04/17/20 Range/Units 06:39 RBC 3.32 L (4.30-5.90) m/uL Hgb 8.1 L (13.0-17.5) gm/dL Hct 26.1 L (39.0-53.0) % MCV 78.5 L (80.0-100.0) fL MCH 24.4 L (25.0-35.0) pg MCHC (31.0-37.0) g/dL RDW 16.4 H (11.5-15.5) % Neutrophils # (1.3-7.7) k/uL Lymphocytes # (1.0-4.8) k/uL Sodium (135-145) mmol/L Potassium (3.5-5.5) mmol/L Chloride (96-109) mmol/L Uric Acid (3.7-8.7) mg/dL Iron (65-175) ug/dL % Saturation (15.00-50.00) Microbiology - Last 24 Hours (Table) 04/15/20 22:17 Blood Culture - Preliminary Blood No Growth after 24 hours Assessment and Plan (1) Altered mental status Current Visit: Yes Status: Acute Code(s): R41.82 - ALTERED MENTAL STATUS, UNSPECIFIED SNOMED Code(s): 304222412 (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 Current Visit: No Status: Acute Code(s): D41.4 - NEOPLASM OF UNCERTAIN BEHAVIOR OF BLADDER SNOMED Code(s): 96332381 (3) Hematuria Current Visit: No Status: Acute Code(s): R31.9 - HEMATURIA, UNSPECIFIED SNOMED Code(s): 36654838 (4) SIRS (systemic inflammatory response syndrome) Current Visit: No Status: Acute Code(s): R65.10 - SIRS OF NON-INFECTIOUS ORIGIN W/O ACUTE ORGAN DYSFUNCTION SNOMED Code(s): 308388312 (5) Basal cell carcinoma Current Visit: Yes Status: Acute Code(s): C44.91 - BASAL CELL CARCINOMA OF SKIN, UNSPECIFIED SNOMED Code(s): 624395976 Plan: Altered Mental Status Changes: - Confused in the picture of multiple cancer primaries - MRI Brain negative for metastatic disease. With increased confusion and possible septic joint assess and rule out infection. If underlying issue able to be treated and no improvement in mental status will consider LP Dysphagia: - Swallow evaluation concern for progression Hematuria: - Secondary to New Bladder Cancer Basal Cell Carcinoma - Progression after all standard of care - Awaiting second opion through [facility] or [facility] New Diagnosis of High Grade Urotherlial Cancer: - Bs: TURP on 04/09 Right Shoulder Pain: - New with severe tenderness on exam - CT wo reviewed? synovitis - Ortho on consult Physician Attest: I have cpompleted the full history and physical and agree with above dictation, dictated as a scribe
--- NOTE | 2020-04-17 14:28 | P.CNOR ---
History of Present Illness - [facility] Consult date: 04/16/20 Consult reason: joint pain History of present illness: Patient is a 69-year-old male presented to recent hospital visits to [facility] for an osteoarthritic regards to right shoulder pain, the first being on 04/14/2020 then 04/16/2020. Patient states that he woke up with pain, starts in the shoulder and transferred down the arm and towards the elbow. He denies any recent trauma to the area. He denies any previous surgery to the right shoulder upper arm. Patient has a very extensive medical history that involves 2 different cancer diagnosis is. Patient is being followed by multiple medical specialists for these problems. At his 04/14 visit, they did do a x-rays of the shoulder and humerus which demonstrated no acute fractures or dislocations. There were no obvious signs of metastatic disease. At his most recent visit, a computed tomography scan has been done of the shoulder, also demonstrating no fractures or dislocations or obvious signs of metastatic disease. Patient was evaluated on 04/16/2020 at bedside, he is resting comfortably. He notes most pain in the upper arm shoulder region and also trends down through the humerus to the elbow. Motion of the right upper extremity causes significant discomfort in the midshaft of the humerus and shoulder region. He denies any pain involving the cervical spine he denies any numbness or tingling of the right upper extremity. He denies any marcos weakness, he contributes most of that the discomfort that is reproduced with movement. Patient is having no symptoms in his left upper extremity. Patient has no discomfort bilateral lower extremities. He has no paresthesias of the lower extremity. Review of Systems Constitutional: Reports as per [facility] 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 radiation- last treatment September. currently taking oral chemo. constipation, anemia, growth on neck, recent hematuria History of Any Multi-Drug Resistant Organisms: None Reported Past Surgical History: Back Surgery, Heart Catheterization, Joint Replacement, Orthopedic Surgery Additional Past Surgical History / Comment(s): PREVIOUS SKIN CA LESIONS REMOVED, RT HIP REPLACEMENT, left ANKLE ORIF WITH METAL , lung biopsy, neck biopsy, heart cath > 10 yrs ago Past Anesthesia/Blood Transfusion Reactions: Previous Problems w/ Anesthesia Additional Past Anesthesia/Blood Transfusion Reaction / Comm: Pt woke up violently during lung biopsy Past Psychological History: No Psychological Hx Reported Smoking Status: Never smoker Past Alcohol Use History: None Reported Additional Past Alcohol Use History / Comment(s): Patient is a lifelong nonsmoker but had extensive exposure to asbestos and acid at [employer] as well as plastic exposure and [employer]. Past Drug Use History: None Reported - Past Family History Mother Family Medical History: Cancer, Deep Vein Thrombosis (DVT) Additional Family Medical History / Comment(s): BREAST CA Medications and Allergies Home Medications Medication Instructions Recorded Confirmed Type Metoprolol Tartrate [Lopressor] 12.5 mg PO HS PRN 05/18/19 04/15/20 History Erivedge 150 mg PO DAILY 04/07/20 04/15/20 History HYDROcodone/APAP 5-325MG [Prit[place]tt 0.5 tab PO Q6HR PRN 04/07/20 04/15/20 History 5-325] Ondansetron [Zofran] 4 - 8 mg PO Q4HR PRN 04/07/20 04/15/20 History Cyclobenzaprine [Flexeril] 10 mg PO TID #15 tab 04/14/20 04/15/20 Rx hydrALAZINE HCL [Apresoline] 25 mg PO TID PRN 04/15/20 04/15/20 History Allergies Allergy/AdvReac Type Severity Reaction Status Date / Time No Known Allergies Allergy Verified 04/15/20 22:32 Physical Examination Right upper extremity: There are no open lesions or sores present, there is no significant areas of erythema Notable shoulder effusion is appreciated Patient is very tender with palpation throughout the shoulder joint in the proximal and mid shaft of the humerus with palpatio. No tenderness with palpation surrounding the forearm, hand and wrist Range of motion of the shoulder and elbow are very limited due to pain in the shoulder. Wrist flexion, wrist extension, finger abduction are intact Strength testing was not assessed His sensory exam to light touch throughout the extremity is intact radial and ulnar pulses are 2+ Results - Labs Labs: Abnormal Lab Results - Last 24 Hours (Table) 04/16/20 04/16/20 04/17/20 Range/Units 15:21 15:21 06:39 RBC 3.91 L 3.32 L (4.30-5.90) m/uL Hgb 9.1 L 8.1 L (13.0-17.5) gm/dL Hct 30.6 L 26.1 L (39.0-53.0) % MCV 78.3 L 78.5 L (80.0-100.0) fL MCH 23.4 L 24.4 L (25.0-35.0) pg MCHC 29.9 L (31.0-37.0) g/dL RDW 16.3 H 16.4 H (11.5-15.5) % Neutrophils # 9.4 H (1.3-7.7) k/uL Lymphocytes # 0.3 L (1.0-4.8) k/uL Uric Acid 3.5 L (3.7-8.7) mg/dL Microbiology - Last 24 Hours (Table) 04/15/20 22:17 Blood Culture - Preliminary Blood No Growth after 24 hours H & H 04/15/20 04/16/20 04/17/20 Range/Units 22:17 15:21 06:39 Hgb 8.6 L D 9.1 L 8.1 L (13.0-17.5) gm/dL Hct 28.4 L 30.6 L 26.1 L (39.0-53.0) % Coagulation 04/15/20 Range/Units 22:17 INR 1.0 (<1.2) Result Diagrams: 04/17/20 06:39 04/17/20 06:39 - Diagnostic results Shoulder x-ray: report reviewed, image reviewed (X-rays were reviewed from 04/14/2020. Obvious pus or arthritic changes noted throughout the shoulder and elbow. No acute fractures or dislocations. No obvious signs of metastatic disease) Shoulder CT: report reviewed, image reviewed (Images and report demonstrate obvious arthritic findings throughout the glenohumeral joint. they did note so me changes along with fluid in the shoulder joint. No obvious signs of metastatic disease. ) Assessment and Plan Assessment: Right shoulder pain Right shoulder osteoarthritis Right shoulder glenohumeral synovitis Right shoulder effusion Plan: I was able to discuss the case, including with physical exam findings and imaging studies my attending Dr. Cherry. Patient was prescribed a sling for comfort. We recommend use of that at all times at this point. CRP and sed rate were also ordered. Depending on laboratory results, may consider aspiration of the right shoulder joint for further evaluation Pain control, appreciated primary medical service recommendations Other medical special recommendations Further recommendations to follow Time with Patient: Less than 30
--- NOTE | 2020-04-17 14:51 | P.PN ---
Subjective Progress Note Date: 04/17/20 HISTORY OF PRESENT ILLNESS This is a 69-year-old male patient of Dr. Winslow and Dr. 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 On 04/09/2020, patient underwent cystoscopy, transurethral resection of bladder tumors with Dr. Gonzalez. Pathology report positive for high-grade papillary urothelial carcinoma infiltrating the lamina propria and sample fragments of muscularis propria. Patient is a poor historian. He states that he was seen in the emergency center on April 14 for pinched nerve in his right arm. He denies any injury. He states he rolled over in bed and the pain developed. X-rays of the right shoulder and humerus did not show any acute abnormality. Patient was discharged home on . Patient states that he is due to see Dr. Gonzalez today in his office to have Mak catheter removed. Patient returned yesterday with inability to walk, no appetite unable to care for himself. Patient complains of nausea with loss of appetite and difficulty swallowing due to left neck mass. Chest x-ray revealed chronic linear density right upper lobe consistent with scarring or atelectasis. No heart failure. No change. CAT scan of the brain revealed cerebral atrophy. No acute intracranial abnormality. EKG is a sinus rhythm with occasional PVCs, heart rate 101. WBC 10.8, hemoglobin 8.6, platelet count 349. D-dimer 0.71. Sodium 131, potassium 3.6, chloride 95, CO2 31, BUN 11 creatinine 0.8. Liver function tests were normal. LDH 266. Urinalysis cloudy, blood small, leukoesterase moderate, nitrate negative. RBCs 40, wbc's 8. Influenza testing negative. Patient was given 1 L of IV fluids, placed on the [facility]Sur floor and consults requested with oncology, urology, orthopedics. 04/17: Patient continues to have confusion and hallucinations. He was evaluated by speech therapy with no problems with swallowing but concern for vocal cord paralysis and recommend possible ENT workup as an outpatient if appropriate. He has undergone CAT scan of the right shoulder which revealed moderate right glenohumeral joint effusion with suspected synovitis. If concern for septic ar thritis, recommend joint sampling. No acute osseous abnormality. Orthopedics has recommended sling. CRP and sed rate have been ordered and if elevated may consider aspiration of the joint. Patient was seen by oncology and MRI of the brain was ordered. This was a suboptimal study that revealed mild diffuse age- related cerebral atrophy and moderate chronic small vessel ischemic changes. No definitive new enhancing masses to suggest metastatic disease to the brain. Oncology is considering LP. Temperature max 100.3, heart rate 108, blood pressure 126/71, pulse ox 96% on room air. color television console monitor is a sinus rhythm. Repeat blood work reveals WBC 9.4, hemoglobin 8.1, platelet count 283. Sodium 133, potassium 3.2 chloride 94, CO2 30.9, BUN 11 creatinine 0.7. Blood sugar 102. Vitamin B12 434. Uric acid 3.5. PT and OT recommend home with homecare subacute rehab. Methylmalonic acid, sed rate CRP are pending. Blood culture shows no growth after 24 hours. Patient has been seen by urology with recommendations to keep catheter in place and patient is mentally improved and more ambulatory. Plan for voiding trial prior to discharge. REVIEW OF SYSTEMS Constitutional: No fever, no chills, no night sweats. Reports weight change. Reports weakness, Reportsfatigue Reports lethargy. No daytime sleepiness. EENT: No headache. No blurred vision or double vision, no loss of vision. Reports dizziness. No nasal drainage or congestion. No epistaxis. Reports dysphagia. Lungs: No shortness of breath, cough, no sputum production. No wheezing. Cardiovascular: No chest pain, no lower extremity edema. No palpitations. No paroxysmal nocturnal dyspnea. No orthopnea. Reports lightheadedness or dizziness. No syncopal episodes. Abdominal: No abdominal pain. No nausea, vomiting. No diarrhea. No constipation. No bloody or tarry stools.. No loss of appetite. Genitourinary: No dysuria, increased frequency, urgency. No urinary retention. Musculoskeletal: No myalgias. Reports muscle weakness, Reports gait dysfunction. No back pain. Reports neck pain. Integumentary: Reports wounds, no lesions. No rash or pruritus. No unusual bruising. No change in hair or nails. Neurologic: Reports dysphagia. No facial droop. Worsening change in mentation. No head injury. No headache. No paralysis. No paresthesia. Psychiatric: No depression. No anxiety. No mood swings. Endocrine: No abnormal blood sugars. Reports weight change. PHYSICAL EXAMINATION Gen: This is a 69-year-old male. He is resting in bed appears to be comfortable. HEENT: Head is atraumatic, normocephalic. Pupils equal, round. Sclerae is anict russell. Open wounds/ulcerations the left neck region. NECK: Supple. No JVD. No lymphadenopathy. No thyromegaly. LUNGS: Clear to auscultation. No wheezes or rhonchi. No intercostal retractions. HEART: Regular rate and rhythm. No murmur. ABDOMEN: Soft. Bowel sounds are present. No masses. No tenderness. Mak catheter draining clear antonia urine. EXTREMITIES: No pedal edema. No calf tenderness. NEUROLOGICAL: Patient is awake, alert and oriented x3. Cranial nerves 2 through 12 are grossly intact. ASSESSMENT AND PLAN 1. Generalized debility, weight loss, loss of appetite and weakness secondary to cancer. PT, OT, speech therapy consultations. 2. Basal cell skin cancer of the left cheek with metastatic disease to the neck and lungs status post palliative radiation therapy, under the care of Dr. Metzger. Consult with oncology appreciated. 3. Bladder cancer status post recent transurethral resection of bladder tumors. Consult with urology appreciated. Patient is due today for Mak catheter removal and follow-up in the office. 4. Right shoulder pain. Orthopedic consult. X-rays negative for acute findings. 5. Severe protein calorie malnutrition with weight loss, loss of appetite and dysphagia secondary to neck tumor. Regular diet and ensure twice daily. Speech therapy. 6. Anemia of chronic disease. 7. Hyponatremia secondary to malnutrition. Continue IV fluids 0.9 normal saline at 50 mL per hour. 8. Hypertension. Continue home medications which are hydralazine 25 mg 3 times daily as needed and Lopressor 12.5 mg at bedtime as needed. 9. Metabolic encephalopathy and hallucinations secondary to underlying cancers and medical debilitation. 10. GI prophylaxis. Protonix daily. 11. DVT prophylaxis. Heparin subcu. Discharge plan: Home with [facility]. PT, OT, speech therapy. Impression and plan of care have been directed as dictated by the signing physician. Karly Manzano nurse practitioner acting as scribe for signing physician Objective - Vital Signs Vital signs: Vital Signs Temp 98.2 F 04/17/20 07:02 Pulse 108 H 1022/20 07:02 Resp 17 04/17/20 07:02 BP 126/71 04/17/20 07:02 Pulse Ox 96 04/17/20 07:02 Intake & Output 04/16/20 04/17/20 04/17/20 18:59 06:59 18:59 Intake Total 1564 Output Total 1700 2150 Balance -136 -2150 Intake: Intake, IV Titration 1264 Amount Dextrose 5%-0.45% NaCl 1, 664 000 ml @ 83 mls/hr IV . Q12H3M [facility] Rx#:[id number] Sodium Chloride 0.9% 1, 600 000 ml @ 100 mls/hr IV . Q10H [facility] Rx#:[id number] Oral 300 Output: Urine 1700 2150 Other: Voiding Method Indwelling Catheter Indwelling Catheter - Labs CBC & Chem 7: 04/17/20 06:39 04/17/20 06:39 Labs: Abnormal Lab Results - Last 24 Hours (Table) 04/16/20 04/16/20 04/17/20 Range/Units 15:21 15:21 06:39 RBC 3.91 L 3.32 L (4.30-5.90) m/uL Hgb 9.1 L 8.1 L (13.0-17.5) gm/dL Hct 30.6 L 26.1 L (39.0-53.0) % MCV 78.3 L 78.5 L (80.0-100.0) fL MCH 23.4 L 24.4 L (25.0-35.0) pg MCHC 29.9 L (31.0-37.0) g/dL RDW 16.3 H 16.4 H (11.5-15.5) % Neutrophils # 9.4 H (1.3-7.7) k/uL Lymphocytes # 0.3 L (1.0-4.8) k/uL Uric Acid 3.5 L (3.7-8.7) mg/dL Microbiology - Last 24 Hours (Table) 04/15/20 22:17 Blood Culture - Preliminary Blood No Growth after 24 hours
[2020-04-17] MEDS ORDERED: POTASSIUM CHLORIDE ER 20 MEQ TAB.ER PO STA (15:25)
[2020-04-18] MEDS: SODIUM CHLORIDE 0.9% 1,000 ML IV SCH (05:13)
[2020-04-18] MEDS: HYDROcodone/APAP 5-325MG 1 EACH TAB PO PRN (05:16)
[2020-04-18] MEDS: HEPARIN SODIUM,PORCINE 5,000 UNIT/ML 1 ML VIAL SQ SCH ×2 (07:25→20:08)
[2020-04-18] MEDS: PANTOPRAZOLE 40 MG TABLET PO SCH (07:25)
--- NOTE | 2020-04-18 12:36 | P.PCN ---
Date of Procedure: 04/18/20 Preoperative Diagnosis: right glenohumeral joint synovitis/effusion Postoperative Diagnosis: same Procedure(s) Performed: aspiration right glenohumeral joint Anesthesia: local Surgeon: Moses Cherry Estimated Blood Loss (ml): 0 Pathology: other (fluid for cell count/Gram stain/culture/crystals) Condition: stable Disposition: no change Indications for Procedure: the patient's a 69-year-old male with multiple medical comorbidities who presents with progressive right shoulder swelling and pain. A discussion the risks and benefits of aspiration was made with patient and his . He opted to proceed. Operative Findings: as below Description of Procedure: the right anterior shoulder was prepped with Betadine and alcohol. 1 mL of 1% plain lidocaine was injected into the soft tissues. 6 mL of serous joint fluid was aspirated from the glenohumeral joint. This was sent for analysis to include cell count/Gram stain/cultures/crystals. He tolerated the procedure well. There was no complications. There was no blood loss.
--- NOTE | 2020-04-18 14:17 | P.PN ---
Subjective Progress Note Date: 04/18/20 HISTORY OF PRESENT ILLNESS This is a 69-year-old male patient of Dr. Winslow and Dr. 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 On 04/09/2020, patient underwent cystoscopy, transurethral resection of bladder tumors with Dr. Gonzalez. Pathology report positive for high-grade papillary urothelial carcinoma infiltrating the lamina propria and sample fragments of muscularis propria. Patient is a poor historian. He states that he was seen in the emergency center on April 14 for pinched nerve in his right arm. He denies any injury. He states he rolled over in bed and the pain developed. X-rays of the right shoulder and humerus did not show any acute abnormality. Patient was discharged home on . Patient states that he is due to see Dr. Gonzalez today in his office to have Mak catheter removed. Patient returned yesterday with inability to walk, no appetite unable to care for himself. Patient complains of nausea with loss of appetite and difficulty swallowing due to left neck mass. Chest x-ray revealed chronic linear density right upper lobe consistent with scarring or atelectasis. No heart failure. No change. CAT scan of the brain revealed cerebral atrophy. No acute intracranial abnormality. EKG is a sinus rhythm with occasional PVCs, heart rate 101. WBC 10.8, hemoglobin 8.6, platelet count 349. D-dimer 0.71. Sodium 131, potassium 3.6, chloride 95, CO2 31, BUN 11 creatinine 0.8. Liver function tests were normal. LDH 266. Urinalysis cloudy, blood small, leukoesterase moderate, nitrate negative. RBCs 40, wbc's 8. Influenza testing negative. Patient was given 1 L of IV fluids, placed on the MedSur floor and consults requested with oncology, urology, orthopedics. 04/17: Patient continues to have confusion and hallucinations. He was evaluated by speech therapy with no problems with swallowing but concern for vocal cord paralysis and recommend possible ENT workup as an outpatient if appropriate. He has undergone CAT scan of the right shoulder which revealed moderate right glenohumeral joint effusion with suspected synovitis. If concern for septic ar thritis, recommend joint sampling. No acute osseous abnormality. Orthopedics has recommended sling. CRP and sed rate have been ordered and if elevated may consider aspiration of the joint. Patient was seen by oncology and MRI of the brain was ordered. This was a suboptimal study that revealed mild diffuse age- related cerebral atrophy and moderate chronic small vessel ischemic changes. No definitive new enhancing masses to suggest metastatic disease to the brain. Oncology is considering LP. Temperature max 100.3, heart rate 108, blood pressure 126/71, pulse ox 96% on room air. groundwater monitoring technician is a sinus rhythm. Repeat blood work reveals WBC 9.4, hemoglobin 8.1, platelet count 283. Sodium 133, potassium 3.2 chloride 94, CO2 30.9, BUN 11 creatinine 0.7. Blood sugar 102. Vitamin B12 434. Uric acid 3.5. PT and OT recommend home with homecare subacute rehab. Methylmalonic acid, sed rate CRP are pending. Blood culture shows no growth after 24 hours. Patient has been seen by urology with recommendations to keep catheter in place and patient is mentally improved and more ambulatory. Plan for voiding trial prior to discharge. 04/18: Patient denies any new complaints. Mental status is improved. Contacted patient's and discussed current condition, prognosis and recommendations for hospice. She initially agreed to hospice but would like to wait and do palliative care at the time of discharge. Temperature max 100.3 in the past 24 hours. Heart rate 105, blood pressure 99/61, pulse ox 97% on room air. Patient underwent aspiration of the right glenohumeral joint by orthopedics. 6 ML's of serous fluid was aspirated and sent for analysis. Oncology is following. REVIEW OF SYSTEMS Constitutional: No fever, no chills, no night sweats. Reports weight change. Reports weakness, Reportsfatigue Reports lethargy. No daytime sleepiness. EENT: No headache. No blurred vision or double vision, no loss of vision. Reports dizziness. No nasal drainage or congestion. No epistaxis. Reports dysphagia. Lungs: No shortness of breath, cough, no sputum production. No wheezing. Cardiovascular: No chest pain, no lower extremity edema. No palpitations. No paroxysmal nocturnal dyspnea. No orthopnea. Reports lightheadedness or dizziness. No syncopal episodes. Abdominal: No abdominal pain. No nausea, vomiting. No diarrhea. No const ipation. No bloody or tarry stools.. No loss of appetite. Genitourinary: No dysuria, increased frequency, urgency. No urinary retention. Musculoskeletal: No myalgias. Reports muscle weakness, Reports gait dysfunction. No back pain. Reports neck pain. Integumentary: Reports wounds, no lesions. No rash or pruritus. No unusual bruising. No change in hair or nails. Neurologic: Reports dysphagia. No facial droop. Reports change in mentation improved. No head injury. No headache. No paralysis. No paresthesia. Psychiatric: No depression. No anxiety. No mood swings. Endocrine: No abnormal blood sugars. Reports weight change. PHYSICAL EXAMINATION Gen: This is a 69-year-old male. He is resting in bed appears to be comfortable. HEENT: Head is atraumatic, normocephalic. Pupils equal, round. Sclerae is anicteric. Open wounds/ulcerations the left neck region. NECK: Supple. No JVD. No lymphadenopathy. No thyromegaly. LUNGS: Clear to auscultation. No wheezes or rhonchi. No intercostal retractions. HEART: Regular rate and rhythm. No murmur. ABDOMEN: Soft. Bowel sounds are present. No masses. No tenderness. Mak catheter draining clear antonia urine. EXTREMITIES: No pedal edema. No calf tenderness. NEUROLOGICAL: Patient is awake, alert and oriented to person and place. Cranial nerves 2 through 12 are grossly intact. ASSESSMENT AND PLAN 1. Generalized debility, weight loss, loss of appetite and weakness secondary to cancer. PT, OT, speech therapy consultations appreciated. 2. Basal cell skin cancer of the left cheek with metastatic disease to the neck and lungs status post palliative radiation therapy, under the care of Dr. Metzger. Consult with oncology appreciated. Await further recommendations. 3. Bladder cancer status post recent transurethral resection of bladder tumors. Consult with urology appreciated. Patient to maintain Mak catheter. 4. Right shoulder pain. Orthopedic consult. Status post aspiration. 5. Severe protein calorie malnutrition with weight loss, loss of appetite and dysphagia secondary to neck tumor. Regular diet and ensure twice daily. Speech therapy. 6. Anemia of chronic disease. 7. Hyponatremia secondary to malnutrition. Continue IV fluids 0.9 normal saline at 50 mL per hour. 8. Hypertension. Continue home medications which are hydralazine 25 mg 3 times daily as needed and Lopressor 12.5 mg at bedtime as needed. 9. Metabolic encephalopathy and hallucinations secondary to underlying cancers and medical debilitation. 10. GI prophylaxis. Protonix daily. 11. DVT prophylaxis. Heparin subcu. 12. Possible vocal cord paralysis. ENT follow-up outpatient. Discharge plan: Home with [facility]. PT, OT, speech therapy. Impression and plan of care have been directed as dictated by the signing physician. Karly Manzano nurse practitioner acting as scribe for signing physician Objective - Vital Signs Vital signs: Vital Signs Temp 98.3 F 04/18/20 07:00 Pulse 105 H 04/18/20 07:00 Resp 16 04/18/20 07:00 BP 99/61 04/18/20 07:00 Pulse Ox 97 04/18/20 07:00 Intake & Output 04/17/20 04/18/20 04/18/20 18:59 06:59 18:59 Intake Total 400 50 Output Total 600 750 Balance -200 -700 Intake: IV 400 Sodium Chloride 0.9% 1, 400 000 ml @ 50 mls/hr IV . Q20H [facility] Rx#:[id number] Oral 50 Output: Urine 600 750 Other: Voiding Method Indwelling Catheter Indwelling Catheter - Labs CBC & Chem 7: 04/17/20 06:39 04/17/20 06:39 Labs: Abnormal Lab Results - Last 24 Hours (Table) 04/17/20 04/17/20 04/17/20 Range/Units 06:39 06:39 06:39 ESR 106 H (0-20) mm/Hr Sodium 133 L (135-145) mmol/L Potassium 3.2 L (3.5-5.5) mmol/L Chloride 94 L (96-109) mmol/L Iron 3 L (65-175) ug/dL % Saturation 1.22 L (15.00-50.00) C-Reactive Protein 22.1 H (0.0-0.8) mg/dL Microbiology - Last 24 Hours (Table) 04/15/20 22:17 Blood Culture - Preliminary Blood No Growth after 48 hours
--- NOTE | 2020-04-18 14:28 | P.PN ---
Subjective Progress Note Date: 04/18/20 Principal diagnosis: shoulder pain ? progression Status post effusion from shoulder Objective - Vital Signs Vital signs: Vital Signs Temp 98.3 F 04/18/20 07:00 Pulse 105 H 04/18/20 07:00 Resp 16 04/18/20 07:00 BP 99/61 04/18/20 07:00 Pulse Ox 97 04/18/20 07:00 Intake & Output 04/17/20 04/18/20 04/18/20 18:59 06:59 18:59 Intake Total 400 50 600 Output Total 600 750 Balance -200 -700 600 Intake: IV 400 400 Sodium Chloride 0.9% 1, 400 400 000 ml @ 50 mls/hr IV . Q20H [facility] Rx#:[id number] Oral 50 200 Output: Urine 600 750 Other: Voiding Method Indwelling Catheter Indwelling Catheter Indwelling Catheter - Exam - Constitutional General appearance: cooperative, no acute distress - EENT Eyes: EOMI, PERRLA ENT: NA/AT, normal oropharynx - Neck Ulceration on left neck further extended and worsened from last evaluation Neck: normal ROM - Respiratory Respiratory: bilateral: diminished (Bases and through) - Cardiovascular Rhythm: regular - Gastrointestinal General gastrointestinal: soft, tenderness - Integumentary Integumentary: pale - Neurologic non-focal - Musculoskeletal Right shoulder ROM limited, fullness in right should and pain to palpate Musculoskeletal: generalized weakness, right sided weakness - Psychiatric confused lethargic - Labs CBC & Chem 7: 04/18/20 14:53 04/18/20 14:53 Labs: Abnormal Lab Results - Last 24 Hours (Table) 04/17/20 04/17/20 Range/Units 06:39 06:39 ESR 106 H (0-20) mm/Hr C-Reactive Protein 22.1 H (0.0-0.8) mg/dL Microbiology - Last 24 Hours (Table) 04/15/20 22:17 Blood Culture - Preliminary Blood No Growth after 48 hours Assessment and Plan (1) Altered mental status Current Visit: Yes Status: Acute Code(s): R41.82 - ALTERED MENTAL STATUS, UNSPECIFIED SNOMED Code(s): 186516996 (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 Current Visit: No Status: Acute Code(s): D41.4 - NEOPLASM OF UNCERTAIN BEHAVIOR OF BLADDER SNOMED Code(s): 53905319 (3) Hematuria Current Visit: No Status: Acute Code(s): R31.9 - HEMATURIA, UNSPECIFIED SNOMED Code(s): 52839792 (4) SIRS (systemic inflammatory response syndrome) Current Visit: No Status: Acute Code(s): R65.10 - SIRS OF NON-INFECTIOUS ORIGIN W/O ACUTE ORGAN DYSFUNCTION SNOMED Code(s): 755161859 (5) Basal cell carcinoma Current Visit: Yes Status: Acute Code(s): C44.91 - BASAL CELL CARCINOMA OF SKIN, UNSPECIFIED SNOMED Code(s): 707875001 Plan: Altered Mental Status Changes: - Confused in the picture of multiple cancer primaries - MRI Brain negative for metastatic disease. With increased confusion and possible septic joint assess and rule out infection. If underlying issue able to be treated and no improvement in mental status will consider LP Dysphagia: - Swallow evaluation concern for progression Hematuria: - Secondary to New Bladder Cancer Basal Cell Carcinoma - Progression after all standard of care - Awaiting second opinion through [facility] or [facility]unez New Diagnosis of High Grade Urotherlial Cancer: - Bs: TURP on 04/09 Right Shoulder Pain: - New with severe tenderness on exam - CT wo reviewed? synovitis - Ortho has evaluated and status post effusion of joint - Await results of sample drawn today 04/18 Hypokalemia: - Recheck CMP and Mag today Microcytic Anemia: - Recheck CBC today Increased LFTs Today: - Repeat CMP in am - Abdominal Ultrasound - Check Coags
[2020-04-18 14:39] LABS: Color,BF Red; Nucleated Cells, Body Fluid 10850 /uL; RBC, Body Fluid 46200 /uL
[2020-04-18 14:41] LABS: Mononuclear WBC,Body Fluid 4 %; Polynuclear WBC,Body Fluid 96 %; Total Cells Counted,Body Fluid 100
[2020-04-18 14:42] LABS: Appearance,BF Bloody
[2020-04-18] MEDS: ACETAMINOPHEN TAB 325 MG TAB PO PRN (15:30)
[2020-04-18 15:35] LABS: ALT 165 U/L (4-49); AST 230 U/L (17-59); African American GFR (CKD) >90 (>60 ml/min/1.73 sqM); Albumin 2.4 g/dL (3.5-5.0); Albumin/Globulin Ratio 0.8; Alkaline Phosphatase 170 U/L (38-126); Anion Gap 5 mmol/L; Blood Urea Nitrogen 14 mg/dL (9-20); Calcium 8.9 mg/dL (8.4-10.2); Carbon Dioxide 29 mmol/L (22-30); Chloride 95 mmol/L (98-107); Globulin 2.9 g/dL; Glucose 111 mg/dL (74-99); Magnesium 1.8 mg/dL (1.6-2.3); Non-African American GFR(CKD) >90 (>60 ml/min/1.73 sqM); Potassium 3.1 mmol/L (3.5-5.1); Sodium 129 mmol/L (137-145); Total Bilirubin 1.4 mg/dL (0.2-1.3); Total Protein 5.3 g/dL (6.3-8.2)
[2020-04-18 15:57] LABS: Anisocytosis Slight; Basophils % (A) 0 %; Eosinophils % (A) 0 %; HCT 23.9 % (39.0-53.0); HGB 7.2 gm/dL (13.0-17.5); Hypochromasia Marked; Lymphocytes # (A) 0.4 k/uL (1.0-4.8); Lymphocytes % (A) 8 %; MCH 23.5 pg (25.0-35.0); MCHC 29.9 g/dL (31.0-37.0); MCV 78.7 fL (80.0-100.0); Mean Platelet Volume 7.7; Microcytosis Slight; Monocytes # (A) 0.3 k/uL (0-1.0); Monocytes % (A) 6 %; Neutrophils # (A) 3.8 k/uL (1.3-7.7); Neutrophils % (A) 84 %; Platelet Count 206 k/uL (150-450); RBC 3.04 m/uL (4.30-5.90); RDW 16.2 % (11.5-15.5); WBC 4.5 k/uL (3.8-10.6)
[2020-04-19] MEDS: SODIUM CHLORIDE 0.9% 1,000 ML IV SCH ×2 (04:02→20:22)
[2020-04-19 06:21] LABS: Anisocytosis Slight; Basophils % (A) 0 %; Eosinophils % (A) 0 %; HCT 23.7 % (39.0-53.0); HGB 7.1 gm/dL (13.0-17.5); Hypochromasia Marked; Lymphocytes # (A) 0.5 k/uL (1.0-4.8); Lymphocytes % (A) 10 %; MCH 23.5 pg (25.0-35.0); MCHC 29.8 g/dL (31.0-37.0); MCV 78.9 fL (80.0-100.0); Mean Platelet Volume 7.7; Microcytosis Slight; Monocytes # (A) 0.3 k/uL (0-1.0); Monocytes % (A) 6 %; Neutrophils # (A) 3.9 k/uL (1.3-7.7); Neutrophils % (A) 81 %; Platelet Count 215 k/uL (150-450); RBC 3.01 m/uL (4.30-5.90); RDW 16.3 % (11.5-15.5); WBC 4.8 k/uL (3.8-10.6)
[2020-04-19 06:43] LABS: Partial Thromboplastin Time 23.7 sec (22.0-30.0)
[2020-04-19] MEDS: HEPARIN SODIUM,PORCINE 5,000 UNIT/ML 1 ML VIAL SQ SCH ×2 (07:11→20:22)
[2020-04-19] MEDS: HYDROcodone/APAP 5-325MG 1 EACH TAB PO PRN (07:11)
[2020-04-19] MEDS: PANTOPRAZOLE 40 MG TABLET PO SCH (07:11)
[2020-04-19 09:26] LABS: African American GFR (CKD) 119.7 (60.0-200.0); Albumin 2.7 g/dL (3.80-4.90); Albumin/Globulin Ratio 1.23 (1.60-3.17); Anion Gap 7.3 mmol/L (4.00-12.00); Calcium 8.6 mg/dL (8.7-10.3); Carbon Dioxide 29.7 mmol/L (21.6-31.8); Globulin 2.2 g/dL (1.6-3.3); Non-African American GFR(CKD) 103.3 (60.0-200.0); Potassium 3.1 mmol/L (3.5-5.5); Total Bilirubin 1.5 mg/dL (0.3-1.2); Total Protein 4.9 g/dL (6.2-8.2)
[2020-04-19] MEDS ORDERED: CEFEPIME 1 GM in SODIUM CHLORIDE 0.9% 50 ML IVPB ONE (10:00)
[2020-04-19] MEDS ORDERED: HYDROmorphone 0.5 MG/0.5 ML SYRINGE IM PRN (10:01)
[2020-04-19] MEDS: POTASSIUM CHLORIDE ER 20 MEQ TAB.ER PO SCH ×2 (10:11→11:39)
[2020-04-19] MEDS: SENNOSIDES-DOCUSATE SODIUM 1 EACH TAB PO SCH (10:26)
--- NOTE | 2020-04-19 11:11 | US ---
EXAMINATION TYPE: US abdomen comp/pelvis limited DATE OF EXAM: 04/19/2020 COMPARISON: US kidneys 03/21/20202019, CT 2019 CLINICAL HISTORY: Increased LFTs. Increased LFT's, hx of CA, patient states he recently had tumors re moved from his bladder, exam done portable. EXAM MEASUREMENTS: Liver Length: 17.2 cm Gallbladder Wall: 0.3 cm CBD: 0.3 cm Spleen: 11.7 cm Right Kidney: 10.7 x 3.9 x 5.1 cm Left Kidney: 10.7 x 5.7 x 4.7 cm Pancreas: obscured by overlying midline bowel gas Liver: scanned intercostally, no focal abnormality seen. Gallbladder: Gallbladder wall adenomyomatosis. No cholelithiasis, gallbladder wall thickening, or pe richolecystic edema. CBD: visualized portions wnl, limited by overlying bowel gas Spleen: visualized portions wnl, limited by overlying bowel gas Right Kidney: wnl Left Kidney: visualized portions wnl, inferior pole limited by overlying bowel gas Upper IVC: wnl Abd Aorta: mid and distal portions appear wnl, proximal portion obscured by overlying midline bowel gas Bladder: Incompletely distended with [place] catheter,. Incomplete distention of the urinary bladder li kelsi accentuates wall thickness measuring up to 0.4cm. Bilateral Jets Seen no Prostate: mildly enlarged measuring 4.0 x 3.2 x 5.7cm IMPRESSION: 1. No focal lesion of the visualized liver. No biliary ductal dilatation. 2. Suboptimal exam with obscuration of many structures due to overlying bowel gas.
--- NOTE | 2020-04-19 12:19 | P.PN ---
Subjective Progress Note Date: 04/19/20 HISTORY OF PRESENT ILLNESS This is a 69-year-old male patient of Dr. Winslow and Dr. 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 On 04/09/2020, patient underwent cystoscopy, transurethral resection of bladder tumors with Dr. Gonzalez. Pathology report positive for high-grade papillary urothelial carcinoma infiltrating the lamina propria and sample fragments of muscularis propria. Patient is a poor historian. He states that he was seen in the emergency center on April 14 for pinched nerve in his right arm. He denies any injury. He states he rolled over in bed and the pain developed. X-rays of the right shoulder and humerus did not show any acute abnormality. Patient was discharged home on . Patient states that he is due to see Dr. Gonzalez today in his office to have Mak catheter removed. Patient returned yesterday with inability to walk, no appetite unable to care for himself. Patient complains of nausea with loss of appetite and difficulty swallowing due to left neck mass. Chest x-ray revealed chronic linear density right upper lobe consistent with scarring or atelectasis. No heart failure. No change. CAT scan of the brain revealed cerebral atrophy. No acute intracranial abnormality. EKG is a sinus rhythm with occasional PVCs, heart rate 101. WBC 10.8, hemoglobin 8.6, platelet count 349. D-dimer 0.71. Sodium 131, potassium 3.6, chloride 95, CO2 31, BUN 11 creatinine 0.8. Liver function tests were normal. LDH 266. Urinalysis cloudy, blood small, leukoesterase moderate, nitrate negative. RBCs 40, wbc's 8. Influenza testing negative. Patient was given 1 L of IV fluids, placed on the [facility] floor and consults requested with oncology, urology, orthopedics. 04/17: Patient continues to have confusion and hallucinations. He was evaluated by speech therapy with no problems with swallowing but concern for vocal cord paralysis and recommend possible ENT workup as an outpatient if appropriate. He has undergone CAT scan of the right shoulder which revealed moderate right glenohumeral joint effusion with suspected synovitis. If concern for septic ar thritis, recommend joint sampling. No acute osseous abnormality. Orthopedics has recommended sling. CRP and sed rate have been ordered and if elevated may consider aspiration of the joint. Patient was seen by oncology and MRI of the brain was ordered. This was a suboptimal study that revealed mild diffuse age- related cerebral atrophy and moderate chronic small vessel ischemic changes. No definitive new enhancing masses to suggest metastatic disease to the brain. Oncology is considering LP. Temperature max 100.3, heart rate 108, blood pressure 126/71, pulse ox 96% on room air. quality assurance monitor is a sinus rhythm. Repeat blood work reveals WBC 9.4, hemoglobin 8.1, platelet count 283. Sodium 133, potassium 3.2 chloride 94, CO2 30.9, BUN 11 creatinine 0.7. Blood sugar 102. Vitamin B12 434. Uric acid 3.5. PT and OT recommend home with homecare subacute rehab. Methylmalonic acid, sed rate CRP are pending. Blood culture shows no growth after 24 hours. Patient has been seen by urology with recommendations to keep catheter in place and patient is mentally improved and more ambulatory. Plan for voiding trial prior to discharge. 04/18: Patient denies any new complaints. Mental status is improved. Contacted patient's and discussed current condition, prognosis and recommendations for hospice. She initially agreed to hospice but would like to wait and do palliative care at the time of discharge. Temperature max 100.3 in the past 24 hours. Heart rate 105, blood pressure 99/61, pulse ox 97% on room air. Patient underwent aspiration of the right glenohumeral joint by orthopedics. 6 ML's of serous fluid was aspirated and sent for analysis. Oncology is following. 04/19: Patient is awake and alert today. His mental status is most improved since admission. Urology is planning to remove Mak catheter today and try voiding trial. Patient continues to complain of right shoulder pain with no sign of infection on fluid study. His hemoglobin today is at 7.1 gradually dropping since admission. He will be transfused 1 unit of packed RBCs, stool for fecal occult blood will be added. Wound culture to be obtained from the left neck wound and cefepime added. Patient states that he had a large bowel movement yesterday. Other lab work revealed potassium of 3.1 which will be replaced. Total bilirubin 1.5, AST 177, ALT 173, alkaline phosphatase 182. REVIEW OF SYSTEMS Constitutional: No fever, no chills, no night sweats. Reports weight change. Reports weakness, Reportsfatigue Reports lethargy. No daytime sleepiness. EENT: No headache. No blurred vision or double vision, no loss of vision. Reports dizziness. No nasal drainage or congestion. No epistaxis. Reports dysphagia. Lungs: No shortness of breath, cough, no sputum production. No wheezing. Cardiovascular: No chest pain, no lower extremity edema. No palpitations. No paroxysmal nocturnal dyspnea. No orthopnea. Reports lightheadedness or dizziness. No syncopal episodes. Abdominal: No abdominal pain. No nausea, vomiting. No diarrhea. No constipation. No bloody or tarry stools.. No loss of appetite. Genitourinary: No dysuria, increased frequency, urgency. No urinary retention. Musculoskeletal: No myalgias. Reports muscle weakness, Reports gait dysfunction. No back pain. Reports neck pain. Integumentary: Reports wounds, no lesions. No rash or pruritus. No unusual bruising. No change in hair or nails. Neurologic: Reports dysphagia. No facial droop. Reports change in mentation resolved. No head injury. No headache. No paralysis. No paresthesia. Psychiatric: No depression. No anxiety. No mood swings. Endocrine: No abnormal blood sugars. Reports weight change. PHYSICAL EXAMINATION Gen: This is a 69-year-old male. He is resting in bed appears to be comfortable. HEENT: Head is atraumatic, normocephalic. Pupils equal, round. Sclerae is anicteric. Open wounds/ulcerations the left neck region. NECK: Supple. No JVD. No lymphadenopathy. No thyromegaly. LUNGS: Clear to auscultation. No wheezes or rhonchi. No intercostal retractions. HEART: Regular rate and rhythm. No murmur. ABDOMEN: Soft. Bowel sounds are present. No masses. No tenderness. Mak catheter draining clear antonia urine. EXTREMITIES: No pedal edema. No calf tenderness. NEUROLOGICAL: Patient is awake, alert and oriented 3. Cranial nerves 2 through 12 are grossly intact. ASSESSMENT AND PLAN 1. Generalized debility, weight loss, loss of appetite and weakness secondary to cancer. PT, OT, speech therapy consultations appreciated. 2. Basal cell skin cancer of the left cheek with metastatic disease to the neck and lungs status post palliative radiation therapy, under the care of Dr. Metzger. Consult with oncology appreciated. Await further recommendations. Wound culture and cefepime added. 3. Bladder cancer status post recent transurethral resection of bladder tumors. Consult with urology appreciated. Mak catheter to be removed today and start voiding trial. 4. Right shoulder pain. Orthopedic consult. Status post aspiration. 5. Severe protein calorie malnutrition with weight loss, loss of appetite and dysphagia secondary to neck tumor. Regular diet and ensure twice daily. Speech therapy appreciated. 6. Anemia of chronic disease with possible acute component. Patient will be transfused 1 unit of packed RBCs, stool for fecal occult blood ordered. 7. Hyponatremia secondary to malnutrition. Continue IV fluids 0.9 normal saline at 50 mL per hour. 8. Hypertension. Continue home medications which are hydralazine 25 mg 3 times daily as needed and Lopressor 12.5 mg at bedtime as needed. 9. Metabolic encephalopathy and hallucinations secondary to underlying cancers and medical debilitation, resolved. 10. GI prophylaxis. Protonix daily. 11. DVT prophylaxis. Heparin subcu. 12. Possible vocal cord paralysis. ENT follow-up outpatient. Discharge plan: Home with [facility]. Impression and plan of care have been directed as dictated by the signing physician. Karly Manzano nurse practitioner acting as scribe for signing physician Objective - Vital Signs Vital signs: Vital Signs Temp 99.8 F H 04/19/20 07:00 Pulse 89 04/19/20 07:00 Resp 18 04/19/20 07:00 BP 145/76 04/19/20 07:00 Pulse Ox 99 04/19/20 07:00 Intake & Output 04/18/20 04/19/20 04/19/20 18:59 06:59 18:59 Intake Total 800 200 Output Total 1600 Balance 800 -1400 Intake: IV 400 100 Sodium Chloride 0.9% 1, 400 100 000 ml @ 50 mls/hr IV . Q20H [facility] Rx#:[id number] Oral 400 100 Output: Urine 1600 Other: Voiding Method Indwelling Catheter Indwelling Catheter # Bowel Movements 1 - Labs CBC & Chem 7: 04/19/20 05:29 04/19/20 05:29 Labs: Abnormal Lab Results - Last 24 Hours (Table) 04/18/20 04/18/20 04/19/20 Range/Units 14:53 14:53 05:29 RBC 3.04 L 3.01 L (4.30-5.90) m/uL Hgb 7.2 L 7.1 L (13.0-17.5) gm/dL Hct 23.9 L 23.7 L (39.0-53.0) % MCV 78.7 L 78.9 L (80.0-100.0) fL MCH 23.5 L 23.5 L (25.0-35.0) pg MCHC 29.9 L 29.8 L (31.0-37.0) g/dL RDW 16.2 H 16.3 H (11.5-15.5) % Lymphocytes # 0.4 L 0.5 L (1.0-4.8) k/uL Sodium 129 L (137-145) mmol/L Potassium 3.1 L (3.5-5.1) mmol/L Chloride 95 L (98-107) mmol/L Glucose 111 H (74-99) mg/dL Calcium (8.7-10.3) mg/dL Total Bilirubin 1.4 H (0.2-1.3) mg/dL AST 230 H (17-59) U/L ALT 165 H (4-49) U/L Alkaline Phosphatase 170 H (38-126) U/L Total Protein 5.3 L (6.3-8.2) g/dL Albumin 2.4 L (3.5-5.0) g/dL Albumin/Globulin Ratio (1.60-3.17) g/dL 04/19/20 Range/Units 05:29 RBC (4.30-5.90) m/uL Hgb (13.0-17.5) gm/dL Hct (39.0-53.0) % MCV (80.0-100.0) fL MCH (25.0-35.0) pg MCHC (31.0-37.0) g/dL RDW (11.5-15.5) % Lymphocytes # (1.0-4.8) k/uL Sodium 134 L (137-145) mmol/L Potassium 3.1 L (3.5-5.1) mmol/L Chloride (98-107) mmol/L Glucose 112 H (74-99) mg/dL Calcium 8.6 L (8.7-10.3) mg/dL Total Bilirubin 1.5 H (0.2-1.3) mg/dL AST 177 H (17-59) U/L ALT 173 H (4-49) U/L Alkaline Phosphatase 182 H (38-126) U/L Total Protein 4.9 L (6.3-8.2) g/dL Albumin 2.70 L (3.5-5.0) g/dL Albumin/Globulin Ratio 1.23 L (1.60-3.17) g/dL Microbiology - Last 24 Hours (Table) 04/18/20 12:15 Gram Stain - Preliminary Shoulder - Right Wound Culture - Preliminary 04/15/20 22:17 Blood Culture - Preliminary Blood No Growth after 72 hours 04/18/20 12:15 Anaerobic Culture - Preliminary Shoulder - Right 04/18/20 12:15 Fungal Culture - Preliminary Shoulder - Right
[2020-04-19] MEDS: ACETAMINOPHEN TAB 325 MG TAB PO PRN ×2 (12:33→20:22)
--- NOTE | 2020-04-19 14:40 | P.PN ---
Subjective Progress Note Date: 04/19/20 No acute overnigth event, mental status improved. Mak draining clear yellow urine Objective - Vital Signs Vital signs: Vital Signs Temp 99.3 F 04/19/20 14:07 Pulse 83 04/19/20 14:07 Resp 18 04/19/20 12:59 BP 132/77 04/19/20 14:07 Pulse Ox 97 04/19/20 14:07 Intake & Output 04/18/20 04/19/20 04/19/20 18:59 06:59 18:59 Intake Total 800 200 0 Output Total 1600 725 Balance 800 -1400 -725 Intake: IV 400 100 Sodium Chloride 0.9% 1, 400 100 000 ml @ 50 mls/hr IV . Q20H [facility] Rx#:[id number] Oral 400 100 Blood Product 0 Rc As-1 Unit 0 [id number] Output: Urine 1600 525 Uretheral (Mak) 525 Post Void Residual 200 Other: Voiding Method Indwelling Catheter Indwelling Catheter # Voids 1 # Bowel Movements 1 - Constitutional General appearance: Present: no acute distress - Gastrointestinal General gastrointestinal: Present: soft. Absent: distended - Psychiatric Psychiatric: Present: A&O x's 3 - Labs CBC & Chem 7: 04/19/20 05:29 04/19/20 05:29 Labs: Abnormal Lab Results - Last 24 Hours (Table) 04/18/20 04/18/20 04/19/20 Range/Units 14:53 14:53 05:29 RBC 3.04 L 3.01 L (4.30-5.90) m/uL Hgb 7.2 L 7.1 L (13.0-17.5) gm/dL Hct 23.9 L 23.7 L (39.0-53.0) % MCV 78.7 L 78.9 L (80.0-100.0) fL MCH 23.5 L 23.5 L (25.0-35.0) pg MCHC 29.9 L 29.8 L (31.0-37.0) g/dL RDW 16.2 H 16.3 H (11.5-15.5) % Lymphocytes # 0.4 L 0.5 L (1.0-4.8) k/uL Sodium 129 L (137-145) mmol/L Potassium 3.1 L (3.5-5.1) mmol/L Chloride 95 L (98-107) mmol/L Glucose 111 H (74-99) mg/dL Calcium (8.7-10.3) mg/dL Total Bilirubin 1.4 H (0.2-1.3) mg/dL AST 230 H (17-59) U/L ALT 165 H (4-49) U/L Alkaline Phosphatase 170 H (38-126) U/L Total Protein 5.3 L (6.3-8.2) g/dL Albumin 2.4 L (3.5-5.0) g/dL Albumin/Globulin Ratio (1.60-3.17) g/dL Crossmatch 04/19/20 04/19/20 Range/Units 05:29 10:19 RBC (4.30-5.90) m/uL Hgb (13.0-17.5) gm/dL Hct (39.0-53.0) % MCV (80.0-100.0) fL MCH (25.0-35.0) pg MCHC (31.0-37.0) g/dL RDW (11.5-15.5) % Lymphocytes # (1.0-4.8) k/uL Sodium 134 L (137-145) mmol/L Potassium 3.1 L (3.5-5.1) mmol/L Chloride (98-107) mmol/L Glucose 112 H (74-99) mg/dL Calcium 8.6 L (8.7-10.3) mg/dL Total Bilirubin 1.5 H (0.2-1.3) mg/dL AST 177 H (17-59) U/L ALT 173 H (4-49) U/L Alkaline Phosphatase 182 H (38-126) U/L Total Protein 4.9 L (6.3-8.2) g/dL Albumin 2.70 L (3.5-5.0) g/dL Albumin/Globulin Ratio 1.23 L (1.60-3.17) g/dL Crossmatch See Detail Microbiology - Last 24 Hours (Table) 04/18/20 12:15 Gram Stain - Preliminary Shoulder - Right Wound Culture - Preliminary 04/15/20 22:17 Blood Culture - Preliminary Blood No Growth after 72 hours 04/18/20 12:15 Anaerobic Culture - Preliminary Shoulder - Right 04/18/20 12:15 Fungal Culture - Preliminary Shoulder - Right Assessment and Plan Assessment: 69 yo male admitted to the hospital with AMS, He underwent TURBT on 04/10, pathology showed muscle invasive bladder cancer. Plan: -TOV today -Can f/u in [address] Gonzalez to discuss his pathology
[2020-04-19] MEDS: traMADol 50 MG TAB PO PRN ×2 (18:28→23:40)
[2020-04-19] MEDS: CEFEPIME 1 GM in SODIUM CHLORIDE 0.9% 50 ML IVPB SCH (20:21)
[2020-04-19] MEDS ORDERED: ERIVEDGE 150 MG PO SCH (21:00)
[2020-04-19] MEDS: ERIVEDGE 150 MG PO SCH (21:44)
[2020-04-19 21:45] LABS: INR 0.9 (<1.2); Prothrombin Time 9.8 sec (9.0-12.0)
[2020-04-20 06:00] LABS: Anisocytosis Slight; HGB 8.2 gm/dL (13.0-17.5); Hypochromasia Marked; MCH 24.3 pg (25.0-35.0); MCHC 30.4 g/dL (31.0-37.0); MCV 79.9 fL (80.0-100.0); Mean Platelet Volume 7.7; Microcytosis Slight; Platelet Count 228 k/uL (150-450); Poikilocytosis Slight; RBC 3.38 m/uL (4.30-5.90); RDW 16.7 % (11.5-15.5); WBC 7.1 k/uL (3.8-10.6)
[2020-04-20] MEDS: PANTOPRAZOLE 40 MG TABLET PO SCH (07:51)
[2020-04-20] MEDS: HEPARIN SODIUM,PORCINE 5,000 UNIT/ML 1 ML VIAL SQ SCH ×2 (07:52→19:57)
[2020-04-20] MEDS: SENNOSIDES-DOCUSATE SODIUM 1 EACH TAB PO SCH (07:52)
[2020-04-20] MEDS: CEFEPIME 1 GM in SODIUM CHLORIDE 0.9% 50 ML IVPB SCH ×2 (07:52→19:57)
[2020-04-20 09:52] LABS: African American GFR (CKD) 119.7 (60.0-200.0); Albumin 2.7 g/dL (3.80-4.90); Albumin/Globulin Ratio 1.17 (1.60-3.17); Anion Gap 5.5 mmol/L (4.00-12.00); BUN/Creat Ratio 13.33 Ratio (12.00-20.00); Calcium 8.7 mg/dL (8.7-10.3); Carbon Dioxide 32.5 mmol/L (21.6-31.8); Globulin 2.3 g/dL (1.6-3.3); Non-African American GFR(CKD) 103.3 (60.0-200.0); Potassium 3.3 mmol/L (3.5-5.5); Total Bilirubin 3.4 mg/dL (0.3-1.2)
[2020-04-20] MEDS ORDERED: HYDROmorphone 0.5 MG/0.5 ML SYRINGE IVP PRN (10:03)
--- NOTE | 2020-04-20 10:05 | P.PN ---
Subjective Progress Note Date: 04/20/20 Principal diagnosis: Right shoulder pain Patient notes slight improvement in terms of his right shoulder pain. Objective - Vital Signs Vital signs: Vital Signs Temp 97.8 F 04/20/20 07:00 Pulse 75 04/20/20 07:00 Resp 18 04/20/20 07:00 BP 129/75 04/20/20 07:00 Pulse Ox 99 04/20/20 07:00 Intake & Output 04/19/20 04/20/20 04/20/20 18:59 06:59 18:59 Intake Total 310 Output Total 1575 1200 Balance -1265 -1200 Intake: Blood Product 310 Rc As-1 Unit 310 [id number] Output: Urine 1375 1200 Uretheral (Mak) 525 Post Void Residual 200 Other: Voiding Method Urinal Urinal Urinal # Voids 1 # Bowel Movements 1 - Exam Moderate anterior swelling right shoulder/no warmth or erythema Limited active range of motion right shoulder secondary to pain Distal neurovascular exam intact right upper extremity - Integumentary Integumentary: Present: normal - Labs CBC & Chem 7: 04/20/20 05:30 04/20/20 05:30 Labs: Abnormal Lab Results - Last 24 Hours (Table) 04/19/20 04/20/20 04/20/20 Range/Units 10:19 05:30 05:30 RBC 3.38 L (4.30-5.90) m/uL Hgb 8.2 L (13.0-17.5) gm/dL Hct 27.0 L (39.0-53.0) % MCV 79.9 L (80.0-100.0) fL MCH 24.3 L (25.0-35.0) pg MCHC 30.4 L (31.0-37.0) g/dL RDW 16.7 H (11.5-15.5) % Potassium 3.3 L (3.5-5.5) mmol/L Carbon Dioxide 32.5 H (21.6-31.8) mmol/L BUN 8.0 L (9.0-27.0) mg/dL Total Bilirubin 3.4 H (0.3-1.2) mg/dL AST 78 H (14-35) U/L ALT 122 H (10-49) U/L Alkaline Phosphatase 184 H (41-126) U/L Total Protein 5.0 L (6.2-8.2) g/dL Albumin 2.70 L (3.80-4.90) g/dL Albumin/Globulin Ratio 1.17 L (1.60-3.17) g/dL Crossmatch See Detail Microbiology - Last 24 Hours (Table) 04/19/20 10:08 Gram Stain - Preliminary Neck Wound Culture - Preliminary Beta Hemolytic Strep Group G Gram Neg Bacilli 04/15/20 22:17 Blood Culture - Preliminary Blood No Growth after 96 hours 04/18/20 12:15 Gram Stain - Preliminary Shoulder - Right Wound Culture - Preliminary Beta Hemolytic Strep Group G Assessment and Plan Assessment: Right shoulder synovitis/septic arthritis Multiple medical comorbidities Plan: I talked with the patient at length regarding his condition along with options. I would recommend proceeding with arthroscopic irrigation and debridement of his right shoulder today if medically stable. I would also recommend consult infectious disease for appropriate antibiotic utilization. Time with Patient: Less than 30
[2020-04-20] MEDS ORDERED: POTASSIUM CHLORIDE ER 20 MEQ TAB.ER PO STA (10:06)
[2020-04-20] MEDS: HYDROcodone/APAP 5-325MG 1 EACH TAB PO PRN (10:45)
--- NOTE | 2020-04-20 12:16 | P.PN ---
Subjective Progress Note Date: 04/20/20 HISTORY OF PRESENT ILLNESS This is a 69-year-old male patient of Dr. Winslow and Dr. 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 On 04/09/2020, patient underwent cystoscopy, transurethral resection of bladder tumors with Dr. Gonzalez. Pathology report positive for high-grade papillary urothelial carcinoma infiltrating the lamina propria and sample fragments of muscularis propria. Patient is a poor historian. He states that he was seen in the emergency center on April 14 for pinched nerve in his right arm. He denies any injury. He states he rolled over in bed and the pain developed. X-rays of the right shoulder and humerus did not show any acute abnormality. Patient was discharged home on . Patient states that he is due to see Dr. Gonzalez today in his office to have Mak catheter removed. Patient returned yesterday with inability to walk, no appetite unable to care for himself. Patient complains of nausea with loss of appetite and difficulty swallowing due to left neck mass. Chest x-ray revealed chronic linear density right upper lobe consistent with scarring or atelectasis. No heart failure. No change. CAT scan of the brain revealed cerebral atrophy. No acute intracranial abnormality. EKG is a sinus rhythm with occasional PVCs, heart rate 101. WBC 10.8, hemoglobin 8.6, platelet count 349. D-dimer 0.71. Sodium 131, potassium 3.6, chloride 95, CO2 31, BUN 11 creatinine 0.8. Liver function tests were normal. LDH 266. Urinalysis cloudy, blood small, leukoesterase moderate, nitrate negative. RBCs 40, wbc's 8. Influenza testing negative. Patient was given 1 L of IV fluids, placed on the [facility] floor and consults requested with oncology, urology, orthopedics. 04/17: Patient continues to have confusion and hallucinations. He was evaluated by speech therapy with no problems with swallowing but concern for vocal cord paralysis and recommend possible ENT workup as an outpatient if appropriate. He has undergone CAT scan of the right shoulder which revealed moderate right glenohumeral joint effusion with suspected synovitis. If concern for septic ar thritis, recommend joint sampling. No acute osseous abnormality. Orthopedics has recommended sling. CRP and sed rate have been ordered and if elevated may consider aspiration of the joint. Patient was seen by oncology and MRI of the brain was ordered. This was a suboptimal study that revealed mild diffuse age- related cerebral atrophy and moderate chronic small vessel ischemic changes. No definitive new enhancing masses to suggest metastatic disease to the brain. Oncology is considering LP. Temperature max 100.3, heart rate 108, blood pressure 126/71, pulse ox 96% on room air. monitoring tech is a sinus rhythm. Repeat blood work reveals WBC 9.4, hemoglobin 8.1, platelet count 283. Sodium 133, potassium 3.2 chloride 94, CO2 30.9, BUN 11 creatinine 0.7. Blood sugar 102. Vitamin B12 434. Uric acid 3.5. PT and OT recommend home with homecare subacute rehab. Methylmalonic acid, sed rate CRP are pending. Blood culture shows no growth after 24 hours. Patient has been seen by urology with recommendations to keep catheter in place and patient is mentally improved and more ambulatory. Plan for voiding trial prior to discharge. 04/18: Patient denies any new complaints. Mental status is improved. Contacted patient's and discussed current condition, prognosis and recommendations for hospice. She initially agreed to hospice but would like to wait and do palliative care at the time of discharge. Temperature max 100.3 in the past 24 hours. Heart rate 105, blood pressure 99/61, pulse ox 97% on room air. Patient underwent aspiration of the right glenohumeral joint by orthopedics. 6 ML's of serous fluid was aspirated and sent for analysis. Oncology is following. 04/19: Patient is awake and alert today. His mental status is most improved since admission. Urology is planning to remove Mak catheter today and try voiding trial. Patient continues to complain of right shoulder pain with no sign of infection on fluid study. His hemoglobin today is at 7.1 gradually dropping since admission. He will be transfused 1 unit of packed RBCs, stool for fecal occult blood will be added. Wound culture to be obtained from the left neck wound and cefepime added. Patient states that he had a large bowel movement yesterday. Other lab work revealed potassium of 3.1 which will be replaced. Total bilirubin 1.5, AST 177, ALT 173, alkaline phosphatase 182. 04/20: Dr. Cherry is planning to take patient or this afternoon as right shoulder aspiration came back with Streptococcus. Patient is currently covered with cefepime. Wound culture from the left neck wound is also strep. Repeat blood work reveals Latia BC 7.1, hemoglobin 8.2 following 1 unit packed RBCs. Platelet count 228. Sodium 136, potassium 3.3 and will be replaced, chloride 98, CO2 32.5, BUN 18 creatinine 0.6. C-reactive protein is 223.7. Mak catheter was removed yesterday and patient has been voiding. He has had minimal residuals running 150-200. Patient does not have Mak catheter resumed and lasts more than 250 per urology. Patient is to follow-up in the office in one week REVIEW OF SYSTEMS Constitutional: No fever, no chills, no night sweats. Reports weight change. Reports weakness, Reportsfatigue Reports lethargy. No daytime sleepiness. EENT: No headache. No blurred vision or double vision, no loss of vision. Reports dizziness. No nasal drainage or congestion. No epistaxis. Reports dysphagia. Lungs: No shortness of breath, cough, no sputum production. No wheezing. Cardiovascular: No chest pain, no lower extremity edema. No palpitations. No paroxysmal nocturnal dyspnea. No orthopnea. Reports lightheadedness or dizziness. No syncopal episodes. Abdominal: No abdominal pain. No nausea, vomiting. No diarrhea. No constipa tion. No bloody or tarry stools.. No loss of appetite. Genitourinary: No dysuria, increased frequency, urgency. No urinary retention. Musculoskeletal: No myalgias. Reports muscle weakness, Reports gait dysfunction. No back pain. Reports neck pain. Integumentary: Reports wounds, no lesions. No rash or pruritus. No unusual bruising. No change in hair or nails. Neurologic: Reports dysphagia. No facial droop. Reports change in mentation resolved. No head injury. No headache. No paralysis. No paresthesia. Psychiatric: No depression. No anxiety. No mood swings. Endocrine: No abnormal blood sugars. Reports weight change. PHYSICAL EXAMINATION Gen: This is a 69-year-old male. He is resting in bed appears to be comfortable. HEENT: Head is atraumatic, normocephalic. Pupils equal, round. Sclerae is anicteric. Open wounds/ulcerations the left neck region. NECK: Supple. No JVD. No lymphadenopathy. No thyromegaly. LUNGS: Clear to auscultation. No wheezes or rhonchi. No intercostal retractions. HEART: Regular rate and rhythm. No murmur. ABDOMEN: Soft. Bowel sounds are present. No masses. No tenderness. Mak catheter draining clear antonia urine. EXTREMITIES: No pedal edema. No calf tenderness. NEUROLOGICAL: Patient is awake, alert and oriented 3. Cranial nerves 2 through 12 are grossly intact. ASSESSMENT AND PLAN 1. Generalized debility, weight loss, loss of appetite and weakness secondary to cancer and septic right shoulder joint. PT, OT, speech therapy consultations appreciated. I&D of the right shoulder today. Patient has been cleared for surgical intervention 2. Basal cell skin cancer of the left cheek with metastatic disease to the neck and lungs status post palliative radiation therapy, under the care of Dr. Metzger. Consult with oncology appreciated. Await further recommendations. Wound culture and cefepime added. 3. Bladder cancer status post recent transurethral resection of bladder tumors. Consult with urology appreciated. Mak catheter to be removed today and start voiding trial. 4. Right shoulder pain. Orthopedic consult. Status post aspiration. 5. Severe protein calorie malnutrition with weight loss, loss of appetite and dysphagia secondary to neck tumor. Regular diet and ensure twice daily. Speech therapy appreciated. 6. Anemia of chronic disease with possible acute component. Patient will be transfused 1 unit of packed RBCs, stool for fecal occult blood ordered. 7. Hyponatremia secondary to malnutrition. Continue IV fluids 0.9 normal saline at 50 mL per hour. 8. Hypertension. Continue home medications which are hydralazine 25 mg 3 times daily as needed and Lopressor 12.5 mg at bedtime as needed. 9. Metabolic encephalopathy and hallucinations secondary to underlying cancers and medical debilitation, resolved. 10. GI prophylaxis. Protonix daily. 11. DVT prophylaxis. Heparin subcu. 12. Possible vocal cord paralysis. ENT follow-up outpatient. Discharge plan: Home with [facility]. Impression and plan of care have been directed as dictated by the signing physician. Karly Manzano nurse practitioner acting as scribe for signing physician Objective - Vital Signs Vital signs: Vital Signs Temp 97.8 F 04/20/20 07:00 Pulse 75 04/20/20 07:00 Resp 18 04/20/20 07:00 BP 129/75 04/20/20 07:00 Pulse Ox 99 04/20/20 07:00 Intake & Output 04/19/20 04/20/20 04/20/20 18:59 06:59 18:59 Intake Total 310 Output Total 1575 1200 Balance -1265 -1200 Intake: Blood Product 310 Rc As-1 Unit 310 [id number] Output: Urine 1375 1200 Uretheral (Mak) 525 Post Void Residual 200 Other: Voiding Method Urinal Urinal Urinal # Voids 1 # Bowel Movements 1 - Labs CBC & Chem 7: 04/20/20 05:30 04/20/20 05:30 Labs: Abnormal Lab Results - Last 24 Hours (Table) 04/19/20 04/20/20 04/20/20 Range/Units 10: 05:30 05:30 RBC 3.38 L (4.30-5.90) m/uL Hgb 8.2 L (13.0-17.5) gm/dL Hct 27.0 L (39.0-53.0) % MCV 79.9 L (80.0-100.0) fL MCH 24.3 L (25.0-35.0) pg MCHC 30.4 L (31.0-37.0) g/dL RDW 16.7 H (11.5-15.5) % Potassium 3.3 L (3.5-5.5) mmol/L Carbon Dioxide 32.5 H (21.6-31.8) mmol/L BUN 8.0 L (9.0-27.0) mg/dL Total Bilirubin 3.4 H (0.3-1.2) mg/dL AST 78 H (14-35) U/L ALT 122 H (10-49) U/L Alkaline Phosphatase 184 H (41-126) U/L Total Protein 5.0 L (6.2-8.2) g/dL Albumin 2.70 L (3.80-4.90) g/dL Albumin/Globulin Ratio 1.17 L (1.60-3.17) g/dL Crossmatch See Detail Microbiology - Last 24 Hours (Table) 04/19/20 10:08 Gram Stain - Preliminary Neck Wound Culture - Preliminary Beta Hemolytic Strep Group G Gram Neg Bacilli 04/15/20 22:17 Blood Culture - Preliminary Blood No Growth after 96 hours 04/18/20 12:15 Gram Stain - Preliminary Shoulder - Right Wound Culture - Preliminary Beta Hemolytic Strep Group G
[2020-04-20] MEDS ORDERED: LACTATED RINGERS 1,000 ML IV ONE ×2 (15:20→17:09)
[2020-04-20] MEDS: SODIUM CHLORIDE 0.9% 1,000 ML IV SCH (16:09)
[2020-04-20] MEDS ORDERED: LIDOCAINE 1% INJ 10MG/ML (20 ML MDV) ONE (16:27)
[2020-04-20] MEDS ORDERED: fentaNYL (PF) 50 MCG/ML 2 ML AMP ONE (16:27)
[2020-04-20] MEDS ORDERED: MIDAZOLAM 2 MG/2 ML VIAL ONE (16:27)
[2020-04-20] MEDS ORDERED: PROPOFOL 10 MG/ML 20 ML VIAL IV ONE (16:27)
[2020-04-20] MEDS ORDERED: SUCCINYLCHOLINE CHLORIDE 100 MG/5 ML SYR IV ONE (16:27)
[2020-04-20] MEDS ORDERED: SODIUM CHLORIDE 0.9% 100 ML with ceFAZolin 2,000 MG IV ONE ×2 (16:49)
[2020-04-20] MEDS ORDERED: ceFAZolin 3,000 MG in SODIUM CHLORIDE 0.9% IRRIGATIO 3,000 ML IRRIGATION ONE (16:50)
--- NOTE | 2020-04-20 17:35 | P.OP ---
Date of Procedure: 04/20/20 Preoperative Diagnosis: Right septic glenohumeral joint arthritis Postoperative Diagnosis: Same Procedure(s) Performed: Right shoulder arthroscopic lavage/synovectomy Anesthesia: JOE Surgeon: Moses Cherry Estimated Blood Loss (ml): 10 Pathology: other (Gram stain/cultures) Condition: stable Disposition: PACU Indications for Procedure: The patient is a 69-year-old male with multiple medical comorbidities presents with a several day history of right shoulder pain. His ESR and CRP were quite elevated. Initial aspiration did not show significant organisms on Gram stain. Subsequent cultures showed group G strep. A discussion of the risks and benefits of operative intervention was made with patient. He opted to proceed with surgery. Operative risks to include persistence of infection need for subsequent procedures was discussed. Informed consent was obtained. Operative Findings: As below Description of Procedure: The patient was brought to the operating room, and after induction of general anesthesia was placed in the beachchair position. The bony prominences were appropriately padded. The right upper extremity was prepped and draped in normal fashion. The bony outlines the acromion, distal clavicle, and coracoid process were outlined with a skin marker. A spinal needle was then inserted posteriorly. The fluid was sent for Gram stain and culture. The glenohumeral joint was inflated with 50 mL of saline utilizing a spinal needle from posterior approach. A posterior portal was made 1 cm medial and inferior to the posterior lateral border of the acromion. A blunt trocar was used to easily into the joint. Diagnostic arthroscopy was performed. There was marked synovitis. An anterior portals made just lateral to the coracoid process entering the joint above the subscapularis tendon. This was debrided with a motorized shaver. This involved the rotator interval, the anterior portion the joint, the inferior recess, and posteriorly. The rotator cuff appeared to be intact. The biceps an chor was intact. The subscapularis was intact. There was some chondrolysis involving the central inferior portion of the glenoid. Minimal degenerative changes were noted involving humeral head. 9 L of fluid was utilized. The arthroscope was then removed. The posterior portal was closed with Steri- Strips. The left anterior portal was left open for drainage. A sterile dressing was applied in addition to a sling. The patient was awoken from general anesthesia and transferred to the recovery room in good condition. Blood loss was estimated at 10 mL. No complications were incurred. Sponge and needle counts were correct at the end of the case.
[2020-04-20] MEDS ORDERED: hydrALAZINE HCL 20 MG/ML 1 ML VIAL IV ONE (17:50)
[2020-04-20] MEDS: ERIVEDGE 150 MG PO SCH (19:57)
[2020-04-21 06:26] LABS: Anisocytosis Slight; HCT 27.4 % (39.0-53.0); HGB 8.3 gm/dL (13.0-17.5); Hypochromasia Marked; MCH 24.5 pg (25.0-35.0); MCHC 30.5 g/dL (31.0-37.0); MCV 80.2 fL (80.0-100.0); Platelet Count 284 k/uL (150-450); Poikilocytosis Slight; RBC 3.41 m/uL (4.30-5.90); RDW 16.7 % (11.5-15.5); WBC 8.4 k/uL (3.8-10.6)
[2020-04-21] MEDS: SENNOSIDES-DOCUSATE SODIUM 1 EACH TAB PO SCH (07:37)
[2020-04-21] MEDS: CEFEPIME 1 GM in SODIUM CHLORIDE 0.9% 50 ML IVPB SCH (07:37)
[2020-04-21] MEDS: HEPARIN SODIUM,PORCINE 5,000 UNIT/ML 1 ML VIAL SQ SCH ×2 (07:37→19:23)
[2020-04-21] MEDS: PANTOPRAZOLE 40 MG TABLET PO SCH (07:37)
--- NOTE | 2020-04-21 08:35 | P.PN ---
Progress Note - Text Progress Note Date: 04/21/20 Mr. Bonilla underwent right shoulder arthroscopic lavage yesterday. He is awake and alert. He is voiding without difficulty, though he reports urgency. He denies hematuria. I had a lengthy discussion with the patient regarding his muscle invasive urothelial carcinoma of the bladder. I explained to him that the gold standard is a radical cystoprostatectomy, but given his multiple comorbid conditions I do not feel this is in his best interest. Chemotherapy can be effective in treating urothelial carcinoma, though he is currently receiving chemotherapy for basal cell carcinoma and I am uncertain whether or not there is an agent which has activity against both basal cell carcinoma and urothelial carcinoma. At the least, I would suggest that he receive radiation therapy for the benefit of local control. He will follow up with me as an outpatient. Please notify me if I can be of any further assistance.
[2020-04-21] MEDS: SODIUM CHLORIDE 0.9% 1,000 ML IV SCH (11:48)
--- NOTE | 2020-04-21 12:25 | P.PN ---
Subjective Progress Note Date: 04/21/20 HISTORY OF PRESENT ILLNESS This is a 69-year-old male patient of Dr. Winslow and Dr. 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 On 04/09/2020, patient underwent cystoscopy, transurethral resection of bladder tumors with Dr. Gonzalez. Pathology report positive for high-grade papillary urothelial carcinoma infiltrating the lamina propria and sample fragments of muscularis propria. Patient is a poor historian. He states that he was seen in the emergency center on April 14 for pinched nerve in his right arm. He denies any injury. He states he rolled over in bed and the pain developed. X-rays of the right shoulder and humerus did not show any acute abnormality. Patient was discharged home on . Patient states that he is due to see Dr. Gonzalez today in his office to have Mak catheter removed. Patient returned yesterday with inability to walk, no appetite unable to care for himself. Patient complains of nausea with loss of appetite and difficulty swallowing due to left neck mass. Chest x-ray revealed chronic linear density right upper lobe consistent with scarring or atelectasis. No heart failure. No change. CAT scan of the brain revealed cerebral atrophy. No acute intracranial abnormality. EKG is a sinus rhythm with occasional PVCs, heart rate 101. WBC 10.8, hemoglobin 8.6, platelet count 349. D-dimer 0.71. Sodium 131, potassium 3.6, chloride 95, CO2 31, BUN 11 creatinine 0.8. Liver function tests were normal. LDH 266. Urinalysis cloudy, blood small, leukoesterase moderate, nitrate negative. RBCs 40, wbc's 8. Influenza testing negative. Patient was given 1 L of IV fluids, placed on the [facility] floor and consults requested with oncology, urology, orthopedics. 04/17: Patient continues to have confusion and hallucinations. He was evaluated by speech therapy with no problems with swallowing but concern for vocal cord paralysis and recommend possible ENT workup as an outpatient if appropriate. He has undergone CAT scan of the right shoulder which revealed moderate right glenohumeral joint effusion with suspected synovitis. If concern for septic ar thritis, recommend joint sampling. No acute osseous abnormality. Orthopedics has recommended sling. CRP and sed rate have been ordered and if elevated may consider aspiration of the joint. Patient was seen by oncology and MRI of the brain was ordered. This was a suboptimal study that revealed mild diffuse age- related cerebral atrophy and moderate chronic small vessel ischemic changes. No definitive new enhancing masses to suggest metastatic disease to the brain. Oncology is considering LP. Temperature max 100.3, heart rate 108, blood pressure 126/71, pulse ox 96% on room air. patient monitor is a sinus rhythm. Repeat blood work reveals WBC 9.4, hemoglobin 8.1, platelet count 283. Sodium 133, potassium 3.2 chloride 94, CO2 30.9, BUN 11 creatinine 0.7. Blood sugar 102. Vitamin B12 434. Uric acid 3.5. PT and OT recommend home with homecare subacute rehab. Methylmalonic acid, sed rate CRP are pending. Blood culture shows no growth after 24 hours. Patient has been seen by urology with recommendations to keep catheter in place and patient is mentally improved and more ambulatory. Plan for voiding trial prior to discharge. 04/18: Patient denies any new complaints. Mental status is improved. Contacted patient's and discussed current condition, prognosis and recommendations for hospice. She initially agreed to hospice but would like to wait and do palliative care at the time of discharge. Temperature max 100.3 in the past 24 hours. Heart rate 105, blood pressure 99/61, pulse ox 97% on room air. Patient underwent aspiration of the right glenohumeral joint by orthopedics. 6 ML's of serous fluid was aspirated and sent for analysis. Oncology is following. 04/19: Patient is awake and alert today. His mental status is most improved since admission. Urology is planning to remove Mak catheter today and try voiding trial. Patient continues to complain of right shoulder pain with no sign of infection on fluid study. His hemoglobin today is at 7.1 gradually dropping since admission. He will be transfused 1 unit of packed RBCs, stool for fecal occult blood will be added. Wound culture to be obtained from the left neck wound and cefepime added. Patient states that he had a large bowel movement yesterday. Other lab work revealed potassium of 3.1 which will be replaced. Total bilirubin 1.5, AST 177, ALT 173, alkaline phosphatase 182. 04/20: Dr. Cherry is planning to take patient or this afternoon as right shoulder aspiration came back with Streptococcus. Patient is currently covered with cefepime. Wound culture from the left neck wound is also strep. Repeat blood work reveals Latia BC 7.1, hemoglobin 8.2 following 1 unit packed RBCs. Platelet count 228. Sodium 136, potassium 3.3 and will be replaced, chloride 98, CO2 32.5, BUN 18 creatinine 0.6. C-reactive protein is 223.7. Mak catheter was removed yesterday and patient has been voiding. He has had minimal residuals running 150-200. Patient does not have Mak catheter resumed and lasts more than 250 per urology. Patient is to follow-up in the office in one week 04/21: Patient is status post I&D of the right shoulder. Repeat cultures have been sent. Right shoulder aspirate culture is showing beta hemolytic strep. Left neck wound culture is showing beta him X strep and gram-negative bacilli. Patient has been afebrile, heart rate 94, blood pressure 130/75, pulse ox 90% on room air. WBC 8.4, hemoglobin 8.3, platelet count 284. Discussed case with Dr. Sun recommendations for Rocephin 2 g every day to complete 6 weeks. gravity manager has been updated and we'll make arrangements for outpatient IV antibiotics. PICC line has been ordered. Antibiotics have been transitioned to Rocephin from cefepime. He has a large dressing in place to the right shoulder. Anticipate probable discharge tomorrow. REVIEW OF SYSTEMS Constitutional: No fever, no chills, no night sweats. Reports weight change. Reports weakness, Reportsfatigue Reports lethargy. No daytime sleepiness. EENT: No headache. No blurred vision or double vision, no loss of vision. Reports dizziness. No nasal drainage or congestion. No epistaxis. Reports dysphagia. Lungs: No shortness of breath, cough, no sputum production. No wheezing. Cardiovascular: No chest pain, no lower extremity edema. No palpitations. No paroxysmal nocturnal dyspnea. No orthopnea. Reports lightheadedness or dizziness. No syncopal episodes. Abdominal: No abdominal pain. No nausea, vomiting. No diarrhea. No constipation. No bloody or tarry stools.. No loss of appetite. Genitourinary: No dysuria, increased frequency, urgency. No urinary retention. Musculoskeletal: No myalgias. Reports muscle weakness, Reports gait dysfunction. No back pain. Reports neck pain. Reports right shoulder pain. Integumentary: Reports wounds, no lesions. No rash or pruritus. No unusual bruising. No change in hair or nails. Neurologic: Reports dysphagia. No facial droop. Reports change in mentation resolved. No head injury. No headache. No paralysis. No paresthesia. Psychiatric: No depression. No anxiety. No mood swings. Endocrine: No abnormal blood sugars. Reports weight change. PHYSICAL EXAMINATION Gen: This is a 69-year-old male. He is resting in chair appears to be comfortable. HEENT: Head is atraumatic, normocephalic. Pupils equal, round. Sclerae is anicteric. Open wounds/ulcerations the left neck region. NECK: Supple. No JVD. No lymphadenopathy. No thyromegaly. LUNGS: Clear to auscultation. No wheezes or rhonchi. No intercostal retractions. HEART: Regular rate and rhythm. No murmur. ABDOMEN: Soft. Bowel sounds are present. No masses. No tenderness. Mak catheter draining clear antonia urine. EXTREMITIES: No pedal edema. No calf tenderness. Large dressing in place to the right shoulder. NEUROLOGICAL: Patient is awake, alert and oriented 3. Cranial nerves 2 through 12 are grossly intact. ASSESSMENT AND PLAN 1. Generalized debility, weight loss, loss of appetite and weakness secondary to cancer and septic right shoulder joint. PT, OT, speech therapy consultations appreciated. I&D of the right shoulder today. Antibiotics transitioned to Rocephin 2 g daily 2. Basal cell skin cancer of the left cheek with metastatic disease to the neck and lungs status post palliative radiation therapy, under the care of Dr. Metzger. Consult with oncology appreciated. Await further recommendations. Wound culture and cefepime added. Patient plans to follow up with [facility] in [place] for second opinion. 3. Bladder cancer status post recent transurethral resection of bladder tumors. Consult with urology appreciated. Mak catheter to be removed today and start voiding trial. 4. Right shoulder pain. Orthopedic consult. Status post aspiration. Continue as in #1. 5. Severe protein calorie malnutrition with weight loss, loss of appetite and dysphagia secondary to neck tumor. Regular diet and ensure twice daily. Speech therapy appreciated. 6. Anemia of chronic disease with possible acute component. Patient will be transfused 1 unit of packed RBCs, stool for fecal occult blood ordered. 7. Hyponatremia secondary to malnutrition. Continue IV fluids 0.9 normal saline at 50 mL per hour. 8. Hypertension. Continue home medications which are hydralazine 25 mg 3 times daily as needed and Lopressor 12.5 mg at bedtime as needed. 9. Metabolic encephalopathy and hallucinations secondary to underlying cancers and medical debilitation, resolved. 10. GI prophylaxis. Protonix daily. 11. DVT prophylaxis. Heparin subcu. 12. Possible vocal cord paralysis. ENT follow-up outpatient. Discharge plan: Home with [facility] on Tuesday with IV antibiotics. Impression and plan of care have been directed as dictated by the signing ph ysician. Karly Manzano nurse practitioner acting as scribe for signing physician Objective - Vital Signs Vital signs: Vital Signs Temp 98.3 F 04/21/20 00:16 Pulse 94 04/21/20 00:16 Resp 16 04/21/20 00:00 BP 138/75 04/21/20 00:16 Pulse Ox 98 04/21/20 00:16 Intake & Output 04/20/20 04/21/20 04/21/20 18:59 06:59 18:59 Intake Total 1501 Output Total 235 650 Balance 1266 -650 Intake: IV 1501 Output: Urine 650 Post Void Residual 225 Estimated Blood Loss 10 Other: Voiding Method Urinal Urinal # Voids 1 1 - Labs CBC & Chem 7: 04/21/20 05:29 04/20/20 05:30 Labs: Abnormal Lab Results - Last 24 Hours (Table) 04/20/20 04/20/20 04/20/20 Range/Units 05:30 05:30 10:27 RBC (4.30-5.90) m/uL Hgb (13.0-17.5) gm/dL Hct (39.0-53.0) % MCH (25.0-35.0) pg MCHC (31.0-37.0) g/dL RDW (11.5-15.5) % ESR 78 H (0-15) mm/hr Potassium 3.3 L (3.5-5.5) mmol/L Carbon Dioxide 32.5 H (21.6-31.8) mmol/L BUN 8.0 L (9.0-27.0) mg/dL Total Bilirubin 3.4 H (0.3-1.2) mg/dL AST 78 H (14-35) U/L ALT 122 H (10-49) U/L Alkaline Phosphatase 184 H (41-126) U/L C-Reactive Protein 223.7 H (<10.0) mg/L Total Protein 5.0 L (6.2-8.2) g/dL Albumin 2.70 L (3.80-4.90) g/dL Albumin/Globulin Ratio 1.17 L (1.60-3.17) g/dL 04/21/20 Range/Units 05:29 RBC 3.41 L (4.30-5.90) m/uL Hgb 8.3 L (13.0-17.5) gm/dL Hct 27.4 L (39.0-53.0) % MCH 24.5 L (25.0-35.0) pg MCHC 30.5 L (31.0-37.0) g/dL RDW 16.7 H (11.5-15.5) % ESR (0-15) mm/hr Potassium (3.5-5.5) mmol/L Carbon Dioxide (21.6-31.8) mmol/L BUN (9.0-27.0) mg/dL Total Bilirubin (0.3-1.2) mg/dL AST (14-35) U/L ALT (10-49) U/L Alkaline Phosphatase (41-126) U/L C-Reactive Protein (<10.0) mg/L Total Protein (6.2-8.2) g/dL Albumin (3.80-4.90) g/dL Albumin/Globulin Ratio (1.60-3.17) g/dL Microbiology - Last 24 Hours (Table) 04/20/20 17:00 Gram Stain - Preliminary Shoulder - Right Wound Culture - Preliminary 04/15/20 22:17 Blood Culture - Preliminary Blood No Growth after 120 hours 04/18/20 12:15 Anaerobic Culture - Preliminary Shoulder - Right 04/20/20 17:00 Anaerobic Culture - Preliminary Shoulder - Right 04/18/20 12:15 Gram Stain - Final Shoulder - Right Wound Culture - Final Beta Hemolytic Strep Group G 04/19/20 10:08 Gram Stain - Preliminary Neck Wound Culture - Preliminary Beta Hemolytic Strep Group G Gram Neg Bacilli
--- NOTE | 2020-04-21 12:36 | P.PN ---
Subjective Progress Note Date: 04/21/20 Principal diagnosis: Status post right shoulder arthroscopic lavage/synovectomy Patient evaluated today at bedside, he is resting comfortably. He notes significant improvement in the symptoms of the right shoulder. He's been utilizing the arm sling. He's been ambulating around the room with the aid therapy. Denies any chest pain, shortness of breath, fever or chills. Objective - Vital Signs Vital signs: Vital Signs Temp 98.7 F 04/21/20 07:00 Pulse 98 04/21/20 07:00 Resp 17 04/21/20 07:00 BP 113/68 04/21/20 07:00 Pulse Ox 98 04/21/20 07:00 Intake & Output 04/20/20 04/21/20 04/21/20 18:59 06:59 18:59 Intake Total 1501 Output Total 235 650 Balance 1266 -650 Intake: IV 1501 Output: Urine 650 Post Void Residual 225 Estimated Blood Loss 10 Other: Voiding Method Urinal Urinal Urinal # Voids 1 1 - Exam Right upper extremity: Postop bandages in good position and condition, there is no active drainage visualized Minimal soft tissue swelling present throughout the extremity Sensation to light touch throughout the extremity is intact, radial and ulnar pulses 2+ Range of motion of the shoulder was not assessed, flexion and extension at the elbow and wrist are intact - Labs CBC & Chem 7: 04/21/20 05:29 04/20/20 05:30 Labs: Abnormal Lab Results - Last 24 Hours (Table) 04/21/20 Range/Units 05:29 RBC 3.41 L (4.30-5.90) m/uL Hgb 8.3 L (13.0-17.5) gm/dL Hct 27.4 L (39.0-53.0) % MCH 24.5 L (25.0-35.0) pg MCHC 30.5 L (31.0-37.0) g/dL RDW 16.7 H (11.5-15.5) % Microbiology - Last 24 Hours (Table) 04/19/20 10:08 Gram Stain - Preliminary Neck Wound Culture - Preliminary Beta Hemolytic Strep Group G Pseudomonas aeruginosa 04/20/20 17:00 Gram Stain - Preliminary Shoulder - Right Wound Culture - Preliminary 04/15/20 22:17 Blood Culture - Preliminary Blood No Growth after 120 hours 04/18/20 12:15 Anaerobic Culture - Preliminary Shoulder - Right 04/20/20 17:00 Anaerobic Culture - Preliminary Shoulder - Right 04/18/20 12:15 Gram Stain - Final Shoulder - Right Wound Culture - Final Beta Hemolytic Strep Group G Assessment and Plan Assessment: Status post right shoulder arthroscopic lavage/synovectomy Right shoulder septic arthritis/synovitis Multiple medical comorbidities Plan: We'll continue to use the current bandage that is in place, I will change this tomorrow morning Continue use of arm sling as needed, hand and wrist exercises are fine Pain control, utilize current medication Await culture and sensitivity results Other medical specialty recommendations We'll continue to follow patient during inpatient stay Time with Patient: Less than 30
[2020-04-21] MEDS ORDERED: LIDOCAINE 1% INJ 10MG/ML (20 ML MDV) SQ ONE (15:15)
[2020-04-21 15:48] LABS: African American GFR (CKD) 129.1 (60.0-200.0); Albumin 2.5 g/dL (3.80-4.90); Albumin/Globulin Ratio 1.09 (1.60-3.17); Calcium 8.5 mg/dL (8.7-10.3); Globulin 2.3 g/dL (1.6-3.3); Non-African American GFR(CKD) 111.3 (60.0-200.0); Potassium 3.1 mmol/L (3.5-5.5); Total Bilirubin 2.6 mg/dL (0.3-1.2); Total Protein 4.8 g/dL (6.2-8.2)
--- NOTE | 2020-04-21 15:56 | IR ---
EXAMINATION TYPE: IR cvc insert >=5 years DATE OF EXAM: 04/21/2020 COMPARISON: NONE CLINICAL HISTORY: Septic shoulder Needs long-term intravenous access for antibiotics. PROCEDURE: Hand hygiene obtained with soap and water and alcohol-based hand rub. After informed consent, the skin overlying the left brachial vein was localized with ultrasound and n oted to be compressible and patent. An ultrasound image was obtained and submitted on the patient's chart. The overlying skin was prepped and draped and Lidocaine was used for local anesthesia. A ski n delmy was made with a scalpel. Access was gained to the vein under ultrasound guidance with a 21 ga uge needle and a 0.018 inch wire was advanced. Access site was dilated with Peel-Away sheath and cat heter tailored to the appropriate length and advanced such that the distal tip is at the cavoatrial j unction. Spot image was obtained verifying placement. Catheter was fixed to the skin and a sterile dressing was placed following hemostasis. Catheter was aspirated and flushed with saline. Patient w as discharged in stable condition without complication.Maximal barrier technique is utilized. Ultras ound image is documented on the chart. Ultrasound used with sterile technique. Fluoro time and fluoroscopic images submitted to document procedure: 75 intraoperative images, 0.6 mi nutes fluoroscopy time IMPRESSION: STATUS POST ULTRASOUND AND FLUOROSCOPIC GUIDED PICC LINE PLACEMENT, READY FOR USE. THIS PROCEDURE WAS PERFORMED BY THE UNDERSIGNED.
[2020-04-21] MEDS: ACETAMINOPHEN TAB 325 MG TAB PO PRN (19:23)
[2020-04-21] MEDS: ERIVEDGE 150 MG PO SCH (19:24)
--- NOTE | 2020-04-22 07:57 | P.DS ---
Providers Date of admission: 04/17/20 14:07 Expected date of discharge: 04/22/20 Attending physician: Moise Bermudez Consults: 04/16/20 09:01 Consult Physician Routine Consulting Provider: Tony Metzger Consult Reason/Comments: lung, neck, bladder ca Do you want consulting provider notified?: Yes 04/16/20 09:02 Consult Physician Routine Consulting Provider: Gabe Gonzalez Consult Reason/Comments: bladder cancer Do you want consulting provider notified?: Yes 04/16/20 09:07 Consult Physician Routine Consulting Provider: Moses Cherry Consult Reason/Comments: right shoulder pain Do you want consulting provider notified?: Yes Primary care physician: [facility] Course: HISTORY OF PRESENT ILLNESS This is a 69-year-old male patient of Dr. Winslow and Dr. 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 On 04/09/2020, patient underwent cystoscopy, transurethral resection of bladder tumors with Dr. Gonzalez. Pathology report positive for high-grade papillary urothelial carcinoma infiltrating the lamina propria and sample fragments of muscularis propria. Patient is a poor historian. He states that he was seen in the emergency center on April 14 for pinched nerve in his right arm. He denies any injury. He states he rolled over in bed and the pain developed. X-rays of the right shoulder and humerus did not show any acute abnormality. Patient was discharged home on Flexeril. Patient states that he is due to see Dr. Gonzalez today in his office to have Mak catheter removed. Patient returned yesterday with inability to walk, no appetite unable to care fo r himself. Patient complains of nausea with loss of appetite and difficulty swallowing due to left neck mass. Chest x-ray revealed chronic linear density right upper lobe consistent with scarring or atelectasis. No heart failure. No change. CAT scan of the brain revealed cerebral atrophy. No acute intracranial abnormality. EKG is a sinus rhythm with occasional PVCs, heart rate 101. WBC 10.8, hemoglobin 8.6, platelet count 349. D-dimer 0.71. Sodium 131, potassium 3.6, chloride 95, CO2 31, BUN 11 creatinine 0.8. Liver function tests were normal. LDH 266. Urinalysis cloudy, blood small, leukoesterase moderate, nitrate negative. RBCs 40, wbc's 8. Influenza testing negative. Patient was given 1 L of IV fluids, placed on the [facility] floor and consults requested with oncology, urology, orthopedics. 04/17: Patient continues to have confusion and hallucinations. He was evaluated by speech therapy with no problems with swallowing but concern for vocal cord paralysis and recommend possible ENT workup as an outpatient if appropriate. He has undergone CAT scan of the right shoulder which revealed moderate right glenohumeral joint effusion with suspected synovitis. If concern for septic arthritis, recommend joint sampling. No acute osseous abnormality. Orthopedics has recommended sling. CRP and sed rate have been ordered and if elevated may consider aspiration of the joint. Patient was seen by oncology and MRI of the brain was ordered. This was a suboptimal study that revealed mild diffuse age- related cerebral atrophy and moderate chronic small vessel ischemic changes. No definitive new enhancing masses to suggest metastatic disease to the brain. Oncology is considering LP. Temperature max 100.3, heart rate 108, blood pressure 126/71, pulse ox 96% on room air. property assessment monitor is a sinus rhythm. Repeat blood work reveals WBC 9.4, hemoglobin 8.1, platelet count 283. Sodium 133, potassium 3.2 chloride 94, CO2 30.9, BUN 11 creatinine 0.7. Blood sugar 1 02. Vitamin B12 434. Uric acid 3.5. PT and OT recommend home with homecare subacute rehab. Methylmalonic acid, sed rate CRP are pending. Blood culture shows no growth after 24 hours. Patient has been seen by urology with recommendations to keep catheter in place and patient is mentally improved and more ambulatory. Plan for voiding trial prior to discharge. 04/18: Patient denies any new complaints. Mental status is improved. Contacted patient's and discussed current condition, prognosis and recommendations for hospice. She initially agreed to hospice but would like to wait and do palliative care at the time of discharge. Temperature max 100.3 in the past 24 hours. Heart rate 105, blood pressure 99/61, pulse ox 97% on room air. Patient underwent aspiration of the right glenohumeral joint by orthopedics. 6 ML's of serous fluid was aspirated and sent for analysis. Oncology is following. 04/19: Patient is awake and alert today. His mental status is most improved since admission. Urology is planning to remove Mak catheter today and try voiding trial. Patient continues to complain of right shoulder pain with no sign of infection on fluid study. His hemoglobin today is at 7.1 gradually dropping since admission. He will be transfused 1 unit of packed RBCs, stool for fecal occult blood will be added. Wound culture to be obtained from the left neck wound and cefepime added. Patient states that he had a large bowel movement yesterday. Other lab work revealed potassium of 3.1 which will be replaced. Total bilirubin 1.5, AST 177, ALT 173, alkaline phosphatase 182. 04/20: Dr. Cherry is planning to take patient or this afternoon as right shoulder aspiration came back with Streptococcus. Patient is currently covered with cefepime. Wound culture from the left neck wound is also strep. Repeat blood work reveals Latia BC 7.1, hemoglobin 8.2 following 1 unit packed RBCs. Platelet count 228. Sodium 136, potassium 3.3 and will be replaced, chloride 9 8, CO2 32.5, BUN 18 creatinine 0.6. C-reactive protein is 223.7. Mak catheter was removed yesterday and patient has been voiding. He has had minimal residuals running 150-200. Patient does not have Mak catheter resumed and lasts more than 250 per urology. Patient is to follow-up in the office in one week 04/21: Patient is status post I&D of the right shoulder. Repeat cultures have been sent. Right shoulder aspirate culture is showing beta hemolytic strep. Left neck wound culture is showing beta him X strep and gram-negative bacilli. Patient has been afebrile, heart rate 94, blood pressure 130/75, pulse ox 90% on room air. WBC 8.4, hemoglobin 8.3, platelet count 284. Discussed case with Dr. Sun recommendations for Rocephin 2 g every day to complete 6 weeks. county manager has been updated and we'll make arrangements for outpatient IV antibiotics. PICC line has been ordered. Antibiotics have been transitioned to Rocephin from cefepime. He has a large dressing in place to the right shoulder. Anticipate probable discharge tomorrow. 04/22: Patient has been afebrile, heart rate 96, blood pressure 132/74, pulse ox 96% on room air. Heart reveals potassium 2.8 which will be replaced with 120 mEq of potassium. Magnesium is 1.6. Total bilirubin 1.6, AST 31, ALT 57, alkaline phosphatase 170. Patient states he continues to feel well and denies any new complaints. He is anxious to go home. county manager has set patient up with [facility] and [facility] homecare. PICC line insertion was completed yesterday. Patient will be discharged home today in stable condition. ASSESSMENT AND PLAN 1. Generalized debility, weight loss, loss of appetite and weakness secondary to cancer and septic right shoulder joint (POA). 2. Basal cell skin cancer of the left cheek with metastatic disease to the neck and lungs status post palliative radiation therapy, under the care of Dr. Metzger. 3. Bladder cancer status post recent transurethral resection of bladder tumors. 4. Right shoulder pain secondary to right shoulder septic arthritis, synovitis status post right shoulder arthroscopic lavage and synovectomy. 5. Severe protein calorie malnutrition with weight loss, loss of appetite and dysphagia secondary to neck tumor. 6. Anemia of chronic disease with possible acute component. 7. Hyponatremia secondary to malnutrition. 8. Hypertension. 9. Metabolic encephalopathy and hallucinations secondary to underlying cancers and medical debilitation, resolved. 10. Possible vocal cord paralysis. ENT follow-up outpatient. Discharge plan: Home with [facility] with IV antibiotics. Impression and plan of care have been directed as dictated by the signing physician. Karly Manzano nurse practitioner acting as scribe for signing physician Patient Condition at Discharge: Good Plan - Discharge Summary Discharge Rx Participant: No New Discharge Prescriptions: New cefTRIAXone [Rocephin] 2 gm IVPB Q24H #42 bag Potassium Chloride ER [K-Dur 20] 20 meq PO DAILY #30 tab.er.prt Sennosides-Docusate Sodium [Senokot-S] 2 each PO DAILY tab Continue Metoprolol Tartrate [Lopressor] 12.5 mg PO HS PRN PRN Reason: HIGH BLOOD PRESSURE Ondansetron [Zofran] 4 - 8 mg PO Q4HR PRN PRN Reason: Nausea HYDROcodone/APAP 5-325MG [Balmorhea 5-325] 0.5 tab PO Q6HR PRN PRN Reason: Pain Erivedge 150 mg PO DAILY Cyclobenzaprine [Flexeril] 10 mg PO TID #15 tab hydrALAZINE HCL [Apresoline] 25 mg PO TID PRN PRN Reason: HIGH BLOOD PRESSURE Discharge Medication List Metoprolol Tartrate [Lopressor] 12.5 mg PO HS PRN 05/18/19 [History] Erivedge 150 mg PO DAILY 04/07/20 [History] HYDROcodone/APAP 5-325MG [Balmorhea 5-325] 0.5 tab PO Q6HR PRN 04/07/20 [History] Ondansetron [Zofran] 4 - 8 mg PO Q4HR PRN 04/07/20 [History] Cyclobenzaprine [Flexeril] 10 mg PO TID #15 tab 04/14/20 [Rx] hydrALAZINE HCL [Apresoline] 25 mg PO TID PRN 04/15/20 [History] cefTRIAXone [Rocephin] 2 gm IVPB Q24H #42 bag 04/21/20 [Rx] Potassium Chloride ER [K-Dur 20] 20 meq PO DAILY #30 tab.er.prt 04/22/20 [Rx] Sennosides-Docusate Sodium [Senokot-S] 2 each PO DAILY tab 04/22/20 [Rx] Follow up Appointment(s)/Referral(s): Gabe Gonzalez MD [STAFF PHYSICIAN] - 05/14/20 10:00 am [facility], [NON-STAFF] - [facility], [REFERRING] - Phil Winslow DO [Primary Care Provider] - 1 Week (office will call with appointment time) Mara Rivera MD [STAFF PHYSICIAN] - 3 Weeks (office will call with appointment time) Moses Cherry MD [STAFF PHYSICIAN] - 05/07/20 1:30 pm Ambulatory/Diagnostic Orders: Basic Metabolic Panel [LAB.AMB] Location: None Selected C Reactive Protein [LAB.AMB] Location: None Selected Complete Blood Count w/diff [LAB.AMB] Location: None Selected Erythrocyte Sedimentation Rate [LAB.AMB] Location: None Selected Patient Instructions/Handouts: Weakness (DC), Anemia (DC) Activity/Diet/Wound Care/Special Instructions: [facility] will deliver IV antibiotic supplies this evening (04/22/2020). [facility] will call you to set up your first visit starting tomorrow (04/23/2020) to begin IV antibiotics. Discharge Disposition: HOME WITH HOME HEALTH SERVICES
[2020-04-22 08:16] VITALS: BP 162/76; PULSE 84; RESP 17; TEMP 98.3
[2020-04-22] MEDS: HYDROcodone/APAP 5-325MG 1 EACH TAB PO PRN (08:26)
[2020-04-22] MEDS: SODIUM CHLORIDE 0.9% 1,000 ML IV SCH (08:26)
[2020-04-22] MEDS: SENNOSIDES-DOCUSATE SODIUM 1 EACH TAB PO SCH (08:26)
[2020-04-22] MEDS: PANTOPRAZOLE 40 MG TABLET PO SCH (08:26)
[2020-04-22] MEDS: HEPARIN SODIUM,PORCINE 5,000 UNIT/ML 1 ML VIAL SQ SCH (08:26)
[2020-04-22 09:21] LABS: African American GFR (CKD) 129.1 (60.0-200.0); Albumin 2.5 g/dL (3.80-4.90); Albumin/Globulin Ratio 1.14 (1.60-3.17); Anion Gap 5.6 mmol/L (4.00-12.00); Calcium 8.2 mg/dL (8.7-10.3); Carbon Dioxide 31.4 mmol/L (21.6-31.8); Globulin 2.2 g/dL (1.6-3.3); Magnesium 1.6 mg/dL (1.5-2.4); Non-African American GFR(CKD) 111.3 (60.0-200.0); Potassium 2.8 mmol/L (3.5-5.5); Total Bilirubin 1.6 mg/dL (0.3-1.2); Total Protein 4.7 g/dL (6.2-8.2)
[2020-04-22] MEDS: POTASSIUM CHLORIDE ER 20 MEQ TAB.ER PO SCH ×2 (09:57→12:23)
--- NOTE | 2020-04-22 10:21 | P.PN ---
Subjective Progress Note Date: 04/22/20 Principal diagnosis: Status post right shoulder arthroscopic lavage/synovectomy Patient evaluated today at bedside, he is resting comfortably. No new complaints overnight. Denies any chest pain, shortness of breath, fever or chills. Objective - Vital Signs Vital signs: Vital Signs Temp 98.3 F 04/22/20 07:17 Pulse 84 04/22/20 07:17 Resp 17 04/22/20 07:17 BP 162/76 04/22/20 07:17 Pulse Ox 98 04/22/20 07:17 Intake & Output 04/21/20 04/22/20 04/22/20 18:59 06:59 18:59 Intake Total 300 Output Total 2 250 Balance 298 -250 Intake: Oral 300 Output: Urine 250 Stool 2 Other: Voiding Method Urinal Urinal Urinal # Voids 2 3 # Bowel Movements 1 1 - Exam Right upper extremity: Postoperative bandages were removed, incisions are clean, dry and intact. Minimal soft tissue swelling present throughout the extremity Sensation to light touch throughout the extremity is intact, radial and ulnar pulses 2+ Range of motion of the shoulder was not assessed, flexion and extension at the elbow and wrist are intact - Labs CBC & Chem 7: 04/21/20 05:29 04/22/20 05:21 Labs: Abnormal Lab Results - Last 24 Hours (Table) 04/21/20 04/22/20 Range/Units 05:29 05:21 Potassium 3.1 L 2.8 L (3.5-5.5) mmol/L Anion Gap 14.00 H (4.00-12.00) mmol/L BUN 8.0 L (9.0-27.0) mg/dL Creatinine 0.5 L 0.5 L (0.6-1.5) mg/dL BUN/Creatinine Ratio 22.00 H (12.00-20.00) Ratio Glucose 127 H (70-110) mg/dL Calcium 8.5 L 8.2 L (8.7-10.3) mg/dL Total Bilirubin 2.6 H 1.6 H (0.3-1.2) mg/dL ALT 72 H 57 H (10-49) U/L Alkaline Phosphatase 142 H 170 H (41-126) U/L Total Protein 4.8 L 4.7 L (6.2-8.2) g/dL Albumin 2.50 L 2.50 L (3.80-4.90) g/dL Albumin/Globulin Ratio 1.09 L 1.14 L (1.60-3.17) g/dL Microbiology - Last 24 Hours (Table) 04/15/20 22:17 Blood Culture - Final Blood No Growth after 144 hours 04/20/20 17:00 Gram Stain - Preliminary Shoulder - Right Wound Culture - Preliminary Beta Hemolytic Strep Group G 04/20/20 10:27 Blood Culture - Preliminary Blood No Growth after 24 hours 04/19/20 10:08 Gram Stain - Preliminary Neck Wound Culture - Preliminary Beta Hemolytic Strep Group G Pseudomonas aeruginosa Assessment and Plan Assessment: Status post right shoulder arthroscopic lavage/synovectomy Right shoulder septic arthritis/synovitis Multiple medical comorbidities Plan: Wound care instructions were discussed with the patient. Use of arm sling as needed Patient has a PICC line in place, he'll be receiving IV antibiotics Plan for follow-up in the outpatient setting in 2 weeks Time with Patient: Less than 30
[2020-04-22] MEDS ORDERED: POTASSIUM CHLORIDE ER 20 MEQ TAB.ER PO STA (10:27)
--- NOTE | 2020-04-22 17:11 | P.PN ---
Subjective Progress Note Date: 04/22/20 Principal diagnosis: septic joints, basal cell, bladder carcinoma, iron deficiency anemia Pt feels good is anxious to go home, no fevers, tolerating oral intake Objective - Vital Signs Vital signs: Vital Signs Temp 98.3 F 04/22/20 07:17 Pulse 84 04/22/20 07:17 Resp 17 04/22/20 07:17 BP 162/76 04/22/20 07:17 Pulse Ox 98 04/22/20 07:17 Intake & Output 04/21/20 04/22/20 04/22/20 18:59 06:59 18:59 Intake Total 300 Output Total 2 250 Balance 298 -250 Intake: Oral 300 Output: Urine 250 Stool 2 Other: Voiding Method Urinal Urinal Urinal # Voids 2 3 # Bowel Movements 1 1 - Constitutional General appearance: Present: average body habitus, cooperative, no acute distress - EENT Eyes: Present: anicteric sclerae, EOMI - Respiratory Details: resp even and unlabored - Integumentary Integumentary Comment(s): left neck basal cell tumor - Neurologic Neurologic: Present: CNII-XII intact - Psychiatric Psychiatric: Present: A&O x's 3, appropriate affect, intact judgment & insight - Labs CBC & Chem 7: 04/21/20 05:29 04/22/20 05:21 Labs: Abnormal Lab Results - Last 24 Hours (Table) 04/21/20 04/22/20 Range/Units 05:29 05:21 Potassium 3.1 L 2.8 L (3.5-5.5) mmol/L Anion Gap 14.00 H (4.00-12.00) mmol/L BUN 8.0 L (9.0-27.0) mg/dL Creatinine 0.5 L 0.5 L (0.6-1.5) mg/dL BUN/Creatinine Ratio 22.00 H (12.00-20.00) Ratio Glucose 127 H (70-110) mg/dL Calcium 8.5 L 8.2 L (8.7-10.3) mg/dL Total Bilirubin 2.6 H 1.6 H (0.3-1.2) mg/dL ALT 72 H 57 H (10-49) U/L Alkaline Phosphatase 142 H 170 H (41-126) U/L Total Protein 4.8 L 4.7 L (6.2-8.2) g/dL Albumin 2.50 L 2.50 L (3.80-4.90) g/dL Albumin/Globulin Ratio 1.09 L 1.14 L (1.60-3.17) g/dL Microbiology - Last 24 Hours (Table) 04/20/20 10:27 Blood Culture - Preliminary Blood No Growth after 48 hours 04/19/20 10:08 Gram Stain - Preliminary Neck Wound Culture - Preliminary Beta Hemolytic Strep Group G Pseudomonas aeruginosa Presumptive Staph aureus 04/15/20 22:17 Blood Culture - Final Blood No Growth after 144 hours 04/20/20 17:00 Gram Stain - Preliminary Shoulder - Right Wound Culture - Preliminary Beta Hemolytic Strep Group G Assessment and Plan (1) Basal cell carcinoma Status: Chronic Priority: High Code(s): C44.91 - BASAL CELL CARCINOMA OF SKIN, UNSPECIFIED SNOMED Code(s): 105906835 (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 Narrative/Plan: At least muscle invasive Status: Acute Priority: High Code(s): D41.4 - NEOPLASM OF UNCERTAIN BEHAVIOR OF BLADDER SNOMED Code(s): 87786705 Plan: Spoke with pt and about his current situation. Pt was angry that hospice was suggested by Oncology. I explained to him that with 2 malignancies it is our job to offer all potential options for care to a patient. Hospice is a realistic treatment option in his case, despite pt feeling that it is not. We stand by our discussion offering hospice as a treatment option with the pt. He and his had questions about referral for trial for basal cell-as there are no currently approved treatment options left. [facility] referred to Jase who has never called pt. I will work with [facility] clinical trials nurse to see if we can find him something. In regards to muscle invasive bladder cancer, surgery is would be the definitive treatment option. We will refer to [facility] Urology clinic for evaluation and treatment options. Will call pt call with info per her request. Will refer pt to Oncologist of his request if he so chooses. Time with Patient: Greater than 30 (>40min spent counseling and coordinating care)
== END 2020-04-22 14:35 | disposition home health service (06) | DRG 548 ==
LOC: EC 21:43 → 4SSUR 23:18 → OBSVTOIN 04-17 14:07
PROVIDERS: ADMIT Internal Medicine Geriatric Medicine; ATTEND Internal Medicine Geriatric Medicine
PROC: 0R9J3ZX Drainage of Right Shoulder Joint, Percutaneous Approach, Diagnostic (ICD-10-PCS; 2020-04-18)
PROC: 30233N1 Transfusion of Nonautologous Red Blood Cells into Peripheral Vein, Percutaneous Approach (ICD-10-PCS; 2020-04-19)
PROC: 0RBJ4ZX Excision of Right Shoulder Joint, Percutaneous Endoscopic Approach, Diagnostic (ICD-10-PCS; principal; 2020-04-20 16:00)
PROC: 3E1U48X Irrigation of Joints using Irrigating Substance, Percutaneous Endoscopic Approach, Diagnostic (ICD-10-PCS; principal; 2020-04-20 16:00)
PROC: 02HV33Z Insertion of Infusion Device into Superior Vena Cava, Percutaneous Approach (ICD-10-PCS; 2020-04-21)
DX: M00.211 Other streptococcal arthritis, right shoulder (principal); E43 Unspecified severe protein-calorie malnutrition; G93.41 Metabolic encephalopathy; C78.01 Secondary malignant neoplasm of right lung; C79.89 Secondary malignant neoplasm of other specified sites; E87.1 Hypo-osmolality and hyponatremia; C67.9 Malignant neoplasm of bladder, unspecified; D63.8 Anemia in other chronic diseases classified elsewhere; B95.4 Other streptococcus as the cause of diseases classified elsewhere; J38.00 Paralysis of vocal cords and larynx, unspecified; C44.319 Basal cell carcinoma of skin of other parts of face; Z51.5 Encounter for palliative care; E86.0 Dehydration; D50.9 Iron deficiency anemia, unspecified; Z68.21 Body mass index [BMI] 21.0-21.9, adult; Z20.828 Contact with and (suspected) exposure to other viral communicable diseases; M65.811 Other synovitis and tenosynovitis, right shoulder; G58.8 Other specified mononeuropathies; R13.10 Dysphagia, unspecified; R31.9 Hematuria, unspecified; I10 Essential (primary) hypertension; I49.3 Ventricular premature depolarization; K59.00 Constipation, unspecified; R26.2 Difficulty in walking, not elsewhere classified; M19.011 Primary osteoarthritis, right shoulder; Z79.899 Other long term (current) drug therapy; Z87.01 Personal history of pneumonia (recurrent); Z92.3 Personal history of irradiation; Z87.39 Personal history of other diseases of the musculoskeletal system and connective tissue; Z96.641 Presence of right artificial hip joint; Z77.090 Contact with and (suspected) exposure to asbestos; Z98.890 Other specified postprocedural states; Z80.3 Family history of malignant neoplasm of breast; Z83.2 Family history of diseases of the blood and blood-forming organs and certain disorders involving the immune mechanism
CPT/HCPCS: 36415; 36573; 70450; 70553; 71045; 76700; 76857; 80048; 80053; 81001; 82607; 82728; 83540; 83550; 83605; 83615; 83735; 83921; 84550; 85025; 85027; 85379; 85610; 85652; 85730; 86140; 86850; 86900; 86901; 86920; 87040; 87070; 87075; 87077; 87102; 87186; 87205; 87502; 89050; 89060; 93005; 96360; 96361; 99285

== ENCOUNTER 2020-05-09 00:27 | Emergency (ER) | payer MEDICARE ==
[2020-05-09 01:20] LABS: Anisocytosis Slight; Basophils # (A) 0.1 k/uL (0-0.2); Basophils % (A) 1 %; Eosinophils % (A) 1 %; HCT 31.4 % (39.0-53.0); Hypochromasia Moderate; Lymphocytes % (A) 12 %; MCH 24.2 pg (25.0-35.0); MCHC 31.8 g/dL (31.0-37.0); MCV 76.2 fL (80.0-100.0); Mean Platelet Volume 7.2; Microcytosis Slight; Monocytes # (A) 0.3 k/uL (0-1.0); Monocytes % (A) 4 %; Neutrophils # (A) 6.3 k/uL (1.3-7.7); Neutrophils % (A) 80 %; Platelet Count 375 k/uL (150-450); RBC 4.12 m/uL (4.30-5.90); RDW 17.1 % (11.5-15.5); WBC 7.9 k/uL (3.8-10.6)
--- NOTE | 2020-05-09 01:24 | ED ---
SOB HPI - General Chief Complaint: Shortness of Breath Stated Complaint: JANET Time Seen by Provider: 05/09/20 00:44 Source: patient, EMS Mode of arrival: EMS Limitations: no limitations - History of Present Illness Initial Comments: Patient is a 69-year-old male, currently undergoing chemo treatment for bladder cancer as well as basal cell carcinoma with metastases, presenting to the emergency Department with complaints of shortness of breath. Patient states he was sleeping and was awoke as he felt a little short of breath. Patient's called EMS and he was placed on oxygen and patient states he feels better. Patient's states that patient has had a cough with some mild congestion noted that started yesterday. She feels like today the cough is a little worse. Patient has not had a fever. Patient states at this time he feels his normal self. He denies any chest pain, abdominal pain, nausea, vomiting. He is currently on antibiotics, Rocephin, secondary to having his right shoulder scoped/cleaned out. He also takes potassium. There are no further complaints at this time. Upon arrival to the ER, BP was elevated, rest of vitals normal. Patient's stated that his blood pressure has been better over the past few weeks so she stopped giving him a pressure medication. - Related Data Home Medications Medication Instructions Recorded Confirmed Metoprolol Tartrate [Lopressor] 12.5 mg PO HS PRN 05/18/19 04/15/20 Erivedge 150 mg PO DAILY 04/07/20 04/15/20 HYDROcodone/APAP 5-325MG [[place] 0.5 tab PO Q6HR PRN 04/07/20 04/15/20 5-325] Ondansetron [Zofran] 4 - 8 mg PO Q4HR PRN 04/07/20 04/15/20 hydrALAZINE HCL [Apresoline] 25 mg PO TID PRN 04/15/20 04/15/20 Previous Rx's Medication Instructions Recorded Cyclobenzaprine [Flexeril] 10 mg PO TID #15 tab 04/14/20 cefTRIAXone [Rocephin] 2 gm IVPB Q24H #42 bag 04/21/20 Potassium Chloride ER [K-Dur 20] 20 meq PO DAILY #30 tab.er.prt 04/22/20 Sennosides-Docusate Sodium 2 each PO DAILY tab 04/22/20 [Senokot-S] Allergies Allergy/AdvReac Type Severity Reaction Status Date / Time No Known Allergies Allergy Verified 05/09/20 00:34 Review of Systems ROS Statement: Those systems with pertinent positive or pertinent negative responses have been documented in the HPI. ROS Other: All systems not noted in ROS Statement are negative. 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 radiation- last treatment September. currently taking oral chemo. constipation, anemia, growth on neck, recent hematuria. bladder CA History of Any Multi-Drug Resistant Organisms: None Reported Past Surgical History: Back Surgery, Heart Catheterization, Joint Replacement, Orthopedic Surgery Additional Past Surgical History / Comment(s): PREVIOUS SKIN CA LESIONS REMOVED, RT HIP REPLACEMENT, left ANKLE ORIF WITH METAL , lung biopsy, neck biopsy, heart cath > 10 yrs ago Past Anesthesia/Blood Transfusion Reactions: Previous Problems w/ Anesthesia Additional Past Anesthesia/Blood Transfusion Reaction / Comment(s): Pt woke up violently during lung biopsy Past Psychological History: No Psychological Hx Reported Smoking Status: Never smoker Past Alcohol Use History: None Reported Past Drug Use History: None Reported - Past Family History Mother Family Medical History: Cancer, Deep Vein Thrombosis (DVT) Additional Family Medical History / Comment(s): BREAST CA General Exam - General Exam Comments Initial Comments: GENERAL: Patient appears slightly cachectic. Patient is nontoxic and in no acute distress. HEAD: Atraumatic, normocephalic. EYES: Pupils equal round and reactive to light, extraocular movements intact, sclera anicteric, conjunctiva are normal. Eyelids were unremarkable. ENT: TMs normal, nares patent, oropharynx clear without exudates. Moist mucous membranes. NECK: Normal range of motion, supple without lymphadenopathy or JVD. Patient has extensive carcinoma of the left side of his neck. LUNGS: Unlabored respirations. Breath sounds clear to auscultation bilaterally and equal. No wheezes rales or rhonchi. HEART: Regular rate and rhythm without murmurs, rubs or gallops. ABDOMEN: Soft, nontender, normoactive bowel sounds. No guarding, no rebound. No masses appreciated. : Deferred MUSCULOSKELETAL: Normal extremities with adequate strength and normal range of motion, no pitting or edema. No clubbing or cyanosis. NEUROLOGICAL: Patient is alert and oriented x 3. Motor and sensory are also intact. Cranial nerves II through XII grossly intact. Symmetrical smile. Normal speech, normal gait. PSYCH: Normal mood, normal affect. SKIN: Warm, Dry, normal turgor, no rashes or lesions noted. Limitations: no limitations Course Vital Signs 05/09/20 05/09/20 05/09/20 00:31 01:30 02:30 Temperature 97.5 F L 97.6 F Pulse Rate 83 86 81 Respiratory 16 19 19 Rate Blood Pressure 180/106 163/101 167/103 O2 Sat by Pulse 100 99 99 Oximetry 05/09/20 03:36 Temperature 97.7 F Pulse Rate 75 Respiratory 18 Rate Blood Pressure 173/108 O2 Sat by Pulse 99 Oximetry Medical Decision Making - Medical Decision Making Patient is a 69-year-old male currently undergoing treatment for carcinoma of the left side of his neck as well as invasive bladder cancer, with metastases, presenting with an episode of shortness of breath. He is currently asymptomatic, he feels like his normal self. His blood pressure was elevated, rest of vitals were normal. Patient's states she stopped giving him his blood pressure medication. Patient's labs reveal stable hemoglobin of 10.0, white count is normal at 7.9, sodium is 136, potassium is 3.8 calcium is elevated at 15. This was also elevated 3 days ago at 13.4 and again in 10 days ago to 11.0. Patient was given some fluids and has been resting comfortably in the ER. Patient is wanting to go home. Upon reviewing patient's previous progress notes, there was talk of patient starting hospice. I will have patient follow up with his PCP and oncologist regarding the calcium level. Patient is in agreement this plan of care. He will be stable for discharge. Return parameters were discussed with the patient and he verbalized understanding. Case discussed with Dr. Thurman. - Lab Data Result diagrams: 05/09/20 01:07 05/09/20 01:07 Lab Results 05/09/20 05/09/20 05/09/20 Range/Units 01:07 01:07 01:07 WBC 7.9 (3.8-10.6) k/uL RBC 4.12 L (4.30-5.90) m/uL Hgb 10.0 L (13.0-17.5) gm/dL Hct 31.4 L (39.0-53.0) % MCV 76.2 L (80.0-100.0) fL MCH 24.2 L (25.0-35.0) pg MCHC 31.8 (31.0-37.0) g/dL RDW 17.1 H (11.5-15.5) % Plt Count 375 (150-450) k/uL MPV 7.2 Neutrophils % 80 % Lymphocytes % 12 % Monocytes % 4 % Eosinophils % 1 % Basophils % 1 % Neutrophils # 6.3 (1.3-7.7) k/uL Lymphocytes # 1.0 (1.0-4.8) k/uL Monocytes # 0.3 (0-1.0) k/uL Eosinophils # 0.0 (0-0.7) k/uL Basophils # 0.1 (0-0.2) k/uL Hypochromasia Moderate Anisocytosis Slight Microcytosis Slight Sodium 136 L (137-145) mmol/L Potassium 3.8 (3.5-5.1) mmol/L Chloride 96 L (98-107) mmol/L Carbon Dioxide 36 H (22-30) mmol/L Anion Gap 4 mmol/L BUN 16 (9-20) mg/dL Creatinine 1.09 (0.66-1.25) mg/dL Est GFR (CKD-EPI)AfAm 80 (>60 ml/min/1.73 sqM) Est GFR (CKD-EPI)NonAf 69 (>60 ml/min/1.73 sqM) Glucose 111 H (74-99) mg/dL Plasma Lactic Acid Jose Manuel 1.0 (0.7-2.0) mmol/L Calcium 15.0 H* (8.4-10.2) mg/dL Magnesium 1.9 (1.6-2.3) mg/dL Total Bilirubin 0.9 (0.2-1.3) mg/dL AST 54 (17-59) U/L ALT 37 (4-49) U/L Alkaline Phosphatase 191 H (38-126) U/L Total Protein 8.4 H (6.3-8.2) g/dL Albumin 3.6 (3.5-5.0) g/dL - EKG Data EKG Comments: Normal sinus rhythm, possible inferior infarct age undetermined, no signs of acute ischemia, ventricular rate 81, ID interval 178, QT 380. Disposition Clinical Impression: Shortness of breath, Hypercalcemia of malignancy, Bladder neoplasm of uncertain malignant potential Disposition: HOME SELF-CARE Condition: Stable Instructions (If sedation given, give patient instructions): Dehydration (ED) Additional Instructions: Please return to the Emergency Department if symptoms worsen or any other concerns. Continue to increase water intake. Follow-up with oncologist/PCP as discussed. Is patient prescribed a controlled substance at d/c from ED?: No Referrals: Phil Winslow DO [Primary Care Provider] - 1-2 days
[2020-05-09 01:32] LABS: Albumin 3.6 g/dL (3.5-5.0); Magnesium 1.9 mg/dL (1.6-2.3); Potassium 3.8 mmol/L (3.5-5.1); Total Bilirubin 0.9 mg/dL (0.2-1.3); Total Protein 8.4 g/dL (6.3-8.2)
--- NOTE | 2020-05-09 02:00 | XR ---
EXAM: XR Chest, 1 View CLINICAL HISTORY: ITS.REASON XR Reason: dyspnea TECHNIQUE: Frontal view of the chest. COMPARISON: Chest radiograph on 04/15/2020 FINDINGS: Hardware: None. Lungs/pleura: Scarring in the right upper lung. No focal consolidation. No pleural effusion or pneumothorax. Heart/mediastinum: Normal. No cardiomegaly. Soft tissues: Unremarkable. Bones: No acute fracture. Degenerative changes of the spine. Curvature of the spine. Upper abdomen: Normal. IMPRESSION: No acute disease identified. Similar scarring in the right upper lung.
[2020-05-09] MEDS ORDERED: SODIUM CHLORIDE 0.9% 500 ML 500 ML IV STA (02:28)
[2020-05-09 03:39] VITALS: BP 173/108; PULSE 75; RESP 18; TEMP 97.7
== END 2020-05-09 03:36 | disposition home or self-care (01) ==
LOC: EC 00:27
DX: E83.52 Hypercalcemia (principal); C76.0 Malignant neoplasm of head, face and neck; C79.11 Secondary malignant neoplasm of bladder; I10 Essential (primary) hypertension; Z85.828 Personal history of other malignant neoplasm of skin; Z92.3 Personal history of irradiation; Z92.21 Personal history of antineoplastic chemotherapy; Z95.5 Presence of coronary angioplasty implant and graft; Z96.641 Presence of right artificial hip joint; Z98.890 Other specified postprocedural states; Z79.899 Other long term (current) drug therapy
CPT/HCPCS: 36415; 71045; 80053; 83605; 83735; 85025; 93005; 96360; 99285